=== PATIENT | male | born 1950 | race Caucasian/White ===

== ENCOUNTER 2023-12-29 09:33 | Outpatient (OUT) | payer MEDICARE, SELFPAY ==
[2023-12-29 10:19] LABS: Basophils Absolute Auto 0.1 10^3/uL (0.0-0.1); Basophils Percent Auto 0.6 % (0.2-2.0); Eosinophils Absolute Auto 0.1 10^3/uL (0.0-0.7); Eosinophils Percent Auto 1.1 % (0.9-7.0); Hematocrit 44.5 % (42.0-54.0); Hemoglobin 14.3 g/dL (14.0-18.0); Immature Granulocytes Abs Auto 0.03 10^3/uL (0.00-0.03); Immature Granulocytes Pct Auto 0.3 % (0.0-0.5); Lymphocytes Absolute Auto 3.2 10^3/uL (1.2-3.8); Lymphocytes Percent Auto 35.8 % (20.5-60.0); Mean Corpuscular HGB Conc 32.1 g/dL (29.9-35.2); Mean Corpuscular Volume 99.6 fL (80.0-94.0); Mean Platelet Volume 10.5 fL (9.5-13.5); Monocytes Absolute Auto 0.8 10^3/uL (0.3-0.8); Monocytes Percent Auto 8.5 % (1.7-12.0); Neutrophils Absolute Auto 4.8 10^3/uL (1.4-6.5); Neutrophils Percent Auto 53.7 % (43.0-75.0); Platelet Count 315 10^3/uL (150-450); Red Blood Count 4.47 10^6/uL (4.70-6.10); Red Cell Distribution Width 13.2 % (11.0-15.0); White Blood Count 8.9 10^3/uL (4.0-11.0)
[2023-12-29 10:59] LABS: Estimated Average Glucose 120 mg/dL; Glycohemoglobin A1C 5.8 % (4.5-6.2)
[2023-12-29 12:00] LABS: Alanine Aminotransferase 60 U/L (16-63); Albumin Globulin Ratio 1.2; Alkaline Phosphatase 63 U/L (46-116); Anion Gap 13.7; Aspartate Amino Transferase 22 U/L (15-37); BUN Creatinine Ratio 20.2; Bilirubin Total 0.4 mg/dL (0.2-1.0); Carbon Dioxide 27.9 mmol/L (21.0-32.0); Chloride 104 mmol/L (98-107); Chol HDL Ratio 6.2; Cholesterol 260 mg/dL (<=200); Estimated GFR (African America >60 (>=60); Estimated GFR (Non-African Ame >60 (>=60); Free T3 2.42 pg/mL (2.18-3.98); Globulin 3.4 g/dL; Glucose 104 mg/dL (74-106); HDL Cholesterol 42 mg/dL (40-60); Potassium 4.6 mmol/L (3.5-5.1); Sodium 141 mmol/L (136-145); Thyroid Stimulating Hormone 1.645 uIU/mL (0.358-3.740); Total Protein 7.4 g/dL (6.4-8.2); Triglycerides 171 mg/dL (<=150); VLDL CHOLESTEROL 34.2 mg/dL
== END 2023-12-29 09:34 | disposition home or self-care (01) ==
LOC: LAB 09:36
PROVIDERS: PCP Family Medicine; Visit Provider Family Medicine
DX: R53.83 Other fatigue (principal); R06.00 Dyspnea, unspecified; D64.9 Anemia, unspecified; E55.9 Vitamin D deficiency, unspecified; R73.09 Other abnormal glucose; E78.5 Hyperlipidemia, unspecified; I11.0 Hypertensive heart disease with heart failure
CPT/HCPCS: 36415; 80053; 80061; 82306; 83036; 83540; 83880; 84436; 84443; 84481; 85025

== ENCOUNTER 2024-03-21 07:21 | Outpatient (OUT) | payer MEDICARE, SELFPAY ==
--- NOTE | 2024-03-21 07:05 | NM_ITS ---
Patient Name: ARNALDO GARCIA MR#: [id number] : 1950 Exam Date: 03/21/2024 Ordering Doctor: DR Azar Borrego . RADIOLOGY REPORT PROCEDURE: NM PAULINE PERF SPECT REST STR COMPARISON: None. INDICATIONS: HYPERTENSION, SHORTNESS OF BREATH TECHNIQUE: Exam Description: Stress/Rest one day protocol gated SPECT Rest Imagin.5 mCi Tc-99m Cardiolite IV on 03/21/2024 Stress Imaging 30.1 mCi Tc-99m Cardiolite IV on 03/21/2024 Exercise Protocol: 0.4 mg Lexiscan given IV Heart Rate (bpm): Rest: 75 Max: 141 PMHR: 97 Blood Pressure: Rest: 132/86 Max: 182/74 Exercise Time: Minutes: 4 Seconds: 36 Stage Reached: Stage: 2 Mets 7.0 Symptoms: Rest and peak stress ECG findings were pending and the exercise portion of the study was pending per attending physician Dr. ROJAS . For more details please see separate cardiac stress test report. FINDINGS: QUALITY OF STUDY: Excellent. PERFUSION DEFECT: None. LOCATION: N/A SIZE: N/A. SEVERITY: N/A. TYPE: N/A. WALL MOTION: Normal. LV SIZE: Normal. 84 mL. TID / TCD: None; 0.8 LVEF: Normal. Calculated EF 63%. SUMMARY: Myocardial perfusion imaging study is NORMAL. CONCLUSION: 1. Normal nuclear medicine myocardial perfusion scan. Dictated by: Manuel Hutson M.D. on 03/21/2024 at 14:47 Approved by: Manuel Hutson M.D. on 03/21/2024 at 14:48
--- NOTE | 2024-03-21 07:21 | PCN_ITS ---
CARDIAC STRESS TEST Requesting Physician:? Procedure Date:? 03/21/2024 DIAGNOSIS:? Essential hypertension. METHODS:? After risks, benefits, and alternatives were explained, written informed consent was obtained.? The patient was brought to the stress lab in a resting and fasting state.? He was connected to the appropriate hemodynamic and electrocardiographic monitoring.? He underwent a Slade protocol for exercise. Following the completion of the test, he was taken to the Radiology Department for nuclear images.? He tolerated the procedure well.? There were no complications. STRESS TEST INFORMATION: The patient underwent a Slade protocol for exercise.? He exercised for 4 minutes and 36 seconds, reaching stage 2 of the Slade protocol.? 7 METS were achieved.? Resting heart rate was 75 beats per minute, increasing to a maximum of 141 beats per minute, which is 97% of maximum predicted heart rate.? Resting blood pressure was 132/86, with a maximum blood pressure of 182/74. ? ELECTROCARDIOGRAPHY: Rest EKG:? Normal sinus rhythm, normal EKG. During exercise and recovery:? Non-specific upsloping ST depressions are seen.? No significant arrhythmias are noted. FINAL IMPRESSIONS: 1.? No ischemic EKG changes seen on treadmill Cardiolite stress test. 2.? Appropriate heart rate and blood pressure response to exercise. 3.? Sommer treadmill score is 4.4.? Estimated one year mortality is 1.3 to 2.9%.? Risk category is moderate risk.? Angiography may be indicated. 4.? Nuclear images are to be read, interpreted, and reported in a separate dictation. [facility]OS[facility]ITALTaqueria
== END 2024-03-21 07:22 | disposition home or self-care (01) ==
LOC: NM 07:21
PROVIDERS: PCP Family Medicine; Visit Provider Family Medicine
DX: I10 Essential (primary) hypertension (principal); R07.9 Chest pain, unspecified; R00.2 Palpitations; E11.9 Type 2 diabetes mellitus without complications; R06.02 Shortness of breath; I95.9 Hypotension, unspecified
CPT/HCPCS: 78452; 93017; A9500

== ENCOUNTER 2024-06-26 09:30 | Outpatient (OUT) | payer MEDICARE, SELFPAY ==
[2024-06-26 17:16] LABS: Prostate Specific Antigen Scrn 2.24 ng/mL (<=4.00)
== END 2024-06-26 09:31 | disposition home or self-care (01) ==
LOC: LAB 09:31
PROVIDERS: PCP Family Medicine; Visit Provider Family Medicine
DX: Z12.5 Encounter for screening for malignant neoplasm of prostate (principal)
CPT/HCPCS: 36415; G0103

== ENCOUNTER 2024-11-09 10:02 | Outpatient (OUT) | payer MEDICARE, SELFPAY ==
--- OUTSIDE RECORDS SUMMARY | 2024-11-09 10:09 | XMS_ITS | CCD ---
Author Organization [facility] Care Team Providers Care Ground Hand Name Role Phone Ti Borrego Primary Care Provider TI BORREGO Primary Care Unavailable BRAXTON BASSETT Attending Unavailable TI BORREGO Referring Unavailable TI BORREGO Primary Care Unavailable ANJALI, DR LUKE Attending Unavailable HOY, DR LUKE Admitting Unavailable HOY, DR LUKE Primary Care Unavailable HOY, DR LUKE Consulting Unavailable YI, DR JONES Reed Consulting Unavailable PONCHO GARCIA Consulting Unavailable ANJALI, DR LUKE Attending Unavailable HOY, DR LUKE Primary Care Unavailable HOY, DR LUKE Consulting Unavailable HOY, DR LUKE Admitting Unavailable ZIEBER, DR OJNES Reed Consulting Unavailable ANJALI, DR LUKE Primary Care Unavailable RADHAY, DR LUKE Attending Unavailable HOY, DR LUKE Admitting Unavailable HOY, DR LUKE Consulting Unavailable WEST, DR JAZMÍN Aleman Consulting Unavailable ZIEBER, DR JONES Reed Consulting Unavailable ANJALI, DR LUKE Attending Unavailable ANJALI, DR LUKE Primary Care Unavailable HOY, DR LUKE Admitting Unavailable HOY, DR LUKE Attending Unavailable HOY, DR LUKE Admitting Unavailable HOY, DR LUKE Primary Care Unavailable HOY, DR LUKE Consulting Unavailable ZIEBER, DR OJNES Reed Consulting Unavailable HOY, DR LUKE Consulting Unavailable ANJALI, DR LUKE Attending Unavailable RADHAY, DR LUKE Primary Care Unavailable RADHAY, DR LUKE Admitting Unavailable ZIEBER, DR JONES Reed Consulting Unavailable MARIANNE, DR HOPKINS Consulting Unavailable JAZMÍN LOPEZ Consulting Unavailable ANJALI, DR LUKE Attending Unavailable RADHAY, DR LUKE Admitting Unavailable ANJALI, DR LUKE Primary Care Unavailable HOJohanna, DR LUKE Consulting Unavailable MICHEL BOYKIN Consulting Unavailable ANJALI, DR LUKE Attending Unavailable HOY, DR LUKE Admitting Unavailable HOY, DR LUKE Primary Care Unavailable DR TI BORREGO Consulting Unavailable WEST, DR JAZMÍN Aleman Consulting Unavailable DR TI BORREGO Attending Unavailable DR TI BORREGO Admitting Unavailable ANJALI, DR LUKE Primary Care Unavailable ANJALI, DR LUKE Consulting Unavailable Ti Borrego Primary Care Physician Ti Borrego Referring Unavailable SHAYYL, Oral Reed Attending Unavailable NILL, Oral Reed Attending Unavailable NILL, Oral R Referring Unavailable NILL, Oral R Attending Unavailable NILL, Oral R Admitting Unavailable Allergies Allergy Classification Reported Allergen(s) Allergy Type Date of Onset Reaction(s) Facility (1 source) black walnut pollen extract Drug Allergy 2 [facility] Repository (1 source) rosuvastatin Drug Allergy 1 [facility] Repository (4 sources) Bee/Wasp/Ant venom; Translations: [Bee Stings] Drug allergy Edema (finding) [facility] (4 sources) HMG-CoA reductase inhibitor; Translations: [statins] Propensity to adverse reactions to drug Muscle pain (finding) [facility] [place] Medications Current Medications Medication Drug Class(es) Dates Sig (Normalized) Sig (Original) Acetaminophen / HYDROcodone (1 source) Opioid Agonist Start: 11-09-2020 hydrocodone-acetamin ophen (NORCO) tablet 5-325 mg (STARTER PACK) aspirin 325 mg delayed release oral tablet (3 sources) Platelet Aggregation Inhibitor, Nonsteroidal Anti-inflammatory Drug Start: 04-15-2023 take 2 tablets by mouth twice daily aspirin 325 mg Oral EC Tab 650 mg = 2 tab(s), Oral, BID, Refills(s) 0, Prophylaxis Start Date: 04/15/23 Status: Ordered cholecalciferol 5000 unt oral tablet (1 source) Vitamin D Cholecalciferol (VITAMIN D3) 125 MCG (5000 UT) TABS Take by mouth 0 Active ciprofloxacin 500 mg oral tablet (1 source) Quinolone Antimicrobial take 1 tablet by mouth twice daily ciprofloxacin (CIPRO) 500 MG tablet Take 500 mg by mouth 2 times daily 0 Active diclofenac sodium 75 mg delayed release oral tablet (4 sources) Nonsteroidal Anti-inflammatory Drug Start: 04-15-2023 take 1 tablet by mouth twice daily diclofenac sodium 75 mg Oral EC Tab 75 mg = 1 tab(s), Oral, BID, Refills(s) 0, Pain Start Date: 04/15/23 Status: Ordered take 1 tablet by mouth twice janet ly diclofenac (VOLTAREN) 75 MG EC tablet Take 75 mg by mouth 2 times daily 0 Active doxazosin 4 mg oral tablet (3 sources) alpha-Adrenergic Lizette Start: 04-15-2023 take 1 tablet by mouth twice daily doxazosin 4 mg Tab 4 mg = 1 tab(s), Oral, BID, Refills(s) 0, High blood pressure Start Date: 04/15/23 Status: Ordered enalapril maleate 20 mg oral tablet (4 sources) Angiotensin Converting Enzyme Inhibitor Start: 04-29-2016 take 20 mg by mouth twice daily enalapril 20 mg, Oral, BID, Refills(s) 0, High blood pressure Start Date: 04/29/16 Status: Ordered take 1 tablet by mouth once azael y enalapril (VASOTEC) 20 MG tablet Take 20 mg by mouth daily 0 Active ibuprofen 600 mg oral tablet (2 sources) Nonsteroidal Anti-inflammatory Drug Start: 11-09-2020 take 1 tablet by mouth four times daily as needed for pain ibuprofen (ADVIL;MOTRIN) 600 MG tablet Take 1 tablet by mouth 4 times daily as needed for Pain 30 tablet 1 11/09/2020 Active Start: 05-17-2016 take 1 tablet by mildred th three times daily at mealtime ibuprofen (ADVIL;MOTRIN) 600 MG tablet Take 1 tablet by mouth 3 times daily (with meals) for 7 days 20 tablet 0 05/17/2016 Active loratadine 10 mg oral tablet (2 sources) Start: 04-15-2023 take 1 tablet by mouth once daily loratadine 10 mg Tab 10 mg = 1 tab(s), Oral, Daily, Refills(s) 0, Allergy symptoms Start Date: 04/15/23 Status: Ordered metroNIDAZOLE 500 mg oral tablet (1 source) Nitroimidazole Antimicrobial take 1 tablet by mouth three times daily metroNIDAZOLE (FLAGYL) 500 MG tablet Take 500 mg by mouth 3 times daily 0 Active omeprazole 20 mg oral tablet (4 sources) Proton Pump Inhibitor Start: 04-29-2016 take 20 mg by mouth once daily omeprazole 20 mg, Oral, Daily, Refills(s) 0, Control of stomach acid Start Date: 04/29/16 Status: Ordered take 1 capsule by mouth once janet ly omeprazole (PRILOSEC) 20 MG delayed release capsule Take 20 mg by mouth daily 0 Active tiZANidine 2 mg oral tablet (1 source) Central alpha-2 Adrenergic Agonist Start: 11-09-2020 take 1 tablet by mouth every eight hours as needed for pain tiZANidine (ZANAFLEX) 2 MG tablet Take 1 tablet by mouth every 8 hours as needed (muscular pain) 10 tablet 0 11/09/2020 Active Completed/Discontinued Medications Medication Drug Class(es) Dates Sig (Normalized) Sig (Original) cyclobenzaprine hydrochloride 10 mg oral tablet (2 sources) Muscle Relaxant Start: 11-09-2020 End: 11-09-2020 cyclobenzaprine (FLEXERIL) tablet 10 mg Start: 11-09-2020 End: 11-09-2020 cyclobenzaprine (FLEXERIL) 1 0 MG tablet 2 ml fentaNYL 0.05 mg/ml injection (1 source) Opioid Agonist Start: 11-09-2020 End: 11-09-2020 fentaNYL (SUBLIMAZE) injection 50 mcg Start: 11-09-2020 End: 11-09-2020 fentaNYL (SUBLIMAZE) injecti on 50 mcg 2 ml ondansetron 2 mg/ml injection (1 source) Serotonin-3 Receptor Antagonist Start: 11-09-2020 End: 11-09-2020 ondansetron (ZOFRAN) injection 4 mg Start: 11-09-2020 End: 11-09-2020 ondansetron (ZOFRAN) injecti on 4 mg Problems Active Problems Problem Classification Problem Date Documented Date Episodic/Chronic Abdominal hernia (1 source) Diaphragmatic hernia; Translations: [Diaphragmatic hernia without obstruction or gangrene] Onset: 05-27-2023 Episodic Abdominal pain (1 source) Flank pain; Translations: [Flank pain] Episodic Allergic reactions (3 sources) Eczema 04-15-2023 Episodic Cardiac dysrhythmias (3 sources) Palpitations 04-15-2023 Episodic Diabetes mellitus without complication (3 sources) Diabetes mellitus 04-15-2023 Chronic Disorders of lipid metabolism (4 sources) Pure hypercholesterolemia, unspecified; Translations: [Hyperlipidemia] Onset: 07-13-2021 04-15-2023 Chronic Diverticulosis and diverticulitis (3 sources) Diverticular disease 04-15-2023 Chronic Esophageal disorders (16 sources) Gastro-esophageal reflux disease without esophagitis; Translations: [Delarosa's esophagus] Onset: 07-13-2021 Chronic Essential hypertension (4 sources) Essential (primary) hypertension; Translations: [Essential hypertension] Onset: 12-02-2021 04-15-2023 Chronic Gastroduodenal ulcer (except hemorrhage) (3 sources) Ulcer of duodenum 04-15-2023 Chronic Heart valve disorders (1 source) Rheumatic tricuspid insufficiency; Translations: [RHEUMATIC TRICUSPID INSUFFICIENCY] Onset: 12-02-2021 Chronic Hemorrhoids (2 sources) Residual hemorrhoidal skin tags; Translations: [Residual hemorrhoidal skin tags] Onset: 05-27-2023 Episodic Other connective tissue disease (1 source) Myofascial pain; Translations: [Muscle pain, myofascial] Episodic Other connective tissue disease (4 sources) Impingement syndrome of right shoulder; Translations: [IMPINGEMENT SYNDROME RIGHT SHOULDER] Onset: 06-10-2022 Episodic Other connective tissue disease (1 source) Complete rotator cuff tear or rupture of right shoulder, not specified as traumatic; Translations: [CMPL ROT CUFF TEAR/RUPT RT SHOULDR] Onset: 06-14-2022 Episodic Other nervous system disorders (3 sources) Thoracic outlet syndrome 04-15-2023 Chronic Other nutritional; endocrine; and metabolic disorders (1 source) Obesity, unspecified; Translations: [OBESITY UNSPECIFIED] Onset: 07-13-2021 Chronic Other nutritional; endocrine; and metabolic disorders (1 source) Body mass index (BMI) 37.0-37.9, adult; Translations: [BODY MASS INDEX BMI 37.0-37.9 ADULT] Onset: 07-13-2021 Chronic Other nutritional; endocrine; and metabolic disorders (3 sources) Body mass index 30+ - obesity 05-04-2023 Chronic Other nutritional; endocrine; and metabolic disorders (3 sources) Obesity 05-04-2023 Chronic Other screening for suspected conditions (not mental disorders or infectious disease) (3 sources) Other specified abnormal findings of blood chemistry; Translations: [Screening for malignant neoplasm of colon done] Onset: 07-13-2021 Episodic Pneumonia (except that caused by tuberculosis or sexually transmitted disease) (1 source) Pneumonia (except that caused by tuberculosis or sexually transmitted disease); Translations: [PNEUMONIA D/T CORONAVIRUS DIS 2019] Onset: 07-13-2021 Spondylosis; intervertebral disc disorders; other back problems (11 sources) Other cervical disc degeneration, unspecified cervical region; Translations: [Other intervertebral disc degeneration, lumbosacral region] Onset: 10-01-2021 Chronic Unclassified (3 sources) LOW BACK PAIN, UNSPECIFIED; Translations: [LOW BACK PAIN, UNSPECIFIED] Onset: 10-01-2021 Unclassified (3 sources) Osteopenia 04-15-2023 Unclassified (6 sources) Patient encounter status 07-31-2019 Viral infection (3 sources) COVID-19; Translations: [COVID-19] Onset: 07-04-2021 Past or Other Problems Problem Classification Problem Date Documented Da te Episodic/Chronic Deficiency and other anemia (1 source) Iron deficiency anemia, unspecified; Translations: [IRON DEFICIENCY ANEMIA UNSPECIFIED] Onset: 07-13-2021 Episodic Diabetes mellitus without complication (1 source) Hyperglycemia, unspecified; Translations: [HYPERGLYCEMIA UNSPECIFIED] Onset: 07-13-2021 Episodic Fluid and electrolyte disorders (1 source) Hypo-osmolality and hyponatremia; Translations: [HYPO-OSMOLALITY AND HYPONATREMIA] Onset: 07-13-2021 Episodic Other aftercare (1 source) Other penitentiary (current) drug therapy; Translations: [OTH PRISON CURRENT DRUG THERAPY] Onset: 07-13-2021 Episodic Other bone disease and musculoskeletal deformities (4 sources) Disorder of bone, unspecified; Translations: [DISORDER OF BONE UNSPECIFIED] Onset: 10-02-2021 Episodic Other connective tissue disease (1 source) Other shoulder lesions, right shoulder; Translations: [OTHER SHOULDER LESIONS RT SHOULDER] Onset: 03-05-2022 Episodic Other lower respiratory disease (4 sources) Shortness of breath; Translations: [SHORTNESS OF BREATH] Onset: 12-01-2021 Episodic Other lower respiratory disease (1 source) Acute respiratory distress; Translations: [ACUTE RESPIRATORY DISTRESS] Onset: 07-13-2021 Episodic Other lower respiratory disease (1 source) Hypoxemia; Translations: [HYPOXEMIA] Onset: 07-13-2021 Episodic Other non-traumatic joint disorders (4 sources) Pain in left shoulder; Translations: [PAIN IN LEFT SHOULDER] Onset: 10-26-2021 Episodic Other non-traumatic joint disorders (5 sources) Pain in right hip; Translations: [PAIN IN RIGHT HIP] Onset: 09-21-2021 Episodic Residual codes; unclassified (1 source) Edema, unspecified; Translations: [EDEMA UNSPECIFIED] Onset: 12-02-2021 Episodic Screening and history of mental health and substance abuse codes (1 source) Personal history of nicotine dependence; Translations: [PERSONAL HISTORY OF NICOTINE DEPEND] Onset: 07-13-2021 Episodic Unclassified (1 source) LOW BACK PAIN, UNSPECIFIED; Translations: [LOW BACK PAIN, UNSPECIFIED] Onset: 08-25-2021 Results Test Name Value Interpretation Reference Range Facility IntraOperative Documentson 0 06-14-2023 IntraOperative Documents [id number]:127 Normal [facility] Reminderson 06-09-2023 Reminders - From: Viji Barboza LPN To: N - Clinical; Sent: 06/09/2023 11:52:57 EDT Show up: 04/26/2026 07:00:00 EDT Subject: EGD recall Due Date/Time: 05/27/2026 07:00:00 EDT Reminder/Recall Patient due to repeat EGD 05/27/2026. Dr. Contreras request this be done with Dr. Yusuf due to long standing history of Delarosa's esophagus. Normal [facility] Ambulatory Visit Summaryon 0 06-08-2023 Ambulatory Visit Summary ARNALDO GARCIA Vadim :1950 Visit Date:06/08/2023 Ambulatory Visit Instructions Your Care Team Attending Physician - RADHA RICHARDSON, Oral Reed Primary Care Physician - Ti Borrego MD This Is Your Medications List aspirin (aspirin 325 mg Oral EC Tab) diclofenac (diclofenac sodium 75 mg Oral EC Tab) doxazosin (doxazosin 4 mg Tab) enalapril omeprazole Procedures Performed Colonoscopy (05/27/2023), Esophagogastroduodenoscopy (05/27/2023), EGD - Esophagogastroduodenoscopy (08/07/2019), EGD - Esophagogastroduodenoscopy (04/29/2016), EGD - Esophagogastroduodenoscopy (02/15/2014), EGD - Esophagogastroduodenoscopy (08/03/2013), EGD - Esophagogastroduodenoscopy (06/01/2013), Appendectomy, Carpal tunnel release, Hemorrhoidectomy. Medications What How Much When Instructions Unchanged aspirin (aspirin 325 mg Oral EC Tab) 2 Tablets By Mouth 2 times a day Unchanged diclofenac (diclofenac sodium 75 mg Oral EC Tab) 1 Tablets By Mouth 2 times a day Unchanged doxazosin (doxazosin 4 mg Tab) 1 Tablets By Mouth 2 times a day Unchanged enalapril 20 Milligram By Mouth 2 times a day Unchanged omeprazole 20 Milligram By Mouth Every day Allergies Bee Stings (Edema, unknown) statins (Myalgia) Problems Ongoing - Any problem that you are currently receiving treatment for. 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,adult Cervical disc disorder Chronic GERD Colon cancer screening Diabetes mellitus Disorder of lumbar disc Diverticular disease Eczema Essential hypertension Gastroesophageal reflux disease Hyperlipidemia Obesity Osteopenia Palpitations Screening for malignant neoplasm of colon Thoracic outlet syndrome Ulcer of duodenum Normal [facility] General Surgery Office/Clini c Noteon 06-08-2023 General Surgery Office/Clinic Note Chief Complaint post operative follow up HPI Staff 12 day post operative follow up post colonoscopy and EGD with esophageal biopsy. History of Present Illness s/p EGD and colonoscopy; doing well, no pain or blood in stools; patient with 5 cm hiatal hernia and C1M2 Delarosa's esophagus; bx just with squamous mucosa, no ulcerations or nodular areas; normal colon. Review of Systems ROS - Provider Constitutional: no fever, no sweats, no weight loss. Eyes: no glasses, no blurred vision, no visual loss. ENMT: no dentures, no hoarseness, no swallowing difficulties, no hearing loss, no ear infection(s), no nose bleeds. Cardiovascular: normal blood pressure, no chest pain, regular heartbeat, no heart murmur. Respiratory: no shortness of breath, no cough, no asthma, no wheezing. Gastrointestinal: no nausea, no vomiting, no diarrhea, no constipation, no blood in stool, no change in bowel habits, no abdominal pain, no hepatitis. Genitourinary: no kidney stones, no urine infection, no dysuria. Musculoskeletal: no pain, no weakness. Skin: no changing moles, no rash, no skin lumps. Neurologic: no seizures, no epilepsy, no headache. Psychiatric: no emotional or psychiatric problem. Heme/Lymph: no bleeding problems, no anemia, no blood clots, no transfusions. Allergy/Immunologic: no swollen lymph nodes/glands, no IV drug abuse. Other: Additional ROS info: Except as noted in the above Review of Systems and in the History of Present Illness, all other systems have been reviewed and are negative or noncontributory. Assessment/Plan 1. 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 2. Chronic GERD (K21.9: Gastro-esophageal reflux disease without esophagitis) controlled; continue PPI 3. Colon cancer screening (Z12.11: Encounter for screening for malignant neoplasm of colon) likely no need for further screening colonoscopies given patient's age. Follow-up No qualifying data available Problem List/Past Medical History Ongoing 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,adult Cervical disc disorder Chronic GERD Colon cancer screening Diabetes mellitus Disorder of lumbar disc Diverticular disease Eczema Essential hypertension Gastroesophageal reflux disease Hyperlipidemia Obesity Osteopenia Palpitations Screening for malignant neoplasm of colon Thoracic outlet syndrome Ulcer of duodenum Historical No qualifying data Procedure/Surgical History Colonoscopy (05/27/2023), Esophagogastroduodenoscopy (05/27/2023), EGD - Esophagogastroduodenoscopy (08/07/2019), EGD - Esophagogastroduodenoscopy (04/29/2016), EGD - Esophagogastroduodenoscopy (02/15/2014), EGD - Esophagogastroduodenoscopy (08/03/2013), EGD - Esophagogastroduodenoscopy (06/01/2013), Appendectomy, Carpal tunnel release, Hemorrhoidectomy. Medications aspirin 325 mg Oral EC Tab, 650 mg= 2 tab(s), Oral, BID diclofenac sodium 75 mg Oral EC Tab, 75 mg= 1 tab(s), Oral, BID doxazosin 4 mg Tab, 4 mg= 1 tab(s), Oral, BID enalapril, 20 mg, Oral, BID omeprazole, 20 mg, Oral, Daily Allergies Bee Stings (Edema, unknown) statins (Myalgia) Social History Alcohol - Denies Alcohol Use, 07/31/2019 Substance Abuse - Denies Substance Abuse, 07/31/2019 Tobacco - Denies Tobacco Use, 07/31/2019 Former smoker, quit more than 30 days ago Tobacco Use:. Never Smokeless Tobacco Use:. Cigarettes, 2 per day. Started age 18.0 Years. Stopped age 34 Years., 05/04/2023 Family History Diabetes mellitus type 2: Mother. Esophageal cancer: Father. Heart disease: Brother. [facility] Comment on above: Result Comment: Elec tronically Signed By: RADHA RICHARDSON, Oral Reed\.br\Date and Time Signed: 06/08/23 14:22 EDT Postoperative Documentson Postoperative Documents [id number]:127 [facility] Consenton 05-30-2023 Consent [id number]:127 [facility] Discharge Instructionson Discharge Instructions [id number]:127 [facility] Main OR Intraoperative Recor don 05-30-2023 Main OR Intraoperative Record IntraOp Document Type FT Summary Primary Physician: Oral CONTRERAS MD Finalized Date/Time: 05/30/23 11:52:32 Pt. Name: ARNALDO GARCIA/Sex: 1950 Male Med Rec #: [id number] Physician: Oral CONTRERAS MD Financial #: [id number] Pt. Type: O Room/Bed: Endo 03/19 Admit/Disch: 05/27/23 08:12:53 - 05/27/23 09:44:00 Institution: Case Times FT Entry 1 Patient Times In Room 05/27/23 08:43:00 Out Room 05/27/23 09:12:00 Procedure Times Start 05/27/23 08:48:00 Stop 05/27/23 09:09:00 Anesthesia Times Start 05/27/23 08:43:00 Stop 05/27/23 09:12:00 Time at [place] 05/27/23 09:04:00 Last Modified By: Noemí Marr RN 05/27/23 09:12:54 General Comments: EGD end time at 0856./AUSTINRN Colonoscopy start time at 0858./AUSTINRN 05/30/23 Chart opened to review and send charges [facility] Case Attendance FT Entry 1 Entry 2 Entry 3 Case Attendee Sridhar Ivory DO, Case Stevens, Jose Cooper Role Performed Anesthesiologist of Scrub - Primary Scrub - Primary Record Time In 05/27/23 08:43:00 05/27/23 08:43:00 05/27/23 08:43:00 Time Out 05/27/23 09:12:00 05/27/23 09:12:00 05/27/23 09:12:00 Procedure EGD AND COLONOSCOPY(.) EGD AND COLONOSCOPY(.) EGD AND COLONOSCOPY(.) Comments Last Modified By: Tejinder CHERY, Noemí Marr RN, Noemí Hutchison RN 05/27/23 09:12:56 05/27/23 09:12:56 05/27/23 09:12:56 Entry 4 Entry 5 Case Attendee RADHA RICHARDSON, Oral Marr RN, Noemí Vicente Role Performed Surgeon - Primary Anesthesiologist of Record Time In 05/27/23 08:43:00 05/27/23 08:43:00 Time Out 05/27/23 09:12:00 05/27/23 09:12:00 Procedure EGD AND COLONOSCOPY(.) EGD AND COLONOSCOPY(.) Comments Last Modified By: Tejinder CHERY, Noemí Hutchison RN 05/27/23 09:12:56 05/27/23 09:12:56 Perioperative Protocols FT Pre-Care Text: Implements protective measures prior to operative or invasive procedure, confirms identity before the operative or invasive procedure, verifies operative procedure, surgical site, and laterality Entry 1 Procedure(s) EGD AND COLONOSCOPY(.) Patient Identity Birthday, ID Band Verified (select at Check, Patient least 2): Participation Consents / H and P Anesthesia Consent, Operative Site N/A Verified HandP, Surgery/Procedure Marking Verified Consent Surgical Site No Laterality Verified n/a Verified Procedure Verified Yes Correct Patient Yes Position Verified Availability Equipment, Medication Prep Dry n/a Verified (If Applicable) PreOp Antibiotic No Time Out Sridhar Ivory DO, Case A, Given Participants Jose Basilio, Shahana Stevens, RADHA RICHARDSON, Tejinder Rubi RN, Kristin N Time Out Complete 05/27/23 08:46:00 Outcomes Met? Yes Last Modified By: Noemí Marr RN 05/27/23 08:46:38 Post-Care Text: The patient is free from signs and symptoms of injury caused by extraneous objects Allergy Information FT Pre-Care Text: Verifies allergies Entry 1 Allergies Reviewed? Yes Allergies Reviewed Self/Patient With Outcomes Met? Yes Last Modified By: Noemí Marr RN 05/27/23 08:46:46 Post-Care Text: The patient received appropriate medication(s) safely administered during the perioperative period Surgical Procedures FT Entry 1 Procedure Description Procedure EGD AND COLONOSCOPY Modifiers . Surgeon Description EGD with esophagus biopsies for Delarosa's. Colonoscopy Primary Procedure Yes Primary Surgeon Oral CONTRERAS MD Start 05/27/23 08:48:00 Stop 05/27/23 09:09:00 Anesthesia Type General Surgical Service General Wound Class 2 - Clean-Contaminated Last Modified By: Noemí Marr RN 05/27/23 09:09:15 General Case Data FT Pre-Care Text: Classifies surgical wound, implements aseptic technique, initiates traffic control Entry 1 Case Information OR ENDO 1 FT Case Level Level 2 Wound Class 2 - Clean-Contaminated Specialty General ASA Class 3 Preop Diagnosis Screening, Delarosa's Postop Same As Preop No esophagus Postop Diagnosis EGD- Delarosa's Outcomes Met? Yes esophagus, hiatal hernia. Colonoscopy- External hemorrhoids. Last Modified By: Noemí Marr RN 05/27/23 09:09:25 Post-Care Text: The patient is free from signs and symptoms of infection Skin Assessment (Pre Procedure) FT Pre-Care Text: Implements protective measures to prevent skin/ tissue injury due to thermal or mechanical sources Evaluates for signs and symptoms of physical injury to skin and tissue Entry 1 Skin Integrity Intact, [place], Warm, and Skin Abnormality No Dry Outcomes Met? Yes Last Modified By: Noemí Marr RN 05/27/23 08:48:57 Post-Care Text: The patient is free from signs and symptoms of injury caused by extraneous objects Patient Positioning FT Pre-Care Text: Identifies physical alterations that require additional precautions for procedure-specific positioning, verifies presence of prosthetics or corrective devices, positions the pat (more content not included)... [facility] [facility] Progress Note-Physicianon Progress Note-Physician Patient: Tanvi GARCIA Age: 72 years Sex: Male : 1950 Associated Diagnoses: None Author: Case Waller Jr, DO Preoperative Information Anesthesia Preop Info: Time patient last ate or drank 05/27/2023 00:00:00. Anesthesia history: Patient history: None. Family history+: None. Informed consent: Signed by patient. Re-evaluation prior to induction: Initial evaluation reviewed: No significant change. Review of Systems Eye: Negative except as documented in history of present illness. Ear/Nose/Mouth/Throat: Negative except as documented in history of present illness. Respiratory: Negative except as documented in history of present illness. Cardiovascular: Negative except as documented in history of present illness. Musculoskeletal: Negative except as documented in history of present illness. Neurologic: Negative except as documented in history of present illness. Health Status Allergies: Allergic Reactions (Selected) Severity Not Documented Bee Stings- Unknown and edema. Nonallergic Reactions (Selected) Severity Not Documented Statins- Myalgia. 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 BMI 34.0-34.9,adult / SNOMED CT 121257358 / Confirmed Cervical disc disorder / SNOMED CT 4351863611 / Confirmed Diabetes mellitus / SNOMED CT 880453280 / Confirmed Disorder of lumbar disc / SNOMED CT 3632986444 / Confirmed Diverticular disease / SNOMED CT 4358603425 / Confirmed Eczema / SNOMED CT 20078580 / Confirmed Essential hypertension / SNOMED CT 08432750 / Confirmed Gastroesophageal reflux disease / SNOMED CT 322154418 / Confirmed Chronic GERD / SNOMED CT 644816915 / Confirmed Hyperlipidemia / SNOMED CT 98123480 / Confirmed Obesity / SNOMED CT 0748761668 / Confirmed Osteopenia / SNOMED CT 102727866 / Confirmed Palpitations / SNOMED CT 272595519 / Confirmed Colon cancer screening / SNOMED CT 660816034 / Confirmed Screening for malignant neoplasm of colon / SNOMED CT 265487057 / Confirmed Thoracic outlet syndrome / SNOMED CT 868537547 / Confirmed Ulcer of duodenum / SNOMED CT 4347824443 / Confirmed Histories Procedure history: EGD - Esophagogastroduodenoscopy ([id number]) on 08/07/2019 at 69 Years. EGD - Esophagogastroduodenoscopy ([id number]) on 04/29/2016 at 65 Years. EGD - Esophagogastroduodenoscopy (9317695711) on 02/15/2014 at 63 Years. EGD - Esophagogastroduodenoscopy (7685303859) on 08/03/2013 at 63 Years. EGD - Esophagogastroduodenoscopy (5787260594) on 06/01/2013 at 62 Years. Hemorrhoidectomy (49065476). Appendectomy (936336611). Carpal tunnel release (456247058). Social History Social & Psychosocial Habits Alcohol 07/31/2019 Risk Assessment: Denies Alcohol Use Substance Abuse 07/31/2019 Risk Assessment: Denies Substance Abuse Tobacco 07/31/2019 Risk Assessment: Denies Tobacco Use 05/04/2023 Tobacco Use: Former smoker, quit more Smokeless tobacco use: Never Type: Cigarettes Tobacco use per day: 2 Started at age: 18.0 Years Stopped at age: 34 Years . Physical Examination Airway: Mallampati classification: II (soft palate, fauces, uvula visible). Respiratory: adequate air exchange. Cardiovascular: Regular rhythm. Plan [place] [employer] (ASA) physical status classification: Class III. Anesthetic Preoperative Plan: Anesthesia General. [facility] Comment on above: Result Comment: Elec tronically Signed By: Case Waller Jr, DO\.br\Date and Time Signed: 05/30/23 13:22 EDT Progress Note-Physician Patient: Tanvi GARCIA Age: 72 years Sex: Male : 1950 Associated Diagnoses: None Author: Case Waller Jr, DO Postoperative Information Postoperative disposition: Postoperative disposition: To PACU. Optimetrix number: Optimetrix number [id number]. Anesthetic utilized: General. Health Status Allergies: Allergic Reactions (Selected) Severity Not Documented Bee Stings- Unknown and edema. Nonallergic Reactions (Selected) Severity Not Documented Statins- Myalgia. Physical Examination Vital Signs 05/27/2023 9:40 EDT Heart Rate Monitored 89 bpm Respiratory Rate Monitored 18 br/min Systolic Blood Pressure 128 mmHg Diastolic Blood Pressure 87 mmHg SpO2 95 % 05/27/2023 9:30 EDT Heart Rate Monitored 98 bpm Respiratory Rate Monitored 20 br/min Systolic Blood Pressure 126 mmHg Diastolic Blood Pressure 89 mmHg SpO2 96 % 05/27/2023 9:25 EDT Heart Rate Monitored 95 bpm Respiratory Rate Monitored 18 br/min Systolic Blood Pressure 116 mmHg Diastolic Blood Pressure 80 mmHg SpO2 94 % 05/27/2023 9:20 EDT Heart Rate Monitored 92 bpm Respiratory Rate Monitored 15 br/min Systolic Blood Pressure 116 mmHg Diastolic Blood Pressure 83 mmHg SpO2 92 % 05/27/2023 9:14 EDT Temperature Temporal Artery 36.5 DegC Heart Rate Monitored 92 bpm Respiratory Rate Monitored 14 br/min Systolic Blood Pressure 120 mmHg Diastolic Blood Pressure 80 mmHg SpO2 93 % Pain Assessment: Controlled. General: Awake, Alert, Appropriate. Respiratory: Adequate air exchange. Cardiovascular: Stable, Normal peripheral perfusion. Neurological: Normal sensory function, Normal motor function. Assessment Anesthetic outcome No anesthetic complications noted. Adequate pain relief. able to void without difficulty, able to ambulate with assist, tolerating PO intake, no N/V. Review / Management Condition: Stable. Plan Transfer/Discharge: Transfer/Discharge Discharge when meets criteria ( To home ). [facility] Comment on above: Result Comment: Elec tronically Signed By: Case Waller Jr, DO\eufemia\Date and Time Signed: 05/30/23 13:22 EDT Reminderson 05-30-2023 Reminders - From: Viji Barboza LPN To: GSN - Clinical; Sent: 05/30/2023 10:56:37 EDT Show up: 04/26/2033 07:00:00 EDT Subject: colonoscopy recall Due Date/Time: 05/27/2033 07:00:00 EDT Reminder/Recall Patient due for screening colonoscopy 05/27/2033. [facility] Colonoscopy Procedure Report on 05-27-2023 Colonoscopy Procedure Report Patient: ARNALDO GARCIA Age: 72 years Sex: Male : 1950 Associated Diagnoses: None Author: Oral CONTRERAS MD Pre-Procedure Procedure Date 05/27/2023 09:10:00 . Procedure Type: Colonoscopy. Procedure provider Performed by Oral CONTRERAS MD. Referred by Ti Borrego MD. Current history and physical Documented on chart. Colorectal neoplasm risk assessment Average risk. Informed Consent After discussing the rationale, risks and benefits, and alternatives to this procedure, the patient provided signed consent for the procedure. Pre-procedure diagnosis: Age 50 years or over. ASA Classification: Class III. . Monitoring: See anesthesia record. . Procedure The procedure was performed in the hospital. See anesthesia record for sedation given during procedure. Rectal exam was performed and abnormal revealing grade II internal hemorrhoids. The patient was positioned starting in the left lateral decubitus position. Endoscope type used was an adult-size. The endoscope was lubricated then introduced through the anus. The scope was advanced to the cecum verified by photographing the appendiceal orifice, verified by photographing the ileocecal valve. No difficulties encountered during the procedure. The bowel preparation quality was good and was adequate (see polyps greater than or equal to 6 millimeters). The patient tolerated the procedure well. Findings The bowel was normal throughout the extent examined. Images Procedure images: ileocecal valve appendiceal orifice . Post-Procedure Complications: none. Estimated blood loss: none. Specimens: none. Devices/ implants: none left in place. Impression and Plan Diagnosis: Internal and external hemorrhoids without complication (AKH98-KG K64.4, Discharge, Medical). Course: Progressing as expected. Recommendations: Repeat colonoscopy:: In 10 years. Follow-up:: 1-2 weeks. Diet:: Regular diet. Medication resumption:: Continue current medications. Return to activities:: After 24 hours. Education and Follow-up: Counseled: Family. [facility] Comment on above: Other Comment: Yasmin carey Attachment - attachment storage system not supported [id number] Can be viewed in source systemMissing Attachment - attachment storage system not supported [id number] Can be viewed in source system Consent for Treatmenton -0 Consent for Treatment [id number]:127 Normal [facility] Discharge Instructionson Discharge Instructions ARNALDO GARCIA :1950 Visit Date:05/27/2023 Inpatient Discharge Instructions Your Care Team Admitting Physician - Oral CONTRERAS MD Referring Physician - Oral CONTRERAS MD Reason for Your Visit SCREENING FOR COLON CANCER AND BARRETTS ESOPHAGUS Your Diagnosis Delarosa's esophagus Gastro-esophageal reflux disease with esophagitis, without bleeding Hiatal hernia with GERD and esophagitis Internal and external hemorrhoids without complication Other hemorrhoids Tests Performed Pathology Tissue Exam -- Results Pending -- Please visit your patient portal for your results or contact your primary care physician. This Is Your Medications List aspirin (aspirin 325 mg Oral EC Tab) diclofenac (diclofenac sodium 75 mg Oral EC Tab) doxazosin (doxazosin 4 mg Tab) enalapril loratadine (loratadine 10 mg Tab) omeprazole Procedure History Colonoscopy (05/27/2023), Esophagogastroduodenoscopy (05/27/2023), EGD - Esophagogastroduodenoscopy (08/07/2019), EGD - Esophagogastroduodenoscopy (04/29/2016), EGD - Esophagogastroduodenoscopy (02/15/2014), EGD - Esophagogastroduodenoscopy (08/03/2013), EGD - Esophagogastroduodenoscopy (06/01/2013), Appendectomy, Carpal tunnel release, Hemorrhoidectomy. What to do next Instructions From Your Doctor Event Name Event Result Discharge Activity Resume normal activities in 24 hours, Arrange for a responsible adult supervision for 24 hours Discharge Restrictions No driving for 24 hrs, Do not operate machinery or tools, Do not make important decisions for 24 hours, Do not drink alcoholic beverages for 24 hours Discharge Diet(s) Regular Call Your Doctor For Persistent or heavy bleeding, Temperature above 101.5 degrees, Redness, swelling, or pus at operative site, Severe pain at the operative site, Persistent vomiting Pharmacy Information Other: [facility] Discharge Instructions Discharge Instructions New Follow Up Appointments after Discharge Follow Up with Oral CONTRERAS When: Within 1 to 2 weeks Where: [address], [address] [place] [id number]- [facility] (1) Medications What How Much When Instructions Next Dose Unchanged aspirin (aspirin 325 mg Oral EC Tab) 2 Tablets By Mouth 2 times a day Unchanged diclofenac (diclofenac sodium 75 mg Oral EC Tab) 1 Tablets By Mouth 2 times a day Unchanged doxazosin (doxazosin 4 mg Tab) 1 Tablets By Mouth 2 times a day Unchanged enalapril 20 Milligram By Mouth 2 times a day Unchanged loratadine (loratadine 10 mg Tab) 1 Tablets By Mouth Every day Unchanged omeprazole 20 Milligram By Mouth Every day Test Results No qualifying data available. Allergies Bee Stings (Edema, unknown) statins (Myalgia) Problems Ongoing - Any problem that you are currently receiving treatment for. 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,adult Cervical disc disorder Chronic GERD Colon cancer screening Diabetes mellitus Disorder of lumbar disc Diverticular disease Eczema Essential hypertension Gastroesophageal reflux disease Hyperlipidemia Obesity Osteopenia Palpitations Screening for malignant neoplasm of colon Thoracic outlet syndrome Ulcer of duodenum Education Materials Colonoscopy Care After Surgery Please read the instructions outlined below and refer to this sheet in the next few weeks. These discharge instructions provide you with general information on caring for yourself after you leave the hospital. Your doctor may also give you specific instructions. While your treatment has been planned according to the most current medical practices available, unavoidable complications occasionally occur. If you have any problems or questions after discharge, please call your doctor. ACTIVITY You may resume your regular activity, but move at a slower pace for the next 24 hours. Take frequent rest periods for the next 24 hours. Walking will help get rid of the air and reduce the bloated feeling in your abdomen (belly). No driving for 24 hours (because of the anesthesia (medicine) used during the test). You may shower. Do not sign any important legal documents or operate any machinery for 24 hours (because of the anesthesia used during the test). NUTRITION Drink plenty of fluids. You may resume your normal diet as instructed by your doctor. Begin with a light meal and progress to your normal diet. Heavy or fried foods are harder to digest and may make you feel nauseated (sick to your stomach). Avoid alcoholic beverages for 24 hours or as instructed. MEDICATIONS You may resume your normal medications unless your doctor tells you otherwise. WHAT YOU CAN EXPECT TODAY Some feelings of bloating in the abdomen. Passage of more gas than usual. Spotting of blood in your stool or on the toilet paper. FOLLOW-UP Your doctor will discuss the results of your test with you. SEEK IMMEDIATE MEDICAL ATTENTION IF (more content not included)... [facility] Comment on above: Result Comment: Elec tronically Signed By: Laci CHERY, Marian Meng\.br\Date and Time Signed: 05/27/23 09:18 EDT EGDon 05-27-2023 Esophagogastroduodenoscop y Patient: ARNALDO GARCIA Age: 72 years Sex: Male : 1950 Associated Diagnoses: None Author: Oral CONTRERAS MD Pre-Procedure Procedure Date 05/27/2023 09:10:00 . Procedure Type: Esophagogastroduodenoscopy with biopsy. Procedure provider Performed by Oral CONTRERAS MD. Referred by Ti Borrego MD. Current history and physical Documented on chart. Informed Consent After discussing the rationale, risks and benefits, and alternatives to this procedure, the patient provided signed consent for the procedure. Pre-procedure diagnosis: Delarosa's esophagus. ASA Classification: Class III. . Monitoring: See anesthesia record. . Procedure The procedure was performed in the hospital. See anesthesia record for sedation given during procedure. The patient was positioned starting in the left lateral decubitus position. Endoscope type used was an adult-size, introduced orally, advanced to the 2nd portion of the duodenum. No difficulty was encountered during the procedure. Views were excellent. Squamocolumnar junction biopsies were taken randomly. The patient tolerated the procedure well. Findings The affected area was not inflamed. [place] classification: C 1, M 2. Multiple biopsies were collected. A hiatal hernia was identified 5 cm in length, from 36 cm from the incisors, to 41 cm from the incisors. The hernia is described as a sliding hernia. Examination of the duodenum revealed a normal duodenum. Images Procedure images: hiatal hernia . Post-Procedure Complications: none. Estimated blood loss: 1 milliliters. Specimens: sent to pathology. Devices/ implants: none left in place. Impression and Plan EGD: Diagnosis: Hiatal hernia with GERD and esophagitis (WHD22-GE K44.9, Discharge, Medical), Gastro-esophageal reflux disease with esophagitis, without bleeding (RCF11-AI K21.00, Discharge, Medical), Delarosa's esophagus (MAK72-SH K22.70, Discharge, Medical). Course: Progressing as expected. Education and Follow-up: Counseled: Family. [facility] Comment on above: Other Comment: Yasmin carey Attachment - attachment storage system not supported [id number] Can be viewed in source system Inpatient Patient Summaryon 05-27-2023 Inpatient Patient Summary (Inserted Imag e. Unable to display) [address] [address] [facility] Clinical Discharge Instructions PERSON INFORMATION Name: ARNALDO GARCIA PHYSICIANS Admitting Physician: Oral CONTRERAS MD Attending Physician: Oral CONTRERAS MD PCP: Ti Borrego MD Discharge Diagnosis: Delarosa's esophagus; Gastro-esophageal reflux disease with esophagitis, without bleeding; Hiatal hernia with GERD and esophagitis; Internal and external hemorrhoids without complication; Other hemorrhoids Comment: PATIENT EDUCATION INFORMATION Instructions: Medication Leaflets: Follow up: With: Address: When: Oral CONTRERAS [address] [place] [address], [address], [place] [id number] Business (1) Within 1 to 2 weeks MEDICATION LIST Medications to Continue with No Changes Other Medications aspirin (aspirin 325 mg Oral EC Tab) 2 Tablets By Mouth 2 times a day. diclofenac (diclofenac sodium 75 mg Oral EC Tab) 1 Tablets By Mouth 2 times a day. doxazosin (doxazosin 4 mg Tab) 1 Tablets By Mouth 2 times a day. enalapril 20 Milligram By Mouth 2 times a day. loratadine (loratadine 10 mg Tab) 1 Tablets By Mouth every day. omeprazole 20 Milligram By Mouth every day. Comment: [facility] Main OR PACU I Recordon Main OR PACU I Record PACU Phase I Docum ent Type FT Summary Primary Physician: Oral CONTRERAS MD Finalized Date/Time: 05/27/23 09:52:17 Pt. Name: ARNALDO GARCIA /Sex: 1950 Male Med Rec #: [id number] Physician: Oral CONTRERAS MD Financial #: [id number] Pt. Type: O Room/Bed: [facility] 03/19 Admit/Disch: 05/27/23 08:12:53 - 05/27/23 09:44:00 Institution: Case Times PACU I FT Pre-Care Text: Identifies barriers to communication and implements measures to provide psychological support Develops individualized plan of care, and ensures continuity of care Maintains patient's dignity and privacy, and maintains patient confidentiality Identifies and reports philosophical, cultural, and spiritual beliefs and values Identifies individual values and wishes concerning care Implements aseptic technique, and administers prescribed antibiotic therapy and immunizing agents as ordered Evaluates postoperative tissue perfusion Implements thermoregulation measures, and monitors body temperature Evaluates postoperative respiratory status Evaluates postoperative cardiac status Evaluates postoperative neurological status Assesses pain control, collaborated in initiating patient-controlled analgesia and implements alternative methods of pain control Verifies allergies, administers prescribed medications and solutions, evaluates response to medications Entry 1 In PACU I 05/27/23 09:14:00 Discharge from PACU 05/27/23 09:44:00 I Outcomes Met? Yes Last Modified By: Laci CHERY, Marian Meng 05/27/23 09:52:05 Post-Care Text: The patient demonstrates knowledge of the expected response to the operative or invasive procedure The patient's care is consistent with the individualized perioperative plan of care The patient's right to privacy is maintained The patient's value system, lifestyle, ethnicity, and culture are considered, respected, and incorporated into the perioperative plan of care The patient participates in decisions affecting his or her perioperative plan of care The patient is free from signs and symptoms of infection The patient has wound/tissue perfusion consistent with or improved from baseline levels established preoperatively The patient is at or returning to normothermia at the conclusion of the immediate postoperative period The patient's respiratory function is consistent with or improved from baseline levels established preoperatively The patient's cardiovascular status is consistent with or improved from baseline levels established preoperatively The patient's cardiovascular status is consistent with or improved from baseline levels established preoperatively The patient demonstrates and/or reports adequate pain control throughout the perioperative period The patient received appropriate medication(s), safely administered during the perioperative period Acuity Level PACU I FT Entry 1 Start Time 05/27/23 09:14:00 Stop Time 05/27/23 09:44:00 Acuity Level Acuity Level I Last Modified By: Marian Aguero RN 05/27/23 09:52:14 Finalized By: Marian Aguero RN Document Signatures Signed By: Marian Aguero RN 05/27/23 09:52 [facility] Main OR Preoperative Recordo n 05-27-2023 Main OR Preoperative Record Holding Area Document Type FT Summary Primary Physician: Oral CONTRERAS MD Finalized Date/Time: 05/27/23 08:22:57 Pt. Name: ARNALDO GARCIA Vadim Topete/Sex: 1950 Male Med Rec #: [id number] Physician: Oral CONTRERAS MD Financial #: [id number] Pt. Type: O Room/Bed: [facility] 03/19 Admit/Disch: 05/27/23 08:12:53 - Institution: Case Times Holding FT Pre-Care Text: Verifies consent for planned procedure, identifies individual values and wishes concerning care, includes family members in perioperative teaching Secures patient's records' belongings, and valuables, maintains patient's dignity and privacy, and maintains patient confidentiality Entry 1 In Holding 05/27/23 08:20:00 Outcomes Met? Yes Last Modified By: Liz Viveros RN 05/27/23 08:22:04 Post-Care Text: The patient participates in decisions affecting his or her perioperative plan of care The patient's right to privacy is maintained Surgery Checklist FT Entry 1 Patient Birthday, ID Band Procedure History and Physical, Identification: Check, Patient Verification: Surgical Consent, With Participation Patient NPO after Midnight: No Date/Time: 05/27/23 00:00:00 Personal Items: Glasses Personal Items glasses, clothes, shoes Comment: Limitations: n/a Complaints of Pain: No Pain Comment: denies Operative Site n/a Marking: Marked By: n/a Availability Equipment Verified: Does Patient Smoke No Patient states Yes Comment - Adult Belen- daughter postop adult Supervision supervision available Case Cancelled in No Holding Area see comments below for reason Last Modified By: Liz Viveros RN 05/27/23 08:22:55 General Comments: Pt finished colon prep before midnight, states stool is clear liquid yellow /,RN Finalized By: Liz Viveros RN Document Signatures Signed By: Liz Viveros RN 05/27/23 08:22 [facility] Monitor Recordon 05-27-2023 Monitor Record [id number]:127 [facility] Monitor Record [id number]:127 [facility] Outpatient Surgery Discharge Instructionon 05-27-2023 Outpatient Surgery Discharge Instruction [place] [id number] Patient Discharge Instructions PERSON INFORMATION Name: ARNALDO GARCIA Date of : 1950 Current Date: 05/27/2023 09:14:41 PHYSICIANS Admitting Physician: Oral CONTRERAS MD Discharge Diagnosis: Delarosa's esophagus; Gastro-esophageal reflux disease with esophagitis, without bleeding; Hiatal hernia with GERD and esophagitis; Internal and external hemorrhoids without complication; Other hemorrhoids ARNALDO GARCIA has been given the following list of follow-up instructions, prescriptions, and patient education materials: PATIENT FOLLOW-UP INFORMATION Diet: Regular Discharge Activity: Resume normal activities in 24 hours, Arrange for a responsible adult supervision for 24 hours Discharge Restrictions: No driving for 24 hrs, Do not operate machinery or tools, Do not make important decisions for 24 hours, Do not drink alcoholic beverages for 24 hours Call Your Doctor For: Persistent or heavy bleeding, Temperature above 101.5 degrees, Redness, swelling, or pus at operative site, Severe pain at the operative site, Persistent vomiting IF UNABLE TO CONTACT YOUR PHYSICIAN AND YOU FEEL IT IS AN EMERGENCY, GO TO THE NEAREST EMERGENCY ROOM OR CALL 911 IJOSE HERMAN J, have received the attached patient education materials/instructions and have verbalized understanding: May we do a follow up call? Yes No I was present when discharge instructions were given ____ Patient Signature _ Date Clinican/Nurse Signature Date Follow up: With: Address: When: [address], [address], [facility] [address] [place] [id number] Business (1) Within 1 to 2 weeks Pharmacy Information: Other: [facility] [place] You may receive a survey from [employer] asking you to rate your care experience. Your feedback is important and will help us understand what we do well and how we can improve the quality of care we provide to you, your loved ones and our community. It?s an honor to serve you. Thank you for choosing [facility] HERE ARE THE MEDICATION CHANGES THAT OCCURRED DURING YOUR HOSPITAL STAY Medications to Continue with No Changes Other Medications aspirin (aspirin 325 mg Oral EC Tab) 2 Tablets By Mouth 2 times a day. diclofenac (diclofenac sodium 75 mg Oral EC Tab) 1 Tablets By Mouth 2 times a day. doxazosin (doxazosin 4 mg Tab) 1 Tablets By Mouth 2 times a day. enalapril 20 Milligram By Mouth 2 times a day. loratadine (loratadine 10 mg Tab) 1 Tablets By Mouth every day. omeprazole 20 Milligram By Mouth every day. PATIENT EDUCATION INFORMATION Instructions: Medication Leaflets: [facility] Patient Education - Texton 0 05-27-2023 Patient Education - Text Colonoscopy Care After Surgery Please read the instructions outlined below and refer to this sheet in the next few weeks. These discharge instructions provide you with general information on caring for yourself after you leave the hospital. Your doctor may also give you specific instructions. While your treatment has been planned according to the most current medical practices available, unavoidable complications occasionally occur. If you have any problems or questions after discharge, please call your doctor. ACTIVITY You may resume your regular activity, but move at a slower pace for the next 24 hours. Take frequent rest periods for the next 24 hours. Walking will help get rid of the air and reduce the bloated feeling in your abdomen (belly). No driving for 24 hours (because of the anesthesia (medicine) used during the test). You may shower. Do not sign any important legal documents or operate any machinery for 24 hours (because of the anesthesia used during the test). NUTRITION Drink plenty of fluids. You may resume your normal diet as instructed by your doctor. Begin with a light meal and progress to your normal diet. Heavy or fried foods are harder to digest and may make you feel nauseated (sick to your stomach). Avoid alcoholic beverages for 24 hours or as instructed. MEDICATIONS You may resume your normal medications unless your doctor tells you otherwise. WHAT YOU CAN EXPECT TODAY Some feelings of bloating in the abdomen. Passage of more gas than usual. Spotting of blood in your stool or on the toilet paper. FOLLOW-UP Your doctor will discuss the results of your test with you. SEEK IMMEDIATE MEDICAL ATTENTION IF: There is more than a spotting of blood in your stool. There is abdominal distention (your abdomen is swollen). There is vomiting. You have a temperature over 101.5 F. There is abdominal pain or discomfort that is severe or gets worse throughout the day. Endoscopy Care After Procedure Please read the instructions outlined below and refer to this sheet in the next few weeks. These discharge instructions provide you with general information on caring for yourself after you leave the hospital. Your doctor may also give you specific instructions. While your treatment has been planned according to the most current medical practices available, unavoidable complications occasionally occur. If you have any problems or questions after discharge, please call your doctor. ACTIVITY ? You may resume your regular activity but move at a slower pace for the next 24 hours. ? Take frequent rest periods for the next 24 hours. ? Walking will help expel (get rid of) the air and reduce the bloated feeling in your abdomen. ? No driving for 24 hours (because of the anesthesia (medicine) used during the test). ? You may shower. ? Do not sign any important legal documents or operate any machinery for 24 hours (because of the anesthesia used during the test). NUTRITION ? Drink plenty of fluids. ? You may resume your normal diet. ? Begin with a light meal and progress to your normal diet. ? Avoid alcoholic beverages for 24 hours or as instructed by your caregiver. MEDICATIONS ? You may resume your normal medications unless your caregiver tells you otherwise. WHAT YOU CAN EXPECT TODAY ? You may experience abdominal discomfort such as a feeling of fullness or ?gas? pains. FOLLOW-UP ? Your doctor will discuss the results of your test with you. seek immediate medical attention if any of the following occur: ? Excessive nausea (feeling sick to your stomach) and/or vomiting. ? Severe abdominal pain and distention (swelling). ? Trouble swallowing. ? Temperature over 100 F (37.8? C). ? Rectal bleeding or vomiting of blood. Document Released: 04/19/2005 Document Re-Released: 02/27/2007 [employer]? Patient Information ?2009 [employer]. Gastroenterology Hemorrhoids Hemorrhoids are swollen veins that may develop: ? In the butt (rectum). These are called internal hemorrhoids. ? Around the opening of the butt (anus). These are called external hemorrhoids. Hemorrhoids can cause pain, itching, or bleeding. Most of the time, they do not cause serious problems. They usually get better with diet changes, lifestyle changes, and other home treatments. What are the causes? This condition may be caused by: ? Having trouble pooping (constipation). ? Pushing hard (straining) to poop. ? Watery poop (diarrhea). ? . ? Being very overweight (obese). ? Sitting for long periods of time. ? Heavy lifting or other activity that causes you to strain. ? Anal sex. ? Riding a bike for a long period of time. What are the signs or symptoms? Symptoms of this condition include: ? Pain. ? Itching or soreness in the butt. ? Bleeding from the butt. ? Leaking poop. ? Swelling in the area. ? One or more lumps around the opening of your butt. How is this (more content not included)... Normal [facility] Insurance Correspondenceon 0 05-20-2023 Insurance Correspondence [id number]#[id number]:127 Normal [facility] Insurance Correspondenceon 0 05-17-2023 Insurance Correspondence [id number]#[id number]:127 [facility] Consent for Procedure/Surger yon 05-05-2023 Consent for Procedure/Surgery [id number]#[id number]:127 [facility] Facesheeton 05-05-2023 Facesheet [id number]#[id number]:127 [facility] Ambulatory Visit Summaryon 0 05-04-2023 Ambulatory Visit Summary ARNALDO GARCIA :1950 Visit Date:05/04/2023 Ambulatory Visit Instructions Your Diagnosis Delarosa esophagus Chronic GERD Screening for malignant neoplasm of colon Your Care Team Attending Physician - Oral CONTRERAS MD Primary Care Physician - Ti Borrego MD Referring Physician - Ti Borrego MD This Is Your Medications List Contact prescribing physician if questions or concerns aspirin (aspirin 325 mg Oral EC Tab) diclofenac (diclofenac sodium 75 mg Oral EC Tab) doxazosin (doxazosin 4 mg Tab) enalapril loratadine (loratadine 10 mg Tab) omeprazole Procedures Performed EGD - Esophagogastroduodenoscopy (08/07/2019), EGD - Esophagogastroduodenoscopy (04/29/2016), EGD - Esophagogastroduodenoscopy (02/15/2014), EGD - Esophagogastroduodenoscopy (08/03/2013), EGD - Esophagogastroduodenoscopy (06/01/2013), Appendectomy, Carpal tunnel release, Hemorrhoidectomy. Discharge Vitals Heart Rate (Peripheral) 76 Respiratory Rate 16 Blood Pressure 128/80 Height 167.6 cm Height 66 in Weight 95.7 kg Weight 210.54 lb BMI 34.07 What to do next Scheduled Follow-Up Appointments Tuesday 9:30 AM EDT Where: [facility] Medications What How Much When Instructions Unchanged aspirin (aspirin 325 mg Oral EC Tab) 2 Tablets By Mouth 2 times a day Contact prescribing physician if questions or concerns Unchanged diclofenac (diclofenac sodium 75 mg Oral EC Tab) 1 Tablets By Mouth 2 times a day Contact prescribing physician if questions or concerns Unchanged doxazosin (doxazosin 4 mg Tab) 1 Tablets By Mouth 2 times a day Contact prescribing physician if questions or concerns Unchanged enalapril 20 Milligram By Mouth 2 times a day Contact prescribing physician if questions or concerns Unchanged loratadine (loratadine 10 mg Tab) 1 Tablets By Mouth Every day Contact prescribing physician if questions or concerns Unchanged omeprazole 20 Milligram By Mouth Every day Contact prescribing physician if questions or concerns Allergies Bee Stings (Edema, unknown) statins (Myalgia) Problems Ongoing - Any problem that you are currently receiving treatment for. 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,adult Cervical disc disorder Chronic GERD Colon cancer screening Diabetes mellitus Disorder of lumbar disc Diverticular disease Eczema Essential hypertension Gastroesophageal reflux disease Hyperlipidemia Obesity Osteopenia Palpitations Screening for malignant neoplasm of colon Thoracic outlet syndrome Ulcer of duodenum Normal [facility] Physician Referralon 023 Physician Referral [id number]#[id number]:127 Normal [facility] Physician Referralon 023 Physician Referral [id number]#[id number]:127 Normal [facility] MRI SHOULDER RT WO CONon MRI SHOULDER RT WO CON EXAMINATION: MRI SHOULDER RT WO CON HISTORY: Impingement syndrome of shoulder region ; chronic right shoulder pain since falling 5 months ago COMPARISON: No relevant comparison available. TECHNIQUE: A variety of imaging planes and parameters were utilized for visualization of suspected pathology. Imaging was performed without contrast. FINDINGS: ROTATOR CUFF REGION CUFF TENDONS: Complete tear of the superior rotator cuff with 3 cm proximal retraction. CUFF MUSCLES: Normal appearing muscles. DELTOID: No significant atrophy or tear. LONG BICEPS TENDON: No abnormal signal, attrition, or tear. LABRUM/BICEPS ANCHOR SUPERIOR: No visible labral tear or biceps anchor pathology. ANTERIOR/INFERIOR: No visible tear or attrition. POSTERIOR: No posterior labrum abnormality. CAPSULE No visible capsular laxity or thickening. AC JOINT REGION AC JOINT: Marked osteoarthropathy with moderate to marked narrowing of the underlying coracoacromial arch. AC LIGAMENTS: Normal acromioclavicular ligament. CC LIGAMENTS: Normal coracoclavicular ligaments. ACROMION: Normal horizontal (Type I) configuration. SUBACROMIAL BURSA: Marked effusion with contrast injected into the joint space filling the subacromial-subdeltoid bursa. HYALINE CARTILAGE: Thinning. No focal defect. OTHER BONES: Normal proximal humerus, glenoid, and coracoid. OTHER OBSERVATIONS: Negative. IMPRESSION: 1. Complete tear and significant retraction of the superior rotator cuff. 2. Marked degenerative changes of the acromioclavicular joint likely contributing to rotator cuff tear. Electronically authenticated by: JONES RICHMOND Date: 2022-06-10 12:28 Normal [facility] XR ARTHRO SHLD RTon 06-10-20 22 XR ARTHRO SHLD RT EXAMINATION: XR ARTH RO SHLD RT HISTORY: Impingement syndrome of shoulder region COMPARISON: XR shoulder right 03/03/2022 TECHNIQUE: An arthrogram was performed under fluoroscopic guidance using non-ionic contrast material in the usual sterile manner after obtaining informed consent. Standard level fluoroscopic mode of operation utilized. FINDINGS: JOINT: Right shoulder NEEDLE: 25 gauge, 3.5 spinal needle. MEDICATION: Approximately 8 mL injected into joint space consisting of a mixture of 10 cc normal saline, 5 cc Omnipaque-300, 5 cc 1% Xylocaine and 0.2 cc Dotarem. TECHNIQUE: Anterior approach under fluoroscopic guidance. CLINICAL: No pain following the injection (4/10 preinjection; 0/10 post injection). COMPLICATIONS: None. BONES: Narrowing of the acromioclavicular joint and small undersurface osteophytes. BURSA: No visible extension of contrast into the subacromial-subdeltoid bursa at this time. OTHER: Negative. IMPRESSION: 1. Technically successful arthrogram without complication. 2. Please see separate MRI arthrogram report. Electronically authenticated by: JONES RICHMOND Date: 2022-06-10 09:42 Normal [facility] XR FOREIGN BODY EYEon 2021 XR FOREIGN BODY EYE EXAMINATION: XR FORE IGN BODY EYE HISTORY: Foreign body in eye COMPARISON: No relevant comparison available. FINDINGS: ORBITS: Negative for a metallic foreign body. OTHER: Negative. IMPRESSION: 1. No radiopaque foreign body within the orbits. Electronically authenticated by: JONES RICHMOND Date: 2022-06-10 08:27 Normal [facility] XR CSPINE MIN 4 VIEWSon 02-17 XR CSPINE MIN 4 VIEWS EXAMINATION: XR CS PINE MIN 4 VIEWS HISTORY: Degeneration of cervical intervertebral disc ; right shoulder pain since falling 2 months ago COMPARISON: No relevant comparison available. FINDINGS: BONES: Slight reversal of the normal lordotic curvature. Mild grade 1 anterolisthesis of C3 on 4. Multilevel mild degenerative facet arthropathy, moderate at C3-C4. Mild bone encroachment on the right neural foramen at C5-C6, and left neural foramen at C3-C4 through C5-C6. DISC SPACES: Moderate narrowing C5-C6, C6-C7. PARASPINOUS: Negative. No paraspinous abnormality is seen. OTHER: Negative. IMPRESSION: 1. Multilevel moderate degenerative changes. Consider MRI for further evaluation. Electronically authenticated by: JONES RICHMOND Date: 2022-03-04 08:57 Normal [facility] XR SHOULDER RT 2V or >on XR SHOULDER RT 2V or > EXAM: XR SHOULDER RT 2V or > HISTORY: Degeneration of cervical intervertebral disc Exam: XR SHOULDER RT 2V or > Clinical Indication: Degeneration of cervical intervertebral disc. Comparison: None. FINDINGS: The 3 views of the shoulder show normal alignment at the glenohumeral joint. There are no fractures or dislocations. The acromioclavicular joint and coracoclavicular spaces are narrowed with osteophyte formation the acromion and coracoid processes appear unremarkable The visualized scapula and clavicle are unremarkable. There are no radiopaque foreign bodies or soft tissue swelling. If there is further concern, followup radiographs or MRI of the shoulder may be performed for complete assessment. IMPRESSION: 1. No fractures or dislocations of the right shoulder. Moderate arthritic changes are noted. Electronically authenticated by: PONCHO GARCIA Date: 2022-03-03 17:48 Normal [facility] ECHOCARDIO M/2D COMPLETEon 0 12-01-2021 ECHOCARDIO M/2D COMPLETE Patient: ARNALDO GARCIA Exam Date: 12/01/2021 : 1950 Gender:M Ordering : DR TI BORREGO . Admission #: [id number] Family : Order #: [id number] CLICK HERE TO VIEW EXAM ECHOCARDIOGRAM REPORT PROCEDURE: CARDIO PULMONARY ECHOCARDIO M/2D COMP INDICATIONS: Hypertension, Shortness of breath COMPARISON: None. DESCRIPTION: COMPLETE ECHOCARDIOGRAM Real-time transthoracic echocardiography with 2D, M-mode, spectral and color flow Doppler performed. QUALITY: Technical quality was good. LEFT VENTRICLE: Normal chamber size. Mild concentric left ventricular hypertrophy. Global left ventricular systolic function is normal. LV EF: Normal left ventricular ejection fraction, (>55%). DIASTOLIC: Normal diastolic function. ATRIAL SEPTUM: Inadequately seen. LEFT ATRIUM: Normal chamber size. RIGHT ATRIUM: Normal chamber size. RIGHT VENTRICLE: Normal chamber size. Normal right ventricular systolic function. TRICUSPID VALVE: Normal mobility and thickness. No stenosis with mild regurgitation. No evidence of pulmonary hypertension. RVSP 32 mmHg MITRAL VALVE: Mildly thickened with normal mobility. No evidence of mitral valve stenosis. Mild mitral annular calcification. No mitral regurgitation. AORTIC VALVE: Normal trileaflet appearance. Thickened aortic valve. Normal leaflet mobility. No evidence of aortic valve stenosis. No aortic regurgitation. AORTIC ROOT: Normal diameter and appearance. Ascending aorta is normal in size. PULMONIC VALVE: Normal thickness and mobility. No stenosis. No regurgitation. PERICARDIUM: Anterior free space; trivial effusion versus fat pad. IVC: Collapses with inspirations. CONCLUSION: Global left ventricular systolic function is normal; visually estimated ejection fraction is 55 to 60%. No wall motion abnormalities. Mild left ventricular hypertrophy. Normal diastolic function. The right ventricle is normal in size and systolic function. Mild tricuspid regurgitation. Anterior free space; trivial effusion versus fat pad. Adult Echocardiography Procedure Report Left Ventricle LVEDD (3.7 - 5.6 cm): 4.15 cm LVESD (2.2 - 4.0 cm): 2.62 cm LVIVS thickness (0.6 - 1.2 cm): 1.23 cm LVPW thickness (0.5 - 1.0 cm): 1.27 cm e': 6.91 cm/s E - e': 8.40 LVOT Area (cm2): 4.52 cm2 LVOT Diameter 2.40 cm Left Ventricular Ejection Fraction: 67.10 % Left Atrium LA Volume Index (2D A2C): 32.50 ml/m2 Left Atrium Systolic Dimension: 4.70 cm Left Atrium Systolic Area(A2C): 21.70 cm2 Left Atrium Systolic Area(A4C): 21.80 cm2 Left Atrium Systolic Volume(A2C): 02281 mm3 Left Atrium Systolic Volume(A4C): 95384 mm3 Mitral Valve MV E to A Ratio: 0.70 Mitral Valve A-Wave Peak Velocity: 86.90 cm/s Mitral Valve E-Wave Peak Velocity: 57.80 cm/s Deceleration Time: 285 ms Right Ventricle Aorta AO Root Diam: 3.90 cm Aortic Valve AoV Area (Peak Jonathon): 3.33 cm2 Peak Velocity(Antegrade Flow): 132.00 cm/s Peak Gradient(Antegrade Flow): 7 mm[Hg] Tricuspid Valve Pulmonic Valve Peak Velocity: 106.00 cm/s Peak Gradient: 4 mm[Hg] Right Atrium Dictated by: Josh Pimentel M.D. on 12/01/2021 at 13:49 Approved by: Josh Pimentel M.D. on 12/01/2021 at 13:51 Normal [facility] Complete Blood Count with Au to Diffon 11-24-2021 Basophils (Bld) [#/Vol] 0.1 10*3/uL Normal 0.0-0.1 [facility] Comment on above: Performed By: #### C BCAD, A1C #### [place] [address] Ph. [phone] Basophils/100 WBC (Bld) 1 % Normal 0-1 [facility] Comment on above: Performed By: #### C BCAD, A1C #### [place] [address] Ph. [phone] Eosinophils (Bld) [#/Vol] 0.1 10*3/uL Normal 0.0-0.5 [facility] Comment on above: Performed By: #### C BCAD, A1C #### [place] [id number] Ph. [phone] Eosinophils/100 WBC (Bld) 1 % Normal 0-5 [facility] Comment on above: Performed By: #### C BCAD, A1C #### [place] [address] Ph. [phone] Erythrocyte distribution width (RBC) [Ratio] 12.2 % Normal 11.5-14.5 [facility] Comment on above: Performed By: #### C BCAD, A1C #### [place] [address] Ph. [phone] Hematocrit (Bld) [Volume fraction] 49.2 % Normal 42.0-52.0 [facility] Comment on above: Performed By: #### C BCAD, A1C #### [place] [address] Ph. [phone] Hemoglobin (Bld) [Mass/Vol] 15.7 g/dL Normal 13.5-17.5 [facility] Comment on above: Performed By: #### C BCAD, A1C #### [address] [address] Ph. [phone] Lymphocytes (Bld) [#/Vol] 3.3 10*3/uL Normal 1.0-4.0 [facility] Comment on above: Performed By: #### C BCAD, A1C #### [place] [id number] Ph. [phone] Lymphocytes/100 WBC (Bld) 36 % Normal 20-40 [facility] Comment on above: Performed By: #### C BCAD, A1C #### [place] [address] Ph. [phone] MCH (RBC) [Entitic mass] 31.6 pg Normal 27.0-35.0 [facility] Comment on above: Performed By: #### C BCAD, A1C #### [place] [id number] Ph. [phone] MCHC (RBC) [Mass/Vol] 31.9 g/dL Low 32.0-36.0 [facility] Comment on above: Performed By: #### C BCAD, A1C #### [place] [address] Ph. [phone] MCV (RBC) [Entitic vol] 99 fL Normal 80-100 [facility] Comment on above: Performed By: #### C BCAD, A1C #### [place] [address] Ph. [phone] Monocytes (Bld) [#/Vol] 0.8 10*3/uL Normal 0.3-1.0 [facility] Comment on above: Performed By: #### C BCAD, A1C #### [place] [address] Ph. [phone] Monocytes/100 WBC (Bld) 9 % Normal 1-15 [facility] Comment on above: Performed By: #### C BCAD, A1C #### [place] [address] Ph. [phone] Neutrophils (Bld) [#/Vol] 4.8 10*3/uL Normal 1.8-7.7 [facility] Comment on above: Performed By: #### C BCAD, A1C #### [place] [address] Ph. [phone] Neutrophils/100 WBC (Bld) 53 % Normal 50-70 [facility] Comment on above: Performed By: #### C BCAD, A1C #### [place] [id number] Ph. [phone] Platelet mean volume (Bld) [Entitic vol] 10.6 fL Normal 9.4-12.3 [facility] Comment on above: Performed By: #### C BCAD, A1C #### [address] [address] Ph. [phone] Platelets (Bld) [#/Vol] 351 10*3/uL Normal 150-450 [facility] Comment on above: Performed By: #### C BCAD, A1C #### [address] [address] Ph. [phone] RBC (Bld) [#/Vol] 4.97 10*6/uL Normal 4.70-6.10 [facility] Comment on above: Performed By: #### C BCAD, A1C #### [place] [id number] Ph. [phone] WBC (Bld) [#/Vol] 9.1 10*3/uL Normal 3.7-11.0 [facility] Comment on above: Performed By: #### C BCAD, A1C #### [address] [address] Ph. [phone] Comprehensive Metabolic Pane fredo 11-24-2021 Albumin [Mass/Vol] 4.5 g/dL Normal 3.5-5.0 [facility] Comment on above: Performed By: #### C MP, PSA, LIPD #### [address] [address] Ph. [phone] ALP [Catalytic activity/Vol] 62 U/L Normal 38-126 [facility] Comment on above: Performed By: #### C MP, PSA, LIPD #### [address] [address] Ph. [phone] ALT [Catalytic activity/Vol] 23 U/L Normal 0-50 [facility] Comment on above: Performed By: #### C MP, PSA, LIPD #### [place] [id number] Ph. [phone] AST [Catalytic activity/Vol] 21 U/L Normal 17-59 [facility] Comment on above: Performed By: #### C MP, PSA, LIPD #### [place] [id number] Ph. [phone] Bilirubin [Mass/Vol] 0.5 mg/dL Normal 0.2-1.3 [facility] Comment on above: Performed By: #### C MP, PSA, LIPD #### [place] [address] Ph. [phone] Calcium [Mass/Vol] 9.5 mg/dL Normal 8.4-10.2 [facility] Comment on above: Performed By: #### C MP, PSA, LIPD #### [place] [id number] Ph. [phone] Chloride [Moles/Vol] 104 mmol/L Normal 98-107 [facility] Comment on above: Performed By: #### C MP, PSA, LIPD #### [address] [address] Ph. [phone] CO2 [Moles/Vol] 31 mmol/L Normal 22-32 [facility] Comment on above: Performed By: #### C MP, PSA, LIPD #### [address] [address] Ph. [phone] Creatinine [Mass/Vol] 0.92 mg/dL Normal 0.66-1.25 [facility] Comment on above: Performed By: #### C MP, PSA, LIPD #### [address] [address] Ph. [phone] GFR/1.73 sq M.predicted among non-blacks MDRD (S/P/Bld) [Vol rate/Area] 82 mL/min/{1.73_m2} Normal >60 [facility] Comment on above: Result Comment: Stag e 1 Kidney damage (e.g., protein in the urine) with normal GFR >=90\X0D0A\Stage 2 Kidney damage with mild decrease in GFR 60-89\X0D0A\Stage 3a Moderate decrease in GFR 45-59\X0D0A\Stage 3b Moderate decrease in GFR 30-44\X0D0A\Stage 4 Severe reduction in GFR 15-29\X0D0A\Stage 5 Kidney failure <15 Performed By: #### C MP, PSA, LIPD #### [place] [address] Ph. [phone] Glucose [Mass/Vol] 116 mg/dL High 65-100 [facility] Comment on above: Performed By: #### C MP, PSA, LIPD #### [place] [address] Ph. [phone] Potassium [Moles/Vol] 5.2 mmol/L High 3.6-5.0 [facility] Comment on above: Performed By: #### C MP, PSA, LIPD #### [place] [address] Ph. [phone] Protein [Mass/Vol] 7.3 g/dL Normal 6.3-8.2 [facility] Comment on above: Performed By: #### C MP, PSA, LIPD #### [place] [address] Ph. [phone] Sodium [Moles/Vol] 141 mmol/L Normal 135-145 [facility] Comment on above: Performed By: #### C MP, PSA, LIPD #### [place] [address] Ph. [phone] Urea nitrogen [Mass/Vol] 21 mg/dL High 9-20 [facility] Comment on above: Performed By: #### C MP, PSA, LIPD #### [place] [id number] Ph. [phone] Hemoglobin A1Con 11-24-2021 EAG 135 mg/dL Normal [facility] Comment on above: Result Comment: Sandi mated Average Glucose is a caluculated value from Hemoglobin A1C and is customer relations representative of the average blood glucose level in the last 2-3 month period. Performed By: #### C BCAD, A1C #### [place] [address] Ph. [phone] HbA1c (Bld) [Mass fraction] 6.3 % High 4.0-6.0 [facility] Comment on above: Result Comment: [place] Diabetes Association guidelines indicate that patients with HgbA1C in the range of 5.7-6.4% are at increased risk for development of diabetes, and intervention by lifestyle modification may be beneficial. HgbA1C greater than or equal to 6.5% is considered diagnostic of diabetes. Performed By: #### C BCAD, A1C #### [place] [address] Ph. [phone] INSULIN, SERUMon 11-24-2021 Insulin 14.8 uIU/mL Normal <=19.6 [facility] Comment on above: Order Comment: [facility] performed at: [facility], [facility], [address] [place] [address], , [employer]: Josh Flood MD PhD\X0D0A\[facility] Collection Date/Time: [id number]\X0D0A\[facility] Results Received Date/Time: [id number]\X0D0A\[facility] Reported Date/Time: [id number] Result Comment: \X0D 0A\Risk Category:\X0D0A\Optimal < or = 19.6\X0D0A\Moderate NA\X0D0A\High >19.6\X0D0A\ \X0D0A\Adult cardiovascular event risk category cut\X0D0A\points (optimal, moderate, high) are based on\X0D0A\[facility] population data from 08/2011.\X0D0A\ \X0D0A\This insulin assay shows strong cross-reactivity for\X0D0A\some insulin analogs (lispro, aspart, and glargine)\X0D0A\and much lower cross-reactivity with others (determir,\X0D0A\glulisine).\X0D0A\ Performed By: #### O [id number] #### [place] [address] Ph. [phone] Lipid Panelon 11-24-2021 Cholesterol [Mass/Vol] 257 mg/dL High 100-200 [facility] Comment on above: Result Comment: <200 mg/dL is recommended cholesterol level. Performed By: #### C JADE PSA, LIPD #### [place] [id number] Ph. [phone] Cholesterol in HDL [Mass/Vol] 45 mg/dL Normal >40 [facility] Comment on above: Performed By: #### C JADE PSA, LIPD #### [address] [address] Ph. [phone] Cholesterol in LDL [Mass/Vol] 178 mg/dL High 20-100 [facility] Comment on above: Performed By: #### C JADE PSA, LIPD #### [address] [address] Ph. [phone] Cholesterol.total/Cholest lucie in HDL [Mass ratio] 6 {ratio} High 1-5 [facility] Comment on above: Performed By: #### C JADE, PSA, LIPD #### [address] [address] Ph. [phone] Triglyceride [Mass/Vol] 169 mg/dL High 10-150 [facility] Comment on above: Performed By: #### C MP, PSA, LIPD #### [place] [id number] [address] [phone] CREATININEon 10-02-2021 Creatinine [Mass/Vol] 0.99 mg/dL Normal 0.66-1.25 [facility] Comment on above: Performed By: #### C RENEE #### [facility] [address] [place] [address] Dr. Michelle Garcia EGFR-AF BELGIAN >60 Normal >=60 [facility] Comment on above: Performed By: #### C RENEE #### [facility] [address] [place] [address] Dr. Michelle Garcia EGFR-NON AF BELGIAN >60 Normal >=60 [facility] Comment on above: Performed By: #### C RENEE #### [facility] [address] [place] [address] Dr. Michelle Garcia MRI HIP RT W CONon MRI HIP RT W CON EXAM: MRI HIP RT W C ON 20 mL Dotarem. HISTORY: The patient is a 71-year-old male. Follow-up right femoral head lesion. COMPARISON: Comparison is made to radiographs of the right hip obtained on 08/25/2021 and to a non-contrast enhanced MRI of the right hip obtained on 09/21/2021. TECHNIQUE: Small [id number] images were obtained of the right hip: Coronal fat-suppressed T1 pre and post intravenous contrast; axial fat-suppressed T1 pre and post intravenous contrast. FINDINGS: This current study confirms the findings of the previous MRI and earlier radiographs the presence of a chondroid appearing lesion within the inferior medial quadrant of the right femoral head. There is heterogeneous contrast enhancement of this lesion. No other contrast enhancement is seen within the proximal right femur or acetabulum. There is focal contrast enhancement of the insertion of the right gluteus medius tendon into the greater trochanter of the proximal right femur, seen on coronal image 15 and axial image 16. The appearance is that of a partial tear of the insertion of the right gluteus medius tendon. There is not a complete rupture or retraction of the gluteus muscle or tendon. No other contrast enhancement is seen within the soft tissues within or around the right hip joint. There is no synovial enhancement within the right hip joint. IMPRESSION: 1. Partial tear of the insertion of the right gluteus medius tendon. It is possible that this is the cause of the patient's right hip pain. 2. 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 3. It is notoriously difficult to distinguish an enchondroma from a low-grade chondrosarcoma using only imaging studies. 4. Comparison with any prior outside imaging studies which include the right hip would be extremely helpful to determine the stability of the contralateral lesion. 5. As all chondrosarcomas, even low-grade chondrosarcomas, are painful, it would be most useful to attempt to clinically determine if the patient's symptoms are arising from the gluteus medius tendon or from the femoral head itself. It may be useful to perform a lidocaine injection at the site of the gluteus medius tendon partial tear, and if this causes temporary relief of the patient's symptoms, that would support the diagnosis that the patient's symptoms are arising from the tendon and not from the chondroid lesion. Electronically authenticated by: MICHEL BOYKIN Date: 2021-10-02 20:20 Normal [facility] MRI HIP RT WO CONon 09-21-19 22 MRI HIP RT WO CON EXAMINATION: MRI HIP RT WO CON HISTORY: Pain in right hip joint COMPARISON: No relevant comparison available. TECHNIQUE: A comprehensive examination was performed utilizing a variety of imaging planes and imaging parameters to optimize visualization of suspected pathology. Images were performed without contrast. FINDINGS: FEMORAL HEAD: No acute fracture or avascular necrosis. Identified along the inferior margin of the femoral head extending to but not definitively through the cortex is a 1.8 x 1.5 x 1.9 cm area of heterogeneous signal abnormality demonstrating primarily decreased T1, T2 and increased STIR signal ACETABULUM: Normal. No fracture or significant arthropathy. OTHER BONES: Normal appearance of the visualized portion of the pelvis. LABRUM: Normal appearance for a patient in this age group, with no visible tear. EFFUSIONS: None. No synovitis or loose bodies. BURSAE: Normal. No evidence of iliopsoas or trochanteric bursitis. TENDONS: Normal. Normal gluteus tendons, iliopsoas tendon, and hamstring origin. MUSCLES: Normal. No tear or strain. No inappropriate atrophy. OTHER: Mildly enlarged heterogeneous prostate gland measuring 4.9 x 3.9 cm . Left inguinal hernia containing mesenteric fat IMPRESSION: 1.9 cm mixed signal lesion inferior right femoral head. MRI with contrast is recommended to evaluate enhancement characteristics Mildly enlarged heterogeneous prostate gland Electronically authenticated by: JAZMÍN GA Date: 2021-09-21 14:29 Normal [facility] XR FOREIGN BODY EYEon 2021 XR FOREIGN BODY EYE EXAMINATION: XR FORE IGN BODY EYE HISTORY: Foreign body in eye COMPARISON: No relevant comparison available. FINDINGS: ORBITS: Negative for a metallic foreign body. OTHER: Negative. IMPRESSION: 1. No metallic foreign body within the orbits. Electronically authenticated by: JONES RICHMOND Date: 2021-09-21 12:52 Normal [facility] XR SACRUM_COCCYXon XR SACRUM_COCCYX EXAMINATION: XR LSPI NE MIN 4 VIEWS, XR SACRUM_COCCYX HISTORY: Low back pain radiating into right hip and leg for one week; no known injury COMPARISON: No relevant comparison available. FINDINGS: BONES: Mild degenerative facet arthropathy L4-5, L5-S1. No fracture, spinal listhesis, or lesion of the lumbar spine. 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 DISC SPACES: Mild narrowing L3-4. Moderate-marked narrowing L5-S1. PARASPINOUS: Heterogeneously calcified lesion within right femoral head. SACRUM: No fracture, disruption of the sacral ala line, or cortical irregularity. COCCYX: No fracture or suspicious alignment. SOFT TISSUES: No widening of the sacroiliac joints. No radiopaque foreign body. OTHER: IMPRESSION: 1. No acute bone abnormality. 2. L5-S1 moderate-marked degenerative disc disease, along with mild degenerative changes at other levels. 3. Unremarkable sacrum and coccyx. 4. Right femoral head bone lesion; nonspecific but suggestive of a benign enchondroma. See report from right hip radiograph performed today. Electronically authenticated by: JONES RICHMOND Date: 2021-08-25 16:07 Normal [facility] BNPon 07-08-2021 Natriuretic peptide B (Bld) [Mass/Vol] 73.0 pg/mL Normal <=900.0 [facility] Comment on above: Performed By: #### C RP, BNP, CMP #### [facility] [address] [place] [address] Dr. Michelle Garcia CBC AUTO DIFFon 07-08-2021 BASO # 0.0 103/ul Normal 0.0-0.1 [facility] Comment on above: Performed By: #### C RP, BNP, CMP #### [facility] [address] [place] [address] Dr. Michelle Garcia Basophils/100 WBC (Bld) 0.1 % Critically low 0.2-2.0 [facility] Comment on above: Performed By: #### C RP, BNP, CMP #### [facility] [address] [place] [address] Dr. Michelle Garcia EO # 0.0 103/ul Normal 0.0-0.7 [facility] Comment on above: Performed By: #### C RP, BNP, CMP #### [facility] [address] [place] [address] Dr. Michelle Garcia Eosinophils/100 WBC (Bld) 0.0 % Critically low 0.9-7. 0 [facility] Comment on above: Performed By: #### C RP, BNP, CMP #### [facility] [address] [place] [address] Dr. Michelle Garcia Erythrocyte distribution width (RBC) [Ratio] 12.4 % Normal 11.0-15.0 [facility] Comment on above: Performed By: #### C RP, BNP, CMP #### [facility] [address] [place] [address] Dr. Michelle Garcia Hematocrit (Bld) [Volume fraction] 43.2 % Normal 42.0-54.0 [facility] Comment on above: Performed By: #### C RP, BNP, CMP #### [facility] [address] [place] [address] Dr. Michelle Garcia Hemoglobin (Bld) [Mass/Vol] 14.4 g/dL Normal 14.0-18.0 [facility] Comment on above: Performed By: #### C RP, BNP, CMP #### [facility] [address] [place] [address] [address] Michelle Garcia IG # 0.06 10e3/ul Critically high 0.00-0.03 [facility] Comment on above: Performed By: #### C RP, BNP, CMP #### [facility] [address] [place] [address] [address] Michelle Garcia IG % 0.7 % Critically high 0.0-0.5 [facility] Comment on above: Performed By: #### C RP, BNP, CMP #### [facility] [address] [place] [address] Dr. Michelle Garcia LYMPH # 1.2 103/ul Normal 1.2-3.8 [facility] Comment on above: Performed By: #### C RP, BNP, CMP #### [facility] [address] [place] [address] Dr. Michelle Garcia Lymphocytes/100 WBC (Bld) 14.0 % Critically low 20.5-6 0.0 [facility] Comment on above: Performed By: #### C RP, BNP, CMP #### [facility] [address] [place] [address] Dr. Michelle Garcia MANUAL DIFF REQ NO Normal [facility] Comment on above: Performed By: #### C RP, BNP, CMP #### [facility] [address] [place] [address] Dr. Michelle Garcia MCH (RBC) [Entitic mass] 31.6 pg Normal 25.9-34.0 [facility] Comment on above: Performed By: #### C RP, BNP, CMP #### [facility] [address] [place] [address] Dr. Michelle Garcia MCHC (RBC) [Mass/Vol] 33.3 g/dL Normal 29.9-35.2 [facility] Comment on above: Performed By: #### C RP, BNP, CMP #### [facility] [address] [place] [address] Dr. Michelle Garcia MCV (RBC) [Entitic vol] 94.9 fL Critically high 80.0-94 .0 [facility] Comment on above: Performed By: #### C RP, BNP, CMP #### [facility] [address] [place] [address] Dr. Michelle Garcia MONO # 0.7 103/ul Normal 0.3-0.8 [facility] Comment on above: Performed By: #### C RP, BNP, CMP #### [facility] [address] [place] [address] Dr. Michelle Garcia Monocytes/100 WBC (Bld) 8.5 % Normal 1.7-12.0 [facility] Comment on above: Performed By: #### C RP, BNP, CMP #### [facility] [address] [place] [address] Dr. Michelle Garcia NEUT # 6.6 103/ul Critically high 1.4-6.5 [facility] Comment on above: Performed By: #### C RP, BNP, CMP #### [facility] [address] [place] [address] Dr. Michelle Garcia Neutrophils/100 WBC (Bld) 76.7 % Critically high 43.0- 75.0 [facility] Comment on above: Performed By: #### C RP, BNP, CMP #### [facility] [address] [place] [address] Dr. Michelle Garcia Platelet mean volume (Bld) [Entitic vol] 10.3 fL Normal 9.5-13.5 [facility] Comment on above: Performed By: #### C RP, BNP, CMP #### [facility] [address] [place] [address] Dr. Michelle Garcia PLT 347 103/ul Normal 150-450 [facility] Comment on above: Performed By: #### C RP, BNP, CMP #### [facility] [address] [place] [address] Dr. Michelle Garcia RBC 4.55 106/ul Critically low 4.70-6.10 [facility] Comment on above: Performed By: #### C RP, BNP, CMP #### [facility] [address] [place] [address] Dr. Michelle Garcia WBC 8.6 103/ul Normal 4.0-11.0 [facility] Comment on above: Performed By: #### C RP, BNP, CMP #### [facility] [address] [place] [address] Dr. Michelle Garcia CRPon 07-08-2021 CRP [Mass/Vol] mg/L Normal <=1.0 [facility] Comment on above: Performed By: #### C RP, BNP, CMP #### [facility] [address] [place] [address] Dr. Michelle Garcia PROF 14(COMP METB)on 021 Albumin [Mass/Vol] 3.1 g/dL Critically low 3.5-5.0 [facility] Comment on above: Performed By: #### C RP, BNP, CMP #### [facility] [address] [place] [address] Dr. Michelle Garcia Albumin/Globulin [Mass ratio] 0.8 {ratio} Normal [facility] Comment on above: Performed By: #### C RP, BNP, CMP #### [facility] [address] [place] [address] Dr. Michelle Garcia ALP [Catalytic activity/Vol] 52 U/L Normal 38-126 [facility] Comment on above: Performed By: #### C RP, BNP, CMP #### [facility] [address] [place] [address] Dr. Michelle Garcia ALT [Catalytic activity/Vol] 110 U/L Critically high 21-72 [facility] Comment on above: Performed By: #### C RP, BNP, CMP #### [facility] [address] [place] [address] Dr. Michelle Garcia Anion gap [Moles/Vol] 12.8 mmol/L Normal [facility] Comment on above: Performed By: #### C RP, BNP, CMP #### [facility] [address] [place] [address] Dr. Michelle Garcia AST [Catalytic activity/Vol] 47 U/L Normal 17-59 [facility] Comment on above: Performed By: #### C RP, BNP, CMP #### [facility] [address] [place] [address] Dr. Michelle Garcia Bilirubin [Mass/Vol] 0.5 mg/dL Normal 0.2-1.3 [facility] Comment on above: Performed By: #### C RP, BNP, CMP #### [facility] [address] [place] [address] Dr. Michelle Garcia Calcium [Mass/Vol] 8.0 mg/dL Critically low 8.4-10.2 [facility] Comment on above: Performed By: #### C RP, BNP, CMP #### [facility] [address] [place] [address] Dr. Micehlle Garcia Chloride [Moles/Vol] 101 mmol/L Normal 98-107 [facility] Comment on above: Performed By: #### C RP, BNP, CMP #### [facility] [address] [place] [address] Dr. Michelle Garcia CO2 [Moles/Vol] 25.9 mmol/L Normal 22.0-30.0 [facility] Comment on above: Performed By: #### C RP, BNP, CMP #### [facility] [address] [place] [address] Dr. Michelle Garcia Creatinine [Mass/Vol] 0.87 mg/dL Normal 0.66-1.25 [facility] Comment on above: Performed By: #### C RP, BNP, CMP #### [facility] [address] [place] [address] Dr. Michelle Garcia EGFR-AF BELGIAN >60 Normal >=60 [facility] Comment on above: Performed By: #### C RP, BNP, CMP #### [facility] [address] [place] [address] Dr. Michelle Garcia EGFR-NON AF BELGIAN >60 Normal >=60 [facility] Comment on above: Performed By: #### C RP, BNP, CMP #### [facility] [address] [place] [address] Dr. Michelle Garcia Globulin (S) [Mass/Vol] 3.8 g/dL Normal T [facility] Comment on above: Performed By: #### C RP, BNP, CMP #### [facility] [address] [place] [address] Dr. Michelle Garcia Glucose [Mass/Vol] 150 mg/dL Critically high 74-106 [facility] Comment on above: Performed By: #### C RP, BNP, CMP #### [facility] [address] [place] [address] Dr. Michelle Garcia Potassium [Moles/Vol] 3.7 mmol/L Normal 3.4-5.0 [facility] Comment on above: Performed By: #### C RP, BNP, CMP #### [facility] [address] [place] [address] Dr. Michelle Garcia Protein [Mass/Vol] 6.9 g/dL Normal 6.1-8.2 [facility] Comment on above: Performed By: #### C RP, BNP, CMP #### [facility] [address] [place] [address] Dr. Michelle Garcia Sodium [Moles/Vol] 136 mmol/L Critically low 137-145 [facility] Comment on above: Performed By: #### C RP, BNP, CMP #### [facility] [address] [place] [address] Dr. Michelle Garcia Urea nitrogen [Mass/Vol] 18.0 mg/dL Normal 9.0-20.0 [facility] Comment on above: Performed By: #### C RP, BNP, CMP #### [facility] [address] [place] [address] Dr. Michelle Garcia Urea nitrogen/Creatinine [Mass ratio] 20.7 mg/mg Normal [facility] Comment on above: Performed By: #### C RP, BNP, CMP #### [facility] [address] [place] [address] Dr. Michelle Garcia BNPon 07-07-2021 Natriuretic peptide B (Bld) [Mass/Vol] 47.0 pg/mL Normal <=900.0 [facility] Comment on above: Performed By: #### H STROPN #### [facility] [address] [place] [address] Dr. Michelle Garcia CBC AUTO DIFFon 07-07-2021 BASO # 0.0 103/ul Normal 0.0-0.1 [facility] Comment on above: Performed By: #### C BC #### [facility] [address] [place] [address] Dr. Michelle Garcia Basophils/100 WBC (Bld) 0.1 % Critically low 0.2-2.0 [facility] Comment on above: Performed By: #### C BC #### [facility] [address] [place] [address] Dr. Michelle Garcia EO # 0.0 103/ul Normal 0.0-0.7 [facility] Comment on above: Performed By: #### C BC #### [facility] [address] [place] [address] Dr. Michelle Garcia Eosinophils/100 WBC (Bld) 0.0 % Critically low 0.9-7. 0 [facility] Comment on above: Performed By: #### C BC #### [facility] [address] [place] [address] Dr. Michelle Garcia Erythrocyte distribution width (RBC) [Ratio] 12.4 % Normal 11.0-15.0 [facility] Comment on above: Performed By: #### C BC #### [facility] [address] [place] [address] Dr. Michelle Garcia Hematocrit (Bld) [Volume fraction] 41.6 % Critically low 42.0-54.0 [facility] Comment on above: Performed By: #### C BC #### [facility] [address] [place] [address] Dr. Michelle Garcia Hemoglobin (Bld) [Mass/Vol] 13.9 g/dL Critically low 14.0-18.0 [facility] Comment on above: Performed By: #### C BC #### [facility] [address] [place] [address] Dr. Michelle Garcia IG # 0.06 10e3/ul Critically high 0.00-0.03 [facility] Comment on above: Performed By: #### C BC #### [facility] [address] [place] [address] Dr. Michelle Garcia IG % 0.7 % Critically high 0.0-0.5 [facility] Comment on above: Performed By: #### C BC #### [facility] [address] [place] [address] Dr. Michelle Garcia LYMPH # 1.5 103/ul Normal 1.2-3.8 [facility] Comment on above: Performed By: #### C BC #### [facility] [address] [place] [address] Dr. Michelle Garcia Lymphocytes/100 WBC (Bld) 17.9 % Critically low 20.5-6 0.0 [facility] Comment on above: Performed By: #### C BC #### [facility] [address] [place] [address] Dr. Michelle Garcia MANUAL DIFF REQ NO Normal [facility] Comment on above: Performed By: #### C BC #### [facility] [address] [place] [address] Dr. Michelle Garcia MCH (RBC) [Entitic mass] 32.0 pg Normal 25.9-34.0 [facility] Comment on above: Performed By: #### C BC #### [facility] [address] [place] [address] Dr. Michelle Garcia MCHC (RBC) [Mass/Vol] 33.4 g/dL Normal 29.9-35.2 [facility] Comment on above: Performed By: #### C BC #### [facility] [address] [place] [address] Dr. Michelle Garcia MCV (RBC) [Entitic vol] 95.6 fL Critically high 80.0-94 .0 [facility] Comment on above: Performed By: #### C BC #### [facility] [address] [place] [address] Dr. Michelle Garcia MONO # 0.5 103/ul Normal 0.3-0.8 [facility] Comment on above: Performed By: #### C BC #### [facility] [address] [place] [address] Dr. Michelle Garcia Monocytes/100 WBC (Bld) 6.0 % Normal 1.7-12.0 [facility] Comment on above: Performed By: #### C BC #### [facility] [address] [place] [address] Dr. Michelle Garcia NEUT # 6.4 103/ul Normal 1.4-6.5 [facility] Comment on above: Performed By: #### C BC #### [facility] [address] [place] [address] Dr. Michelle Garcia Neutrophils/100 WBC (Bld) 75.3 % Critically high 43.0- 75.0 [facility] Comment on above: Performed By: #### C BC #### [facility] [address] [place] [address] Dr. Michelle Garcia Platelet mean volume (Bld) [Entitic vol] 10.2 fL Normal 9.5-13.5 [facility] Comment on above: Performed By: #### C BC #### [facility] [address] [place] [address] Dr. Michelle Garcia PLT 323 103/ul Normal 150-450 [facility] Comment on above: Performed By: #### C BC #### [facility] [address] [place] [address] Dr. Michelle Garcia RBC 4.35 106/ul Critically low 4.70-6.10 [facility] Comment on above: Performed By: #### C BC #### [facility] [address] [place] [address] Dr. Michelle Garcia WBC 8.5 103/ul Normal 4.0-11.0 [facility] Comment on above: Performed By: #### C BC #### [facility] [address] [place] [address] Dr. Michelle Garcia CRPon 07-07-2021 CRP [Mass/Vol] mg/L Normal <=1.0 [facility] Comment on above: Performed By: #### H STROPN #### [facility] [address] [place] [address] Dr. Michelle Garcia PROF 14(COMP METB)on 07-07- 021 Albumin [Mass/Vol] 2.9 g/dL Critically low 3.5-5.0 [facility] Comment on above: Performed By: #### H STROPN #### [facility] [address] [place] [address] Dr. Michelle Garcia Albumin/Globulin [Mass ratio] 0.8 {ratio} Normal [facility] Comment on above: Performed By: #### H STROPN #### [facility] [address] [place] [address] Dr. Michelle Garcia ALP [Catalytic activity/Vol] 54 U/L Normal 38-126 [facility] Comment on above: Performed By: #### H STROPN #### [facility] [address] [place] [address] Dr. Michelle Garcia ALT [Catalytic activity/Vol] 121 U/L Critically high 21-72 [facility] Comment on above: Performed By: #### H STROPN #### [facility] [address] [place] [address] Dr. Michelle Garcia Anion gap [Moles/Vol] 11.5 mmol/L Normal [facility] Comment on above: Performed By: #### H STROPN #### [facility] [address] [place] [address] Dr. Michelle Garcia AST [Catalytic activity/Vol] 57 U/L Normal 17-59 [facility] Comment on above: Performed By: #### H STROPN #### [facility] [address] [place] [address] Dr. Michelle Garcia Bilirubin [Mass/Vol] 0.3 mg/dL Normal 0.2-1.3 [facility] Comment on above: Performed By: #### H STROPN #### [facility] [address] [place] [address] Dr. Michelle Garcia Calcium [Mass/Vol] 8.1 mg/dL Critically low 8.4-10.2 [facility] Comment on above: Performed By: #### H STROPN #### [facility] [address] [place] [address] Dr. Michelle Garcia Chloride [Moles/Vol] 102 mmol/L Normal 98-107 [facility] Comment on above: Performed By: #### H STROPN #### [facility] [address] [address] [address] Michelle Garcia CO2 [Moles/Vol] 27.2 mmol/L Normal 22.0-30.0 [facility] Comment on above: Performed By: #### H STROPN #### [facility] [address] [address] [address] Michelle Garcia Creatinine [Mass/Vol] 0.85 mg/dL Normal 0.66-1.25 [facility] Comment on above: Performed By: #### H STROPN #### [facility] [address] [place] [address] Dr. Michelle Garcia EGFR-AF BELGIAN >60 Normal >=60 [facility] Comment on above: Performed By: #### H STROPN #### [facility] [address] [address] [address] Michelle Garcia EGFR-NON AF BELGIAN >60 Normal >=60 [facility] Comment on above: Performed By: #### H STROPN #### [facility] [address] [address] [address] Michelle Garcia Globulin (S) [Mass/Vol] 3.7 g/dL Normal [facility] Comment on above: Performed By: #### H STROPN #### [facility] [address] [address] [address] Michelle Garcia Glucose [Mass/Vol] 152 mg/dL Critically high 74-106 [facility] Comment on above: Performed By: #### H STROPN #### [facility] [address] [address] [address] Michelle Garcia Potassium [Moles/Vol] 3.7 mmol/L Normal 3.4-5.0 [facility] Comment on above: Performed By: #### H STROPN #### [facility] [address] [address] [address] Michelle Garcia Protein [Mass/Vol] 6.6 g/dL Normal 6.1-8.2 [facility] Comment on above: Performed By: #### H STROPN #### [facility] [address] [place] [address] Dr. Michelle Garcia Sodium [Moles/Vol] 137 mmol/L Normal 137-145 [facility] Comment on above: Performed By: #### H STROPN #### [facility] [address] [place] [address] Dr. Michelle Garcia Urea nitrogen [Mass/Vol] 18.0 mg/dL Normal 9.0-20.0 [facility] Comment on above: Performed By: #### H STROPN #### [facility] [address] [place] [address] Dr. Michelle Garcia Urea nitrogen/Creatinine [Mass ratio] 21.2 mg/mg Normal [facility] Comment on above: Performed By: #### H STROPN #### [facility] [address] [place] [address] Dr. Michelle Garcia BNPon 07-06-2021 Natriuretic peptide B (Bld) [Mass/Vol] 50.0 pg/mL Normal <=900.0 [facility] Comment on above: Performed By: #### H STROPN #### [facility] [address] [place] [address] Dr. Michelle Garcia CBC AUTO DIFFon 07-06-2021 BASO # 0.0 103/ul Normal 0.0-0.1 [facility] Comment on above: Performed By: #### H STROPN #### [facility] [address] [place] [address] Dr. Michelle Garcia Basophils/100 WBC (Bld) 0.0 % Critically low 0.2-2.0 [facility] Comment on above: Performed By: #### H STROPN #### [facility] [address] [place] [address] Dr. Michelle Garcia EO # 0.0 103/ul Normal 0.0-0.7 [facility] Comment on above: Performed By: #### H STROPN #### [facility] [address] [address] [address] Michelle Garcia Eosinophils/100 WBC (Bld) 0.0 % Critically low 0.9-7. 0 [facility] Comment on above: Performed By: #### H STROPN #### [facility] [address] [place] [address] Dr. Michelle Garcia Erythrocyte distribution width (RBC) [Ratio] 12.6 % Normal 11.0-15.0 [facility] Comment on above: Performed By: #### H STROPN #### [facility] [address] [place] [address] Dr. Michelle Garcia Hematocrit (Bld) [Volume fraction] 40.6 % Critically low 42.0-54.0 [facility] Comment on above: Performed By: #### H STROPN #### [facility] [address] [place] [address] Dr. Michelle Garcia Hemoglobin (Bld) [Mass/Vol] 13.5 g/dL Critically low 14.0-18.0 [facility] Comment on above: Performed By: #### H STROPN #### [facility] [address] [place] [address] Dr. Michelle Garcia IG # 0.03 10e3/ul Normal 0.00-0.03 [facility] Comment on above: Performed By: #### H STROPN #### [facility] [address] [place] [address] Dr. Michelle Garcia IG % 0.4 % Normal 0.0-0.5 [facility] Comment on above: Performed By: #### H STROPN #### [facility] [address] [place] [address] Dr. Michelle Garcia LYMPH # 1.4 103/ul Normal 1.2-3.8 [facility] Comment on above: Performed By: #### H STROPN #### [facility] [address] [place] [address] Dr. Michelle Garcia Lymphocytes/100 WBC (Bld) 19.1 % Critically low 20.5-6 0.0 [facility] Comment on above: Performed By: #### H STROPN #### [facility] [address] [address] [address] Michelle Garcia MANUAL DIFF REQ NO Normal [facility] Comment on above: Performed By: #### H STROPN #### [facility] [address] [address] [address] Michelle Garcia MCH (RBC) [Entitic mass] 31.8 pg Normal 25.9-34.0 [facility] Comment on above: Performed By: #### H STROPN #### [facility] [address] [place] [address] Dr. Michelle Garcia MCHC (RBC) [Mass/Vol] 33.3 g/dL Normal 29.9-35.2 [facility] Comment on above: Performed By: #### H STROPN #### [facility] [address] [place] [address] Dr. Michelle Garcia MCV (RBC) [Entitic vol] 95.5 fL Critically high 80.0-94 .0 [facility] Comment on above: Performed By: #### H STROPN #### [facility] [address] [place] [address] Dr. Michelle Garcia MONO # 0.5 103/ul Normal 0.3-0.8 [facility] Comment on above: Performed By: #### H STROPN #### [facility] [address] [place] [address] Dr. Michelle Garcia Monocytes/100 WBC (Bld) 6.9 % Normal 1.7-12.0 [facility] Comment on above: Performed By: #### H STROPN #### [facility] [address] [place] [address] Dr. Michelle Garcia NEUT # 5.2 103/ul Normal 1.4-6.5 [facility] Comment on above: Performed By: #### H STROPN #### [facility] [address] [place] [address] Dr. Michelle Garcia Neutrophils/100 WBC (Bld) 73.6 % Normal 43.0-75.0 [facility] Comment on above: Performed By: #### H STROPN #### [facility] [address] [address] [address] Michelle Garcia Platelet mean volume (Bld) [Entitic vol] 10.1 fL Normal 9.5-13.5 [facility] Comment on above: Performed By: #### H STROPN #### [facility] [address] [address] [address] Michelle Garcia PLT 291 103/ul Normal 150-450 [facility] Comment on above: Performed By: #### H STROPN #### [facility] [address] [address] [address] Michelle Garcia RBC 4.25 106/ul Critically low 4.70-6.10 [facility] Comment on above: Performed By: #### H STROPN #### [facility] [address] [place] [address] Dr. Michelle Garcia WBC 7.1 103/ul Normal 4.0-11.0 [facility] Comment on above: Performed By: #### H STROPN #### [facility] [address] [place] [address] Dr. Michelle Garcia CRPon 07-06-2021 CRP [Mass/Vol] mg/L Normal <=1.0 [facility] Comment on above: Performed By: #### H STROPN #### [facility] [address] [place] [address] Dr. Michelle Garcia PROF 14(COMP METB)on 021 Albumin [Mass/Vol] 2.9 g/dL Critically low 3.5-5.0 [facility] Comment on above: Performed By: #### H STROPN #### [facility] [address] [place] [address] Dr. Michelle Garcia Albumin/Globulin [Mass ratio] 0.8 {ratio} Normal [facility] Comment on above: Performed By: #### H STROPN #### [facility] [address] [place] [address] Dr. Michelle Garcia ALP [Catalytic activity/Vol] 55 U/L Normal 38-126 [facility] Comment on above: Performed By: #### H STROPN #### [facility] [address] [address] [address] Michelle Garcia ALT [Catalytic activity/Vol] 91 U/L Critically high 21-72 [facility] Comment on above: Performed By: #### H STROPN #### [facility] [address] [address] [address] Michelle Garcia Anion gap [Moles/Vol] 12.7 mmol/L Normal [facility] Comment on above: Performed By: #### H STROPN #### [facility] [address] [address] [address] Michelle Garcia AST [Catalytic activity/Vol] 45 U/L Normal 17-59 [facility] Comment on above: Performed By: #### H STROPN #### [facility] [address] [address] [address] Michelle Garcia Bilirubin [Mass/Vol] 0.3 mg/dL Normal 0.2-1.3 [facility] Comment on above: Performed By: #### H STROPN #### [facility] [address] [address] [address] Michelle Garcia Calcium [Mass/Vol] 8.2 mg/dL Critically low 8.4-10.2 [facility] Comment on above: Performed By: #### H STROPN #### [facility] [address] [address] [address] Michelle Garcia Chloride [Moles/Vol] 102 mmol/L Normal 98-107 [facility] Comment on above: Performed By: #### H STROPN #### [facility] [address] [address] [address] Michelle Garcia CO2 [Moles/Vol] 27.1 mmol/L Normal 22.0-30.0 [facility] Comment on above: Performed By: #### H STROPN #### [facility] [address] [address] [address] Michelle Garcia Creatinine [Mass/Vol] 0.88 mg/dL Normal 0.66-1.25 [facility] Comment on above: Performed By: #### H STROPN #### [facility] [address] [place] [address] Dr. Michelle Garcia EGFR-AF BELGIAN >60 Normal >=60 [facility] Comment on above: Performed By: #### H STROPN #### [facility] [address] [place] [address] Dr. Michelle Garcia EGFR-NON AF BELGIAN >60 Normal >=60 [facility] Comment on above: Performed By: #### H STROPN #### [facility] [address] [address] [address] Michelle Garcia Globulin (S) [Mass/Vol] 3.8 g/dL Normal [facility] Comment on above: Performed By: #### H STROPN #### [facility] [address] [place] [address] Dr. Michelle Garcia Glucose [Mass/Vol] 174 mg/dL Critically high 74-106 [facility] Comment on above: Performed By: #### H STROPN #### [facility] [address] [place] [address] Dr. Michelle Garcia Potassium [Moles/Vol] 3.8 mmol/L Normal 3.4-5.0 [facility] Comment on above: Performed By: #### H STROPN #### [facility] [address] [place] [address] Dr. Michelle Garcia Protein [Mass/Vol] 6.7 g/dL Normal 6.1-8.2 [facility] Comment on above: Performed By: #### H STROPN #### [facility] [address] [place] [address] Dr. Michelle Garcia Sodium [Moles/Vol] 138 mmol/L Normal 137-145 [facility] Comment on above: Performed By: #### H STROPN #### [facility] [address] [place] [address] Dr. Michelle Garcia Urea nitrogen [Mass/Vol] 17.0 mg/dL Normal 9.0-20.0 [facility] Comment on above: Performed By: #### H STROPN #### [facility] [address] [place] [address] Dr. Michelle Garcia Urea nitrogen/Creatinine [Mass ratio] 19.3 mg/mg Normal [facility] Comment on above: Performed By: #### H STROPN #### [facility] [address] [place] [address] Dr. Michelle Garcia BNPon 07-05-2021 Natriuretic peptide B (Bld) [Mass/Vol] 32.0 pg/mL Normal <=900.0 [facility] Comment on above: Performed By: #### C RP, BNP, CMP #### [facility] [address] [place] [address] Dr. Michelle Garcia CBC AUTO DIFFon 07-05-2021 BASO # 0.0 103/ul Normal 0.0-0.1 [facility] Comment on above: Performed By: #### C RP, BNP, CMP #### [facility] [address] [place] [address] Dr. Michelle Garcia Basophils/100 WBC (Bld) 0.2 % Normal 0.2-2.0 [facility] Comment on above: Performed By: #### C RP, BNP, CMP #### [facility] [address] [place] [address] Dr. Michelle Garcia EO # 0.0 103/ul Normal 0.0-0.7 [facility] Comment on above: Performed By: #### C RP, BNP, CMP #### [facility] [address] [place] [address] Dr. Michelle Garcia Eosinophils/100 WBC (Bld) 0.0 % Critically low 0.9-7. 0 [facility] Comment on above: Performed By: #### C RP, BNP, CMP #### [facility] [address] [place] [address] Dr. Michelle Garcia Erythrocyte distribution width (RBC) [Ratio] 13.0 % Normal 11.0-15.0 [facility] Comment on above: Performed By: #### C RP, BNP, CMP #### [facility] [address] [place] [address] Dr. Michelle Garcia Hematocrit (Bld) [Volume fraction] 42.3 % Normal 42.0-54.0 [facility] Comment on above: Performed By: #### C RP, BNP, CMP #### [facility] [address] [place] [address] Dr. Michelle Garcia Hemoglobin (Bld) [Mass/Vol] 13.5 g/dL Critically low 14.0-18.0 [facility] Comment on above: Performed By: #### C RP, BNP, CMP #### [facility] [address] [place] [address] Dr. Michelle Garcia IG # 0.02 10e3/ul Normal 0.00-0.03 [facility] Comment on above: Performed By: #### C RP, BNP, CMP #### [facility] [address] [place] [address] Dr. Michelle Garcia IG % 0.4 % Normal 0.0-0.5 [facility] Comment on above: Performed By: #### C RP, BNP, CMP #### [facility] [address] [place] [address] Dr. Michelle Garcia LYMPH # 1.3 103/ul Normal 1.2-3.8 [facility] Comment on above: Performed By: #### C RP, BNP, CMP #### [facility] [address] [place] [address] Dr. Michelle Garcia Lymphocytes/100 WBC (Bld) 24.5 % Normal 20.5-60.0 [facility] Comment on above: Performed By: #### C RP, BNP, CMP #### [facility] [address] [place] [address] Dr. Michelle Garcia MANUAL DIFF REQ NO Normal [facility] Comment on above: Performed By: #### C RP, BNP, CMP #### [facility] [address] [place] [address] Dr. Michelle Garcia MCH (RBC) [Entitic mass] 31.6 pg Normal 25.9-34.0 [facility] Comment on above: Performed By: #### C RP, BNP, CMP #### [facility] [address] [place] [address] Dr. Michelle Garcia MCHC (RBC) [Mass/Vol] 31.9 g/dL Normal 29.9-35.2 [facility] Comment on above: Performed By: #### C RP, BNP, CMP #### [facility] [address] [place] [address] Dr. Michelle Garcia MCV (RBC) [Entitic vol] 99.1 fL Critically high 80.0-94 .0 [facility] Comment on above: Performed By: #### C RP, BNP, CMP #### [facility] [address] [place] [address] Dr. Michelle Garcia MONO # 0.3 103/ul Normal 0.3-0.8 [facility] Comment on above: Performed By: #### C RP, BNP, CMP #### [facility] [address] [place] [address] Dr. Michelle Garcia Monocytes/100 WBC (Bld) 5.0 % Normal 1.7-12.0 [facility] Comment on above: Performed By: #### C RP, BNP, CMP #### [facility] [address] [place] [address] Dr. Michelle Garcia NEUT # 3.8 103/ul Normal 1.4-6.5 [facility] Comment on above: Performed By: #### C RP, BNP, CMP #### [facility] [address] [place] [address] Dr. Michelle Garcia Neutrophils/100 WBC (Bld) 69.9 % Normal 43.0-75.0 [facility] Comment on above: Performed By: #### C RP, BNP, CMP #### [facility] [address] [place] [address] Dr. Michelle Garcia Platelet mean volume (Bld) [Entitic vol] 10.4 fL Normal 9.5-13.5 [facility] Comment on above: Performed By: #### C RP, BNP, CMP #### [facility] [address] [place] [address] Dr. Michelle Garcia PLT 274 103/ul Normal 150-450 [facility] Comment on above: Performed By: #### C RP, BNP, CMP #### [facility] [address] [address] [address] Michelle Garcia RBC 4.27 106/ul Critically low 4.70-6.10 [facility] Comment on above: Performed By: #### C RP, BNP, CMP #### [facility] [address] [address] [address] Michelle Garcia WBC 5.4 103/ul Normal 4.0-11.0 [facility] Comment on above: Performed By: #### C RP, BNP, CMP #### [facility] [address] [place] [address] Dr. Michelle Garcia CRPon 07-05-2021 CRP 1.2 mg/dL Critically high <=1.0 [facility] Comment on above: Performed By: #### C RP, BNP, CMP #### [facility] [address] [place] [address] Dr. Michelle Garcia CULTURE SPUTUMon 07-05-2021 CULTURE SPUTUM Culture Observations : NORMAL RESPIRATORY FARRAH. Normal [facility] Comment on above: Performed By: #### H STROPN #### [facility] [address] [place] [address] Dr. Michelle Garcia PROF 14(COMP METB)on 021 Albumin [Mass/Vol] 3.1 g/dL Critically low 3.5-5.0 Th e [facility] Comment on above: Performed By: #### C RP, BNP, CMP #### [facility] [address] [place] [address] Dr. Michelle Garcia Albumin/Globulin [Mass ratio] 0.8 {ratio} Normal [facility] Comment on above: Performed By: #### C RP, BNP, CMP #### [facility] [address] [place] [address] Dr. Michelle Garcia ALP [Catalytic activity/Vol] 64 U/L Normal 38-126 [facility] Comment on above: Performed By: #### C RP, BNP, CMP #### [facility] [address] [place] [address] Dr. Michelle Garcia ALT [Catalytic activity/Vol] 125 U/L Critically high 21-72 [facility] Comment on above: Performed By: #### C RP, BNP, CMP #### [facility] [address] [place] [address] Dr. Michelle Garcia Anion gap [Moles/Vol] 9.4 mmol/L Normal [facility] Comment on above: Performed By: #### C RP, BNP, CMP #### [facility] [address] [place] [address] Dr. Michelle Garcia AST [Catalytic activity/Vol] 73 U/L Critically high 17-59 [facility] Comment on above: Performed By: #### C RP, BNP, CMP #### [facility] [address] [place] [address] Dr. Michelle Garcia Bilirubin [Mass/Vol] 0.3 mg/dL Normal 0.2-1.3 [facility] Comment on above: Performed By: #### C RP, BNP, CMP #### [facility] [address] [place] [address] Dr. Michelle Garcia Calcium [Mass/Vol] 8.2 mg/dL Critically low 8.4-10.2 [facility] Comment on above: Performed By: #### C RP, BNP, CMP #### [facility] [address] [place] [address] Dr. Michelle Garcia Chloride [Moles/Vol] 101 mmol/L Normal 98-107 [facility] Comment on above: Performed By: #### C RP, BNP, CMP #### [facility] [address] [place] [address] Dr. Michelle Garcia CO2 [Moles/Vol] 29.6 mmol/L Normal 22.0-30.0 [facility] Comment on above: Performed By: #### C RP, BNP, CMP #### [facility] [address] [place] [address] Dr. Michelle Garcia Creatinine [Mass/Vol] 0.97 mg/dL Normal 0.66-1.25 [facility] Comment on above: Performed By: #### C RP, BNP, CMP #### [facility] [address] [place], [place] [id number] Dr. Michelle Garcia EGFR-AF BELGIAN >60 Normal >=60 [facility] Comment on above: Performed By: #### C RP, BNP, CMP #### [facility] [address] [place] [address] Dr. Michelle Garcia EGFR-NON AF BELGIAN >60 Normal >=60 [facility] Comment on above: Performed By: #### C RP, BNP, CMP #### [facility] [address] [place] [address] Dr. Michelle Garcia Globulin (S) [Mass/Vol] 3.9 g/dL Normal [facility] Comment on above: Performed By: #### C RP, BNP, CMP #### [facility] [address] [place] [address] Dr. Michelle Garcia Glucose [Mass/Vol] 154 mg/dL Critically high 74-106 [facility] Comment on above: Performed By: #### C RP, BNP, CMP #### [facility] [address] [place] [address] Dr. Michelle Garcia Potassium [Moles/Vol] 4.0 mmol/L Normal 3.4-5.0 [facility] Comment on above: Performed By: #### C RP, BNP, CMP #### [facility] [address] [place] [address] Dr. Michelle Garcia Protein [Mass/Vol] 7.0 g/dL Normal 6.1-8.2 [facility] Comment on above: Performed By: #### C RP, BNP, CMP #### [facility] [address] [place] [address] Dr. Michelle Garcia Sodium [Moles/Vol] 136 mmol/L Critically low 137-145 [facility] Comment on above: Performed By: #### C RP, BNP, CMP #### [facility] [address] [place] [address] Dr. Michelle Garcia Urea nitrogen [Mass/Vol] 21.0 mg/dL Critically high 9.0-20 .0 [facility] Comment on above: Performed By: #### C RP, BNP, CMP #### [facility] [address] [address] [address] Michelle Garcia Urea nitrogen/Creatinine [Mass ratio] 21.6 mg/mg Normal [facility] Comment on above: Performed By: #### C RP, BNP, CMP #### [facility] [address] [address] [address] Michelle Garcia SPUTUM GRAM STAINon 07-05-20 COMMENTS Normal [facility] Comment on above: Performed By: #### C RP, BNP, CMP #### [facility] [address] [address] [address] Michelle Garcia DIPHTHEROIDS Normal [facility] Comment on above: Performed By: #### C RP, BNP, CMP #### [facility] [address] [address] [address] Michelle Garcia EPITHELIALS <25 Normal [facility] Comment on above: Performed By: #### C RP, BNP, CMP #### [facility] [address] [address] [address] Michelle Garcia FUNGAL ELEMENTS Normal [facility] Comment on above: Performed By: #### C RP, BNP, CMP #### [facility] [address] [address] [address] Michelle CHOI NEG BACILLI Normal [facility] Comment on above: Performed By: #### C RP, BNP, CMP #### [facility] [address] [address] [address] Michelle CHOI NEG DIPPLOCOCCI Normal [facility] Comment on above: Performed By: #### C RP, BNP, CMP #### [facility] [address] [address] [address] Michelle Garcia GRAM POS BACILLI Normal [facility] Comment on above: Performed By: #### C RP, BNP, CMP #### [facility] [address] [address] [address] Michelle Garcia GRAM POSITIVE COCCI RARE Normal [facility] Comment on above: Performed By: #### C RP, BNP, CMP #### [facility] [address] [place] [address] Dr. Michelle Garcia WBC (Bld) [#/Vol] 10*3/uL Normal [facility] Comment on above: Performed By: #### C RP, BNP, CMP #### [facility] [address] [place] [address] Dr. Michelle Garcia BNPon 07-04-2021 Natriuretic peptide B (Bld) [Mass/Vol] 42.0 pg/mL Normal <=900.0 [facility] Comment on above: Performed By: #### B DOMESTIC TECHNICIAN, BMP, HSTROPN #### [facility] [address] [place] [address] Dr. Michelle Garcia CBC AUTO DIFFon 07-04-2021 BASO # 0.0 103/ul Normal 0.0-0.1 [facility] Comment on above: Performed By: #### C RP, BNP, CMP #### [facility] [address] [place] [address] Dr. Michelle Garcia Basophils/100 WBC (Bld) 0.2 % Normal 0.2-2.0 [facility] Comment on above: Performed By: #### C RP, BNP, CMP #### [facility] [address] [place] [address] Dr. Michelle Garcia EO # 0.0 103/ul Normal 0.0-0.7 [facility] Comment on above: Performed By: #### C RP, BNP, CMP #### [facility] [address] [place] [address] Dr. Michelle Garcia Eosinophils/100 WBC (Bld) 0.0 % Critically low 0.9-7. 0 [facility] Comment on above: Performed By: #### C RP, BNP, CMP #### [facility] [address] [place] [address] Dr. Michelle Garcia Erythrocyte distribution width (RBC) [Ratio] 12.9 % Normal 11.0-15.0 [facility] Comment on above: Performed By: #### C RP, BNP, CMP #### [facility] [address] [place] [address] Dr. Michelle Garica Hematocrit (Bld) [Volume fraction] 42.4 % Normal 42.0-54.0 [facility] Comment on above: Performed By: #### C RP, BNP, CMP #### [facility] [address] [place] [address] Dr. Michelle Garcia Hemoglobin (Bld) [Mass/Vol] 14.0 g/dL Normal 14.0-18.0 [facility] Comment on above: Performed By: #### C RP, BNP, CMP #### [facility] [address] [place] [address] Dr. Michelle Garcia IG # 0.03 10e3/ul Normal 0.00-0.03 [facility] Comment on above: Performed By: #### C RP, BNP, CMP #### [facility] [address] [place] [address] Dr. Michelle Garcia IG % 0.5 % Normal 0.0-0.5 [facility] Comment on above: Performed By: #### C RP, BNP, CMP #### [facility] [address] [place] [address] Dr. Michelle Garcia LYMPH # 1.6 103/ul Normal 1.2-3.8 [facility] Comment on above: Performed By: #### C RP, BNP, CMP #### [facility] [address] [place] [address] Dr. Michelle Garcia Lymphocytes/100 WBC (Bld) 24.3 % Normal 20.5-60.0 [facility] Comment on above: Performed By: #### C RP, BNP, CMP #### [facility] [address] [place] [address] Dr. Michelle Garcia MANUAL DIFF REQ NO Normal [facility] Comment on above: Performed By: #### C RP, BNP, CMP #### [facility] [address] [place] [address] Dr. Michelle Garcia MCH (RBC) [Entitic mass] 32.0 pg Normal 25.9-34.0 [facility] Comment on above: Performed By: #### C RP, BNP, CMP #### [facility] [address] [place] [address] Dr. Michelle Garcia MCHC (RBC) [Mass/Vol] 33.0 g/dL Normal 29.9-35.2 [facility] Comment on above: Performed By: #### C RP, BNP, CMP #### [facility] [address] [place] [address] Dr. Michelle Garcia MCV (RBC) [Entitic vol] 97.0 fL Critically high 80.0-94 .0 [facility] Comment on above: Performed By: #### C RP, BNP, CMP #### [facility] [address] [place] [address] Dr. Michelle Garcia MONO # 0.4 103/ul Normal 0.3-0.8 [facility] Comment on above: Performed By: #### C RP, BNP, CMP #### [facility] [address] [place] [address] Dr. Michelle Garcia Monocytes/100 WBC (Bld) 6.8 % Normal 1.7-12.0 [facility] Comment on above: Performed By: #### C RP, BNP, CMP #### [facility] [address] [place] [address] Dr. Michelle Garcia NEUT # 4.4 103/ul Normal 1.4-6.5 [facility] Comment on above: Performed By: #### C RP, BNP, CMP #### [facility] [address] [place] [address] Dr. Michelle Garcia Neutrophils/100 WBC (Bld) 68.2 % Normal 43.0-75.0 [facility] Comment on above: Performed By: #### C RP, BNP, CMP #### [facility] [address] [place] [address] Dr. Michelle Garcia Platelet mean volume (Bld) [Entitic vol] 10.0 fL Normal 9.5-13.5 [facility] Comment on above: Performed By: #### C RP, BNP, CMP #### [facility] [address] [place] [address] Dr. Michelle Garcia PLT 253 103/ul Normal 150-450 [facility] Comment on above: Performed By: #### C RP, BNP, CMP #### [facility] [address] [place], [place] [address] Dr. Michelle Garcia RBC 4.37 106/ul Critically low 4.70-6.10 [facility] Comment on above: Performed By: #### C RP, BNP, CMP #### [facility] [address] [place], [place] [address] Dr. Michelle Garcia WBC 6.5 103/ul Normal 4.0-11.0 [facility] Comment on above: Performed By: #### C RP, BNP, CMP #### [facility] [address] [address] [address] Michelle Garcia CRPon 07-04-2021 CRP 1.0 mg/dL Normal <=1.0 [facility] Comment on above: Performed By: #### C RP, BNP, CMP #### [facility] [address] [address] [address] Michelle Garcia CTA CHEST WO W CONon 021 CTA CHEST WO W CON CT CHEST WITH CONTRA ST (CT Pulmonary Angiogram) CLINICAL: SHORTNESS OF BREATH. Cough for 2 weeks, Covid positive. COMPARISON: 04/05/2019 and 04/03/2018. Chest radiograph 07/04/2021. TECHNIQUE: Thin section axial images were obtained from thoracic inlet to the diaphragms following the administration of intravenous contrast. CT angiographic reconstructions of the pulmonary arteries including multiple intensity projections in coronal and sagittal planes were performed. Dose reduction: mA and/or kV are were adjusted by automated exposure control software based upon patients height and weight. FINDINGS: Thoracic inlet and axillary structures are grossly intact. Left hilar node measures 1.1 cm, right hilar node 1.1 cm. No pericardial effusion or mediastinal fluid collection. Heart size is normal. Pulmonary arterial tree is opacified and does not show filling defect to indicate pulmonary embolism. Limited upper abdominal images show no acute findings. Small nodule associated with the right adrenal gland measures 1.1 cm and is stable, consistent with benign adenoma. Lung windows show patchy peripheral groundglass and interstitial infiltrates in both lungs, with additional consolidative atelectasis at the lung bases and peripheral lingular segment left upper lobe. No pleural effusion or pneumothorax. Osseous structures show no acute traumatic or destructive lesion. IMPRESSION: 1. No evidence of pulmonary embolism. 2. Patchy bilateral groundglass infiltrates in the lung periphery, with additional consolidative atelectasis bilateral lung bases and lingular segment. Findings consistent with multifocal pulmonary infection, and compatible with Covid associated pneumonia in light of clinical history. 3. Mildly enlarged hilar lymph nodes, probably reactive in this setting. Electronically authenticated by: JAZMÍN LOPEZ Date: 2021-07-04 16:47 Normal [facility] CULTURE BLOODon 07-04-2021 Microscopic examination of blood, culture Culture Observations: NO GROWTH AT 5 DAYS. Normal [facility] Comment on above: Performed By: #### H STROPN #### [facility] [address] [place] [address] Dr. Michelle Garcia Performed By: #### C RP, BNP, CMP #### [facility] [address] [place] [address] Dr. Michelle Garcia Covid-19 PCR (CVDTBH)on 06-19 SARS-CoV-2 (COVID-19) RNA BRITTA+probe Ql (Unsp spec) Detected Critically abnormal NOT DETECTED [facility] Comment on above: Result Comment: This test is not yet approved or cleared by the [place] Food and Drug Administration (FDA). This test was developed by [employer], [place], [place]. The performance characteristics of this test were validated by [facility]. The results are not intended to be used as the sole means for clinical diagnosis or patient management decisions. [facility] is authorized under Clinical Laboratory Improvement Amendments (CLIA) to perform high- complexity testing. Performed By: #### C RP, BNP, CMP #### [facility] [address] [place] [address] Dr. Michelle Garcia D-DIMERon 07-04-2021 D-DIMER 0.59 mg/L FEU Critically high 0.19-0.50 [facility] Comment on above: Result Comment: test repeated critical value verified Performed By: #### C RP, BNP, CMP #### [facility] [address] [place] [address] Dr. Michelle Garcia D-DIMER COMMENTS SEE BELOW Normal [facility] Comment on above: Result Comment: Incr eases in D-Dimer concentration observed with thromboembolic events can be variable due to localization, size, and age of the thrombus. Therefore, a thromboembolic event cannot be diagnosed with certainty on the basis of the reference range. D-Dimers may also be elevated for a variety of disorders including: advanced age, , coronary disease, cancer, liver disease, infection, inflammation, hematoma, DIC, trauma, post-surgery, diabetes, thrombolytic or anticoagulant therapy, stress, and generalized hospitalization. Performed By: #### C RP, BNP, CMP #### [facility] [address] [place] [address] Dr. Michelle Garcia LACTATE/LACTIC ACIDon 2020 Lactate [Moles/Vol] 1.2 mmol/L Normal 0.7-2.0 [facility] Comment on above: Performed By: #### L ACT #### [facility] [address] [place] [address] Dr. Michelle Garcia PROF CHEM 8 (BAS METB)on Anion gap [Moles/Vol] 11.0 mmol/L Normal [facility] Comment on above: Performed By: #### B DOMESTIC TECHNICIAN, BMP, HSTROPN #### [facility] [address] [place] [address] Dr. Michelle Garcia Calcium [Mass/Vol] 8.1 mg/dL Critically low 8.4-10.2 [facility] Comment on above: Performed By: #### B DOMESTIC TECHNICIAN, BMP, HSTROPN #### [facility] [address] [place] [address] Dr. Michelle Garcia Chloride [Moles/Vol] 98 mmol/L Normal 98-107 [facility] Comment on above: Performed By: #### B DOMESTIC TECHNICIAN, BMP, HSTROPN #### [facility] [address] [place] [address] Dr. Michelle Garcia CO2 [Moles/Vol] 28.8 mmol/L Normal 22.0-30.0 [facility] Comment on above: Performed By: #### B DOMESTIC TECHNICIAN, BMP, HSTROPN #### [facility] [address] [place] [address] Dr. Michelle Garcia Creatinine [Mass/Vol] 1.01 mg/dL Normal 0.66-1.25 [facility] Comment on above: Performed By: #### B DOMESTIC TECHNICIAN, BMP, HSTROPN #### [facility] [address] [place] [address] Dr. iMchelle Garcia EGFR-AF BELGIAN >60 Normal >=60 [facility] Comment on above: Performed By: #### B DOMESTIC TECHNICIAN, BMP, HSTROPN #### [facility] [address] [address] [address] Michelle Garcia EGFR-NON AF BELGIAN >60 Normal >=60 [facility] Comment on above: Performed By: #### B DOMESTIC TECHNICIAN, BMP, HSTROPN #### [facility] [address] [place] [address] Dr. Michelle Garcia Glucose [Mass/Vol] 94 mg/dL Normal 74-106 [facility] Comment on above: Performed By: #### B DOMESTIC TECHNICIAN, BMP, HSTROPN #### [facility] [address] [place] [address] Dr. Michelle Garcia Potassium [Moles/Vol] 3.8 mmol/L Normal 3.4-5.0 [facility] Comment on above: Performed By: #### B DOMESTIC TECHNICIAN, BMP, HSTROPN #### [facility] [address] [place] [address] Dr. Michelle Garcia Sodium [Moles/Vol] 134 mmol/L Critically low 137-145 [facility] Comment on above: Performed By: #### B DOMESTIC TECHNICIAN, BMP, HSTROPN #### [facility] [address] [place] [address] Dr. Michelle Garcia Urea nitrogen [Mass/Vol] 20.0 mg/dL Normal 9.0-20.0 [facility] Comment on above: Performed By: #### B DOMESTIC TECHNICIAN, BMP, HSTROPN #### [facility] [address] [place] [address] Dr. Michelle Garcia Urea nitrogen/Creatinine [Mass ratio] 19.8 mg/mg Normal [facility] Comment on above: Performed By: #### B DOMESTIC TECHNICIAN, BMP, HSTROPN #### [facility] [address] [place], [place] [address] Dr. Michelle Garcia TROPONIN, HIGH SENSITIVITYon 07-04-2021 HSTROP 8.1 pg/mL Normal 4.0-42.2 [facility] Comment on above: Result Comment: CUT- OFF POINTS HAVE BEEN ESTABLISHED BASED ON THE FOURTH UNIVERSAL DEFINITIONS OF MYOCARDIAL INFARCTION. THE UPPER REFERENCE LIMIT (URL) OF TROPONIN, DEFINED THE 99TH PERCENTILE OF cTnI DISTRIBUTION IN A REFERENCE POPULATION, HAS BEEN CONFIRMED THE DECISION THRESHOLD FOR [place] DIAGNOSIS. Performed By: #### H STROPN #### [facility] [address] [place], [place] [address] Dr. Michelle Garcia HSTROP 7.6 pg/mL Normal 4.0-42.2 [facility] Comment on above: Result Comment: CUT- OFF POINTS HAVE BEEN ESTABLISHED BASED ON THE FOURTH UNIVERSAL DEFINITIONS OF MYOCARDIAL INFARCTION. THE UPPER REFERENCE LIMIT (URL) OF TROPONIN, DEFINED THE 99TH PERCENTILE OF cTnI DISTRIBUTION IN A REFERENCE POPULATION, HAS BEEN CONFIRMED THE DECISION THRESHOLD FOR [place] DIAGNOSIS. Performed By: #### B DOMESTIC TECHNICIAN, BMP, HSTROPN #### [facility] [address] [place], [place] [address] Dr. Michelle Garcia XR CHEST 1 Von 07-04-2021 XR CHEST 1 V EXAMINATION: XR CHES T 1 V HISTORY: SHORTNESS OF BREATH , cough COMPARISON: XR chest 05/21/2016 FINDINGS: LUNGS: Underexpanded lungs with mild opacities within the lateral lung bases obscuring the diaphragm margins. VASCULATURE: No increased pulmonary vasculature. PLEURA: No pneumothorax, effusion, or pleural thickening. CARDIAC: No cardiomegaly or cardiac silhouette abnormality. MEDIASTINUM: No visible mass or adenopathy. BONES: No fracture or visible bone lesion. OTHER: Negative. IMPRESSION: 1. Low lung volume examination with suspected mild bibasilar infiltrates; new since prior study. Electronically authenticated by: JONES RICHMOND Date: 2021-07-04 14:57 Normal [facility] CBC Auto Differentialon 02-2 Basophils (Bld) [#/Vol] 0.06 10*3/uL [employer] Phone: Basophils/100 WBC (Bld) 1 % 0 - 2 % [employer] Phone: Differential Type NOT REPORTED [employer] Phone: Eosinophils (Bld) [#/Vol] 0.12 10*3/uL [employer] Phone: Eosinophils/100 WBC (Bld) 1 % 1 - 4 % [employer] Phone: Erythrocyte distribution width (RBC) [Ratio] 13.0 % 11.8 - 14.4 % [employer] Phone: Hematocrit (Bld) [Volume fraction] 46.7 % 40.7 - 50.3 % [employer] Phone: Hemoglobin (Bld) [Mass/Vol] 15.1 g/dL 13 - 17 g/dL [employer] Phone: Immature granulocytes (Bld) [#/Vol] 0 % 0 [employer] Phone: Immature granulocytes (Bld) [#/Vol] 10*3/uL [employer] Phone: Lymphocytes (Bld) [#/Vol] 3.30 10*3/uL [employer] Phone: Lymphocytes/100 WBC (Bld) 32 % 24 - 43 % [employer] Phone: MCH (RBC) [Entitic mass] 31.8 pg 25. 2 - 33.5 pg [employer] Phone: MCHC (RBC) [Mass/Vol] 32.3 g/dL 28.4 - 34.8 g/dL [employer] Phone: MCV (RBC) [Entitic vol] 98.3 fL 82.6 - 102.9 fL [employer] Phone: Monocytes (Bld) [#/Vol] 1.01 10*3/uL [employer] Phone: Monocytes/100 WBC (Bld) 10 % 3 - 12 % [employer] Phone: Platelet mean volume (Bld) [Entitic vol] 10.1 fL 8.1 - 13.5 fL [employer] Phone: Platelets (Bld) [#/Vol] NOT REPORTED [employer] Phone: Platelets (Bld) [#/Vol] 372 10*3/uL [employer] Phone: RBC (Bld) [#/Vol] 4.75 10*6/uL 4.21 - 5.77 m/uL [employer] Phone: RBC morphology finding Nom (Bld) NOT REPORTED [employer] Phone: Segmented neutrophils/100 WBC (Bld) 56 % 36 - 65 % [employer] Phone: Segs Absolute 5.69 [employer] Phone: WBC (Bld) [#/Vol] 10.2 10*3/uL [employer] Phone: WBC (Bld) [#/Vol] 0.0 10*3/uL 0.0 per 100 WBC [employer] Phone: WBC Morphology NOT REPORTED [employer] Phone: CBC with Diffon 11-09-2020 Abs. Basophil 0.06 k/uL Normal 0.00-0.20 [facility] Comment on above: Performed By: #### C DP, LIP, CP #### [facility] [address] [place] [address] Coordinator Of Online Programs: Jazmín Lopes MD Abs.Imm.Granulocyte <0.03 Normal 0.00-0.30 [facility] Comment on above: Performed By: #### C DP, LIP, CP #### [facility] [address] [place] [address] Coordinator Of Online Programs: Jazmín Lopes MD Abs.Neutrophil (Seg) 5.69 k/uL Normal 1.50-8.10 [facility] Comment on above: Performed By: #### C DP LIP, CP #### [address] [place], [facility]83 Coordinator Of Online Programs: Jazmín Lopes MD Basophils/100 WBC (Bld) 1 % Normal 0-2 [facility] Comment on above: Performed By: #### C DP LIP, CP #### [address] [place], [place] [address] Coordinator Of Online Programs: Jazmín Lopes MD Eosinophils (Bld) [#/Vol] 0.12 10*3/uL Normal 0.00-0.4 4 [facility] Comment on above: Performed By: #### C RAHUL VALERO, CP #### [address] [place], [place] [address] Coordinator Of Online Programs: Jazmín Lopes MD Eosinophils/100 WBC (Bld) 1 % Normal 1-4 [facility] Comment on above: Performed By: #### C RAHUL VALERO, CP #### [address] [place], [facility]83 Coordinator Of Online Programs: Jazmín Lopes MD Erythrocyte distribution width (RBC) [Ratio] 13.0 % Normal 11.8-14.4 [facility] Comment on above: Performed By: #### C DP LIP, CP #### [address] [place], [facility]83 Coordinator Of Online Programs: Jazmín Lopes MD Hematocrit (Bld) [Volume fraction] 46.7 % Normal 40.7-50.3 [facility] Comment on above: Performed By: #### C DP LIP, CP #### [address] [place], [facility]83 Coordinator Of Online Programs: Jazímn Lopes MD Hemoglobin (Bld) [Mass/Vol] 15.1 g/dL Normal 13.0-17.0 [facility] Comment on above: Performed By: #### C RAHUL VALERO, CP #### [address] [place] [address] Coordinator Of Online Programs: Jazmín Lopes MD Immature granulocytes (Bld) [#/Vol] 0 % Normal 0 [facility] Comment on above: Performed By: #### C ANJUM LIP, CP #### [address] [place], [facility]83 Coordinator Of Online Programs: Jazmín Lopes MD Lymphocytes (Bld) [#/Vol] 3.30 10*3/uL Normal 1.10-3.7 0 [facility] Comment on above: Performed By: #### C RAHUL VALERO, CP #### [address] [place], [place] [address] Coordinator Of Online Programs: Jazmín Lopes MD Lymphocytes/100 WBC (Bld) 32 % Normal 24-43 [facility] Comment on above: Performed By: #### C RAHUL VALERO, CP #### [address] [place], [facility]83 Coordinator Of Online Programs: Jazmín Lopes MD MCH (RBC) [Entitic mass] 31.8 pg Normal 25.2-33.5 [facility] Comment on above: Performed By: #### C RAHUL VALERO, CP #### [address] [place], [facility]83 Coordinator Of Online Programs: Jazmín Lopes MD MCHC (RBC) [Mass/Vol] 32.3 g/dL Normal 28.4-34.8 [facility] Comment on above: Performed By: #### C ANJUM LIP, CP #### [address] [place], [place] [id number] Coordinator Of Online Programs: Jazmín Lopes MD MCV (RBC) [Entitic vol] 98.3 fL Normal 82.6-102.9 [facility] Comment on above: Performed By: #### C DP LIP, CP #### [facility] [address] [place], [place] [id number] Coordinator Of Online Programs: Jazmín Lopes MD Monocytes (Bld) [#/Vol] 1.01 10*3/uL Normal 0.10-1.20 [facility] Comment on above: Performed By: #### C DP, LIP, CP #### [facility] [address] [place], [facility]83 Coordinator Of Online Programs: Jazmín Lopes MD Monocytes/100 WBC (Bld) 10 % Normal 3-12 [facility] Comment on above: Performed By: #### C DP LIP, CP #### [address] [place], [facility]83 Coordinator Of Online Programs: Jazmín Lopes MD Neutrophil (Seg) 56 % Normal 36-65 [facility] Comment on above: Performed By: #### C DP LIP, CP #### [address] [place], [place] [address] Coordinator Of Online Programs: Jazmín Lopes MD NRBC Automated 0.0 per 100 WBC Normal 0.0 [facility] Comment on above: Performed By: #### C DP LIP, CP #### [address] [place], [facility]83 Coordinator Of Online Programs: Jazmín Lopes MD Platelet mean volume (Bld) [Entitic vol] 10.1 fL Normal 8.1-13.5 [facility] Comment on above: Performed By: #### C DP LIP, CP #### [address] [place], [facility]83 Coordinator Of Online Programs: Jazmín Lopes MD Platelets (Bld) [#/Vol] 372 10*3/uL Normal 138-453 [facility] Comment on above: Performed By: #### C ANJUM LIP, CP #### [facility] [address] [place] [address] Coordinator Of Online Programs: Jazmín Lopes MD RBC (Bld) [#/Vol] 4.75 10*6/uL Normal 4.21-5.77 [facility] Comment on above: Performed By: #### C DP, LIP, CP #### [facility] [address] [place] [address] Coordinator Of Online Programs: Jazmín Lopes MD WBC (Bld) [#/Vol] 10.2 10*3/uL Normal 3.5-11.3 [facility] Comment on above: Performed By: #### C DP, LIP, CP #### [address] [place], [facility]83 Coordinator Of Online Programs: Jazmín Lopes MD Auto Diff Performed NOT REPORTED Normal [facility] Comment on above: Performed By: #### C DP, LIP, CP #### [address] [place], [facility]83 Coordinator Of Online Programs: Jazmín Lopes MD Platelets (Bld) [#/Vol] NOT REPORTED Normal [facility] Comment on above: Performed By: #### C DP, LIP, CP #### [address] [place] [address] Coordinator Of Online Programs: Jazmín Lopes MD RBC morphology finding Nom (Bld) NOT REPORTED Normal [facility] Comment on above: Performed By: #### C DP, LIP, CP #### [address] [place], [place] [address] Coordinator Of Online Programs: Jazmín Lopes MD WBC Morphology NOT REPORTED Normal [facility] Comment on above: Performed By: #### C DP, LIP, CP #### [facility] [address] [place], [place] [id number] Coordinator Of Online Programs: Jazmín Lopes MD CT ABDOMEN PELVIS WO CONTRAS Ton 11-09-2020 CT ABDOMEN PELVIS WO CONTRAST EXAMINATION: CT OF THE ABDOMEN AND PELVIS WITHOUT CONTRAST 11/09/2020 2:11 pm TECHNIQUE: CT of the abdomen and pelvis was performed without the administration of intravenous contrast. Multiplanar reformatted images are provided for review. Dose modulation, iterative reconstruction, and/or weight based adjustment of the mA/kV was utilized to reduce the radiation dose to as low as reasonably achievable. COMPARISON: None. HISTORY: ORDERING SYSTEM PROVIDED HISTORY: left flank pain TECHNOLOGIST PROVIDED HISTORY: left flank pain Decision Support Exception->Emergency Medical Condition (MA) FINDINGS: Lower Chest: Calcified granulomas are present within the lung bases. Organs: Hepatic steatosis is present. The gallbladder, pancreas, spleen, are normal. Nodular thickening of adrenal glands is present bilaterally consistent with adenomatous changes. Cortical cyst formation is present on the kidneys. No intrarenal calculi or hydronephrosis is present. GI/Bowel: Stomach is nondistended. Small bowel appears normal, without evidence of obstruction. No evidence of appendicitis is present. Scattered colonic diverticula are noted, without evidence of diverticulitis. Pelvis: Urinary bladder appears normal. Prostate gland is abnormally enlarged. Peritoneum/Retroperitoneum : No free fluid or free air is present within the abdomen or pelvis. No aneurysm formation is present. No pathological adenopathy is present. Bones/Soft Tissues: Inguinal hernias are present bilaterally, containing fat. Small umbilical hernia is present containing fat. No acute osseous abnormality is present. IMPRESSION: 1. No acute findings within the abdomen or pelvis 2. No intrarenal calculi or evidence of hydronephrosis 3. Scattered colonic diverticula, without evidence of diverticulitis 4. Enlarged prostate gland Interpreted by: Randy Hansen DO Signed by: Randy Hansen DO 11/09/20 Final result Normal [facility] CT ABDOMEN PELVIS WO CONTRAS T Additional Contrast? Noneon 11-09-2020 EXAMINATION: CT OF T HE ABDOMEN AND PELVIS WITHOUT CONTRAST 11/09/2020 2:11 pm TECHNIQUE: CT of the abdomen and pelvis was performed without the administration of intravenous contrast. Multiplanar reformatted images are provided for review. Dose modulation, iterative reconstruction, and/or weight based adjustment of the mA/kV was utilized to reduce the radiation dose to as low as reasonably achievable. COMPARISON: None. HISTORY: ORDERING SYSTEM PROVIDED HISTORY: left flank pain TECHNOLOGIST PROVIDED HISTORY: left flank pain Decision Support Exception->Emergency Medical Condition (MA) FINDINGS: Lower Chest: Calcified granulomas are present within the lung bases. Organs: Hepatic steatosis is present. The gallbladder, pancreas, spleen, are normal. Nodular thickening of adrenal glands is present bilaterally consistent with adenomatous changes. Cortical cyst formation is present on the kidneys. No intrarenal calculi or hydronephrosis is present. GI/Bowel: Stomach is nondistended. Small bowel appears normal, without evidence of obstruction. No evidence of appendicitis is present. Scattered colonic diverticula are noted, without evidence of diverticulitis. Pelvis: Urinary bladder appears normal. Prostate gland is abnormally enlarged. Peritoneum/Retroperitoneum : No free fluid or free air is present within the abdomen or pelvis. No aneurysm formation is present. No pathological adenopathy is present. Bones/Soft Tissues: Inguinal hernias are present bilaterally, containing fat. Small umbilical hernia is present containing fat. No acute osseous abnormality is present. [employer] Phone: 1. No acute findings within the abdomen or pelvis 2. No intrarenal calculi or evidence of hydronephrosis 3. Scattered colonic diverticula, without evidence of diverticulitis 4. Enlarged prostate gland [employer] Phone: Emeka, Mhpn Incoming R adiant Results From [employer]/hiogi - 11/09/2020 7:47 PM EST EXAMINATION: CT OF THE ABDOMEN AND PELVIS WITHOUT CONTRAST 11/09/2020 2:11 pm TECHNIQUE: CT of the abdomen and pelvis was performed without the administration of intravenous contrast. Multiplanar reformatted images are provided for review. Dose modulation, iterative reconstruction, and/or weight based adjustment of the mA/kV was utilized to reduce the radiation dose to as low as reasonably achievable. COMPARISON: None. HISTORY: ORDERING SYSTEM PROVIDED HISTORY: left flank pain TECHNOLOGIST PROVIDED HISTORY: left flank pain Decision Support Exception->Emergency Medical Condition (MA) FINDINGS: Lower Chest: Calcified granulomas are present within the lung bases. Organs: Hepatic steatosis is present. The gallbladder, pancreas, spleen, are normal. Nodular thickening of adrenal glands is present bilaterally consistent with adenomatous changes. Cortical cyst formation is present on the kidneys. No intrarenal calculi or hydronephrosis is present. GI/Bowel: Stomach is nondistended. Small bowel appears normal, without evidence of obstruction. No evidence of appendicitis is present. Scattered colonic diverticula are noted, without evidence of diverticulitis. Pelvis: Urinary bladder appears normal. Prostate gland is abnormally enlarged. Peritoneum/Retroperitoneum : No free fluid or free air is present within the abdomen or pelvis. No aneurysm formation is present. No pathological adenopathy is present. Bones/Soft Tissues: Inguinal hernias are present bilaterally, containing fat. Small umbilical hernia is present containing fat. No acute osseous abnormality is present. IMPRESSION: 1. No acute findings within the abdomen or pelvis 2. No intrarenal calculi or evidence of hydronephrosis 3. Scattered colonic diverticula, without evidence of diverticulitis 4. Enlarged prostate gland [facility] Work Phone: Comp Metabolic Profon 2020 (cont.) Normal [facility] Comment on above: Result Comment: Aver age GFR for 70 or more years old: 75 mL/min/1.73sq m Chronic Kidney Disease: <60 mL/min/1.73sq m Kidney failure: <15 mL/min/1.73sq m eGFR calculated using average adult body mass. Additional eGFR calculator available at: http://www.[employer]You[employer]/multiple_crcl_2012.htm Performed By: #### C RAHUL VALERO CP #### [address] [place] [address] Coordinator Of Online Programs: Jazmín Lopes MD Albumin [Mass/Vol] 4.4 g/dL Normal 3.5-5.2 [facility] Comment on above: Performed By: #### C RAHUL VALERO CP #### [facility] [address] [place] [address] [place] [address] Coordinator Of Online Programs: Jazmín Lopes MD Albumin/Globulin [Mass ratio] 1.6 {ratio} Normal 1.0-2.5 [facility] Comment on above: Performed By: #### C RAHUL VALERO CP #### [address] [place] [address] Coordinator Of Online Programs: Jazmín Lopes MD Alkaline Phos 62 U/L Normal 40-129 [facility] Comment on above: Performed By: #### C DP, LIP, CP #### [facility] [address] [place], [place] [id number] Coordinator Of Online Programs: Jazmín Lopes MD ALT [Catalytic activity/Vol] 42 U/L High 5-41 [facility] Comment on above: Performed By: #### C DP, LIP, CP #### [facility] [address] [place] [address] Dr[address] [place], [place] [id number] Coordinator Of Online Programs: Jazmín Lopes MD Anion gap [Moles/Vol] 11 mmol/L Normal 9-17 [facility] Comment on above: Performed By: #### C DP, LIP, CP #### [address] [place], [place] [id number] Coordinator Of Online Programs: Jazmín Lopes MD AST [Catalytic activity/Vol] 37 U/L Normal <40 [facility] Comment on above: Performed By: #### C DP, LIP, CP #### [address] [place], [place] [address] Coordinator Of Online Programs: Jazmín Lopes MD Bilirubin Ql (U) 0.20 mg/dL Low 0.3-1.2 [facility] Comment on above: Performed By: #### C DP, LIP, CP #### [address] [place], [place] [address]183 Coordinator Of Online Programs: Jazmín Lopes MD BUN/CRE Ratio 17 Normal 9-20 [facility] Comment on above: Performed By: #### C DP, LIP, CP #### [address] [place], [place] [id number] Coordinator Of Online Programs: Jazmín Lopes MD Calcium [Mass/Vol] 9.3 mg/dL Normal 8.6-10.4 [facility] Comment on above: Performed By: #### C DP, LIP, CP #### [address] [place], [place] [id number] Coordinator Of Online Programs: Jazmín Lopes MD Chloride [Moles/Vol] 102 mmol/L Normal 98-107 [facility] Comment on above: Performed By: #### C DP LIP, CP #### [facility] [address] [place], [place] [address] Coordinator Of Online Programs: Jazmín Lopes MD CO2 [Moles/Vol] 25 mmol/L Normal 20-31 [facility] Comment on above: Performed By: #### C DP LIP, CP #### [address] [place], [place] [address] Coordinator Of Online Programs: Jazmín Lopes MD Creatinine [Mass/Vol] 1.18 mg/dL Normal 0.70-1.20 [facility] Comment on above: Performed By: #### C ANJUM LIP, CP #### [facility] [address] [place] [address] Dr[address] [place], [place] [id number] Coordinator Of Online Programs: Jazmín Lopes MD GFR, Amer >60 Normal >60 [facility] Comment on above: Performed By: #### C ANJUM LIP, CP #### [facility] [address] [place] [address] Dr[address] [place], [place] [id number] Coordinator Of Online Programs: Jazmín Lopes MD GFR,non Amer >60 Normal >60 [facility] Comment on above: Performed By: #### C ANJUM LIP, CP #### [facility] [address] [place] [address] Dr[address] [place], [place] [id number] Coordinator Of Online Programs: Jazmín Lopes MD Glucose [Mass/Vol] 100 mg/dL High 70-99 [facility] Comment on above: Performed By: #### C DP LIP, CP #### [facility] [address] [place], [place] [id number] Coordinator Of Online Programs: Jazmín Lopes MD Potassium [Moles/Vol] 4.1 mmol/L Normal 3.7-5.3 [facility] Comment on above: Performed By: #### C RAHUL VALERO, CP #### [facility] [address] [place] [address] Dr[address] [place], [place] [id number] Coordinator Of Online Programs: Jazmín Lopes MD Protein [Mass/Vol] 7.2 g/dL Normal 6.4-8.3 [facility] Comment on above: Performed By: #### C RAHUL VALERO, CP #### [facility] [address] [place], [place] [id number] Coordinator Of Online Programs: Jazmín Lopes MD Sodium [Moles/Vol] 138 mmol/L Normal 135-144 [facility] Comment on above: Performed By: #### C RAHUL VALERO, CP #### [address] [place] [address] Coordinator Of Online Programs: Jazmín Lopes MD Staging: Normal [facility] Comment on above: Result Comment: Stag e 1: Some kidney damage normal GFR Stage 2: Mild kidney damage GFR 60-89 Stage 3: Moderate kidney damage GFR 30-59 Stage 4: Severe kidney damage GFR 15-29 Stage 5: Severe kidney damage GFR <15 ESRD - chronic treatment by dialysis or transplant Performed By: #### C RAHUL VALERO, CP #### [address] [place] [address] Coordinator Of Online Programs: Jazmín Lopes MD Urea nitrogen [Mass/Vol] 20 mg/dL Normal 8-23 [facility] Comment on above: Performed By: #### C ANJUM LIP, CP #### [address] [place] [address] Coordinator Of Online Programs: Jazmín Lopes MD Comprehensive Metabolic Pane fredo 11-09-2020 Albumin [Mass/Vol] 4.4 g/dL 3.5 - 5.2 g/dL [facility] Work Phone: Albumin/Globulin [Mass ratio] 1.6 {ratio} [facility] Work Phone: ALP [Catalytic activity/Vol] 62 U/L 40 - 129 U/L [employer] Phone: ALT [Catalytic activity/Vol] 42 U/L High 5 - 41 U/L [employer] Phone: Anion gap [Moles/Vol] 11 mmol/L 9 - 17 mmol/L [employer] Phone: AST [Catalytic activity/Vol] 37 U/L <40 [employer] Phone: Bilirubin Ql (U) 0.20 mg/dL Low 0.3 - 1.2 mg/dL [employer] Phone: Bun/Cre Ratio 17 [employer] Phone: Calcium [Mass/Vol] 9.3 mg/dL 8.6 - 10. 4 mg/dL [employer] Phone: Chloride [Moles/Vol] 102 mmol/L 98 - 10 7 mmol/L [facility] Phone: CO2 [Moles/Vol] 25 mmol/L 20 - 31 mmol/L [facility] Phone: Creatinine [Mass/Vol] 1.18 mg/dL 0.7 - 1.2 mg/dL [facility] Phone: GFR >60 >60 mL/min [email or web address] Phone: GFR Non- >60 >60 mL/min [facility] Phone: Glucose [Mass/Vol] 100 mg/dL High 70 - 99 mg/dL [facility] Phone: Interpretation and review of laboratory results Abnormal [facility] Phone: Potassium [Moles/Vol] 4.1 mmol/L 3.7 - 5.3 mmol/L [facility] Phone: Protein [Mass/Vol] 7.2 g/dL 6.4 - 8.3 g/dL [employer] Phone: Sodium [Moles/Vol] 138 mmol/L 135 - 144 mmol/L [facility] Phone: Urea nitrogen [Mass/Vol] 20 mg/dL 8 - 23 mg/dL [facility] Phone: Lipaseon 11-09-2020 Lipase [Catalytic activity/Vol] 26 U/L Normal 13-60 [facility] Comment on above: Performed By: #### C DP, LIP, CP #### [facility] [address] [place] [address] Coordinator Of Online Programs: Jazmín Lopes MD Lipase [Catalytic activity/Vol] 26 U/L 13 - 60 U/L [facility] Phone: Metabolic Panelon 11-09-2020 GFR/1.73 sq M predicted among non-blacks MDRD (S/P/Bld) [Vol rate/Area] [employer] Phone: Comment on above: Stage 1: Some kidney damage normal GFR Stage 2: Mild kidney damage GFR 60-89 Stage 3: Moderate kidney damage GFR 30-59 Stage 4: Severe kidney damage GFR 15-29 Stage 5: Severe kidney damage GFR <15 ESRD - chronic treatment by dialysis or transplant Average GFR for 70 o r more years old: 75 mL/min/1.73sq m Chronic Kidney Disease: <60 mL/min/1.73sq m Kidney failure: <15 mL/min/1.73sq m eGFR calculated using average adult body mass. Additional eGFR calculator available at: http://[email or web address]_crcl_[email or web address].htm Urinalysis w/ Microon 2020 ----- Normal [facility] Comment on above: Performed By: #### U AMIC #### [facility] [address] [place] [address] Coordinator Of Online Programs: Jazmín Lopes MD Acetoacetic Acid,Ur Negative Normal NEG [facility] Comment on above: Performed By: #### U AMIC #### [facility] [address] [place], [place] [id number] Coordinator Of Online Programs: Jazmín Lopes MD Bacteria LM.HPF (Urine sed) [#/Area] TRACE Abnormal NONE [facility] Comment on above: Performed By: #### U AMIC #### [address] [place], [place] [id number] Coordinator Of Online Programs: Jazmín Lopes MD Bilirubin, SemiQt,Ur Negative Normal [facility] Comment on above: Performed By: #### U AMIC #### [address] [place], [place] [id number] Coordinator Of Online Programs: Jazmín Lopes MD Color (U) YELLOW Normal YEL [facility] Comment on above: Performed By: #### U AMIC #### [address] [place], [facility]83 Coordinator Of Online Programs: Jazmín Lopes MD Epithelial cells LM.HPF (Urine sed) [#/Area] 0 TO 2 Normal 0-5 [facility] Comment on above: Performed By: #### U AMIC #### [address] [place] [id number] Coordinator Of Online Programs: Jazmín Lopes MD Glucose Ql (U) Negative Normal [facility] Comment on above: Performed By: #### U AMIC #### [facility] [address] [place] [address] Dr. [place], [facility]83 Coordinator Of Online Programs: Jazmín Lopes MD Hemoglobin, Ur Negative Normal [facility] Comment on above: Performed By: #### U AMIC #### [address] [place] [address] Coordinator Of Online Programs: Jazmín Lopes MD Leukocyte esterase Test strip Ql (U) Negative Normal [facility] Comment on above: Performed By: #### U AMIC #### [address] [place], [place] [id number] Coordinator Of Online Programs: Jazmín Lopes MD Mucus Strands TRACE Abnormal NONE [facility] Comment on above: Performed By: #### U AMIC #### [facility] [address] [place], [place] [id number] Coordinator Of Online Programs: Jazmín Lopes MD Nitrite,Ur Negative Normal NEG [facility] Comment on above: Performed By: #### U AMIC #### [facility] [address] [place], [place] [id number] Coordinator Of Online Programs: Jazmín Lopes MD pH (U) 5.5 [pH] Normal 5.0-9.0 [facility] Comment on above: Performed By: #### U AMIC #### [facility] [address] [place] [address] Dr[address] [place], [place] [id number] Coordinator Of Online Programs: Jazmín Lopes MD Protein Ql (U) Negative Normal NEG [facility] Comment on above: Performed By: #### U AMIC #### [facility] [address] [place] [address] Dr[address] [place], [place] [id number] Coordinator Of Online Programs: Jazmín Lopes MD RBC (U) [#/Vol] 0 TO 2 Normal 0-2 [facility] Comment on above: Performed By: #### U AMIC #### [facility] [address] [place] [address] Dr[address] [place], [place] [id number] Coordinator Of Online Programs: Jazmín Lopes MD Specific gravity (U) [Rel density] >1.030 High 1.010-1.02 0 [facility] Comment on above: Performed By: #### U AMIC #### [facility] [address] [place] [address] [place] [address] Coordinator Of Online Programs: Jazmín Lopes MD Turbidity CLEAR Normal CLEAR [facility] Comment on above: Performed By: #### U AMIC #### [facility] [address] [place], [place] [address]83 Coordinator Of Online Programs: Jazmín Lopes MD Urobilinogen,Ur Normal Normal NORM [facility] Comment on above: Performed By: #### U AMIC #### [facility] [address] [place], [place] [id number] Coordinator Of Online Programs: Jazmín Lopes MD WBC (U) [#/Vol] 0 TO 2 Normal 0-5 [facility] Comment on above: Performed By: #### U AMIC #### [facility] [address] [place], [place] [id number] Coordinator Of Online Programs: Jazmín Lopes MD Amorphous sediment LM Ql (Urine sed) NOT REPORTED Normal [facility] Comment on above: Performed By: #### U AMIC #### [facility] [address] [place] [address] Dr. [place], [place] [id number] Coordinator Of Online Programs: Jazmín Lopes MD Casts LM.LPF (Urine sed) [#/Area] NOT REPORTED Normal [facility] Comment on above: Performed By: #### U AMIC #### [facility] [address] [place] [address] Dr[address] [place], [place] [id number] Coordinator Of Online Programs: Jazmín Lopes MD Comment NOT REPORTED Normal [facility] Comment on above: Performed By: #### U AMIC #### [facility] [address] [place] [address] Dr. [place], [place] [id number] Coordinator Of Online Programs: Jazmín Lopes MD Crystals LM Nom (Urine sed) NOT REPORTED Normal [facility] Comment on above: Performed By: #### U AMIC #### [facility] [address] [place], [place] [id number] Coordinator Of Online Programs: Jazmín Lopes MD Epithelial, Renal NOT REPORTED Normal 0 [facility] Comment on above: Performed By: #### U AMIC #### [facility] [address] [place], [place] [id number] Coordinator Of Online Programs: Jazmín Lopes MD Other Observations NOT REPORTED Normal NREQ [facility] Comment on above: Performed By: #### U AMIC #### [facility] [address] [place] [address] Coordinator Of Online Programs: Jazmín Lopes MD Trichomonas NOT REPORTED Normal [facility] Comment on above: Performed By: #### U AMIC #### [facility] [address] [place] [address] Coordinator Of Online Programs: Jazmín Lopes MD Yeast LM Ql (Urine sed) NOT REPORTED Normal [facility] Comment on above: Performed By: #### U AMIC #### [facility] [address] [place] [address] Coordinator Of Online Programs: Jazmín Lopes MD Urinalysis with Microscopico n 11-09-2020 Amorphous, UA NOT REPORTED None [facility] Phone: Bacteria, UA TRACE Abnormal None [facility] Phone: Bilirubin Urine Negative NEGATIVE [facility] Phone: Casts UA NOT REPORTED /LPF [facility] Phone: Color, UA YELLOW YELLOW [facility] Phone: Crystals, UA NOT REPORTED None /HPF [facility] Phone: Epithelial Cells UA 0 TO 2 [facility] Phone: Glucose, Ur Negative NEGATIVE [facility] Phone: Interpretation and review of laboratory results Abnormal [facility] Phone: Ketones Ql (U) Negative NEGATIVE [facility] Phone: Leukocyte esterase Test strip Ql (U) Negative NEGATIVE [facility] Phone: Mucus, UA TRACE Abnormal None [facility] Phone: Nitrite, Urine Negative NEGATIVE [facility] Phone: Other Observations UA NOT REPORTED NOT REQ. [employer] Work Phone: pH, UA 5.5 [facility] [employer] Work Phone: Protein (U) [Mass/Vol] Negative NEGATIVE [facility] [employer] Work Phone: RBC (U) [#/Vol] 0 TO 2 [facility] [employer] Work Phone: Renal Epithelial, UA NOT REPORTED 0 /HPF [facility] [employer] Work Phone: Specific Mobile, UA >1.030 High [employer] Work Phone: Trichomonas, UA NOT REPORTED None [facility] [employer] Work Phone: Turbidity UA CLEAR CLEAR [facility] [employer] Work Phone: Urinalysis Comments NOT REPORTED [facility] [employer] Work Phone: Urine Hgb Negative NEGATIVE [facility] [employer] Work Phone: Urobilinogen, Urine Normal Normal [facility] [employer] Work Phone: WBC, UA 0 TO 2 [facility] [employer] Work Phone: Yeast, UA NOT REPORTED None [facility] [employer] Work Phone: - [facility] [employer] Work Phone: Vital Signs Date Time Vital Sign Value Performing Clinician Leoni handy 05-27-2023 09:40-0400 Diastolic blood pressure 87 mm[Hg] Oral [facility] 05-27-2023 09:40-0400 Heart rate 89 /min Oral LUCASL [facility] 05-27-2023 09:40-0400 Respiratory rate 18 /min Oral LUCASL [employer] [facility] 05-27-2023 09:40-0400 SaO2% (BldA) [Mass fraction] 95 % Oral LUCASL [facility] 05-27-2023 09:40-0400 Systolic blood pressure 128 mm[Hg] Oral NILL [facility] 05-27-2023 09:30-0400 Diastolic blood pressure 89 mm[Hg] Oral NILL [facility] 05-27-2023 09:30-0400 Heart rate 98 /min Oral NILL [facility] 05-27-2023 09:30-0400 Respiratory rate 20 /min Oral NILL [facility] 05-27-2023 09:30-0400 SaO2% (BldA) [Mass fraction] 96 % Oral NILL [facility] 05-27-2023 09:30-0400 Systolic blood pressure 126 mm[Hg] Oral NILL [facility] 05-27-2023 09:25-0400 Diastolic blood pressure 80 mm[Hg] Oral NILL [facility] 05-27-2023 09:25-0400 Heart rate 95 /min Oral NILL [facility] 05-27-2023 09:25-0400 Respiratory rate 18 /min Oral NILL [facility] 05-27-2023 09:25-0400 SaO2% (BldA) [Mass fraction] 94 % Oral NILL [facility] 05-27-2023 09:25-0400 Systolic blood pressure 116 mm[Hg] Oral NILL [facility] 05-27-2023 09:14-0400 Body temperature 97.7 [degF] Oral NILL [facility] 05-27-2023 09:05-0400 Respiratory rate 13 /min Oral NILL [facility] 05-27-2023 09:00-0400 Respiratory rate 12 /min Oral NILL [facility] 05-27-2023 08:55-0400 Respiratory rate 17 /min Oral NILL [facility] 05-27-2023 08:37-0400 Blood Pressure Location Oral NILL [facility] 05-27-2023 08:34-0400 Blood Pressure Location Oral NILL [facility] 05-27-2023 08:34-0400 Body temperature 97.7 [degF] Oral NILL [facility] 05-04-2023 15:42-0400 Blood Pressure Location Oral NILL [facility] [place] 05-04-2023 15:42-0400 Diastolic blood pressure 80 mm[Hg] Oral NILL [facility] [place] 05-04-2023 15:42-0400 Heart rate 76 /min Oral NILL [facility] [place] 05-04-2023 15:42-0400 Respiratory rate 16 /min Oral NILL [facility] [place] 05-04-2023 15:42-0400 Systolic blood pressure 128 mm[Hg] Oral NILL [facility] [place] 11-09-2020 20:00-0500 BP Diastolic 81 mm[Hg] [facility]xton [employer] Work Phone: 11-09-2020 20:00-0500 BP Systolic 130 mm[Hg] [facility] [employer] Work Phone: 11-09-2020 20:00-0500 Pulse Oximetry 94 % [employer] Work Phone: 11-09-2020 18:17-0500 Body Temperature 98.2 [degF] [facility] [employer] Work Phone: 11-09-2020 18:17-0500 Pulse (Heart Rate) 92 /min [facility] [employer] Work Phone: 11-09-2020 18:17-0500 Respiratory Rate 17 /min [facility] [employer] Work Phone: Encounters Encounter Date Encounter Type Care Provider Facility Start: 06-08-2023 End: 06-09-2023 ambulatory Oral R SHAYYL Facility: [facility] Start: 06-08-2023 End: 06-08-2023 Patient encounter procedure Oral R NILL [facility] Nill[facility] [place] Start: 05-27-2023 End: 05-27-2023 ambulatory Oral R NILL Facility[place] [place] Start: 05-27-2023 End: 05-27-2023 Patient encounter procedure Oral R NILL [facility] Start: 05-04-2023 End: 05-05-2023 ambulatory Ti Borrego Facility:[facility] Start: 05-04-2023 End: 05-04-2023 Patient encounter procedure Oral R NILL [facility] Nill/[facility] Start: 04-27-2023 ambulatory Ti Borrego Facility:[facility] Start: 04-05-2023 ambulatory Ti Borrego Facility:[facility] Start: 06-10-2022 End: 06-10-[address] TI BORREGO Facility:[facility] Start: 03-03-2022 End: 03-04-[address] TI BORREGO Facility:[facility] Start: 12-01-2021 End: 12-02-[address] TI BORREGO Facility:[facility] Start: 11-24-2021 ambulatory TI M HOY [facility] Start: 10-26-2021 End: 10-27-[address] TI BORREGO Facility:[facility] Start: 10-02-2021 End: 10-03-[address] TI BORREGO Facility:[facility] Start: 09-21-2021 End: 09-22-[address] TI BORREGO Facility:[facility] Start: 08-27-[address] TI BORREGO Facility :[facility] Start: 08-25-2021 End: 08-26-[address] TI BORREGO Facility:[facility] Start: 07-04-2021 End: 07-08-2021 Evaluation and management of inpatient DR TI BORREGO Facility:[facility] Start: 11-09-2020 End: 11-09-2020 Emergency department patient visit TI BORREGO [facility] Start: 11-09-2020 End: 11-09-2020 Emergency department patient visit Braxton Bassett Work Phone: [facility] ED Comment on above: Flank pain (Primary Dx); Muscle pain, myofascial Procedures Date Procedure Procedure Detail Performing Clinician Start: 05-27-2023 Colonoscopy Oral CONTRERAS Start: 05-27-2023 Esophagogastroduodenoscopy Oral CONTRERAS Start: 11-24-2021 PSA screening TI BORREGO Comment on above: Result Comment: [facility] UTILIZES ORTHO VITRO S PSA METHODOLOGY. DIFFERENT TEST METHODS CANNOT BE USED INTERCHANGEABLY. PSA RESULTS IN A GIVEN PATIENT SAMPLE DETERMINED WITH DIFFERENT TESTS AND FROM DIFFERENT MANUFACTURERS CAN VARY DUE TO DIFFERENCES IN TEST METHODS AND REAGENTS. Performed By: #### C MP, PSA, LIPD #### [place] [address] Ph. [phone] Start: 11-09-2020 Urnls dip stick/tablet reagent auto microscopy Braxton Crismaru Work Phone: Start: 11-09-2020 Ct abdomen & pelvis w/o contrast material Braxton Crismaru Work Phone: Start: 11-09-2020 Assay of lipase Braxton Cristomasau Work Phone: Start: 11-09-2020 Blood count complete auto&auto difrntl wbc Braxton Bassett Work Phone: Start: 11-09-2020 Comprehensive metabolic panel Braxton pham Work Phone: Start: 08-07-2019 Esophagogastroduodenoscopy Oral CONTRERAS Start: 04-29-2016 Esophagogastroduodenoscopy Oral NILL Start: 02-15-2014 Esophagogastroduodenoscopy Oral NILL Start: 08-03-2013 Esophagogastroduodenoscopy Oral NILL Start: 06-01-2013 Esophagogastroduodenoscopy Oral NILL Appendectomy Oral LUCASL Decompression of median nerve Oral NILL Hemorrhoidectomy Oral NIL L Plan of Treatment Date Care Activity Detail Author Start: 05-17-2026 DTaP/Tdap/Td vaccine (2 - Td) DTaP/Tdap/Td vaccine (2 - Td) [facility] Phone: Start: 11-09-2021 Creatinine measurement Creatinine mo nitoring [employer] Phone: Start: 11-09-2021 Potassium monitoring Potassium monit oring [employer] Phone: Start: 05-20-2020 Influenza vaccination Flu vaccine (# 1) [employer] Phone: Start: 2013 Pneumococcal 65+ yea rs Vaccine (1 of 1 - PPSV23) Pneumococcal 65+ years Vaccine (1 of 1 - PPSV23) [facility] Phone: Start: 1998 Screening for malign ant neoplasm of colon Colon cancer screen colonoscopy [facility] Phone: Start: 1998 Shingles Vaccine (1 of 2) Shingles V accine (1 of 2) [employer] Phone: Start: 1988 Lipid panel Lipid screen [facility] Work Phone: Start: 1964 COVID-19 Vaccine (1 of 2) COVID-19 V accine (1 of 2) [facility] [employer] Phone: Start: 1950 Hepatitis C screening Hepatitis C sc reen [facility] [employer] Phone: Immunizations Immunization Date Immunization Notes Care Provider Soni chauhan 05-17-2016 tetanus toxoid, redu bj diphtheria toxoid, and acellular pertussis vaccine, adsorbed Braxton Crismaru [facility] [employer] Phone: Payers Date Payer Category Payer Medicare [id number] 1.2.84 [id number] 1961 Medicare [id number] 1950 Unknown [id number] 2.16.8 [id number] 1950 Unknown [id number] 2.16.8 [id number] 1950 Unknown [id number] 2.16.84 [id number] 1948 Unknown [id number] 2.16.84 [id number] 1948 Unknown [id number] 2.16.84 [id number] 1948 Unknown [id number] 2.16.84 [id number] 1948 Unknown [id number] 2.16.84 [id number] 1948 Unknown [id number] 2.16.84 [id number] 1948 Unknown [id number] 2.16.84 [id number] 1948 Unknown [id number] 2.16.84 [id number] 1948 Unknown [id number] 2.16.84 [id number] 1948 Unknown [id number] 2.16.8 [id number] 1950 Unknown [id number] 2.16.8 [id number] 1950 Unknown [id number] 2.16.8 [id number] Social History Date Type Detail Facility Start: 11-09-2020 Tobacco smoking stat [facility] Never smoker [employer] Phone: Start: 11-09-2020 Tobacco use and exposure Never used [employer] Phone: Start: 11-09-2020 Alcohol intake Ex-drinker (finding) [facility] Phone: Sex Assigned At Not on file [facility] Phone: Exposure to SARS-CoV -2 (event) Not sure [facility] Phone: Start: 05-04-2023 Tobacco smoking status Ex-smoker (fi nding) [facility] Tobacco smoking status Never [facility] Sex Assigned At Male [facility] Functional Status Date Assessment Result Facility 05-27-2023 Functional Status N/A [facility] 05-04-2023 Functional Status N/A [facility] [place] History and physical note 05-30-2023 Note Date & Type Note Facility 05-30-2023 Note [id number] #[id number] [facility] History and physical note 05-27-2023 Note Date & Type Note Facility 05-27-2023 Note Patient: JOSE GUADALUPE GARCIA [facility]: [id number] Age: 72 years Sex: Male : 1950 Associated Diagnoses: None Author: Oral CONTRERAS MD Subjective no changes to [facility] Comment on above: Result Comment: Elec tronically Signed By: Oral CONTRERAS MD\.br\Date and Time Signed: 05/27/23 09:44 EDT Hospital Discharge instructions 05-27-2023 Note Date & Type Note Facility 05-27-2023 Hospital Discharg e instructions Patient Education 05/27/2023 09:17:51 Colonoscopy, Care After Surgery Sal[facility] (CUSTOM) Colonoscopy Care After Surgery Please read the instructions outlined below and refer to this sheet in the next few weeks. These discharge instructions provide you with general information on caring for yourself after you leave the hospital. Your doctor may also give you specific instructions. While your treatment has been planned according to the most current medical practices available, unavoidable complications occasionally occur. If you have any problems or questions after discharge, please call your doctor. ACTIVITY You may resume your regular activity, but move at a slower pace for the next 24 hours. Take frequent rest periods for the next 24 hours. Walking will help get rid of the air and reduce the bloated feeling in your abdomen (belly). No driving for 24 hours (because of the anesthesia (medicine) used during the test). You may shower. Do not sign any important legal documents or operate any machinery for 24 hours (because of the anesthesia used during the test). NUTRITION Drink plenty of fluids. You may resume your normal diet as instructed by your doctor. Begin with a light meal and progress to your normal diet. Heavy or fried foods are harder to digest and may make you feel nauseated (sick to your stomach). Avoid alcoholic beverages for 24 hours or as instructed. MEDICATIONS You may resume your normal medications unless your doctor tells you otherwise. WHAT YOU CAN EXPECT TODAY Some feelings of bloating in the abdomen. Passage of more gas than usual. Spotting of blood in your stool or on the toilet paper. FOLLOW-UP Your doctor will discuss the results of your test with you. SEEK IMMEDIATE MEDICAL ATTENTION IF: There is more than a spotting of blood in your stool. There is abdominal distention (your abdomen is swollen). There is vomiting. You have a temperature over 101.5 F. There is abdominal pain or discomfort that is severe or gets worse throughout the day. 05/27/2023 09:17:48 Hemorrhoids, Czxs-vo-Ryom Hemorrhoids Hemorrhoids are swollen veins that may develop: In the butt (rectum). These are called internal hemorrhoids. Around the opening of the butt (anus). These are called external hemorrhoids. Hemorrhoids can cause pain, itching, or bleeding. Most of the time, they do not cause serious problems. They usually get better with diet changes, lifestyle changes, and other home treatments. What are the causes? This condition may be caused by: Having trouble pooping (constipation). Pushing hard (straining) to poop. Watery poop (diarrhea). . Being very overweight (obese). Sitting for long periods of time. Heavy lifting or other activity that causes you to strain. Anal sex. Riding a bike for a long period of time. What are the signs or symptoms? Symptoms of this condition include: Pain. Itching or soreness in the butt. Bleeding from the butt. Leaking poop. Swelling in the area. One or more lumps around the opening of your butt. How is this diagnosed? A doctor can often diagnose this condition by looking at the affected area. The doctor may also: Do an exam that involves feeling the area with a gloved hand (digital rectal exam). Examine the area inside your butt using a small tube (anoscope). Order blood tests. This may be done if you have lost a lot of blood. Have you get a test that involves looking inside the colon using a flexible tube with a camera on the end (sigmoidoscopy or colonoscopy). How is this treated? This condition can usually be treated at home. Your doctor may tell you to change what you eat, make lifestyle changes, or try home treatments. If these do not help, procedures can be done to remove the hemorrhoids or make them smaller. These may involve: Placing rubber bands at the base of the hemorrhoids to cut off their blood supply. Injecting medicine into the hemorrhoids to shrink them. Shining a type of light energy onto the hemorrhoids to cause them to fall off. Doing surgery to remove the hemorrhoids or cut off their blood supply. Follow these instructions at home: Eating and drinking Eat foods that have a lot of fiber in them. These include whole grains, beans, nuts, fruits, and vegetables. Ask your doctor about taking products that have added fiber (fibersupplements). Reduce the amount of fat in your diet. You can do this by: ?Eating low-fat dairy products. ?Eating less red meat. ?Avoiding processed foods. Drink enough fluid to keep your pee (urine) pale yellow. Managing pain and swelling Take a warm-water bath (sitz bath) for 20 minutes to ease pain. Do this 3 4 times a day. You may do this in a bathtub or using a portable sitz bath that fits over the toilet. If told, put ice on the painful area. It may be helpful to use ice between your warm baths. ?Put ice in a plastic bag. ?Place a towel between your skin and the bag. ?Leave the ice on for 20 minutes, 2 3 times a day. General instructions Take ijyc-aup-cwniclz and prescription medicines only as told by your doctor. ?Medicated creams and medicines may be used as told. Exercise often. Ask your doctor how much and what kind of exercise is best for you. Go to the bathroom when you have the urge to poop. Do not wait. Avoid pushing too hard when you poop. Keep your butt dry and clean. Use wet toilet paper or moist towelettes after pooping. Do not sit on the toilet for a long time. Keep all follow-up visits as told by your doctor. This is important. Contact a doctor if you: Have pain and swelling that do not get better with treatment or medicine. Have trouble pooping. Cannot poop. Have pain or swelling outside the area of the hemorrhoids. Get help right away if you have: Bleeding that will not stop. Summary Hemorrhoids are swollen veins in the butt or around the opening of the butt. They can cause pain, itching, or bleeding. Eat foods that have a lot of fiber in them. These include whole grains, beans, nuts, fruits, and vegetables. Take a warm-water bath (sitz bath) for 20 minutes to ease pain. Do this 3 4 times a day. This information is not intended to replace advice given to you by your health care provider. Make sure you discuss any questions you have with your health care provider. Document Revised: 03/17/2022 Document Reviewed: 03/17/2022 [employer] Patient Education 2022 [employer]. 05/27/2023 09:17:36 Endoscopy, Care After Procedure [facility] [place] [facility] [place]) Endoscopy Care After Procedure Please read the instructions outlined below and refer to this sheet in the next few weeks. These discharge instructions provide you with general information on caring for yourself after you leave the hospital. Your doctor may also give you specific instructions. While your treatment has been planned according to the most current medical practices available, unavoidable complications occasionally occur. If you have any problems or questions after discharge, please call your doctor. ACTIVITY You may resume your regular activity but move at a slower pace for the next 24 hours. Take frequent rest periods for the next 24 hours. Walking will help expel (get rid of) the air and reduce the bloated feeling in your abdomen. No driving for 24 hours (because of the anesthesia (medicine) used during the test). You may shower. Do not sign any important legal documents or operate any machinery for 24 hours (because of the anesthesia used during the test). NUTRITION Drink plenty of fluids. You may resume your normal diet. Begin with a light meal and progress to your normal diet. Avoid alcoholic beverages for 24 hours or as instructed by your caregiver. MEDICATIONS You may resume your normal medications unless your caregiver tells you otherwise. WHAT YOU CAN EXPECT TODAY You may experience abdominal discomfort such as a feeling of fullness or gas pains. FOLLOW-UP Your doctor will discuss the results of your test with you. SEEK IMMEDIATE MEDICAL ATTENTION IF ANY OF THE FOLLOWING OCCUR: Excessive nausea (feeling sick to your stomach) and/or vomiting. Severe abdominal pain and distention (swelling). Trouble swallowing. Temperature over 100 F (37.8 C). Rectal bleeding or vomiting of blood. Document Released: 04/19/2005 Document Re-Released: 02/27/2007 [employer] Patient Information 2010 [email or web address]. 05/27/2023 09:17:24 Hiatal Hernia Hiatal Hernia A hiatal hernia occurs when part of the stomach slides above the muscle that separates the abdomen from the chest (diaphragm). A person can be born with a hiatal hernia (congenital), or it may develop over time. In almost all cases of hiatal hernia, only the top part of the stomach pushes through the diaphragm. Many people have a hiatal hernia with no symptoms. The larger the hernia, the more likely it is that you will have symptoms. In some cases, a hiatal hernia allows stomach acid to flow back into the tube that carries food from your mouth to your stomach (esophagus). This may cause heartburn symptoms. Severe heartburn symptoms may mean that you have developed a condition called gastroesophageal reflux disease (GERD). What are the causes? This condition is caused by a weakness in the opening (hiatus) where the esophagus passes through the diaphragm to attach to the upper part of the stomach. A person may be born with a weakness in the hiatus, or a weakness can develop over time. What increases the risk? This condition is more likely to develop in: Older people. Age is a major risk factor for a hiatal hernia, especially if you are over the age of 50. women. People who are overweight. People who have frequent constipation. What are the signs or symptoms? Symptoms of this condition usually develop in the form of GERD symptoms. Symptoms include: Heartburn. Belching. Indigestion. Trouble swallowing. Coughing or wheezing. Sore throat. Hoarseness. Chest pain. Nausea and vomiting. How is this diagnosed? This condition may be diagnosed during testing for GERD. Tests that may be done include: X-rays of your stomach or chest. An upper gastrointestinal (GI) series. This is an X-ray exam of your GI tract that is taken after you swallow a chalky liquid that shows up clearly on the X-ray. Endoscopy. This is a procedure to look into your stomach using a thin, flexible tube that has a tiny camera and light on the end of it. How is this treated? This condition may be treated by: Dietary and lifestyle changes to help reduce GERD symptoms. Medicines. These may include: ?Zeuf-bbh-jwlefgb antacids. ?Medicines that make your stomach empty more quickly. ?Medicines that block the production of stomach acid (H2 blockers). ?Stronger medicines to reduce stomach acid (proton pump inhibitors). Surgery to repair the hernia, if other treatments are not helping. If you have no symptoms, you may not need treatment. Follow these instructions at home: Lifestyle and activity Do not use any products that contain nicotine or tobacco, such as cigarettes and e-cigarettes. If you need help quitting, ask your health care provider. Try to achieve and maintain a healthy body weight. Avoid putting pressure on your abdomen. Anything that puts pressure on your abdomen increases the amount of acid that may be pushed up into your esophagus. ?Avoid bending over, especially after eating. ?Raise the head of your bed by putting blocks under the legs. This keeps your head and esophagus higher than your stomach. ?Do not wear tight clothing around your chest or stomach. ?Try not to strain when having a bowel movement, when urinating, or when lifting heavy objects. Eating and drinking Avoid foods that can worsen GERD symptoms. These may include: ?Fatty foods, like fried foods. ?Iyanbito fruits, like oranges or lemon. ?Other foods and drinks that contain acid, like orange juice or tomatoes. ?Spicy food. ?Chocolate. Eat frequent small meals instead of three large meals a day. This helps prevent your stomach from getting too full. ?Eat slowly. ?Do not lie down right after eating. ?Do not eat 1 2 hours before bed. Do not drink beverages with caffeine. These include cola, coffee, cocoa, and tea. Do not drink alcohol. General instructions Take tebc-tgp-skbnevw and prescription medicines only as told by your health care provider. Keep all follow-up visits as told by your health care provider. This is important. Contact a health care provider if: Your symptoms are not controlled with medicines or lifestyle changes. You are having trouble swallowing. You have coughing or wheezing that will not go away. Get help right away if: Your pain is getting worse. Your pain spreads to your arms, neck, jaw, teeth, or back. You have shortness of breath. You sweat for no reason. You feel sick to your stomach (nauseous) or you vomit. You vomit blood. You have bright red blood in your stools. You have black, tarry stools. Summary A hiatal hernia occurs when part of the stomach slides above the muscle that separates the abdomen from the chest (diaphragm). A person may be born with a weakness in the hiatus, or a weakness can develop over time. Symptoms of hiatal hernia may include heartburn, trouble swallowing, or sore throat. Management of hiatal hernia includes eating frequent small meals instead of three large meals a day. Get help right away if you vomit blood, have bright red blood in your stools, or have black, tarry stools. This information is not intended to replace advice given to you by your health care provider. Make sure you discuss any questions you have with your health care provider. Document Revised: 07/20/2022 Document Reviewed: 08/06/2021 [employer] Patient Education 2022 [employer]. 05/27/2023 09:17:16 Delarosa's Esophagus Delarosa's Esophagus Delarosa's esophagus occurs when the tissue that lines the esophagus changes or becomes damaged. The esophagus is the tube that carries food from the throat to the stomach. With Delarosa's esophagus, the cells that line the esophagus are replaced by cells that are similar to the lining of the intestines (intestinal metaplasia). Delarosa's esophagus itself may not cause any symptoms. However, many people who have Delarosa's esophagus also have gastroesophageal reflux disease (GERD), which may cause symptoms such as heartburn. Over time, a few people with this condition may develop cancer of the esophagus. Treatment may include medicines, procedures to destroy the abnormal cells, or surgery. What are the causes? The exact cause of this condition is not known. In some cases, the condition develops from damage to the lining of the esophagus caused by gastroesophageal reflux disease (GERD). GERD occurs when stomach acids flow up from the stomach into the esophagus. Frequent symptoms of GERD may cause intestinal metaplasia or cause cell changes (dysplasia). What increases the risk? You are more likely to develop this condition if you: Have GERD. Are male. Are of descent. Are obese. Are older than 50. Have a hiatal hernia. This is a condition in which part of your stomach bulges into your chest. Smoke. What are the signs or symptoms? People with Delarosa's esophagus often have no symptoms. However, many people with this condition also have GERD. Symptoms of GERD may include: Heartburn. Difficulty swallowing. Dry cough. How is this diagnosed? This condition may be diagnosed based on: Results of an upper gastrointestinal endoscopy. For this exam, a thin, flexible tube with a light and a camera on the end (endoscope) is passed down your esophagus. Your health care provider can view the inside of your esophagus during this procedure. Results of a biopsy. For this procedure, several tissue samples are removed (biopsy) from your esophagus to look at under a microscope. They are then checked for intestinal metaplasia or dysplasia. How is this treated? Treatment for this condition may include: Medicines (proton pump inhibitors, or PPIs) to decrease or stop GERD. Periodic endoscopic exams to make sure that cancer is not developing. A procedure or surgery for dysplasia. This may include: ?Removal or destruction of abnormal cells. ?Removal of part of the esophagus. Follow these instructions at home: Eating and drinking Eat more fruits and vegetables. Avoid fatty foods. Eat small, frequent meals instead of large meals. Avoid foods that cause heartburn. These foods include: ?Coffee and alcoholic drinks. ?Tomatoes and foods made with tomatoes. ?[place] or spicy foods. ?Chocolate and peppermint. Do not drink alcohol. General instructions Take vbqg-fdk-zlbzdgm and prescription medicines only as told by your health care provider. Do not use any products that contain nicotine or tobacco, such as cigarettes, e-cigarettes, and chewing tobacco. If you need help quitting, ask your health care provider. If you are being treated for GERD, make sure you take medicines and follow all instructions as told by your health care provider. Keep all follow-up visits as told by your health care provider. This is important. Contact a health care provider if: You have heartburn or GERD symptoms. You have difficulty swallowing. Get help right away if: You have chest pain. You are unable to swallow. You vomit blood or material that looks like coffee grounds. Your stool (feces) is bright red or dark. These symptoms may represent a serious problem that is an emergency. Do not wait to see if the symptoms will go away. Get medical help right away. Call your local emergency services (911 in the [place] Do not drive yourself to the hospital. Summary Delarosa's esophagus occurs when the tissue that lines the esophagus changes or becomes damaged. Delarosa's esophagus may be diagnosed with an upper gastrointestinal endoscopy and a biopsy. Treatment may include medicines, procedures to remove abnormal cells, or surgery. Follow your health care provider's instructions about what to eat and drink, what medicines to take, and when to call for help. This information is not intended to replace advice given to you by your health care provider. Make sure you discuss any questions you have with your health care provider. Document Revised: 11/22/2020 Document Reviewed: 11/22/2020 [employer] Patient Education 2022 [employer]. Follow Up Care 05/04/2023 16:15:34 With:Oral CONTRERAS Address: [address], [address] [place] [id number]- Business (1) When:1 to 2 weeks [facility] Clinical Note 05-04-2023 Note Date & Type Note Facility 05-04-2023 Note Chief Complaint consultation for GERD HPI Staff 72 year old male presents on consultation from Dr. Borrego for history of Delarosa's esophagitis. EGD completed 05/2013 with esophagitis; EGD 07/2013, 01/2014, 04/2016 and 07/2019 all with Delarosa's esophagus. Taking Omeprazole 20mg daily. Denies heartburn, indigestion or dysphagia. History of Present Illness 72 yo male with h/o htn, cervical/lumbar disc disease, GERD with Delarosa's esophagus; referred for surveillance EGD; GERD well-controlled with Omeprazole; no dysphagia or odynophagia; last EGD 2018 with C1M2 Delarosa's, no dysplasia on biopsies; last colonoscopy 2012, wnl; no abd operations; no change in bms or blood in stools, no abd complaints; on regular asa daily and Diclofenac; no SBE prophylaxis; fmhx of esophageal cancer in patient's father, no fmhx of colon cancer or IBD; former smoker. Review of Systems PHQ Score Initial Depression Screen Score: 0 ROS - Provider Constitutional: no fever, no sweats, no weight loss. Eyes: no glasses, no blurred vision, no visual loss. ENMT: no dentures, no hoarseness, no swallowing difficulties, no hearing loss, no ear infection(s), no nose bleeds. Cardiovascular: normal blood pressure, no chest pain, regular heartbeat, no heart murmur. Respiratory: no shortness of breath, no cough, no asthma, no wheezing. Gastrointestinal: no nausea, no vomiting, no diarrhea, no constipation, no blood in stool, no change in bowel habits, no abdominal pain, no hepatitis. Genitourinary: no kidney stones, no urine infection, no dysuria. Musculoskeletal: no pain, no weakness. Skin: no changing moles, no rash, no skin lumps. Neurologic: no seizures, no epilepsy, no headache. Psychiatric: no emotional or psychiatric problem. Heme/Lymph: no bleeding problems, no anemia, no blood clots, no transfusions. Allergy/Immunologic: no swollen lymph nodes/glands, no IV drug abuse. Other: Additional ROS info: Except as noted in the above Review of Systems and in the History of Present Illness, all other systems have been reviewed and are negative or noncontributory. Physical Exam Vitals & Measurements HR: 76(Peripheral) RR: 16 BP: 128/80 HT: 66 in HT: 167.6 cm WT: 95.7 kg WT: 210.54 lb BMI: 34.07 HEENT: normal conjunctiva, sclera clear, no scleral icterus, EOM intact, PERRLA, oral mucosa moist without lesions. Neck: trachea midline, no mass, symmetric, no thyromegaly or nodules, no adenopathy Respiratory: lungs CTA, respirations non labored. Cardiovascular: regular rate and rhythm, no murmur, no pedal edema or varicosities. Gastrointestinal: soft, non distended, no tenderness, no masses, no palpable hernias, diastasis recti no, no hepatosplenomegaly; normal bs Lymphatic: no cervical adenopathy, no supraclavicular adenopathy. Musculoskeletal: normal gait, digits and nails without infection, nodes, cyanosis, clubbing. Skin: no rashes, no lesions, no ulcers, no subcutaneous nodules, induration. Psychiatric/Neuro: oriented to time, place, person, judgement normal, affect appropriate for age, insight intact, no focal deficits. Tests: review of old records completed, Discussed surgical options, risks, and possible complications with patient. Assessment/Plan 1. 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 2. Chronic GERD (K21.9: Gastro-esophageal reflux disease without esophagitis) see # 1 3. Screening for malignant neoplasm of colon (Z12.11: Encounter for screening for malignant neoplasm of colon) see # 1 Follow-up No qualifying data available Problem List/Past Medical History Ongoing 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,adult Cervical disc disorder Chronic GERD Colon cancer screening Diabetes mellitus Disorder of lumbar disc Diverticular disease Eczema Essential hypertension Gastroesophageal reflux disease Hyperlipidemia Obesity Osteopenia Palpitations Screening for malignant neoplasm of colon Thoracic outlet syndrome Ulcer of duodenum Historical No qualifying data Procedure/Surgical History EGD - Esophagogastroduodenoscopy (08/07/2019), EGD - Esophagogastroduodenoscopy (04/29/2016), EGD - Esophagogastroduodenoscopy (02/15/2014), EGD - Esophagogastroduodenoscopy (08/03/2013), EGD - Esophagogastroduodenoscopy (06/01/2013), Appendectomy, Carpal tunnel release, Hemorrhoidectomy. Medications aspirin 325 mg Oral EC Tab, 650 mg= 2 tab(s), Oral, BID diclofenac sodium 75 mg Oral EC Tab, 75 mg= 1 tab(s), Oral, BID doxazosin 4 mg Tab, 4 mg= 1 tab(s), Oral, BID enalapril, 20 mg, Oral, BID loratadine 10 mg Tab, 10 mg= 1 tab(s), Oral, Daily omeprazole, 20 mg, Oral, Daily Allergies Bee Stings (Edema, unknown) statins (Myalgia) Social History Alcohol - Denies Alcohol Use, 07/31/2019 Substance Abuse - Denies Substance Abuse, 07/31/2019 Tobacco - Denies Tobacco Use, 07/31/2019 Former smoker, quit more than 30 days a (more content not included)... [facility] Comment on above: Result Comment: Elec tronically Signed By: RADHA RICHARDSON, Oral Beck\Date and Time Signed: 05/04/23 16:21 EDT Clinical Note 10-26-2021 Note Date & Type Note Facility 10-26-2021 Note PROCEDURE: XR SHOULD ER LT 2V or > COMPARISON: None. HISTORY: Pain of left shoulder joint FINDINGS: BONES:No acute fracture or dislocation. Multiple remote left posterior rib fractures SOFT TISSUES:Negative. No visible soft tissue swelling. EFFUSION:None visible. OTHER: Negative. IMPRESSION: No acute fracture Electronically authenticated by: JAZMÍN GA Date: 2021-10-26 11:17 [facility] Clinical Note 08-25-2021 Note Date & Type Note Facility 08-25-2021 Note PROCEDURE: XR HIP RT 2 3V WO PELVIS HISTORY: Pain in right hip joint , acute; no known injury COMPARISON: None. FINDINGS: BONES:Within inferior aspect of right femoral head is a round heterogeneously calcified lesion. No fracture, dislocation, or significant joint space narrowing. No periarticular osteophytes. SOFT TISSUES:No visible soft tissue swelling. EFFUSION:None visible. OTHER: Negative. IMPRESSION: 1. Bone lesion within the femoral head; nonspecific but suggestive of a benign enchondroma. No comparison studies. Consider comparing to to any prior studies of this area that may have been performed at another institution. Otherwise follow-up radiograph in 6 months to document stability. If clinical concern for neoplasm, consider MRI of the right hip. 2. No acute bone abnormality or significant degenerative joint disease. Electronically authenticated by: JONES RICHMOND Date: 2021-08-25 16:03 [facility] Evaluation + Plan note Note Date & Type Note Facility Evaluation + Plan note Future Appointments Appointment Date:05/27/2023 09:30:00 AM Scheduled Provider: Location[facility] Appointment Type:Surgery [facility] [place] [facility] course Narrative Note Date & Type Note Facility Hospital course Narrative No data available for this section [facility] Discharge instructions Note Date & Type Note Facility Hospital Discharge instructions No data available for this section General [facility] [place] Progress note Note Date & Type Note Facility Progress note No data available for this section [facility] [place] Discharge Instructions * Attachments The following attachments cannot be sent through Care Everywhere. 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 Summary Purpose Family History No Family History Records FoundNo Family History Records FoundNo Family History Records FoundNo Family History Records Found Additional Source Comments Reason for Visit (unrecogniz ed section and content) Reason Comments Flank Pain left side onset Thur sday Urinary Frequency Ordered Prescriptions (unrec ognized section and content) Prescription Sig Dispensed Refills Start Date End Da te tiZANidine (ZANAFLEX) 2 MG tablet Take 1 tablet by mouth every 8 hours as needed (muscular pain) 10 tablet 0 11/09/2020 ibuprofen (ADVIL;MOTRIN) 600 MG tablet Take 1 tablet by mouth 4 times daily as needed for Pain 30 tablet 1 11/09/2020 (unrecognized sect ion and content) No Status Records FoundNo Status Records FoundNo Status Records FoundNo Status Records Found INFORMATION SOURCE (unrecogn ized section and content) DATE CREATED AUTHOR 11/13/2020 [facility] DATE CREATED AUTHOR AUTHOR'S ORGANIZ ATION 11/27/2021 [facility] DATE CREATED AUTHOR AUTHOR'S ORGANIZ ATION 06/19/2022 [facility] DATE CREATED AUTHOR AUTHOR'S ORGANIZ ATION 06/22/2023 [facility] Patient Care team informatio n (unrecognized section and content) Personnel Name: Ti Borrego MD Address: Address: [address] [place] [address] Personnel Name: Ti Borrego MD Address: Address: [address] [place] [address] Personnel Name: Ti Borrego MD Address: Address: [address] [place] [address] FOR RECORDS PERTAINING TO PATIENTS WHO ARE OR HAVE BEEN ENROLLED IN A CHEMICAL DEPENDENCY/SUBSTANCEABUSE PROGRAM, SOME INFORMATION MAY BE OMITTED. This clinical summary was aggregated from multiple sources. Caution should be exercised in using it in the provision of clinical care. This summary normalizes information from multiple sources, and as a consequence, information in this document may materially change the coding, format and clinical context of patient data. In addition, data may be omitted in some cases. CLINICAL DECISIONS SHOULD BE BASED ON THE PRIMARY CLINICAL RECORDS. [facility]. provides no warranty or guarantee of the accuracy or completeness of information in this document.
[2024-11-09 10:38] LABS: Basophils Percent Auto 0.4 % (0.2-2.0); Eosinophils Absolute Auto 0.2 10^3/uL (0.0-0.7); Eosinophils Percent Auto 1.5 % (0.9-7.0); Hematocrit 42.3 % (42.0-54.0); Hemoglobin 13.6 g/dL (14.0-18.0); Immature Granulocytes Abs Auto 0.02 10^3/uL (0.00-0.03); Immature Granulocytes Pct Auto 0.2 % (0.0-0.5); Lymphocytes Absolute Auto 3.1 10^3/uL (1.2-3.8); Lymphocytes Percent Auto 31.4 % (20.5-60.0); Mean Corpuscular HGB Conc 32.2 g/dL (29.9-35.2); Mean Corpuscular Hemoglobin 32.2 pg (25.9-34.0); Mean Corpuscular Volume 100.2 fL (80.0-94.0); Mean Platelet Volume 10.2 fL (9.5-13.5); Monocytes Absolute Auto 0.8 10^3/uL (0.3-0.8); Monocytes Percent Auto 8.2 % (1.7-12.0); Neutrophils Absolute Auto 5.8 10^3/uL (1.4-6.5); Neutrophils Percent Auto 58.3 % (43.0-75.0); Platelet Count 323 10^3/uL (150-450); Red Blood Count 4.22 10^6/uL (4.70-6.10); Red Cell Distribution Width 12.5 % (11.0-15.0); White Blood Count 9.9 10^3/uL (4.0-11.0)
[2024-11-09 11:08] LABS: Alanine Aminotransferase 40 U/L (16-63); Albumin Globulin Ratio 1.1; Albumin Level 3.7 g/dL (3.4-5.0); Alkaline Phosphatase 52 U/L (46-116); Anion Gap 10.6; Aspartate Amino Transferase 17 U/L (15-37); BUN Creatinine Ratio 17.4; Bilirubin Total 0.3 mg/dL (0.2-1.0); Calcium 8.7 mg/dL (8.5-10.1); Chloride 105 mmol/L (98-107); Chol HDL Ratio 5.6; Cholesterol 230 mg/dL (<=200); Estimated GFR (African America >60 (>=60 mL/min/1.73m^2); Estimated GFR (Non-African Ame >60 (>=60 mL/min/1.73m^2); Free T3 1.35 pg/mL (2.18-3.98); Globulin 3.3 g/dL; Glucose 101 mg/dL (74-106); HDL Cholesterol 41 mg/dL (40-60); Potassium 4.6 mmol/L (3.5-5.1); Sodium 140 mmol/L (136-145); Thyroid Stimulating Hormone 1.075 uIU/mL (0.358-3.740); Triglycerides 199 mg/dL (<=150); Uric Acid 6.1 mg/dL (3.5-7.2); VLDL CHOLESTEROL 39.8 mg/dL
[2024-11-09 11:13] LABS: Prostate Specific Antigen Scrn 2.06 ng/mL (<=4.00)
[2024-11-09 11:20] LABS: Estimated Average Glucose 128 mg/dL; Glycohemoglobin A1C 6.1 % (4.5-6.2)
== END 2024-11-09 10:03 | disposition home or self-care (01) ==
PROVIDERS: PCP Family Medicine; Visit Provider Family Medicine
DX: E78.5 Hyperlipidemia, unspecified (principal); R06.00 Dyspnea, unspecified; E11.9 Type 2 diabetes mellitus without complications; Z12.12 Encounter for screening for malignant neoplasm of rectum; Z12.5 Encounter for screening for malignant neoplasm of prostate; I50.30 Unspecified diastolic (congestive) heart failure; I11.0 Hypertensive heart disease with heart failure
CPT/HCPCS: 36415; 80053; 80061; 83036; 83880; 84436; 84443; 84481; 84550; 85025; G0103

== ENCOUNTER 2024-12-10 07:37 | Outpatient (OUT) | payer MEDICARE, SELFPAY ==
--- OUTSIDE RECORDS SUMMARY | 2024-12-10 07:40 | XMS_ITS | CCD ---
Author Organization [facility] Care Team Providers Care Mid Teacher Name Role Phone Ti Borrego Primary Care [...] HOY, DR LUKE Admitting Unavailable ZIEBER, DR JONES Reed Consulting Unavailable ANJALI, DR LUKE Primary [...] HOY, DR LUKE Consulting Unavailable ZIEBER, DR JONES Reed Consulting Unavailable HOY, DR LUKE Consulting [...] Unavailable SHAYYL, Oral Reed Attending Unavailable NILL, Oarl Reed Attending Unavailable NILL, Oral R Referring Unavailable NILL, Oral R Attending Unavailable NILL, Oral R Admitting Unavailable Allergies Allergy Classification Reported Allergen(s) Allergy Type Date of Onset Reaction(s) Facility (1 source) black walnut pollen extract Drug Allergy 2 [facility] Repository (1 source) rosuvastatin Drug Allergy 1 [facility] Repository (4 sources) Bee/Wasp/Ant venom; Translations: [Bee Stings] Drug allergy Edema (finding) [facility] (4 sources) HMG-CoA reductase inhibitor; Translations: [statins] Propensity to adverse reactions to drug Muscle pain (finding) [facility] General Surgery [place] Medications Current Medications Medication Drug Class(es) Dates [...] 07-13-2021 Episodic Other aftercare (1 source) Other retirement (current) drug therapy; Translations: [OTH SNF CURRENT DRUG THERAPY] Onset: 07-13-2021 Episodic Other [...] IntraOperative Documentson 0 06-14-2023 IntraOperative Documents [id number]#1.00CD:127 Normal [facility] Reminderson 06-09-2023 Reminders - From: Viji Barboza LPN To: N - Clinical; Sent: 06/09/2023 11:52:57 EDT Show up: 04/26/2026 07:00:00 EDT Subject: EGD recall Due Date/Time: 05/27/2026 07:00:00 EDT Reminder/Recall Patient due to repeat EGD 05/27/2026. Dr. Contreras request this be done with Dr. Yusuf due to long standing history of Delarosa's esophagus. Normal [facility] Ambulatory Visit Summaryon 0 06-08-2023 Ambulatory [...] Thoracic outlet syndrome Ulcer of duodenum Normal [facility] General Surgery Office/Clini c Noteon 06-08-2023 [...] Mother. Esophageal cancer: Father. Heart disease: Brother. [facility] Comment on above: Result Comment: Elec tronically Signed By: RADHA RICHARDSON, Oral Reed\.br\Date and Time Signed: 06/08/23 14:22 EDT Postoperative Documentson Postoperative Documents [id number]#1.00CD:127 [facility] Consenton 05-30-2023 Consent [id number]#1.00CD:127 [facility] Discharge Instructionson Discharge Instructions [id number]#1.00CD:127 [facility] Main OR Intraoperative Recor don 05-30-2023 Main OR Intraoperative Record IntraOp Document Type FT Summary Primary Physician: Oral CONTRERAS MD Finalized Date/Time: 05/30/23 11:52:32 Pt. Name: ARNALDO GARCIA/Sex: 1950 Male Med Rec #: [id number] Physician: Oral CONTRERAS MD Financial #: [id number] Pt. Type: O Room/Bed: Endo 03/19 Admit/Disch: [...] and tissue Entry 1 Skin Integrity Intact, [place], Warm, and Skin Abnormality No Dry Outcomes [...] pat (more content not included)... Normal [facility] Progress Note-Physicianon Progress Note-Physician Patient: Tanvi GARCIA [...] All Problems Delarosa esophagus / SNOMED CT 178201118 / Confirmed BMI 34.0-34.9,adult / SNOMED CT 012805780 / Confirmed Cervical disc disorder / SNOMED CT 0800676268 / Confirmed Diabetes mellitus / SNOMED CT 154126962 / Confirmed Disorder of lumbar disc / SNOMED CT 8603787389 / Confirmed Diverticular disease / SNOMED CT 7007127675 / Confirmed Eczema / SNOMED CT 33769017 / Confirmed Essential hypertension / SNOMED CT 69548240 / Confirmed Gastroesophageal reflux disease / SNOMED CT 954991965 / Confirmed Chronic GERD / SNOMED CT 788974363 / Confirmed Hyperlipidemia / SNOMED CT 88778004 / Confirmed Obesity / SNOMED CT 2748468916 / Confirmed Osteopenia / SNOMED CT 143512272 / Confirmed Palpitations / SNOMED CT 345007090 / Confirmed Colon cancer screening / SNOMED CT 177065429 / Confirmed Screening for malignant neoplasm of colon / SNOMED CT 398169815 / Confirmed Thoracic outlet syndrome / SNOMED CT 124426817 / Confirmed Ulcer of duodenum / SNOMED CT 3807515364 / Confirmed Histories Procedure history: EGD - Esophagogastroduodenoscopy (1924534319) on 08/07/2019 at 69 Years. EGD - Esophagogastroduodenoscopy (2686849272) on 04/29/2016 at 65 Years. EGD - Esophagogastroduodenoscopy (4992820664) on 02/15/2014 at 63 Years. EGD - Esophagogastroduodenoscopy (2298155181) on 08/03/2013 at 63 Years. EGD - Esophagogastroduodenoscopy (5940617246) on 06/01/2013 at 62 Years. Hemorrhoidectomy (49943424). Appendectomy (995479139). Carpal tunnel release (757525384). Social History Social & Psychosocial Habits Alcohol [...] adequate air exchange. Cardiovascular: Regular rhythm. Plan [place] [employer] Anesthesiologists (ASA) physical status classification: Class III. Anesthetic Preoperative Plan: Anesthesia General. Normal [facility] Comment on above: Result Comment: Elec tronically Signed By: Case Waller Jr, DO\.br\Date and Time Signed: 05/30/23 13:22 EDT Progress Note-Physician Patient: Tanvi GARCIA Age: 72 years Sex: Male : 1950 Associated Diagnoses: None Author: Case Waller Jr, DO Postoperative Information Postoperative disposition: Postoperative disposition: To PACU. Optimetrix number: Optimetrix number [phone]. Anesthetic utilized: General. Health Status Allergies: Allergic [...] meets criteria ( To home ). Normal [facility] Comment on above: Result Comment: Elec tronically Signed By: Case Waller Jr, DO\eufemia\Date and Time Signed: 05/30/23 13:22 EDT Reminderson 05-30-2023 Reminders - From: Viji Barboza LPN To: GSN - Clinical; Sent: 05/30/2023 10:56:37 EDT Show up: 04/26/2033 07:00:00 EDT Subject: colonoscopy recall Due Date/Time: 05/27/2033 07:00:00 EDT Reminder/Recall Patient due for screening colonoscopy 05/27/2033. Normal [facility] Colonoscopy Procedure Report on 05-27-2023 Colonoscopy [...] Diagnosis: Internal and external hemorrhoids without complication (PPL57-CQ K64.4, Discharge, Medical). Course: Progressing as expected. Recommendations: Repeat colonoscopy:: In 10 years. Follow-up:: 1-2 weeks. Diet:: Regular diet. Medication resumption:: Continue current medications. Return to activities:: After 24 hours. Education and Follow-up: Counseled: Family. Bony [facility] Comment on above: Other Comment: Yasmin carey Attachment - attachment storage system not supported [id number] Can be viewed in source systemMissing Attachment - attachment storage system not supported [id number] Can be viewed in source system Consent for Treatmenton -0 Consent for Treatment [id number]#1.00CD:127 Normal [facility] Discharge Instructionson Discharge Instructions ARNALDO GARCIA [...] 2 weeks Where: [address], [address] [place] [id number]- [facility] (1) Medications What How Much When Instructions [...] ATTENTION IF (more content not included)... Normal [facility] Comment on above: Result Comment: Elec [...] Findings The affected area was not inflamed. O'Brien classification: C 1, M 2. Multiple biopsies [...] Diagnosis: Hiatal hernia with GERD and esophagitis (SLC99-OM K44.9, Discharge, Medical), Gastro-esophageal reflux disease with esophagitis, without bleeding (AKJ46-LL K21.00, Discharge, Medical), Delarosa's esophagus (OMM90-LW K22.70, Discharge, Medical). Course: Progressing as expected. Education and Follow-up: Counseled: Family. Normal [facility] Comment on above: Other Comment: Yasmin carey Attachment - attachment storage system not supported [id number] Can be viewed in source system Inpatient Patient Summaryon 05-27-2023 Inpatient Patient Summary (Inserted Imag e. Unable to display) [address] [address] [facility] Clinical Discharge Instructions PERSON INFORMATION Name: ARNALDO GARCIA PHYSICIANS Admitting Physician: Oral CONTRERAS MD Attending Physician: Oral CONTRERAS MD PCP: Ti Borrego MD Discharge Diagnosis: Delarosa's esophagus; Gastro-esophageal reflux disease with esophagitis, without bleeding; Hiatal hernia with GERD and esophagitis; Internal and external hemorrhoids without complication; Other hemorrhoids Comment: PATIENT EDUCATION INFORMATION Instructions: Medication Leaflets: Follow up: With: Address: When: Oral CONTRERAS [address] [place] [address], [address], [place] [phone] Business (1) Within 1 to 2 weeks [...] Milligram By Mouth every day. Comment: Normal [facility] Main OR PACU I Recordon Main OR PACU I Record PACU Phase I Docum ent Type FT Summary Primary Physician: Oral CONTRERAS MD Finalized Date/Time: 05/27/23 09:52:17 Pt. Name: ARNALDO GARCIA /Sex: 1950 Male Med Rec #: [id number] Physician: Oral CONTRERAS MD Financial #: [id number] Pt. Type: O Room/Bed: [facility] 03/19 Admit/Disch: 05/27/23 08:12:53 - 05/27/23 09:44:00 [...] By: Marian Aguero RN 05/27/23 09:52 Normal [facility] Main OR Preoperative Recordo n 05-27-2023 Main OR Preoperative Record Holding Area Document Type FT Summary Primary Physician: Oral CONTRERAS MD Finalized Date/Time: 05/27/23 08:22:57 Pt. Name: ARNALDO GARCIA Vadim Topete/Sex: 1950 Male Med Rec #: [id number] Physician: Oral CONTRERAS MD Financial #: [id number] Pt. Type: O Room/Bed: [facility] 03/19 Admit/Disch: 05/27/23 08:12:53 - Institution: Case [...] By: Liz Viveros RN 05/27/23 08:22 Normal [facility] Monitor Recordon 05-27-2023 Monitor Record [id number]#1.00CD:127 Normal [facility] Monitor Record [id number]#1.00CD:127 Normal [facility] Outpatient Surgery Discharge Instructionon 05-27-2023 Outpatient Surgery Discharge Instruction [place] [id number] Patient Discharge Instructions PERSON INFORMATION Name: ARNALDO [...] With: Address: When: [address], [address], [facility] [address] [place] [id number] Business (1) Within 1 to 2 weeks Pharmacy Information: Other: [facility] in [place] You may receive a survey from [employer] asking you to rate your care experience. Your feedback is important and will help us understand what we do well and how we can improve the quality of care we provide to you, your loved ones and our community. It?s an honor to serve you. Thank you for choosing [facility] HERE ARE THE MEDICATION CHANGES THAT OCCURRED [...] PATIENT EDUCATION INFORMATION Instructions: Medication Leaflets: Bony [facility] Patient Education - Texton 0 05-27-2023 [...] blood. Document Released: 04/19/2005 Document Re-Released: 02/27/2007 [employer]? Patient Information ?2009 Right [employer]. Gastroenterology Hemorrhoids Hemorrhoids are swollen veins that [...] is this (more content not included)... Normal [facility] Insurance Correspondenceon 0 05-20-2023 Insurance Correspondence [id number]#1.00CD:127 Normal [facility] Insurance Correspondenceon 0 05-17-2023 Insurance Correspondence [id number]#1.00CD:127 [facility] Consent for Procedure/Surger yon 05-05-2023 Consent for Procedure/Surgery [id number]#1.00CD:127 [facility] Facesheeton 05-05-2023 Facesheet [id number]#1.00CD:127 [facility] Ambulatory Visit Summaryon 0 05-04-2023 Ambulatory [...] Follow-Up Appointments Tuesday 9:30 AM EDT Where: [facility] Surgical Services Medications What How Much When [...] Thoracic outlet syndrome Ulcer of duodenum Normal [facility] Physician Referralon 023 Physician Referral [id number]#1.00CD:127 Normal [facility] Physician Referralon 023 Physician Referral [id number]#1.00CD:127 Normal [facility] MRI SHOULDER RT WO CONon MRI [...] by: JONES RICHMOND Date: 2022-06-10 12:[address] [facility] XR ARTHRO SHLD RTon 06-10-20 22 XR [...] JONES RICHMOND Date: 2022-06-10 09:42 Normal [facility] XR FOREIGN BODY EYEon 2021 XR FOREIGN BODY EYE EXAMINATION: XR FORE IGN BODY EYE HISTORY: Foreign body in eye COMPARISON: No relevant comparison available. FINDINGS: ORBITS: Negative for a metallic foreign body. OTHER: Negative. IMPRESSION: 1. No radiopaque foreign body within the orbits. Electronically authenticated by: JONES RICHMOND Date: 2022-06-10 08:27 Normal [facility] XR CSPINE MIN 4 VIEWSon 02-17 XR [...] JONES RICHMOND Date: 2022-03-04 08:57 Normal [facility] XR SHOULDER RT 2V or >on XR [...] PONCHO GARCIA Date: 2022-03-03 17:48 Normal [facility] ECHOCARDIO M/2D COMPLETEon 0 12-01-2021 ECHOCARDIO M/2D COMPLETE Patient: ARNALDO GARCIA Exam Date: 12/01/2021 : 1950 Gender:M Ordering : DR TI BORREGO . Admission #: [id number] Family : Order #: [id number] CLICK HERE TO VIEW EXAM ECHOCARDIOGRAM REPORT [...] Area(A4C): 21.80 cm2 Left Atrium Systolic Volume(A2C): 11674 mm3 Left Atrium Systolic Volume(A4C): 39329 mm3 Mitral Valve MV E to A [...] M.D. on 12/01/2021 at 13:51 Normal [facility] Complete Blood Count with Au to Diffon 11-24-2021 Basophils (Bld) [#/Vol] 0.1 10*3/uL Normal 0.0-0.1 [facility] Comment on above: Performed By: #### C BCAD, A1C #### [place] [address] Ph. [phone] Basophils/100 WBC (Bld) 1 % Normal 0-1 [facility] Comment on above: Performed By: #### C BCAD, A1C #### [place] [address] Ph. [phone] Eosinophils (Bld) [#/Vol] 0.1 10*3/uL Normal 0.0-0.5 [facility] Comment on above: Performed By: #### C BCAD, A1C #### [place] [address] Ph. [phone] Eosinophils/100 WBC (Bld) 1 % Normal 0-5 [facility] Comment on above: Performed By: #### C BCAD, A1C #### [place] [address] Ph. [phone] Erythrocyte distribution width (RBC) [Ratio] 12.2 % Normal 11.5-14.5 [facility] Comment on above: Performed By: #### C BCAD, A1C #### [place] [address] Ph. [phone] Hematocrit (Bld) [Volume fraction] 49.2 % Normal 42.0-52.0 [facility] Comment on above: Performed By: #### C BCAD, A1C #### [place] [address] Ph. [phone] Hemoglobin (Bld) [Mass/Vol] 15.7 g/dL Normal 13.5-17.5 [facility] Comment on above: Performed By: #### C BCAD, A1C #### [address] [address] Ph. [phone] Lymphocytes (Bld) [#/Vol] 3.3 10*3/uL Normal 1.0-4.0 [facility] Comment on above: Performed By: #### C BCAD, A1C #### [place] [address] Ph. [phone] Lymphocytes/100 WBC (Bld) 36 % Normal 20-40 [facility] Comment on above: Performed By: #### C BCAD, A1C #### [place] [address] Ph. [phone] MCH (RBC) [Entitic mass] 31.6 pg Normal 27.0-35.0 [facility] Comment on above: Performed By: #### C BCAD, A1C #### [place] [address] Ph. [phone] MCHC (RBC) [Mass/Vol] 31.9 g/dL Low 32.0-36.0 [facility] Comment on above: Performed By: #### C BCAD, A1C #### [place] [address] Ph. [phone] MCV (RBC) [Entitic vol] 99 fL Normal 80-100 [facility] Comment on above: Performed By: #### C BCAD, A1C #### [place] [address] Ph. [phone] Monocytes (Bld) [#/Vol] 0.8 10*3/uL Normal 0.3-1.0 [facility] Comment on above: Performed By: #### C BCAD, A1C #### [place] [address] Ph. [phone] Monocytes/100 WBC (Bld) 9 % Normal 1-15 [facility] Comment on above: Performed By: #### C BCAD, A1C #### [place] [address] Ph. [phone] Neutrophils (Bld) [#/Vol] 4.8 10*3/uL Normal 1.8-7.7 [facility] Comment on above: Performed By: #### C BCAD, A1C #### [place] [address] Ph. [phone] Neutrophils/100 WBC (Bld) 53 % Normal 50-70 [facility] Comment on above: Performed By: #### C BCAD, A1C #### [place] [address] Ph. [phone] Platelet mean volume (Bld) [Entitic vol] 10.6 fL Normal 9.4-12.3 [facility] Comment on above: Performed By: #### C BCAD, A1C #### [address] [address] Ph. [phone] Platelets (Bld) [#/Vol] 351 10*3/uL Normal 150-450 [facility] Comment on above: Performed By: #### C BCAD, A1C #### [address] [address] Ph. [phone] RBC (Bld) [#/Vol] 4.97 10*6/uL Normal 4.70-6.10 [facility] Comment on above: Performed By: #### C BCAD, A1C #### [place] [address] Ph. [phone] WBC (Bld) [#/Vol] 9.1 10*3/uL Normal 3.7-11.0 [facility] Comment on above: Performed By: #### C BCAD, A1C #### [address] [address] Ph. [phone] Comprehensive Metabolic Pane fredo 11-24-2021 Albumin [Mass/Vol] 4.5 g/dL Normal 3.5-5.0 [facility] Comment on above: Performed By: #### C MP, PSA, LIPD #### [address] [address] Ph. [phone] ALP [Catalytic activity/Vol] 62 U/L Normal 38-126 [facility] Comment on above: Performed By: #### C MP, PSA, LIPD #### [address] [address] Ph. [phone] ALT [Catalytic activity/Vol] 23 U/L Normal 0-50 [facility] Comment on above: Performed By: #### C MP, PSA, LIPD #### [place] [address] Ph. [phone] AST [Catalytic activity/Vol] 21 U/L Normal 17-59 [facility] Comment on above: Performed By: #### C MP, PSA, LIPD #### [place] [address] Ph. [phone] Bilirubin [Mass/Vol] 0.5 mg/dL Normal 0.2-1.3 [facility] Comment on above: Performed By: #### C MP, PSA, LIPD #### [place] [address] Ph. [phone] Calcium [Mass/Vol] 9.5 mg/dL Normal 8.4-10.2 [facility] Comment on above: Performed By: #### C MP, PSA, LIPD #### [place] [address] Ph. [phone] Chloride [Moles/Vol] 104 mmol/L Normal 98-107 [facility] Comment on above: Performed By: #### C MP, PSA, LIPD #### [address] [address] Ph. [phone] CO2 [Moles/Vol] 31 mmol/L Normal 22-32 [facility] Comment on above: Performed By: #### C MP, PSA, LIPD #### [address] [address] Ph. [phone] Creatinine [Mass/Vol] 0.92 mg/dL Normal 0.66-1.25 [facility] Comment on above: Performed By: #### C MP, PSA, LIPD #### [address] [address] Ph. [phone] GFR/1.73 sq M.predicted among non-blacks MDRD (S/P/Bld) [Vol rate/Area] 82 mL/min/{1.73_m2} Normal >60 [facility] Comment on above: Result Comment: Stag e 1 Kidney damage (e.g., protein in the urine) with normal GFR >=90\X0D0A\Stage 2 Kidney damage with mild decrease in GFR 60-89\X0D0A\Stage 3a Moderate decrease in GFR 45-59\X0D0A\Stage 3b Moderate decrease in GFR 30-44\X0D0A\Stage 4 Severe reduction in GFR 15-29\X0D0A\Stage 5 Kidney failure <15 Performed By: #### C MP, PSA, LIPD #### [place] [address] Ph. [phone] Glucose [Mass/Vol] 116 mg/dL High 65-100 [facility] Comment on above: Performed By: #### C MP, PSA, LIPD #### [place] [address] Ph. [phone] Potassium [Moles/Vol] 5.2 mmol/L High 3.6-5.0 [facility] Comment on above: Performed By: #### C MP, PSA, LIPD #### [place] [address] Ph. [phone] Protein [Mass/Vol] 7.3 g/dL Normal 6.3-8.2 [facility] Comment on above: Performed By: #### C MP, PSA, LIPD #### [place] [address] Ph. [phone] Sodium [Moles/Vol] 141 mmol/L Normal 135-145 [facility] Comment on above: Performed By: #### C MP, PSA, LIPD #### [place] [address] Ph. [phone] Urea nitrogen [Mass/Vol] 21 mg/dL High 9-20 [facility] Comment on above: Performed By: #### C MP, PSA, LIPD #### [place] [address] Ph. [phone] Hemoglobin A1Con 11-24-2021 EAG 135 mg/dL Normal [facility] Comment on above: Result Comment: Sandi mated Average Glucose is a caluculated value from Hemoglobin A1C and is territory service representative of the average blood glucose level in the last 2-3 month period. Performed By: #### C BCAD, A1C #### [place] [address] Ph. [phone] HbA1c (Bld) [Mass fraction] 6.3 % High 4.0-6.0 [facility] Comment on above: Result Comment: Amer [place] Diabetes Association guidelines indicate that patients with HgbA1C in the range of 5.7-6.4% are at increased risk for development of diabetes, and intervention by lifestyle modification may be beneficial. HgbA1C greater than or equal to 6.5% is considered diagnostic of diabetes. Performed By: #### C BCAD, A1C #### [place] [address] Ph. [phone] INSULIN, SERUMon 11-24-2021 Insulin 14.8 uIU/mL Normal <=19.6 [facility] Comment on above: Order Comment: [facility] performed at: [employer] [employer] [facility], [address] [place] [address], , Glass Belt Sander: Josh Flood MD PhD\X0D0A\[facility] Collection Date/Time: [id number]\X0D0A\[facility] Results Received Date/Time: [id number]\X0D0A\[facility] Reported Date/Time: [id number] Result Comment: \X0D 0A\Risk Category:\X0D0A\Optimal < or = 19.6\X0D0A\Moderate NA\X0D0A\High >19.6\X0D0A\ \X0D0A\Adult cardiovascular event risk category cut\X0D0A\points (optimal, moderate, high) are based on\X0D0A\[employer] [facility] population data from 08/2011.\X0D0A\ \X0D0A\This insulin assay shows strong cross-reactivity for\X0D0A\some insulin analogs (lispro, aspart, and glargine)\X0D0A\and much lower cross-reactivity with others (determir,\X0D0A\glulisine).\X0D0A\ Performed By: #### O RD523 #### [place] [address] Ph. [phone] Lipid Panelon 11-24-2021 Cholesterol [Mass/Vol] 257 mg/dL High 100-200 [facility] Comment on above: Result Comment: <200 mg/dL is recommended cholesterol level. Performed By: #### C JADE PSA, LIPD #### [place] [address] Ph. [phone] Cholesterol in HDL [Mass/Vol] 45 mg/dL Normal >40 [facility] Comment on above: Performed By: #### C JADE PSA, LIPD #### [address] [address] Ph. [phone] Cholesterol in LDL [Mass/Vol] 178 mg/dL High 20-100 [facility] Comment on above: Performed By: #### C JADE PSA, LIPD #### [address] [address] Ph. [phone] Cholesterol.total/Cholest lucie in HDL [Mass ratio] 6 {ratio} High 1-5 [facility] Comment on above: Performed By: #### C JADE, PSA, LIPD #### [address] [address] Ph. [phone] Triglyceride [Mass/Vol] 169 mg/dL High 10-150 [facility] Comment on above: Performed By: #### C MP, PSA, LIPD #### [place] [address] [address] [phone] CREATININEon 10-02-2021 Creatinine [Mass/Vol] 0.99 mg/dL Normal 0.66-1.25 [facility] Comment on above: Performed By: #### C RENEE #### [facility] [address] [place] [address] Dr. Michelle Garcia EGFR-AF INDONESIAN >60 Normal >=60 [facility] Comment on above: Performed By: #### C RENEE #### [facility] [address] [place] [address] Dr. Michelle Garcia EGFR-NON AF INDONESIAN >60 Normal >=60 [facility] Comment on above: Performed By: #### C RENEE #### [facility] [address] [place] [address] Dr. Michelle Garcia MRI HIP RT W CONon MRI HIP RT W CON EXAM: MRI HIP RT W C ON 20 mL [employer]. HISTORY: The patient is a 71-year-old male. Follow-up right femoral head lesion. COMPARISON: Comparison is made to radiographs of the right hip obtained on 08/25/2021 and to a non-contrast enhanced MRI of the right hip obtained on 09/21/2021. TECHNIQUE: Small [id number] images were obtained of the right hip: [...] MICHEL BOYKIN Date: 2021-10-02 20:20 Normal [facility] MRI HIP RT WO CONon 09-21-19 22 [...] JAZMÍN GA Date: 2021-09-21 14:29 Normal [facility] XR FOREIGN BODY EYEon 2021 XR FOREIGN BODY EYE EXAMINATION: XR FORE IGN BODY EYE HISTORY: Foreign body in eye COMPARISON: No relevant comparison available. FINDINGS: ORBITS: Negative for a metallic foreign body. OTHER: Negative. IMPRESSION: 1. No metallic foreign body within the orbits. Electronically authenticated by: JONES RICHMOND Date: 2021-09-21 12:52 Normal [facility] XR SACRUM_COCCYXon XR SACRUM_COCCYX EXAMINATION: XR LSPI [...] JONES RICHMOND Date: 2021-08-25 16:07 Normal [facility] BNPon 07-08-2021 Natriuretic peptide B (Bld) [Mass/Vol] 73.0 pg/mL Normal <=900.0 [facility] Comment on above: Performed By: #### C RP, BNP, CMP #### [facility] [address] [place] [address] Dr. Michelle Garcia CBC AUTO DIFFon 07-08-2021 BASO # 0.0 103/ul Normal 0.0-0.1 [facility] Comment on above: Performed By: #### C RP, BNP, CMP #### [facility] [address] [place] [address] Dr. Michelle Garcia Basophils/100 WBC (Bld) 0.1 % Critically low 0.2-2.0 [facility] Comment on above: Performed By: #### C RP, BNP, CMP #### [facility] [address] [place] [address] Dr. Michelle Garcia EO # 0.0 103/ul Normal 0.0-0.7 [facility] Comment on above: Performed By: #### C RP, BNP, CMP #### [facility] [address] [place] [address] Dr. Michelle Garcia Eosinophils/100 WBC (Bld) 0.0 % Critically low 0.9-7. 0 [facility] Comment on above: Performed By: #### C RP, BNP, CMP #### [facility] [address] [place] [address] Dr. Michelle Garcia Erythrocyte distribution width (RBC) [Ratio] 12.4 % Normal 11.0-15.0 [facility] Comment on above: Performed By: #### C RP, BNP, CMP #### [facility] [address] [place] [address] Dr. Michelle Garcia Hematocrit (Bld) [Volume fraction] 43.2 % Normal 42.0-54.0 [facility] Comment on above: Performed By: #### C RP, BNP, CMP #### [facility] [address] [place] [address] Dr. Michelle Garcia Hemoglobin (Bld) [Mass/Vol] 14.4 g/dL Normal 14.0-18.0 [facility] Comment on above: Performed By: #### C RP, BNP, CMP #### [facility] [address] [address] [address] Michelle Garcia IG # 0.06 10e3/ul Critically high 0.00-0.03 [facility] Comment on above: Performed By: #### C RP, BNP, CMP #### [facility] [address] [address] [address] Michelle Garcia IG % 0.7 % Critically high 0.0-0.5 [facility] Comment on above: Performed By: #### C RP, BNP, CMP #### [facility] [address] [place] [address] Dr. Michelle Garcia LYMPH # 1.2 103/ul Normal 1.2-3.8 [facility] Comment on above: Performed By: #### C RP, BNP, CMP #### [facility] [address] [place] [address] Dr. Michelle Garcia Lymphocytes/100 WBC (Bld) 14.0 % Critically low 20.5-[address] [facility] Comment on above: Performed By: #### C RP, BNP, CMP #### [facility] [address] [place] [address] Dr. Michelle Garcia MANUAL DIFF REQ NO Normal [facility] Comment on above: Performed By: #### C RP, BNP, CMP #### [facility] [address] [place] [address] Dr. Michelle Garcia MCH (RBC) [Entitic mass] 31.6 pg Normal 25.9-34.0 [facility] Comment on above: Performed By: #### C RP, BNP, CMP #### [facility] [address] [place] [address] Dr. Michelle Garcia MCHC (RBC) [Mass/Vol] 33.3 g/dL Normal 29.9-35.2 [facility] Comment on above: Performed By: #### C RP, BNP, CMP #### [facility] [address] [place] [address] Dr. Michelle Garcia MCV (RBC) [Entitic vol] 94.9 fL Critically high 80.0-[address] [facility] Comment on above: Performed By: #### C RP, BNP, CMP #### [facility] [address] [place] [address] Dr. Michelle Garcia MONO # 0.7 103/ul Normal 0.3-0.8 [facility] Comment on above: Performed By: #### C RP, BNP, CMP #### [facility] [address] [place] [address] Dr. Michelle Garcia Monocytes/100 WBC (Bld) 8.5 % Normal 1.7-12.0 [facility] Comment on above: Performed By: #### C RP, BNP, CMP #### [facility] [address] [place] [address] Dr. Michelle Garcia NEUT # 6.6 103/ul Critically high 1.4-6.5 [facility] Comment on above: Performed By: #### C RP, BNP, CMP #### [facility] [address] [place] [address] Dr. Michelle Garcia Neutrophils/100 WBC (Bld) 76.7 % Critically high 43.0- 75.0 [facility] Comment on above: Performed By: #### C RP, BNP, CMP #### [facility] [address] [place] [address] Dr. Michelle Garcia Platelet mean volume (Bld) [Entitic vol] 10.3 fL Normal 9.5-13.5 [facility] Comment on above: Performed By: #### C RP, BNP, CMP #### [facility] [address] [place] [address] Dr. Michelle Garcia PLT 347 103/ul Normal 150-450 [facility] Comment on above: Performed By: #### C RP, BNP, CMP #### [facility] [address] [place] [address] Dr. Michelle Garcia RBC 4.55 106/ul Critically low 4.70-6.10 [facility] Comment on above: Performed By: #### C RP, BNP, CMP #### [facility] [address] [place] [address] Dr. Michelle Garcia WBC 8.6 103/ul Normal 4.0-11.0 [facility] Comment on above: Performed By: #### C RP, BNP, CMP #### [facility] [address] [place] [address] Dr. Michelle Garcia CRPon 07-08-2021 CRP [Mass/Vol] mg/L Normal <=1.0 [facility] Comment on above: Performed By: #### C RP, BNP, CMP #### [facility] [address] [place] [address] Dr. Michelle Garcia PROF 14(COMP METB)on 021 Albumin [Mass/Vol] 3.1 g/dL Critically low 3.5-5.0 [facility] Comment on above: Performed By: #### C RP, BNP, CMP #### [facility] [address] [place] [address] Dr. Michelle Garcia Albumin/Globulin [Mass ratio] 0.8 {ratio} Normal [facility] Comment on above: Performed By: #### C RP, BNP, CMP #### [facility] [address] [place] [address] Dr. Michelle Garcia ALP [Catalytic activity/Vol] 52 U/L Normal 38-126 [facility] Comment on above: Performed By: #### C RP, BNP, CMP #### [facility] [address] [place] [address] Dr. Michelle Garcia ALT [Catalytic activity/Vol] 110 U/L Critically high 21-72 [facility] Comment on above: Performed By: #### C RP, BNP, CMP #### [facility] [address] [place] [address] Dr. Michelle Garcia Anion gap [Moles/Vol] 12.8 mmol/L Normal [facility] Comment on above: Performed By: #### C RP, BNP, CMP #### [facility] [address] [place] [address] Dr. Michelle Garcia AST [Catalytic activity/Vol] 47 U/L Normal 17-59 [facility] Comment on above: Performed By: #### C RP, BNP, CMP #### [facility] [address] [place] [address] Dr. Michelle Garcia Bilirubin [Mass/Vol] 0.5 mg/dL Normal 0.2-1.3 [facility] Comment on above: Performed By: #### C RP, BNP, CMP #### [facility] [address] [place] [address] Dr. Michelle Garcia Calcium [Mass/Vol] 8.0 mg/dL Critically low 8.4-10.2 [facility] Comment on above: Performed By: #### C RP, BNP, CMP #### [facility] [address] [place] [address] Dr. Michelle Garcia Chloride [Moles/Vol] 101 mmol/L Normal 98-107 [facility] Comment on above: Performed By: #### C RP, BNP, CMP #### [facility] [address] [place] [address] Dr. Mihcelle Garcia CO2 [Moles/Vol] 25.9 mmol/L Normal 22.0-30.0 [facility] Comment on above: Performed By: #### C RP, BNP, CMP #### [facility] [address] [place] [address] Dr. Michelle Garcia Creatinine [Mass/Vol] 0.87 mg/dL Normal 0.66-1.25 [facility] Comment on above: Performed By: #### C RP, BNP, CMP #### [facility] [address] [place] [address] Dr. Michelle Garcia EGFR-AF INDONESIAN >60 Normal >=60 [facility] Comment on above: Performed By: #### C RP, BNP, CMP #### [facility] [address] [place] [address] Dr. Michelle Garcia EGFR-NON AF INDONESIAN >60 Normal >=60 [facility] Comment on above: Performed By: #### C RP, BNP, CMP #### [facility] [address] [place] [address] Dr. Michelle Garcia Globulin (S) [Mass/Vol] 3.8 g/dL Normal [facility] Comment on above: Performed By: #### C RP, BNP, CMP #### [facility] [address] [place] [address] Dr. Michelle Garcia Glucose [Mass/Vol] 150 mg/dL Critically high 74-106 [facility] Comment on above: Performed By: #### C RP, BNP, CMP #### [facility] [address] [place] [address] Dr. Michelle Garcia Potassium [Moles/Vol] 3.7 mmol/L Normal 3.4-5.0 [facility] Comment on above: Performed By: #### C RP, BNP, CMP #### [facility] [address] [place] [address] Dr. Michelle Garcia Protein [Mass/Vol] 6.9 g/dL Normal 6.1-8.2 [facility] Comment on above: Performed By: #### C RP, BNP, CMP #### [facility] [address] [place] [address] Dr. Michelle Garcia Sodium [Moles/Vol] 136 mmol/L Critically low 137-145 [facility] Comment on above: Performed By: #### C RP, BNP, CMP #### [facility] [address] [place] [address] Dr. Michelle Garcia Urea nitrogen [Mass/Vol] 18.0 mg/dL Normal 9.0-20.0 [facility] Comment on above: Performed By: #### C RP, BNP, CMP #### [facility] [address] [place] [address] Dr. Michelle Garcia Urea nitrogen/Creatinine [Mass ratio] 20.7 mg/mg Normal [facility] Comment on above: Performed By: #### C RP, BNP, CMP #### [facility] [address] [place] [address] Dr. Michelle Garcia BNPon 07-07-2021 Natriuretic peptide B (Bld) [Mass/Vol] 47.0 pg/mL Normal <=900.0 [facility] Comment on above: Performed By: #### H STROPN #### [facility] [address] [place] [address] Dr. Michelle Garcia CBC AUTO DIFFon 07-07-2021 BASO # 0.0 103/ul Normal 0.0-0.1 [facility] Comment on above: Performed By: #### C BC #### [facility] [address] [place] [address] Dr. Michelle Garcia Basophils/100 WBC (Bld) 0.1 % Critically low 0.2-2.0 [facility] Comment on above: Performed By: #### C BC #### [facility] [address] [place] [address] Dr. Michelle Garcia EO # 0.0 103/ul Normal 0.0-0.7 [facility] Comment on above: Performed By: #### C BC #### [facility] [address] [place] [address] Dr. Michelle Garcia Eosinophils/100 WBC (Bld) 0.0 % Critically low 0.9-7. 0 [facility] Comment on above: Performed By: #### C BC #### [facility] [address] [place] [address] Dr. Michelle Garcia Erythrocyte distribution width (RBC) [Ratio] 12.4 % Normal 11.0-15.0 [facility] Comment on above: Performed By: #### C BC #### [facility] [address] [place] [address] Dr. Michelle Garcia Hematocrit (Bld) [Volume fraction] 41.6 % Critically low 42.0-54.0 [facility] Comment on above: Performed By: #### C BC #### [facility] [address] [place] [address] Dr. Michelle Garcia Hemoglobin (Bld) [Mass/Vol] 13.9 g/dL Critically low 14.0-18.0 [facility] Comment on above: Performed By: #### C BC #### [facility] [address] [place] [address] Dr. Michelle Garcia IG # 0.06 10e3/ul Critically high 0.00-0.03 [facility] Comment on above: Performed By: #### C BC #### [facility] [address] [place] [address] Dr. Michelle Garcia IG % 0.7 % Critically high 0.0-0.5 [facility] Comment on above: Performed By: #### C BC #### [facility] [address] [place] [address] Dr. Michelle Garcia LYMPH # 1.5 103/ul Normal 1.2-3.8 [facility] Comment on above: Performed By: #### C BC #### [facility] [address] [place] [address] Dr. Michelle Garcia Lymphocytes/100 WBC (Bld) 17.9 % Critically low 20.5-[address] [facility] Comment on above: Performed By: #### C BC #### [facility] [address] [place] [address] Dr. Michelle Garcia MANUAL DIFF REQ NO Normal [facility] Comment on above: Performed By: #### C BC #### [facility] [address] [place] [address] Dr. Michelle Garcia MCH (RBC) [Entitic mass] 32.0 pg Normal 25.9-34.0 [facility] Comment on above: Performed By: #### C BC #### [facility] [address] [place] [address] Dr. Michelle Garcia MCHC (RBC) [Mass/Vol] 33.4 g/dL Normal 29.9-35.2 [facility] Comment on above: Performed By: #### C BC #### [facility] [address] [place] [address] Dr. Michelle Garcia MCV (RBC) [Entitic vol] 95.6 fL Critically high 80.0-94 .0 [facility] Comment on above: Performed By: #### C BC #### [facility] [address] [place] [address] Dr. Michelle Garcia MONO # 0.5 103/ul Normal 0.3-0.8 [facility] Comment on above: Performed By: #### C BC #### [facility] [address] [place] [address] Dr. Michelle Garcia Monocytes/100 WBC (Bld) 6.0 % Normal 1.7-12.0 [facility] Comment on above: Performed By: #### C BC #### [facility] [address] [place] [address] Dr. Michelle Garica NEUT # 6.4 103/ul Normal 1.4-6.5 [facility] Comment on above: Performed By: #### C BC #### [facility] [address] [place] [address] Dr. Michelle Garcia Neutrophils/100 WBC (Bld) 75.3 % Critically high 43.0- 75.0 [facility] Comment on above: Performed By: #### C BC #### [facility] [address] [place] [address] Dr. Michelle Garcia Platelet mean volume (Bld) [Entitic vol] 10.2 fL Normal 9.5-13.5 [facility] Comment on above: Performed By: #### C BC #### [facility] [address] [place] [address] Dr. Michelle Garcia PLT 323 103/ul Normal 150-450 [facility] Comment on above: Performed By: #### C BC #### [facility] [address] [place] [address] Dr. Michelle Garcia RBC 4.35 106/ul Critically low 4.70-6.10 [facility] Comment on above: Performed By: #### C BC #### [facility] [address] [place] [address] Dr. Michelle Garcia WBC 8.5 103/ul Normal 4.0-11.0 [facility] Comment on above: Performed By: #### C BC #### [facility] [address] [place] [address] Dr. Michelle Garcia CRPon 07-07-2021 CRP [Mass/Vol] mg/L Normal <=1.0 [facility] Comment on above: Performed By: #### H STROPN #### [facility] [address] [place] [address] Dr. Michelle Garcia PROF 14(COMP METB)on 07-07- 021 Albumin [Mass/Vol] 2.9 g/dL Critically low 3.5-5.0 [facility] Comment on above: Performed By: #### H STROPN #### [facility] [address] [place] [address] Dr. Michelle Garcia Albumin/Globulin [Mass ratio] 0.8 {ratio} Normal [facility] Comment on above: Performed By: #### H STROPN #### [facility] [address] [place] [address] Dr. Michelle Garcia ALP [Catalytic activity/Vol] 54 U/L Normal 38-126 [facility] Comment on above: Performed By: #### H STROPN #### [facility] [address] [place] [address] Dr. Michelle Garcia ALT [Catalytic activity/Vol] 121 U/L Critically high 21-72 [facility] Comment on above: Performed By: #### H STROPN #### [facility] [address] [place] [address] Dr. Michelle Garcia Anion gap [Moles/Vol] 11.5 mmol/L Normal [facility] Comment on above: Performed By: #### H STROPN #### [facility] [address] [place] [address] Dr. Michelle Garcia AST [Catalytic activity/Vol] 57 U/L Normal 17-59 [facility] Comment on above: Performed By: #### H STROPN #### [facility] [address] [place] [address] Dr. Michelle Garcia Bilirubin [Mass/Vol] 0.3 mg/dL Normal 0.2-1.3 [facility] Comment on above: Performed By: #### H STROPN #### [facility] [address] [place] [address] Dr. Michelle Garcia Calcium [Mass/Vol] 8.1 mg/dL Critically low 8.4-10.2 [facility] Comment on above: Performed By: #### H STROPN #### [facility] [address] [place] [address] Dr. Michelle Garcia Chloride [Moles/Vol] 102 mmol/L Normal 98-107 [facility] Comment on above: Performed By: #### H STROPN #### [facility] [address] [address] [address] Michelle Garcia CO2 [Moles/Vol] 27.2 mmol/L Normal 22.0-30.0 [facility] Comment on above: Performed By: #### H STROPN #### [facility] [address] [address] [address] Michelle Garcia Creatinine [Mass/Vol] 0.85 mg/dL Normal 0.66-1.25 [facility] Comment on above: Performed By: #### H STROPN #### [facility] [address] [place] [address] Dr. Michelle Garcia EGFR-AF INDONESIAN >60 Normal >=60 [facility] Comment on above: Performed By: #### H STROPN #### [facility] [address] [address] [address] Michelle Garcia EGFR-NON AF INDONESIAN >60 Normal >=60 [facility] Comment on above: Performed By: #### H STROPN #### [facility] [address] [address] [address] Michelle Garcia Globulin (S) [Mass/Vol] 3.7 g/dL Normal [facility] Comment on above: Performed By: #### H STROPN #### [facility] [address] [address] [address] Michelle Garcia Glucose [Mass/Vol] 152 mg/dL Critically high 74-106 [facility] Comment on above: Performed By: #### H STROPN #### [facility] [address] [address] [address] Michelle Garcia Potassium [Moles/Vol] 3.7 mmol/L Normal 3.4-5.0 [facility] Comment on above: Performed By: #### H STROPN #### [facility] [address] [address] [address] Michelle Garcia Protein [Mass/Vol] 6.6 g/dL Normal 6.1-8.2 [facility] Comment on above: Performed By: #### H STROPN #### [facility] [address] [place] [address] Dr. Michelle Garcia Sodium [Moles/Vol] 137 mmol/L Normal 137-145 [facility] Comment on above: Performed By: #### H STROPN #### [facility] [address] [place] [address] Dr. Michelle Garcia Urea nitrogen [Mass/Vol] 18.0 mg/dL Normal 9.0-20.0 [facility] Comment on above: Performed By: #### H STROPN #### [facility] [address] [place] [address] Dr. Michelle Garcia Urea nitrogen/Creatinine [Mass ratio] 21.2 mg/mg Normal [facility] Comment on above: Performed By: #### H STROPN #### [facility] [address] [place] [address] Dr. Michelle Garcia BNPon 07-06-2021 Natriuretic peptide B (Bld) [Mass/Vol] 50.0 pg/mL Normal <=900.0 [facility] Comment on above: Performed By: #### H STROPN #### [facility] [address] [place] [address] Dr. Michelle Garcia CBC AUTO DIFFon 07-06-2021 BASO # 0.0 103/ul Normal 0.0-0.1 [facility] Comment on above: Performed By: #### H STROPN #### [facility] [address] [place] [address] Dr. Michelle Garcia Basophils/100 WBC (Bld) 0.0 % Critically low 0.2-2.0 [facility] Comment on above: Performed By: #### H STROPN #### [facility] [address] [place] [address] Dr. Michelle Garcia EO # 0.0 103/ul Normal 0.0-0.7 [facility] Comment on above: Performed By: #### H STROPN #### [facility] [address] [address] [address] Michelle Garcia Eosinophils/100 WBC (Bld) 0.0 % Critically low 0.9-7. 0 [facility] Comment on above: Performed By: #### H STROPN #### [facility] [address] [place] [address] Dr. Michelle Garcia Erythrocyte distribution width (RBC) [Ratio] 12.6 % Normal 11.0-15.0 [facility] Comment on above: Performed By: #### H STROPN #### [facility] [address] [place] [address] Dr. Michelle Garcia Hematocrit (Bld) [Volume fraction] 40.6 % Critically low 42.0-54.0 [facility] Comment on above: Performed By: #### H STROPN #### [facility] [address] [place] [address] Dr. Michelle Garcia Hemoglobin (Bld) [Mass/Vol] 13.5 g/dL Critically low 14.0-18.0 [facility] Comment on above: Performed By: #### H STROPN #### [facility] [address] [place] [address] Dr. Michelle Garcia IG # 0.03 10e3/ul Normal 0.00-0.03 [facility] Comment on above: Performed By: #### H STROPN #### [facility] [address] [place] [address] Dr. Michelle Garcia IG % 0.4 % Normal 0.0-0.5 [facility] Comment on above: Performed By: #### H STROPN #### [facility] [address] [place] [address] Dr. Michelle Garcia LYMPH # 1.4 103/ul Normal 1.2-3.8 [facility] Comment on above: Performed By: #### H STROPN #### [facility] [address] [place] [address] Dr. Michelle Garcia Lymphocytes/100 WBC (Bld) 19.1 % Critically low 20.5-[address] [facility] Comment on above: Performed By: #### H STROPN #### [facility] [address] [address] [address] Michelle Garcia MANUAL DIFF REQ NO Normal [facility] Comment on above: Performed By: #### H STROPN #### [facility] [address] [address] [address] Michelle Garcia MCH (RBC) [Entitic mass] 31.8 pg Normal 25.9-34.0 [facility] Comment on above: Performed By: #### H STROPN #### [facility] [address] [place] [address] Dr. Michelle Garcia MCHC (RBC) [Mass/Vol] 33.3 g/dL Normal 29.9-35.2 [facility] Comment on above: Performed By: #### H STROPN #### [facility] [address] [place] [address] Dr. Michelle Garcia MCV (RBC) [Entitic vol] 95.5 fL Critically high 80.0-[address] [facility] Comment on above: Performed By: #### H STROPN #### [facility] [address] [place] [address] Dr. Michelle Garcia MONO # 0.5 103/ul Normal 0.3-0.8 [facility] Comment on above: Performed By: #### H STROPN #### [facility] [address] [place] [address] Dr. Michelle Garcia Monocytes/100 WBC (Bld) 6.9 % Normal 1.7-12.0 [facility] Comment on above: Performed By: #### H STROPN #### [facility] [address] [place] [address] Dr. Michelle Garcia NEUT # 5.2 103/ul Normal 1.4-6.5 [facility] Comment on above: Performed By: #### H STROPN #### [facility] [address] [place] [address] Dr. Michelle aGrcia Neutrophils/100 WBC (Bld) 73.6 % Normal 43.0-75.0 [facility] Comment on above: Performed By: #### H STROPN #### [facility] [address] [address] [address] Michelle Garcia Platelet mean volume (Bld) [Entitic vol] 10.1 fL Normal 9.5-13.5 [facility] Comment on above: Performed By: #### H STROPN #### [facility] [address] [address] [address] Michelle Garcia PLT 291 103/ul Normal 150-450 [facility] Comment on above: Performed By: #### H STROPN #### [facility] [address] [address] [address] Michelle Garcia RBC 4.25 106/ul Critically low 4.70-6.10 [facility] Comment on above: Performed By: #### H STROPN #### [facility] [address] [place] [address] Dr. Michelle Garcia WBC 7.1 103/ul Normal 4.0-11.0 [facility] Comment on above: Performed By: #### H STROPN #### [facility] [address] [place] [address] Dr. Michelle Garcia CRPon 07-06-2021 CRP [Mass/Vol] mg/L Normal <=1.0 [facility] Comment on above: Performed By: #### H STROPN #### [facility] [address] [place] [address] Dr. Michelle Garcia PROF 14(COMP METB)on 021 Albumin [Mass/Vol] 2.9 g/dL Critically low 3.5-5.0 [facility] Comment on above: Performed By: #### H STROPN #### [facility] [address] [place] [address] Dr. Michelle Garcia Albumin/Globulin [Mass ratio] 0.8 {ratio} Normal [facility] Comment on above: Performed By: #### H STROPN #### [facility] [address] [place] [address] Dr. Michelle Garcia ALP [Catalytic activity/Vol] 55 U/L Normal 38-126 [facility] Comment on above: Performed By: #### H STROPN #### [facility] [address] [address] [address] Michelle Garcia ALT [Catalytic activity/Vol] 91 U/L Critically high 21-72 [facility] Comment on above: Performed By: #### H STROPN #### [facility] [address] [address] [address] Michelle Garcai Anion gap [Moles/Vol] 12.7 mmol/L Normal [facility] Comment on above: Performed By: #### H STROPN #### [facility] [address] [address] [address] Michelle Garcia AST [Catalytic activity/Vol] 45 U/L Normal 17-59 [facility] Comment on above: Performed By: #### H STROPN #### [facility] [address] [address] [address] Michelle Garcia Bilirubin [Mass/Vol] 0.3 mg/dL Normal 0.2-1.3 [facility] Comment on above: Performed By: #### H STROPN #### [facility] [address] [address] [address] Michelle Garcia Calcium [Mass/Vol] 8.2 mg/dL Critically low 8.4-10.2 [facility] Comment on above: Performed By: #### H STROPN #### [facility] [address] [address] [address] Michelle Garcia Chloride [Moles/Vol] 102 mmol/L Normal 98-107 [facility] Comment on above: Performed By: #### H STROPN #### [facility] [address] [address] [address] Michelle Garcia CO2 [Moles/Vol] 27.1 mmol/L Normal 22.0-30.0 [facility] Comment on above: Performed By: #### H STROPN #### [facility] [address] [address] [address] Michelle Garcia Creatinine [Mass/Vol] 0.88 mg/dL Normal 0.66-1.25 [facility] Comment on above: Performed By: #### H STROPN #### [facility] [address] [place] [address] Dr. Michelle Garcia EGFR-AF INDONESIAN >60 Normal >=60 [facility] Comment on above: Performed By: #### H STROPN #### [facility] [address] [place] [address] Dr. Michelle Garcia EGFR-NON AF INDONESIAN >60 Normal >=60 [facility] Comment on above: Performed By: #### H STROPN #### [facility] [address] [address] [address] Michelle Garcia Globulin (S) [Mass/Vol] 3.8 g/dL Normal [facility] Comment on above: Performed By: #### H STROPN #### [facility] [address] [place] [address] Dr. Michelle Garcia Glucose [Mass/Vol] 174 mg/dL Critically high 74-106 [facility] Comment on above: Performed By: #### H STROPN #### [facility] [address] [place] [address] Dr. Michelle Garcia Potassium [Moles/Vol] 3.8 mmol/L Normal 3.4-5.0 [facility] Comment on above: Performed By: #### H STROPN #### [facility] [address] [place] [address] Dr. Michelle Garcia Protein [Mass/Vol] 6.7 g/dL Normal 6.1-8.2 [facility] Comment on above: Performed By: #### H STROPN #### [facility] [address] [place] [address] Dr. Michelle Garcia Sodium [Moles/Vol] 138 mmol/L Normal 137-145 [facility] Comment on above: Performed By: #### H STROPN #### [facility] [address] [place] [address] Dr. Michelle Garcia Urea nitrogen [Mass/Vol] 17.0 mg/dL Normal 9.0-20.0 [facility] Comment on above: Performed By: #### H STROPN #### [facility] [address] [place] [address] Dr. Michelle Garcia Urea nitrogen/Creatinine [Mass ratio] 19.3 mg/mg Normal [facility] Comment on above: Performed By: #### H STROPN #### [facility] [address] [place] [address] Dr. Michelle Garcia BNPon 07-05-2021 Natriuretic peptide B (Bld) [Mass/Vol] 32.0 pg/mL Normal <=900.0 [facility] Comment on above: Performed By: #### C RP, BNP, CMP #### [facility] [address] [place] [address] Dr. Michelle Garcia CBC AUTO DIFFon 07-05-2021 BASO # 0.0 103/ul Normal 0.0-0.1 [facility] Comment on above: Performed By: #### C RP, BNP, CMP #### [facility] [address] [place] [address] Dr. Michelle Garcia Basophils/100 WBC (Bld) 0.2 % Normal 0.2-2.0 [facility] Comment on above: Performed By: #### C RP, BNP, CMP #### [facility] [address] [place] [address] Dr. Michelle Garcia EO # 0.0 103/ul Normal 0.0-0.7 [facility] Comment on above: Performed By: #### C RP, BNP, CMP #### [facility] [address] [place] [address] Dr. Michelle Garcia Eosinophils/100 WBC (Bld) 0.0 % Critically low 0.9-7. 0 [facility] Comment on above: Performed By: #### C RP, BNP, CMP #### [facility] [address] [place] [address] Dr. Michelle Garcia Erythrocyte distribution width (RBC) [Ratio] 13.0 % Normal 11.0-15.0 [facility] Comment on above: Performed By: #### C RP, BNP, CMP #### [facility] [address] [place] [address] Dr. Michelle Garcia Hematocrit (Bld) [Volume fraction] 42.3 % Normal 42.0-54.0 [facility] Comment on above: Performed By: #### C RP, BNP, CMP #### [facility] [address] [place] [address] Dr. Michelle Garcia Hemoglobin (Bld) [Mass/Vol] 13.5 g/dL Critically low 14.0-18.0 [facility] Comment on above: Performed By: #### C RP, BNP, CMP #### [facility] [address] [place] [address] Dr. Michelle Garcia IG # 0.02 10e3/ul Normal 0.00-0.03 [facility] Comment on above: Performed By: #### C RP, BNP, CMP #### [facility] [address] [place] [address] Dr. Michelle Garcia IG % 0.4 % Normal 0.0-0.5 [facility] Comment on above: Performed By: #### C RP, BNP, CMP #### [facility] [address] [place] [address] Dr. Michelle Garcia LYMPH # 1.3 103/ul Normal 1.2-3.8 [facility] Comment on above: Performed By: #### C RP, BNP, CMP #### [facility] [address] [place] [address] Dr. Michelle Garcia Lymphocytes/100 WBC (Bld) 24.5 % Normal 20.5-60.0 [facility] Comment on above: Performed By: #### C RP, BNP, CMP #### [facility] [address] [place] [address] Dr. Michelle Garcia MANUAL DIFF REQ NO Normal [facility] Comment on above: Performed By: #### C RP, BNP, CMP #### [facility] [address] [place] [address] Dr. Michelle Garcia MCH (RBC) [Entitic mass] 31.6 pg Normal 25.9-34.0 [facility] Comment on above: Performed By: #### C RP, BNP, CMP #### [facility] [address] [place] [address] Dr. Michelle Garcia MCHC (RBC) [Mass/Vol] 31.9 g/dL Normal 29.9-35.2 [facility] Comment on above: Performed By: #### C RP, BNP, CMP #### [facility] [address] [place] [address] Dr. Michelle Garcia MCV (RBC) [Entitic vol] 99.1 fL Critically high 80.0-[address] [facility] Comment on above: Performed By: #### C RP, BNP, CMP #### [facility] [address] [place] [address] Dr. Michelle Garcia MONO # 0.3 103/ul Normal 0.3-0.8 [facility] Comment on above: Performed By: #### C RP, BNP, CMP #### [facility] [address] [place] [address] Dr. Michelle Garcia Monocytes/100 WBC (Bld) 5.0 % Normal 1.7-12.0 [facility] Comment on above: Performed By: #### C RP, BNP, CMP #### [facility] [address] [place] [address] Dr. Michelle Garcia NEUT # 3.8 103/ul Normal 1.4-6.5 [facility] Comment on above: Performed By: #### C RP, BNP, CMP #### [facility] [address] [place] [address] Dr. Michelle Garcia Neutrophils/100 WBC (Bld) 69.9 % Normal 43.0-75.0 [facility] Comment on above: Performed By: #### C RP, BNP, CMP #### [facility] [address] [place] [address] Dr. Michelle Garcia Platelet mean volume (Bld) [Entitic vol] 10.4 fL Normal 9.5-13.5 [facility] Comment on above: Performed By: #### C RP, BNP, CMP #### [facility] [address] [place] [address] Dr. Michelle Garcia PLT 274 103/ul Normal 150-450 [facility] Comment on above: Performed By: #### C RP, BNP, CMP #### [facility] [address] [address] [address] Michelle Garcia RBC 4.27 106/ul Critically low 4.70-6.10 [facility] Comment on above: Performed By: #### C RP, BNP, CMP #### [facility] [address] [address] [address] Michelle Garcia WBC 5.4 103/ul Normal 4.0-11.0 [facility] Comment on above: Performed By: #### C RP, BNP, CMP #### [facility] [address] [place] [address] Dr. Michelle Garcia CRPon 07-05-2021 CRP 1.2 mg/dL Critically high <=1.0 [facility] Comment on above: Performed By: #### C RP, BNP, CMP #### [facility] [address] [place] [address] Dr. Michelle Garcia CULTURE SPUTUMon 07-05-2021 CULTURE SPUTUM Culture Observations : NORMAL RESPIRATORY FARRAH. Normal [facility] Comment on above: Performed By: #### H STROPN #### [facility] [address] [place] [address] Dr. Michelle Garcia PROF 14(COMP METB)on 021 Albumin [Mass/Vol] 3.1 g/dL Critically low 3.5-5.0 [facility] Comment on above: Performed By: #### C RP, BNP, CMP #### [facility] [address] [place] [address] Dr. Michelle Garcia Albumin/Globulin [Mass ratio] 0.8 {ratio} Normal [facility] Comment on above: Performed By: #### C RP, BNP, CMP #### [facility] [address] [place] [address] Dr. Michelle Garcia ALP [Catalytic activity/Vol] 64 U/L Normal 38-126 [facility] Comment on above: Performed By: #### C RP, BNP, CMP #### [facility] [address] [place] [address] Dr. Michelle Garcia ALT [Catalytic activity/Vol] 125 U/L Critically high 21-72 [facility] Comment on above: Performed By: #### C RP, BNP, CMP #### [facility] [address] [place] [address] Dr. Michelle Garcia Anion gap [Moles/Vol] 9.4 mmol/L Normal [facility] Comment on above: Performed By: #### C RP, BNP, CMP #### [facility] [address] [place] [address] Dr. Michelle Garcia AST [Catalytic activity/Vol] 73 U/L Critically high 17-59 [facility] Comment on above: Performed By: #### C RP, BNP, CMP #### [facility] [address] [place] [address] Dr. Michelle Garcia Bilirubin [Mass/Vol] 0.3 mg/dL Normal 0.2-1.3 [facility] Comment on above: Performed By: #### C RP, BNP, CMP #### [facility] [address] [place] [address] Dr. Michelle Garcia Calcium [Mass/Vol] 8.2 mg/dL Critically low 8.4-10.2 [facility] Comment on above: Performed By: #### C RP, BNP, CMP #### [facility] [address] [place] [address] Dr. Michelle Garcia Chloride [Moles/Vol] 101 mmol/L Normal 98-107 [facility] Comment on above: Performed By: #### C RP, BNP, CMP #### [facility] [address] [place] [address] Dr. Michelle Garcia CO2 [Moles/Vol] 29.6 mmol/L Normal 22.0-30.0 [facility] Comment on above: Performed By: #### C RP, BNP, CMP #### [facility] [address] [place] [address] Dr. Michelle Garcia Creatinine [Mass/Vol] 0.97 mg/dL Normal 0.66-1.25 [facility] Comment on above: Performed By: #### C RP, BNP, CMP #### [facility] [address] [place], [place] [id number] Dr. Michelle Garcia EGFR-AF INDONESIAN >60 Normal >=60 [facility] Comment on above: Performed By: #### C RP, BNP, CMP #### [facility] [address] [place] [address] Dr. Michelle Garcia EGFR-NON AF INDONESIAN >60 Normal >=60 [facility] Comment on above: Performed By: #### C RP, BNP, CMP #### [facility] [address] [place] [address] Dr. Michelle Garcia Globulin (S) [Mass/Vol] 3.9 g/dL Normal [facility] Comment on above: Performed By: #### C RP, BNP, CMP #### [facility] [address] [place] [address] Dr. Michelle Garcia Glucose [Mass/Vol] 154 mg/dL Critically high 74-106 [facility] Comment on above: Performed By: #### C RP, BNP, CMP #### [facility] [address] [place] [address] Dr. Michelle Garcia Potassium [Moles/Vol] 4.0 mmol/L Normal 3.4-5.0 [facility] Comment on above: Performed By: #### C RP, BNP, CMP #### [facility] [address] [place] [address] Dr. Michelle Garcia Protein [Mass/Vol] 7.0 g/dL Normal 6.1-8.2 [facility] Comment on above: Performed By: #### C RP, BNP, CMP #### [facility] [address] [place] [address] Dr. Michelle Garcia Sodium [Moles/Vol] 136 mmol/L Critically low 137-145 [facility] Comment on above: Performed By: #### C RP, BNP, CMP #### [facility] [address] [place] [address] Dr. Michelle Garcia Urea nitrogen [Mass/Vol] 21.0 mg/dL Critically high 9.0-[address] [facility] Comment on above: Performed By: #### C RP, BNP, CMP #### [facility] [address] [address] [address] Michelle Garcia Urea nitrogen/Creatinine [Mass ratio] 21.6 mg/mg Normal [facility] Comment on above: Performed By: #### C RP, BNP, CMP #### [facility] [address] [address] [address] Michelle Garcia SPUTUM GRAM STAINon 07-05-[address] [facility] Comment on above: Performed By: #### C RP, BNP, CMP #### [facility] [address] [address] [address] Michelle Garcia DIPHTHEROIDS Normal [facility] Comment on above: Performed By: #### C RP, BNP, CMP #### [facility] [address] [address] [address] Michelle Garcia EPITHELIALS <[address] [facility] Comment on above: Performed By: #### C RP, BNP, CMP #### [facility] [address] [address] [address] Michelle Garcia FUNGAL ELEMENTS Normal [facility] Comment on above: Performed By: #### C RP, BNP, CMP #### [facility] [address] [address] [address] Michelle CHOI NEG BACILLI Normal [facility] Comment on above: Performed By: #### C RP, BNP, CMP #### [facility] [address] [address] [address] Michelle CHOI NEG DIPPLOCOCCI Normal [facility] Comment on above: Performed By: #### C RP, BNP, CMP #### [facility] [address] [address] [address] Michelle Garcia GRAM POS BACILLI Normal [facility] Comment on above: Performed By: #### C RP, BNP, CMP #### [facility] [address] [address] [address] Michelle Garcia GRAM POSITIVE COCCI RARE Normal [facility] Comment on above: Performed By: #### C RP, BNP, CMP #### [facility] [address] [place] [address] Dr. Michelle Garcia WBC (Bld) [#/Vol] 10*3/uL Normal [facility] Comment on above: Performed By: #### C RP, BNP, CMP #### [facility] [address] [place] [address] Dr. Michelle Garcia BNPon 07-04-2021 Natriuretic peptide B (Bld) [Mass/Vol] 42.0 pg/mL Normal <=900.0 [facility] Comment on above: Performed By: #### B CONTINUING EDUCATION DIRECTOR, BMP, HSTROPN #### [facility] [address] [place] [address] Dr. Michelle Garcia CBC AUTO DIFFon 07-04-2021 BASO # 0.0 103/ul Normal 0.0-0.1 [facility] Comment on above: Performed By: #### C RP, BNP, CMP #### [facility] [address] [place] [address] Dr. Michelle Garcia Basophils/100 WBC (Bld) 0.2 % Normal 0.2-2.0 [facility] Comment on above: Performed By: #### C RP, BNP, CMP #### [facility] [address] [place] [address] Dr. Michelle Garcia EO # 0.0 103/ul Normal 0.0-0.7 [facility] Comment on above: Performed By: #### C RP, BNP, CMP #### [facility] [address] [place] [address] Dr. Michelle Garcia Eosinophils/100 WBC (Bld) 0.0 % Critically low 0.9-7. 0 [facility] Comment on above: Performed By: #### C RP, BNP, CMP #### [facility] [address] [place] [address] Dr. Michelle Garcia Erythrocyte distribution width (RBC) [Ratio] 12.9 % Normal 11.0-15.0 [facility] Comment on above: Performed By: #### C RP, BNP, CMP #### [facility] [address] [place] [address] Dr. Michelle Garcia Hematocrit (Bld) [Volume fraction] 42.4 % Normal 42.0-54.0 [facility] Comment on above: Performed By: #### C RP, BNP, CMP #### [facility] [address] [place] [address] Dr. Michelle Garcia Hemoglobin (Bld) [Mass/Vol] 14.0 g/dL Normal 14.0-18.0 [facility] Comment on above: Performed By: #### C RP, BNP, CMP #### [facility] [address] [place] [address] Dr. Michelle Garcia IG # 0.03 10e3/ul Normal 0.00-0.03 [facility] Comment on above: Performed By: #### C RP, BNP, CMP #### [facility] [address] [place] [address] Dr. Michelle Garcia IG % 0.5 % Normal 0.0-0.5 [facility] Comment on above: Performed By: #### C RP, BNP, CMP #### [facility] [address] [place] [address] Dr. Michelle Garcia LYMPH # 1.6 103/ul Normal 1.2-3.8 [facility] Comment on above: Performed By: #### C RP, BNP, CMP #### [facility] [address] [place] [address] Dr. Michelle Garcia Lymphocytes/100 WBC (Bld) 24.3 % Normal 20.5-60.0 [facility] Comment on above: Performed By: #### C RP, BNP, CMP #### [facility] [address] [place] [address] Dr. Michelle Garcia MANUAL DIFF REQ NO Normal [facility] Comment on above: Performed By: #### C RP, BNP, CMP #### [facility] [address] [place] [address] Dr. Michelle Garcia MCH (RBC) [Entitic mass] 32.0 pg Normal 25.9-34.0 [facility] Comment on above: Performed By: #### C RP, BNP, CMP #### [facility] [address] [place] [address] Dr. Michelle Garcia MCHC (RBC) [Mass/Vol] 33.0 g/dL Normal 29.9-35.2 [facility] Comment on above: Performed By: #### C RP, BNP, CMP #### [facility] [address] [place] [address] Dr. Michelle Garcia MCV (RBC) [Entitic vol] 97.0 fL Critically high 80.0-94 .0 [facility] Comment on above: Performed By: #### C RP, BNP, CMP #### [facility] [address] [place] [address] Dr. Michelle Garcia MONO # 0.4 103/ul Normal 0.3-0.8 [facility] Comment on above: Performed By: #### C RP, BNP, CMP #### [facility] [address] [place] [address] Dr. Michelle Garcia Monocytes/100 WBC (Bld) 6.8 % Normal 1.7-12.0 [facility] Comment on above: Performed By: #### C RP, BNP, CMP #### [facility] [address] [place] [address] Dr. Michelle Garcia NEUT # 4.4 103/ul Normal 1.4-6.5 [facility] Comment on above: Performed By: #### C RP, BNP, CMP #### [facility] [address] [place] [address] Dr. Michelle Garcia Neutrophils/100 WBC (Bld) 68.2 % Normal 43.0-75.0 [facility] Comment on above: Performed By: #### C RP, BNP, CMP #### [facility] [address] [place] [address] Dr. Michelle Garcia Platelet mean volume (Bld) [Entitic vol] 10.0 fL Normal 9.5-13.5 [facility] Comment on above: Performed By: #### C RP, BNP, CMP #### [facility] [address] [place] [address] Dr. Michelle Garcia PLT 253 103/ul Normal 150-450 [facility] Comment on above: Performed By: #### C RP, BNP, CMP #### [facility] [address] [place], [place] [address] Dr. Michelle Garcia RBC 4.37 106/ul Critically low 4.70-6.10 [facility] Comment on above: Performed By: #### C RP, BNP, CMP #### [facility] [address] [place], [place] [address] Dr. Michelle Garcia WBC 6.5 103/ul Normal 4.0-11.0 [facility] Comment on above: Performed By: #### C RP, BNP, CMP #### [facility] [address] [place] [address] [address] Michelle Garcia CRPon 07-04-2021 CRP 1.0 mg/dL Normal <=1.0 [facility] Comment on above: Performed By: #### C RP, BNP, CMP #### [facility] [address] [place] [address] [address] Michelle Garcia CTA CHEST WO W [...] JAZMÍN LOPEZ Date: 2021-07-04 16:47 Normal [facility] CULTURE BLOODon 07-04-2021 Microscopic examination of blood, culture Culture Observations: NO GROWTH AT 5 DAYS. Normal [facility] Comment on above: Performed By: #### H STROPN #### [facility] [address] [place] [address] Dr. Michelle Garcia Performed By: #### C RP, BNP, CMP #### [facility] [address] [place] [address] Dr. Michelle Garcia Covid-19 PCR (CVDTBH)on 06-19 SARS-CoV-2 (COVID-19) RNA BRITTA+probe Ql (Unsp spec) Detected Critically abnormal NOT DETECTED [facility] Comment on above: Result Comment: This test is not yet approved or cleared by the [place] Food and Drug Administration (FDA). This test was developed by [employer], [place], [place]. The performance characteristics of this test were validated by [facility]. The results are not intended to be used as the sole means for clinical diagnosis or patient management decisions. [facility] is authorized under Clinical Laboratory Improvement Amendments (CLIA) to perform high- complexity testing. Performed By: #### C RP, BNP, CMP #### [facility] [address] [place] [address] Dr. Michelle Garcia D-DIMERon 07-04-2021 D-DIMER 0.59 mg/L FEU Critically high 0.19-0.50 [facility] Comment on above: Result Comment: test repeated critical value verified Performed By: #### C RP, BNP, CMP #### [facility] [address] [place] [address] Dr. Michelle Garcia D-DIMER COMMENTS SEE BELOW Normal [facility] Comment on above: Result Comment: Incr eases [...] By: #### C RP, BNP, CMP #### [facility] [address] [place] [address] Dr. Michelle Garcia LACTATE/LACTIC ACIDon 2020 Lactate [Moles/Vol] 1.2 mmol/L Normal 0.7-2.0 [facility] Comment on above: Performed By: #### L ACT #### [facility] [address] [place] [address] Dr. Michelle Garcia PROF CHEM 8 (BAS METB)on Anion gap [Moles/Vol] 11.0 mmol/L Normal [facility] Comment on above: Performed By: #### B CONTINUING EDUCATION DIRECTOR, BMP, HSTROPN #### [facility] [address] [place] [address] Dr. Michelle Garcia Calcium [Mass/Vol] 8.1 mg/dL Critically low 8.4-10.2 [facility] Comment on above: Performed By: #### B CONTINUING EDUCATION DIRECTOR, BMP, HSTROPN #### [facility] [address] [place] [address] Dr. Michelle Garcia Chloride [Moles/Vol] 98 mmol/L Normal 98-107 [facility] Comment on above: Performed By: #### B CONTINUING EDUCATION DIRECTOR, BMP, HSTROPN #### [facility] [address] [place] [address] Dr. Michelle Garcia CO2 [Moles/Vol] 28.8 mmol/L Normal 22.0-30.0 [facility] Comment on above: Performed By: #### B CONTINUING EDUCATION DIRECTOR, BMP, HSTROPN #### [facility] [address] [place] [address] Dr. Michelle Garcia Creatinine [Mass/Vol] 1.01 mg/dL Normal 0.66-1.25 [facility] Comment on above: Performed By: #### B CONTINUING EDUCATION DIRECTOR, BMP, HSTROPN #### [facility] [address] [place] [address] Dr. Michelle Garcia EGFR-AF INDONESIAN >60 Normal >=60 [facility] Comment on above: Performed By: #### B CONTINUING EDUCATION DIRECTOR, BMP, HSTROPN #### [facility] [address] [place] [address] [address] Michelle Garcia EGFR-NON AF INDONESIAN >60 Normal >=60 [facility] Comment on above: Performed By: #### B CONTINUING EDUCATION DIRECTOR, BMP, HSTROPN #### [facility] [address] [place] [address] Dr. Michelle Garcia Glucose [Mass/Vol] 94 mg/dL Normal 74-106 [facility] Comment on above: Performed By: #### B CONTINUING EDUCATION DIRECTOR, BMP, HSTROPN #### [facility] [address] [place] [address] Dr. Michelle Garcia Potassium [Moles/Vol] 3.8 mmol/L Normal 3.4-5.0 [facility] Comment on above: Performed By: #### B CONTINUING EDUCATION DIRECTOR, BMP, HSTROPN #### [facility] [address] [place] [address] Dr. Michelle Garcia Sodium [Moles/Vol] 134 mmol/L Critically low 137-145 [facility] Comment on above: Performed By: #### B CONTINUING EDUCATION DIRECTOR, BMP, HSTROPN #### [facility] [address] [place] [address] Dr. Michelle Garcia Urea nitrogen [Mass/Vol] 20.0 mg/dL Normal 9.0-20.0 [facility] Comment on above: Performed By: #### B CONTINUING EDUCATION DIRECTOR, BMP, HSTROPN #### [facility] [address] [place] [address] Dr. Michelle Garcia Urea nitrogen/Creatinine [Mass ratio] 19.8 mg/mg Normal [facility] Comment on above: Performed By: #### B CONTINUING EDUCATION DIRECTOR, BMP, HSTROPN #### [facility] [address] [place], [place] [address] Dr. Michelle Garcia TROPONIN, HIGH SENSITIVITYon 07-04-2021 HSTROP 8.1 pg/mL Normal 4.0-42.2 [facility] Comment on above: Result Comment: CUT- OFF POINTS HAVE BEEN ESTABLISHED BASED ON THE FOURTH UNIVERSAL DEFINITIONS OF MYOCARDIAL INFARCTION. THE UPPER REFERENCE LIMIT (URL) OF TROPONIN, DEFINED THE 99TH PERCENTILE OF cTnI DISTRIBUTION IN A REFERENCE POPULATION, HAS BEEN CONFIRMED THE DECISION THRESHOLD FOR AL DIAGNOSIS. Performed By: #### H STROPN #### [facility] [address] [place], [place] [address] Dr. Michelle Garcia HSTROP 7.6 pg/mL Normal 4.0-42.2 [facility] Comment on above: Result Comment: CUT- OFF POINTS HAVE BEEN ESTABLISHED BASED ON THE FOURTH UNIVERSAL DEFINITIONS OF MYOCARDIAL INFARCTION. THE UPPER REFERENCE LIMIT (URL) OF TROPONIN, DEFINED THE 99TH PERCENTILE OF cTnI DISTRIBUTION IN A REFERENCE POPULATION, HAS BEEN CONFIRMED THE DECISION THRESHOLD FOR AL DIAGNOSIS. Performed By: #### B CONTINUING EDUCATION DIRECTOR, BMP, HSTROPN #### [facility] [address] [place], [place] [address] Dr. Michelle Garcia XR CHEST 1 Von [...] by: JONES RICHMOND Date: 2021-07-04 14:[address] [facility] CBC Auto Differentialon 02-2 Basophils (Bld) [#/Vol] 0.06 10*3/uL [employer] Phone: Basophils/100 WBC (Bld) 1 % 0 - 2 % M [employer] Phone: Differential Type NOT REPORTED [employer] Phone: Eosinophils (Bld) [#/Vol] 0.12 10*3/uL [employer] Phone: Eosinophils/100 WBC (Bld) 1 % 1 - 4 % [employer] Phone: Erythrocyte distribution width (RBC) [Ratio] 13.0 % 11.8 - 14.4 % [employer] Phone: Hematocrit (Bld) [Volume fraction] 46.7 % 40.7 - 50.3 % [employer] Phone: Hemoglobin (Bld) [Mass/Vol] 15.1 g/dL 13 - 17 g/dL [employer] Phone: Immature granulocytes (Bld) [#/Vol] 0 % 0 [employer] Phone: Immature granulocytes (Bld) [#/Vol] 10*3/uL [employer] Phone: Lymphocytes (Bld) [#/Vol] 3.30 10*3/uL [employer] Phone: Lymphocytes/100 WBC (Bld) 32 % 24 - 43 % [employer] Phone: MCH (RBC) [Entitic mass] 31.8 pg 25. 2 - 33.5 pg [employer] Phone: MCHC (RBC) [Mass/Vol] 32.3 g/dL 28.4 - 34.8 g/dL [employer] Phone: MCV (RBC) [Entitic vol] 98.3 fL 82.6 - 102.9 fL [employer] Phone: Monocytes (Bld) [#/Vol] 1.01 10*3/uL [employer] Phone: Monocytes/100 WBC (Bld) 10 % 3 - 12 % M [employer] Phone: Platelet mean volume (Bld) [Entitic vol] 10.1 fL 8.1 - 13.5 fL [employer] Phone: Platelets (Bld) [#/Vol] NOT REPORTED [employer] Phone: Platelets (Bld) [#/Vol] 372 10*3/uL [employer] Phone: RBC (Bld) [#/Vol] 4.75 10*6/uL 4.21 - 5.77 m/uL [employer] Phone: RBC morphology finding Nom (Bld) NOT REPORTED [employer] Phone: Segmented neutrophils/100 WBC (Bld) 56 % 36 - 65 % [employer] Phone: Segs Absolute 5.69 [employer] Phone: WBC (Bld) [#/Vol] 10.2 10*3/uL [employer] Phone: WBC (Bld) [#/Vol] 0.0 10*3/uL 0.0 per 100 WBC [employer] Phone: WBC Morphology NOT REPORTED [employer] Phone: CBC with Diffon 11-09-2020 Abs. Basophil 0.06 k/uL Normal 0.00-0.20 [facility] Comment on above: Performed By: #### C DP, LIP, CP #### [facility] [address] [place] [address] Garage Door Installer: Jazmín Lopes MD Abs.Imm.Granulocyte <0.03 Normal 0.00-0.30 [facility] Comment on above: Performed By: #### C DP, LIP, CP #### [facility] [address] [place] [address] Gar[employer] Door Installer: Jazmín Lopes MD Abs.Neutrophil (Seg) 5.69 k/uL Normal 1.50-8.10 [facility] Comment on above: Performed By: #### C DP LIP, CP #### [address] [place], [facility] [employer] Installer: Jazmín Lopes MD Basophils/100 WBC (Bld) 1 % Normal 0-2 [facility] Comment on above: Performed By: #### C DP LIP, CP #### [address] [place], [place] [address] Gar[employer] Installer: Jazmín Lopes MD Eosinophils (Bld) [#/Vol] 0.12 10*3/uL Normal 0.00-0.4 4 [facility] Comment on above: Performed By: #### C RAHUL VALERO, CP #### [address] [place], [place] [address] [employer] Installer: Jazmín Lopes MD Eosinophils/100 WBC (Bld) 1 % Normal 1-4 [facility] Comment on above: Performed By: #### C RAHUL VALERO, CP #### [address] [place], [facility] Gar[employer] Installer: Jazmín Lopes MD Erythrocyte distribution width (RBC) [Ratio] 13.0 % Normal 11.8-14.4 [facility] Comment on above: Performed By: #### C DP LIP, CP #### [address] [place], [facility] Gar[employer] Installer: Jazmín Lopes MD Hematocrit (Bld) [Volume fraction] 46.7 % Normal 40.7-50.3 [facility] Comment on above: Performed By: #### C DP LIP, CP #### [address] [place], [facility] Gar[employer] Installer: Jazmín Lopes MD Hemoglobin (Bld) [Mass/Vol] 15.1 g/dL Normal 13.0-17.0 [facility] Comment on above: Performed By: #### C RAHUL VALERO, CP #### [address] [place] [address] Gar[employer] Door Installer: Jazmín Lopes MD Immature granulocytes (Bld) [#/Vol] 0 % Normal 0 [facility] Comment on above: Performed By: #### C ANJUM LIP, CP #### [address] [place], [facility] Gar[employer] Installer: Jazmín Lopes MD Lymphocytes (Bld) [#/Vol] 3.30 10*3/uL Normal 1.10-3.7 0 [facility] Comment on above: Performed By: #### C RAHUL VALERO, CP #### [address] [place], [place] [address] Gar[employer] Door Installer: Jazmín Lopes MD Lymphocytes/100 WBC (Bld) 32 % Normal 24-43 [facility] Comment on above: Performed By: #### C RAHUL VALERO, CP #### [address] [place], [facility] Gar[employer] Door Installer: Jazmín Lopes MD MCH (RBC) [Entitic mass] 31.8 pg Normal 25.2-33.5 [facility] Comment on above: Performed By: #### C RAHUL VALERO, CP #### [address] [place], [facility] Gar[employer] Door Installer: Jazmín Lopes MD MCHC (RBC) [Mass/Vol] 32.3 g/dL Normal 28.4-34.8 [facility] Comment on above: Performed By: #### C ANJUM LIP, CP #### [address] [place], [place] [id number] Gar[employer] Door Installer: Jazmín Lopes MD MCV (RBC) [Entitic vol] 98.3 fL Normal 82.6-102.9 [facility] Comment on above: Performed By: #### C DP LIP, CP #### [facility] [address] [place], [place] [id number] Gar[employer] Door Installer: Jazmín Lopes MD Monocytes (Bld) [#/Vol] 1.01 10*3/uL Normal 0.10-1.20 [facility] Comment on above: Performed By: #### C DP, LIP, CP #### [facility] [address] [place], [facility] Gar[employer] Door Installer: Jazmín Lopes MD Monocytes/100 WBC (Bld) 10 % Normal 3-12 [facility] Comment on above: Performed By: #### C DP LIP, CP #### [address] [place], [facility] Gar[employer] Door Installer: Jazmín Lopes MD Neutrophil (Seg) 56 % Normal 36-65 [facility] Comment on above: Performed By: #### C DP LIP, CP #### [address] [place], [place] [address] Gar[employer] Door Installer: Jazmín Lopes MD NRBC Automated 0.0 per 100 WBC Normal 0.0 [facility] Comment on above: Performed By: #### C DP LIP, CP #### [address] [place], [facility] Gar[employer] Door Installer: Jazmín Lopes MD Platelet mean volume (Bld) [Entitic vol] 10.1 fL Normal 8.1-13.5 [facility] Comment on above: Performed By: #### C DP LIP, CP #### [address] [place], [facility] Gar[employer] Door Installer: Jazmín Lopes MD Platelets (Bld) [#/Vol] 372 10*3/uL Normal 138-453 [facility] Comment on above: Performed By: #### C ANJUM LIP, CP #### [facility] [address] [place] [address] Garage Door Installer: Jazmín Lopes MD RBC (Bld) [#/Vol] 4.75 10*6/uL Normal 4.21-5.77 [facility] Comment on above: Performed By: #### C DP, LIP, CP #### [facility] [address] [place] [address] Garage Door Installer: Jazmín Lopes MD WBC (Bld) [#/Vol] 10.2 10*3/uL Normal 3.5-11.3 [facility] Comment on above: Performed By: #### C DP, LIP, CP #### [address] [place], [facility] Gar[employer] Installer: Jazmín Lopes MD Auto Diff Performed NOT REPORTED Normal [facility] Comment on above: Performed By: #### C DP, LIP, CP #### [address] [place], [facility] Gar[employer] Door Installer: Jazmín Lopes MD Platelets (Bld) [#/Vol] NOT REPORTED Normal [facility] Comment on above: Performed By: #### C DP, LIP, CP #### [address] [place] [address] Gar[employer] Door Installer: Jazmín Lopes MD RBC morphology finding Nom (Bld) NOT REPORTED Normal [facility] Comment on above: Performed By: #### C DP, LIP, CP #### [address] [place], [place] [id number] Gar[employer] Door Installer: Jazmín Lopes MD WBC Morphology NOT REPORTED Normal [facility] Comment on above: Performed By: #### C DP, LIP, CP #### [facility] [address] [place], [place] [id number] Garage Door Installer: Jazmín Lopes MD CT ABDOMEN PELVIS WO [...] Randy Hansen DO 11/09/20 Final result Normal [facility] CT ABDOMEN PELVIS WO CONTRAS T Additional [...] fat. No acute osseous abnormality is present. [employer] Phone: 1. No acute findings within the abdomen or pelvis 2. No intrarenal calculi or evidence of hydronephrosis 3. Scattered colonic diverticula, without evidence of diverticulitis 4. Enlarged prostate gland [employer] Phone: Emeka, Mh[employer] Incoming R adiant Results From [employer] - 11/09/2020 7:47 PM EST EXAMINATION: CT [...] evidence of diverticulitis 4. Enlarged prostate gland [facility] Work Phone: Comp Metabolic Profon 2020 (cont.) Normal [facility] Comment on above: Result Comment: Aver age GFR for 70 or more years old: 75 mL/min/1.73sq m Chronic Kidney Disease: <60 mL/min/1.73sq m Kidney failure: <15 mL/min/1.73sq m eGFR calculated using average adult body mass. Additional eGFR calculator available at: http://[email or web address]/multiple_crcl_2012.htm Performed By: #### C RAHUL VALERO CP #### [address] [place] [address] Garage Door Installer: Jazmín Lopes MD Albumin [Mass/Vol] 4.4 g/dL Normal 3.5-5.2 [facility] Comment on above: Performed By: #### C RAHUL VALERO CP #### [facility] [address] [place] [address] [place] [address] Garage Door Installer: Jazmín Lopes MD Albumin/Globulin [Mass ratio] 1.6 {ratio} Normal 1.0-2.5 [facility] Comment on above: Performed By: #### C RAHUL VALERO CP #### [address] [place] [address] Garage Door Installer: Jazmín Lopes MD Alkaline Phos 62 U/L Normal 40-129 [facility] Comment on above: Performed By: #### C DP, LIP, CP #### [facility] [address] [place], [place] [id number] Garage Door Installer: Jazmín Lopes MD ALT [Catalytic activity/Vol] 42 U/L High 5-41 [facility] Comment on above: Performed By: #### C DP, LIP, CP #### [facility] [address] [place] [address] Dr. [place], [place] [id number] Gar[employer] Door Installer: Jazmín Lopes MD Anion gap [Moles/Vol] 11 mmol/L Normal 9-17 [facility] Comment on above: Performed By: #### C DP, LIP, CP #### [address] [place], [place] [id number] Gar[employer] Door Installer: Jazmín Lopes MD AST [Catalytic activity/Vol] 37 U/L Normal <40 [facility] Comment on above: Performed By: #### C DP, LIP, CP #### [address] [place], [place] [id number] Garage Door Installer: Jazmín Lopes MD Bilirubin Ql (U) 0.20 mg/dL Low 0.3-1.2 [facility] Comment on above: Performed By: #### C DP, LIP, CP #### [address] [place], [place] [id number] Garage Door Installer: Jazmín Lopes MD BUN/CRE Ratio 17 Normal 9-20 [facility] Comment on above: Performed By: #### C DP, LIP, CP #### [address] [place], [place] [id number] Gar[employer] Door Installer: Jazmín Lopes MD Calcium [Mass/Vol] 9.3 mg/dL Normal 8.6-10.4 [facility] Comment on above: Performed By: #### C DP, LIP, CP #### [address] [place], [place] [id number] Gar[employer] Installer: Jazmín Lopes MD Chloride [Moles/Vol] 102 mmol/L Normal 98-107 [facility] Comment on above: Performed By: #### C DP LIP, CP #### [facility] [address] [place], [place] [id number] Gar[employer] Door Installer: Jazmín Lopes MD CO2 [Moles/Vol] 25 mmol/L Normal 20-31 [facility] Comment on above: Performed By: #### C DP LIP, CP #### [address] [place], [place] [id number] Gar[employer] Door Installer: Jazmín Lopes MD Creatinine [Mass/Vol] 1.18 mg/dL Normal 0.70-1.20 [facility] Comment on above: Performed By: #### C ANJUM LIP, CP #### [facility] [address] [place] [address] Dr. [place], [place] [id number] Gar[employer] Door Installer: Jazmín Lopes MD GFR, Amer >60 Normal >60 [facility] Comment on above: Performed By: #### C ANJUM LIP, CP #### [facility] [address] [place] [address] Dr. [place], [place] [id number] Gar[employer] Door Installer: Jazmín Lopes MD GFR,non Amer >60 Normal >60 [facility] Comment on above: Performed By: #### C ANJUM LIP, CP #### [facility] [address] [place] [address] Dr. [place], [place] [id number] Gar[employer] Door Installer: Jazmín Lopes MD Glucose [Mass/Vol] 100 mg/dL High 70-99 [facility] Comment on above: Performed By: #### C DP LIP, CP #### [facility] [address] [place], [place] [id number] Gar[employer] Door Installer: Jazmín Lopes MD Potassium [Moles/Vol] 4.1 mmol/L Normal 3.7-5.3 [facility] Comment on above: Performed By: #### C RAHUL VALERO, CP #### [facility] [address] [place] [address] Dr. [place], [place] [phone] Gar[employer] Door Installer: Jazmín Lopes MD Protein [Mass/Vol] 7.2 g/dL Normal 6.4-8.3 [facility] Comment on above: Performed By: #### C RAHUL VALERO, CP #### [facility] [address] [place], [place] [phone] Gar[employer] Door Installer: Jazmín Lopes MD Sodium [Moles/Vol] 138 mmol/L Normal 135-144 [facility] Comment on above: Performed By: #### C RAHUL VALERO, CP #### [address] [place] [address] Garage Door Installer: Jazmín Lopes MD Staging: Normal [facility] Comment on above: Result Comment: Stag e 1: Some kidney damage normal GFR Stage 2: Mild kidney damage GFR 60-89 Stage 3: Moderate kidney damage GFR 30-59 Stage 4: Severe kidney damage GFR 15-29 Stage 5: Severe kidney damage GFR <15 ESRD - chronic treatment by dialysis or transplant Performed By: #### C RAHUL VALERO, CP #### [address] [place] [address] Garage Door Installer: Jazmín Lopes MD Urea nitrogen [Mass/Vol] 20 mg/dL Normal 8-23 [facility] Comment on above: Performed By: #### C ANJUM LIP, CP #### [address] [place] [address] Garage Door Installer: Jazmín Lopes MD Comprehensive Metabolic Pane fredo 11-09-2020 Albumin [Mass/Vol] 4.4 g/dL 3.5 - 5.2 g/dL [facility] Work Phone: Albumin/Globulin [Mass ratio] 1.6 {ratio} [facility] Work Phone: ALP [Catalytic activity/Vol] 62 U/L 40 - 129 U/L [employer] Phone: ALT [Catalytic activity/Vol] 42 U/L High 5 - 41 U/L [employer] Phone: Anion gap [Moles/Vol] 11 mmol/L 9 - 17 mmol/L [employer] Phone: AST [Catalytic activity/Vol] 37 U/L <40 [employer] Phone: Bilirubin Ql (U) 0.20 mg/dL Low 0.3 - 1.2 mg/dL [employer] Phone: Bun/Cre Ratio 17 [employer] Phone: Calcium [Mass/Vol] 9.3 mg/dL 8.6 - 10. 4 mg/dL [employer] Phone: Chloride [Moles/Vol] 102 mmol/L 98 - 10 7 mmol/L [employer] Phone: CO2 [Moles/Vol] 25 mmol/L 20 - 31 mmol/L [employer] Phone: Creatinine [Mass/Vol] 1.18 mg/dL 0.7 - 1.2 mg/dL [employer] Phone: GFR >60 >60 mL/min [employer] Phone: GFR Non- >60 >60 mL/min [employer] Phone: Glucose [Mass/Vol] 100 mg/dL High 70 - 99 mg/dL [employer] Phone: Interpretation and review of laboratory results Abnormal [employer] Phone: Potassium [Moles/Vol] 4.1 mmol/L 3.7 - 5.3 mmol/L [employer] Phone: Protein [Mass/Vol] 7.2 g/dL 6.4 - 8.3 g/dL [employer] Phone: Sodium [Moles/Vol] 138 mmol/L 135 - 144 mmol/L [employer] Phone: Urea nitrogen [Mass/Vol] 20 mg/dL 8 - 23 mg/dL [employer] Phone: Lipaseon 11-09-2020 Lipase [Catalytic activity/Vol] 26 U/L Normal 13-60 [facility] Comment on above: Performed By: #### C DP, LIP, CP #### [facility] [address] [place] [address] Garage Door Installer: Jazmín Lopes MD Lipase [Catalytic activity/Vol] 26 U/L 13 - 60 U/L [employer] Phone: Metabolic Panelon 11-09-2020 GFR/1.73 sq M predicted among non-blacks MDRD (S/P/Bld) [Vol rate/Area] [employer] Phone: Comment on above: Stage 1: Some [...] body mass. Additional eGFR calculator available at: http://[email or web address]/multiple_crcl_2012.htm Urinalysis w/ Microon 2020 ----- Normal [facility] Comment on above: Performed By: #### U AMIC #### [facility] [address] [place] [address] Garage Door Installer: Jazmín Lopes MD Acetoacetic Acid,Ur Negative Normal NEG [facility] Comment on above: Performed By: #### U AMIC #### [facility] [address] [place], [place] [phone] [employer] Installer: Jazmín Lopes MD Bacteria LM.HPF (Urine sed) [#/Area] TRACE Abnormal NONE [facility] Comment on above: Performed By: #### U AMIC #### [address] [place], [place] [id number] Garage Door Installer: Jazmín Lopes MD Bilirubin, SemiQt,Ur Negative Normal [facility] Comment on above: Performed By: #### U AMIC #### [address] [place], [place] [id number] Garage Door Installer: Jazmín Lopes MD Color (U) YELLOW Normal YEL [facility] Comment on above: Performed By: #### U AMIC #### [address] [place], [facility]83 Garage Door Installer: Jazmín Lopes MD Epithelial cells LM.HPF (Urine sed) [#/Area] 0 TO 2 Normal 0-5 [facility] Comment on above: Performed By: #### U AMIC #### [address] [place] [id number] Garage Door Installer: Jazmín Lopes MD Glucose Ql (U) Negative Normal [facility] Comment on above: Performed By: #### U AMIC #### [facility] [address] [place] [address] Dr. [place], [facility] Garage Door Installer: Jazmín Lopes MD Hemoglobin, Ur Negative Normal [facility] Comment on above: Performed By: #### U AMIC #### [address] [place] [address] Garage Door Installer: Jazmín Lopes MD Leukocyte esterase Test strip Ql (U) Negative Normal [facility] Comment on above: Performed By: #### U AMIC #### [address] [place], [place] [id number] Garage Door Installer: Jazmín Lopes MD Mucus Strands TRACE Abnormal NONE [facility] Comment on above: Performed By: #### U AMIC #### [facility] [address] [place], [place] [id number] Garage Door Installer: Jazmín Lopes MD Nitrite,Ur Negative Normal NEG [facility] Comment on above: Performed By: #### U AMIC #### [facility] [address] [place], [place] [id number] Garage Door Installer: Jazmín Lopes MD pH (U) 5.5 [pH] Normal 5.0-9.0 [facility] Comment on above: Performed By: #### U AMIC #### [facility] [address] [place] [address] Dr. [place], [place] [id number] Garage Door Installer: Jazmín Lopes MD Protein Ql (U) Negative Normal NEG [facility] Comment on above: Performed By: #### U AMIC #### [facility] [address] [place] [address] Dr. [place], [place] [id number] Garage Door Installer: Jazmín Lopes MD RBC (U) [#/Vol] 0 TO 2 Normal 0-2 [facility] Comment on above: Performed By: #### U AMIC #### [facility] [address] [place] [address] Dr. [place], [place] [id number] Garage Door Installer: Jazmín Lopes MD Specific gravity (U) [Rel density] >1.030 High 1.010-1.02 0 [facility] Comment on above: Performed By: #### U AMIC #### [facility] [address] [place] [address] [place] [address] Garage Door Installer: Jazmín Lopes MD Turbidity CLEAR Normal CLEAR [facility] Comment on above: Performed By: #### U AMIC #### [facility] [address] [place], [place] [phone] Garage Door Installer: Jazmín Lopes MD Urobilinogen,Ur Normal Normal NORM [facility] Comment on above: Performed By: #### U AMIC #### [facility] [address] [place], [place] [id number] Garage Door Installer: Jazmín Lopes MD WBC (U) [#/Vol] 0 TO 2 Normal 0-5 [facility] Comment on above: Performed By: #### U AMIC #### [facility] [address] [place], [place] [id number] Garage Door Installer: Jazmín Lopes MD Amorphous sediment LM Ql (Urine sed) NOT REPORTED Normal [facility] Comment on above: Performed By: #### U AMIC #### [facility] [address] [place] [address] Dr. [place], [place] [phone] Garage Door Installer: Jazmín Lopes MD Casts LM.LPF (Urine sed) [#/Area] NOT REPORTED Normal [facility] Comment on above: Performed By: #### U AMIC #### [facility] [address] [place] [address] Dr. [place], [place] [id number] Garage Door Installer: Jazmín Lopes MD Comment NOT REPORTED Normal [facility] Comment on above: Performed By: #### U AMIC #### [facility] [address] [place] [address] Dr. [place], [place] [phone] Garage Door Installer: Jazmín Lopes MD Crystals LM Nom (Urine sed) NOT REPORTED Normal [facility] Comment on above: Performed By: #### U AMIC #### [facility] [address] [place], [place] [phone] Garage Door Installer: Jazmín Lopes MD Epithelial, Renal NOT REPORTED Normal 0 [facility] Comment on above: Performed By: #### U AMIC #### [facility] [address] [place], [place] [phone] Garage Door Installer: Jazmín Lopes MD Other Observations NOT REPORTED Normal NREQ [facility] Comment on above: Performed By: #### U AMIC #### [facility] [address] [place] [address] Garage Door Installer: Jazmín Lopes MD Trichomonas NOT REPORTED Normal [facility] Comment on above: Performed By: #### U AMIC #### [facility] [address] [place] [address] Garage Door Installer: Jazmín Lopes MD Yeast LM Ql (Urine sed) NOT REPORTED Normal [facility] Comment on above: Performed By: #### U AMIC #### [facility] [address] [place] [address] Garage Door Installer: Jazmín Lopes MD Urinalysis with Microscopico n 11-09-2020 Amorphous, UA NOT REPORTED None [employer] Phone: Bacteria, UA TRACE Abnormal None [employer] Phone: Bilirubin Urine Negative NEGATIVE [employer] Phone: Casts UA NOT REPORTED /LPF [employer] Phone: Color, UA YELLOW YELLOW [employer] Phone: Crystals, UA NOT REPORTED None /HPF [employer] Phone: Epithelial Cells UA 0 TO 2 [employer] Phone: Glucose, Ur Negative NEGATIVE [employer] Phone: Interpretation and review of laboratory results Abnormal [employer] Phone: Ketones Ql (U) Negative NEGATIVE [employer] Phone: Leukocyte esterase Test strip Ql (U) Negative NEGATIVE [employer] Phone: Mucus, UA TRACE Abnormal None [employer] Phone: Nitrite, Urine Negative NEGATIVE [employer] Phone: Other Observations UA NOT REPORTED NOT REQ. [facility] [employer] Work Phone: pH, UA 5.5 [facility] [employer] Work Phone: Protein (U) [Mass/Vol] Negative NEGATIVE [facility] [employer] Work Phone: RBC (U) [#/Vol] 0 TO 2 [facility] [employer] Work Phone: Renal Epithelial, UA NOT REPORTED 0 /HPF [facility] [employer] Work Phone: Specific [place], UA >1.030 High [employer] Work Phone: Trichomonas, UA NOT REPORTED None [facility] [employer] Work Phone: Turbidity UA CLEAR CLEAR [facility] [employer] Work Phone: Urinalysis Comments NOT REPORTED [facility] [employer] Work Phone: Urine Hgb Negative NEGATIVE [facility] [employer] Work Phone: Urobilinogen, Urine Normal Normal [facility] [employer] Work Phone: WBC, UA 0 TO 2 [facility] [employer] Work Phone: Yeast, UA NOT REPORTED None [facility] [employer] Work Phone: - [facility] [employer] Work Phone: Vital Signs Date Time Vital Sign Value Performing Clinician Leoni handy 05-27-2023 09:40-0400 Diastolic blood pressure 87 mm[Hg] Oral [facility] 05-27-2023 09:40-0400 Heart rate 89 /min Oral LUCASL [facility] 05-27-2023 09:40-0400 Respiratory rate 18 /min Oral LUCASL [facility] 05-27-2023 09:40-0400 SaO2% (BldA) [Mass fraction] 95 % Oral LUCASL [facility] 05-27-2023 09:40-0400 Systolic blood pressure 128 mm[Hg] Oral NILL [facility] 05-27-2023 09:30-0400 Diastolic blood pressure 89 mm[Hg] Oral NILL [facility] 05-27-2023 09:30-0400 Heart rate 98 /min Oral NILL [facility] 05-27-2023 09:30-0400 Respiratory rate 20 /min Oral NILL [facility] 05-27-2023 09:30-0400 SaO2% (BldA) [Mass fraction] 96 % Oral NILL [facility] 05-27-2023 09:30-0400 Systolic blood pressure 126 mm[Hg] Oral NILL [facility] 05-27-2023 09:25-0400 Diastolic blood pressure 80 mm[Hg] Oral NILL [facility] 05-27-2023 09:25-0400 Heart rate 95 /min Oral NILL [facility] 05-27-2023 09:25-0400 Respiratory rate 18 /min Oral NILL [facility] 05-27-2023 09:25-0400 SaO2% (BldA) [Mass fraction] 94 % Oral NILL [facility] 05-27-2023 09:25-0400 Systolic blood pressure 116 mm[Hg] Oral NILL [facility] 05-27-2023 09:14-0400 Body temperature 97.7 [degF] Oral NILL [facility] 05-27-2023 09:05-0400 Respiratory rate 13 /min Oral NILL [facility] 05-27-2023 09:00-0400 Respiratory rate 12 /min Oral NILL [facility] 05-27-2023 08:55-0400 Respiratory rate 17 /min Oral NILL [facility] 05-27-2023 08:37-0400 Blood Pressure Location Oral NILL [facility] 05-27-2023 08:34-0400 Blood Pressure Location Oral NILL [facility] 05-27-2023 08:34-0400 Body temperature 97.7 [degF] Oral NILL [facility] 05-04-2023 15:42-0400 Blood Pressure Location Oral NILL [facility] [place] 05-04-2023 15:42-0400 Diastolic blood pressure 80 mm[Hg] Oral NILL [facility] [place] 05-04-2023 15:42-0400 Heart rate 76 /min Oral NILL [facility] [place] 05-04-2023 15:42-0400 Respiratory rate 16 /min Oral NILL [facility] [place] 05-04-2023 15:42-0400 Systolic blood pressure 128 mm[Hg] Oral NILL [facility] [place] 11-09-2020 20:00-0500 BP Diastolic 81 mm[Hg] [facility] Work Phone: 11-09-2020 20:00-0500 BP Systolic 130 mm[Hg] [facility] Work Phone: 11-09-2020 20:00-0500 Pulse Oximetry 94 % [employer] Work Phone: 11-09-2020 18:17-0500 Body Temperature 98.2 [degF] [facility] Work Phone: 11-09-2020 18:17-0500 Pulse (Heart Rate) 92 /min [facility] Work Phone: 11-09-2020 18:17-0500 Respiratory Rate 17 /min [facility] Work Phone: Encounters Encounter Date Encounter Type Care Provider Facility Start: 06-08-2023 End: 06-09-2023 ambulatory Oral R SHAYYL Facility: [place] Start: 06-08-2023 End: 06-08-2023 Patient encounter procedure Oral R NILL [facility] Start: 05-27-2023 End: 05-27-2023 ambulatory Oral R NILL Facility:[facility] Start: 05-27-2023 End: 05-27-2023 Patient encounter procedure Oral R NILL [facility] Start: 05-04-2023 End: 05-05-2023 ambulatory Ti Borrego Facility:[facility] [place] Start: 05-04-2023 End: 05-04-2023 Patient encounter procedure Oral R NILL [facility] Start: 04-27-2023 ambulatory Ti Borrego Facility:[facility] Start: 04-05-2023 ambulatory Ti Borrego Facility:[facility] Start: 06-10-2022 End: 06-10-[address] TI BORREGO Facility:[facility] Start: 03-03-2022 End: 03-04-[address] TI BORREGO Facility:[facility] Start: 12-01-2021 End: 12-02-[address] TI BORREGO Facility:[facility] Start: 11-24-2021 ambulatory TI M HOY [facility] Start: 10-26-2021 End: 10-27-[address] TI [...] 11-09-2020 Emergency department patient visit TI BORREGO [facility] Start: 11-09-2020 End: 11-09-2020 Emergency department patient visit [facility] Work Phone: [facility] ED Comment on above: Flank pain (Primary Dx); Muscle pain, myofascial Procedures Date Procedure Procedure Detail Performing Clinician Start: 05-27-2023 Colonoscopy Oral CONTRERAS Start: 05-27-2023 Esophagogastroduodenoscopy Oral CONTRERAS Start: 11-24-2021 PSA screening TI BORREGO Comment on above: Result Comment: [facility] UTILIZES ORTHO VITRO S PSA METHODOLOGY. DIFFERENT TEST METHODS CANNOT BE USED INTERCHANGEABLY. PSA RESULTS IN A GIVEN PATIENT SAMPLE DETERMINED WITH DIFFERENT TESTS AND FROM DIFFERENT MANUFACTURERS CAN VARY DUE TO DIFFERENCES IN TEST METHODS AND REAGENTS. Performed By: #### C MP, PSA, LIPD #### [place] [address] Ph. [phone] Start: 11-09-2020 Urnls dip stick/tablet reagent auto [...] - Td) DTaP/Tdap/Td vaccine (2 - Td) [employer] Phone: Start: 11-09-2021 Creatinine measurement Creatinine mo nitoring [employer] Phone: Start: 11-09-2021 Potassium monitoring Potassium monit oring [employer] Phone: Start: 05-20-2020 Influenza vaccination Flu vaccine (# 1) [employer] Phone: Start: 2013 Pneumococcal 65+ yea rs Vaccine (1 of 1 - PPSV23) Pneumococcal 65+ years Vaccine (1 of 1 - PPSV23) [employer] Phone: Start: 1998 Screening for malign ant neoplasm of colon Colon cancer screen colonoscopy [employer] Phone: Start: 1998 Shingles Vaccine (1 of 2) Shingles V accine (1 of 2) [employer] [facility] Phone: Start: 1988 Lipid panel Lipid screen [facility] Work Phone: Start: 1964 COVID-19 Vaccine (1 of 2) COVID-19 V accine (1 of 2) [facility] Phone: Start: 1950 Hepatitis C screening Hepatitis C sc reen [facility] Phone: Immunizations Immunization Date Immunization Notes Care Provider Soni chauhan 05-17-2016 tetanus toxoid, redu bj diphtheria toxoid, and acellular pertussis vaccine, adsorbed [facility] Cr[facility] Phone: Payers Date Payer Category Payer Medicare [id number] 1.2.84 [id number] 1961 Medicare [id number] 1950 Unknown [id number] 2.16.8 [id number] 1950 Unknown [id number] 2.16.8 [id number] 1948 Unknown [id number] 2.16.84 [id number] 1948 Unknown [id number] 2.16.84 [id number] 1948 Unknown [id number] 2.16.84 [id number] 1948 Unknown [id number] 2.16.84 [id number] 1948 Unknown [id number] 2.16.84 [id number] 1948 Unknown [id number] 2.16.84 [id number] 1948 Unknown [id number] 2.16.84 [id number] 1948 Unknown [id number] 2.16.84 [id number] 1948 Unknown [id number] 2.16.84 [id number] 1948 Unknown [id number] 2.16.8 [id number] 1948 Unknown [id number] 2.16.8 [id number] 1948 Unknown [id number] 2.16.8 [id number] Social History Date Type Detail Facility Start: 11-09-2020 Tobacco smoking stat [facility] Never smoker [employer] Phone: Start: 11-09-2020 Tobacco use and exposure Never used [employer] Phone: Start: 11-09-2020 Alcohol intake Ex-drinker (finding) [employer] Phone: Sex Assigned At Not on file [facility] Phone: Exposure to SARS-CoV -2 (event) Not sure [employer] Phone: Start: 05-04-2023 Tobacco smoking status Ex-smoker (fi nding) [facility] Tobacco smoking status Never Gener al [facility] Sex Assigned At Male [facility] Functional Status Date Assessment Result Facility 05-27-2023 Functional Status N/A [facility] 05-04-2023 Functional Status N/A [facility] [place] History and physical note 05-30-2023 Note Date & Type Note Facility 05-30-2023 Note [id number] #[id number] [facility] History and physical note 05-27-2023 Note Date & Type Note Facility 05-27-2023 Note Patient: JOSE GUADALUPE GARCIA [facility]: [id number] Age: 72 years Sex: Male : 1950 Associated Diagnoses: None Author: Oral CONTRERAS MD Subjective no changes to H & P [facility] Comment on above: Result Comment: Elec [...] worse throughout the day. 05/27/2023 09:17:48 Hemorrhoids, Gcxs-fs-Cava Hemorrhoids Hemorrhoids are swollen veins that may [...] 3 times a day. General instructions Take byta-siw-esmujkk and prescription medicines only as told by [...] provider. Document Revised: 03/17/2022 Document Reviewed: 03/17/2022 [employer] Patient Education 2022 [employer]. 05/27/2023 09:17:36 Endoscopy, Care After Procedure [facility] ([facility] Endoscopy Care After Procedure Please read the [...] blood. Document Released: 04/19/2005 Document Re-Released: 02/27/2007 [employer] Patient Information 2010 [employer]. 05/27/2023 09:17:24 Hiatal Hernia Hiatal Hernia A [...] reduce GERD symptoms. Medicines. These may include: ?Mzfz-jvs-zsxssug antacids. ?Medicines that make your stomach empty [...] may include: ?Fatty foods, like fried foods. ?[place] fruits, like oranges or lemon. ?Other foods [...] Do not drink alcohol. General instructions Take ipyg-pog-gotndgy and prescription medicines only as told by [...] provider. Document Revised: 07/20/2022 Document Reviewed: 08/06/2021 [employer] Patient Education 2022 [employer]. 05/27/2023 09:17:16 Delarosa's Esophagus Delarosa's Esophagus Delarosa's [...] drinks. ?Tomatoes and foods made with tomatoes. ?[place] or spicy foods. ?Chocolate and peppermint. Do not drink alcohol. General instructions Take qzba-zsu-ojssdyf and prescription medicines only as told by [...] provider. Document Revised: 11/22/2020 Document Reviewed: 11/22/2020 [employer] Patient Education 2022 [employer]. Follow Up Care 05/04/2023 16:15:34 With:Oral CONTRERAS Address: [address], [address] [place] [phone]- Business (1) When:1 to 2 weeks [facility] Clinical Note 05-04-2023 Note Date & Type [...] 30 days a (more content not included)... [facility] Comment on above: Result Comment: Elec [...] authenticated by: JAZMÍN GA Date: 2021-10-26 11:17 [facility] Clinical Note 08-25-2021 Note Date & Type [...] authenticated by: JONES RICHMOND Date: 2021-08-25 16:03 [facility] Evaluation + Plan note Note Date & Type Note Facility Evaluation + Plan note Future Appointments Appointment Date:05/27/2023 09:30:00 AM Scheduled Provider: Location:[facility] Appointment Type:Surgery FT [facility] [place] Hospital course Narrative Note Date & Type Note Facility Hospital course Narrative No data available for this section [facility] [place] [facility] Discharge instructions Note Date & Type Note Facility Hospital Discharge instructions No data available for this section [facility] [place] Progress note Note Date & Type Note Facility Progress note No data available for this section [facility] [place] [facility] Discharge Instructions * Attachments The following attachments cannot be sent through Care Everywhere. * Flank Pain (Citizen Of [place]) * Musculoskeletal Pain (Citizen [place]) documented in this encounter Assessments Diagnosis Flank pain- Primary Abdominal pain, unspecified site Muscle pain, myofascial Mylagia and myositis, unspecified Advance Directives No Advanced Directives Records FoundDocuments on File Type Date Recorded Patient Statistics Teacher Expl anation ACP-Advance Directive ACP-Power of [employer] Brakes Summary Purpose Family History No Family History [...] DATE CREATED AUTHOR AUTHOR'S ORGANIZ ATION 11/27/2021 [facility] DATE CREATED AUTHOR AUTHOR'S ORGANIZ ATION 06/19/2022 [facility] DATE CREATED AUTHOR AUTHOR'S ORGANIZ ATION 06/22/2023 [facility] Patient Care team informatio n (unrecognized section and content) Personnel Name: Ti Borrego MD Address: Address: [address] [place] [address] Personnel Name: Ti Borrego MD Address: Address: [address] [place] [address] Personnel Name: Ti Borrego MD Address: Address: [address] [place] [address] FOR RECORDS PERTAINING TO PATIENTS WHO ARE [...] BE BASED ON THE PRIMARY CLINICAL RECORDS. [facility] [employer] [facility]. provides no warranty or guarantee of the accuracy or completeness of information in this document.
[2024-12-10 09:02] LABS: Thyroid Stimulating Hormone 1.227 uIU/mL (0.358-3.740)
== END 2024-12-10 07:38 | disposition home or self-care (01) ==
LOC: LAB 07:37
PROVIDERS: PCP Family Medicine; Visit Provider Family Medicine
DX: R79.89 Other specified abnormal findings of blood chemistry (principal)
CPT/HCPCS: 36415; 84436; 84443; 84481

== ENCOUNTER 2025-01-09 12:29 | Outpatient (OUT) | payer MEDICARE, SELFPAY ==
[2025-01-09 13:30] LABS: Basophils Absolute Auto 0.1 10^3/uL (0.0-0.1); Basophils Percent Auto 0.6 % (0.2-2.0); Eosinophils Absolute Auto 0.1 10^3/uL (0.0-0.7); Eosinophils Percent Auto 0.8 % (0.9-7.0); Hematocrit 44.3 % (42.0-54.0); Hemoglobin 14.7 g/dL (14.0-18.0); Immature Granulocytes Abs Auto 0.03 10^3/uL (0.00-0.03); Immature Granulocytes Pct Auto 0.3 % (0.0-0.5); Lymphocytes Absolute Auto 2.8 10^3/uL (1.2-3.8); Lymphocytes Percent Auto 31.3 % (20.5-60.0); Mean Corpuscular HGB Conc 33.2 g/dL (29.9-35.2); Mean Corpuscular Hemoglobin 32.2 pg (25.9-34.0); Mean Corpuscular Volume 97.1 fL (80.0-94.0); Mean Platelet Volume 10.6 fL (9.5-13.5); Monocytes Absolute Auto 0.7 10^3/uL (0.3-0.8); Monocytes Percent Auto 8.2 % (1.7-12.0); Neutrophils Absolute Auto 5.2 10^3/uL (1.4-6.5); Neutrophils Percent Auto 58.8 % (43.0-75.0); Platelet Count 324 10^3/uL (150-450); Red Blood Count 4.56 10^6/uL (4.70-6.10); Red Cell Distribution Width 12.8 % (11.0-15.0); White Blood Count 8.9 10^3/uL (4.0-11.0)
[2025-01-09 14:14] LABS: Alanine Aminotransferase 46 U/L (16-63); Albumin Globulin Ratio 1.3; Alkaline Phosphatase 58 U/L (46-116); Aspartate Amino Transferase 16 U/L (15-37); BUN Creatinine Ratio 20.4; Bilirubin Total 0.4 mg/dL (0.2-1.0); Calcium 9.2 mg/dL (8.5-10.1); Carbon Dioxide 28.1 mmol/L (21.0-32.0); Chloride 104 mmol/L (98-107); Estimated GFR (African America >60 (>=60 mL/min/1.73m^2); Estimated GFR (Non-African Ame >60 (>=60 mL/min/1.73m^2); Free T3 1.67 pg/mL (2.18-3.98); Globulin 3.2 g/dL; Glucose 101 mg/dL (74-106); Potassium 4.1 mmol/L (3.5-5.1); Sodium 142 mmol/L (136-145); Thyroid Stimulating Hormone 1.326 uIU/mL (0.358-3.740); Total Protein 7.2 g/dL (6.4-8.2)
[2025-01-10 04:07] LABS: Testosterone 254 ng/dL (264-916)
== END 2025-01-09 12:30 | disposition home or self-care (01) ==
LOC: LAB 12:30
PROVIDERS: PCP Family Medicine; Visit Provider Family Medicine
DX: R06.00 Dyspnea, unspecified (principal); R53.83 Other fatigue; E03.9 Hypothyroidism, unspecified; I50.30 Unspecified diastolic (congestive) heart failure; I11.0 Hypertensive heart disease with heart failure
CPT/HCPCS: 36415; 80053; 83690; 83880; 84403; 84436; 84443; 84481; 84484; 85025

== ENCOUNTER 2025-01-25 09:40 | Outpatient (OUT) | payer MEDICARE, SELFPAY ==
[2025-01-29 13:08] LABS: Free Testosterone(Direct) 3.1 pg/mL (6.6-18.1); Testosterone 254 ng/dL (264-916)
== END 2025-01-25 09:41 | disposition home or self-care (01) ==
LOC: LAB 09:41
PROVIDERS: PCP Family Medicine; Visit Provider Family Medicine
DX: E29.1 Testicular hypofunction (principal)
CPT/HCPCS: 36415; 84402; 84403

== ENCOUNTER 2025-02-01 09:40 | Outpatient (OUT) | payer MEDICARE, SELFPAY ==
--- OUTSIDE RECORDS SUMMARY | 2025-02-01 09:54 | XMS_ITS | CCD ---
Author Organization [facility] Care Team Providers Care Decision Support Manager Name Role Phone Ti Borrego Primary Care [...] Consulting Unavailable Ti Borrego Primary Care Physician [phone] Ti Borrego Referring Unavailable SHAYYL, Oral Reed Attending Unavailable NILL, Oral Reed Attending Unavailable NILL, Oral R Referring Unavailable NILL, Oral R Attending Unavailable NILL, Oral R Admitting Unavailable Allergies Allergy Classification Reported Allergen(s) Allergy Type Date of Onset Reaction(s) Facility (1 source) black walnut pollen extract Drug Allergy 2 [facility] Repository (1 source) rosuvastatin Drug Allergy 1 [facility] Repository (4 sources) Bee/Wasp/Ant venom; Translations: [Bee Stings] Drug allergy Edema (finding) [facility] (4 sources) HMG-CoA reductase inhibitor; Translations: [statins] Propensity to adverse reactions to drug Muscle pain (finding) [facility] General Surgery [place] Medications Current Medications Medication Drug Class(es) Dates [...] 07-13-2021 Episodic Other aftercare (1 source) Other intermediate (current) drug therapy; Translations: [OTH JAIL CURRENT DRUG THERAPY] Onset: 07-13-2021 Episodic Other [...] IntraOperative Documentson 0 06-14-2023 IntraOperative Documents [id number]#1.00CD:127 Normal [facility] Reminderson 06-09-2023 Reminders - From: Viji Barboza LPN To: N - Clinical; Sent: 06/09/2023 11:52:57 EDT Show up: 04/26/2026 07:00:00 EDT Subject: EGD recall Due Date/Time: 05/27/2026 07:00:00 EDT Reminder/Recall Patient due to repeat EGD 05/27/2026. Dr. Contreras request this be done with Dr. Yusuf due to long standing history of Delarosa's esophagus. Normal [facility] Ambulatory Visit Summaryon 0 06-08-2023 Ambulatory Visit [...] Thoracic outlet syndrome Ulcer of duodenum Normal [facility] General Surgery Office/Clini c Noteon 06-08-2023 General [...] 14:22 EDT Postoperative Documentson Postoperative Documents [id number]#1.00CD:127 [facility] Consenton 05-30-2023 Consent [id number]#1.00CD:127 [facility] Discharge Instructionson Discharge Instructions [id number]#1.00CD:127 [facility] Main OR Intraoperative Recor don 05-30-2023 Main OR Intraoperative Record IntraOp Document Type FT Summary Primary Physician: Oral CONTRERAS MD Finalized Date/Time: 05/30/23 11:52:32 Pt. Name: ARNALDO GARCIA/Sex: 1950 Male Med Rec #: [id number] Physician: Oral CONTRERAS MD Financial #: [id number] Pt. Type: O Room/Bed: Endo 03/19 Admit/Disch: [...] and tissue Entry 1 Skin Integrity Intact, [place], Warm, and Skin Abnormality No Dry Outcomes [...] pat (more content not included)... Normal [facility] Progress Note-Physicianon Progress Note-Physician Patient: Tanvi GARCIA [...] All Problems Delarosa esophagus / SNOMED CT 132395336 / Confirmed BMI 34.0-34.9,adult / SNOMED CT 054637560 / Confirmed Cervical disc disorder / SNOMED CT 1647734690 / Confirmed Diabetes mellitus / SNOMED CT 220226953 / Confirmed Disorder of lumbar disc / SNOMED CT 7908448738 / Confirmed Diverticular disease / SNOMED CT 2187039669 / Confirmed Eczema / SNOMED CT 66276259 / Confirmed Essential hypertension / SNOMED CT 07259480 / Confirmed Gastroesophageal reflux disease / SNOMED CT 400652063 / Confirmed Chronic GERD / SNOMED CT 293825956 / Confirmed Hyperlipidemia / SNOMED CT 37874476 / Confirmed Obesity / SNOMED CT 7311680314 / Confirmed Osteopenia / SNOMED CT 429612761 / Confirmed Palpitations / SNOMED CT 563824553 / Confirmed Colon cancer screening / SNOMED CT 088306918 / Confirmed Screening for malignant neoplasm of colon / SNOMED CT 840857279 / Confirmed Thoracic outlet syndrome / SNOMED CT 199170077 / Confirmed Ulcer of duodenum / SNOMED CT 4415204263 / Confirmed Histories Procedure history: EGD - Esophagogastroduodenoscopy (1619756426) on 08/07/2019 at 69 Years. EGD - Esophagogastroduodenoscopy (3071382349) on 04/29/2016 at 65 Years. EGD - Esophagogastroduodenoscopy (1113156641) on 02/15/2014 at 63 Years. EGD - Esophagogastroduodenoscopy (9899046923) on 08/03/2013 at 63 Years. EGD - Esophagogastroduodenoscopy (2145953472) on 06/01/2013 at 62 Years. Hemorrhoidectomy (53616575). Appendectomy (434405001). Carpal tunnel release (390206826). Social History Social & Psychosocial Habits Alcohol [...] adequate air exchange. Cardiovascular: Regular rhythm. Plan [place] [employer] Anesthesiologists (ASA) physical status classification: Class III. Anesthetic Preoperative Plan: Anesthesia General. Normal [facility] Comment on above: Result Comment: Elec tronically Signed By: Case Waller Jr, DO\.br\Date and Time Signed: 05/30/23 13:22 EDT Progress Note-Physician Patient: Tanvi GARCIA Age: 72 years Sex: Male : 1950 Associated Diagnoses: None Author: Case Waller Jr, DO Postoperative Information Postoperative disposition: Postoperative disposition: To PACU. Optimetrix number: Optimetrix number [phone]. Anesthetic utilized: General. Health Status Allergies: Allergic [...] meets criteria ( To home ). Normal [facility] Comment on above: Result Comment: Elec tronically Signed By: Case Waller Jr, DO\eufemia\Date and Time Signed: 05/30/23 13:22 EDT Reminderson 05-30-2023 Reminders - From: Viji Barboza LPN To: GSN - Clinical; Sent: 05/30/2023 10:56:37 EDT Show up: 04/26/2033 07:00:00 EDT Subject: colonoscopy recall Due Date/Time: 05/27/2033 07:00:00 EDT Reminder/Recall Patient due for screening colonoscopy 05/27/2033. Normal [facility] Colonoscopy Procedure Report on 05-27-2023 Colonoscopy Procedure [...] Diagnosis: Internal and external hemorrhoids without complication (ORO17-VQ K64.4, Discharge, Medical). Course: Progressing as expected. Recommendations: Repeat colonoscopy:: In 10 years. Follow-up:: 1-2 weeks. Diet:: Regular diet. Medication resumption:: Continue current medications. Return to activities:: After 24 hours. Education and Follow-up: Counseled: Family. Bony [facility] Comment on above: Other Comment: Yasmin carey Attachment - attachment storage system not supported [id number] Can be viewed in source systemMissing Attachment - attachment storage system not supported [id number] Can be viewed in source system Consent for Treatmenton -0 Consent for Treatment [id number]#1.00CD:127 Normal [facility] Discharge Instructionson Discharge Instructions ARNALDO GARCIA :1950 [...] 2 weeks Where: [address], [address] [place] [id number]- [facility] (1) Medications What How Much When Instructions [...] ATTENTION IF (more content not included)... Normal [facility] Comment on above: Result Comment: Elec tronically [...] Findings The affected area was not inflamed. [place] classification: C 1, M 2. Multiple biopsies [...] Diagnosis: Hiatal hernia with GERD and esophagitis (YDK19-HJ K44.9, Discharge, Medical), Gastro-esophageal reflux disease with esophagitis, without bleeding (QTS88-OA K21.00, Discharge, Medical), Delarosa's esophagus (RMU94-ZT K22.70, Discharge, Medical). Course: Progressing as expected. Education and Follow-up: Counseled: Family. Normal [facility] Comment on above: Other Comment: Yasmin carey Attachment - attachment storage system not supported [id number] Can be viewed in source system Inpatient Patient Summaryon 05-27-2023 Inpatient Patient Summary (Inserted Imag e. Unable to display) [address] [address] [facility] Clinical Discharge Instructions PERSON INFORMATION Name: ARNALDO GARCIA PHYSICIANS Admitting Physician: Oral CONTRERAS MD Attending Physician: Oral CONTRERAS MD PCP: Ti Borrego MD Discharge Diagnosis: Delarosa's esophagus; Gastro-esophageal reflux disease with esophagitis, without bleeding; Hiatal hernia with GERD and esophagitis; Internal and external hemorrhoids without complication; Other hemorrhoids Comment: PATIENT EDUCATION INFORMATION Instructions: Medication Leaflets: Follow up: With: Address: When: Oral CONTRERAS [address] [place] [address], [address], [place] [phone] Business (1) Within 1 to 2 weeks [...] Milligram By Mouth every day. Comment: Normal [facility] Main OR PACU I Recordon Main OR PACU I Record PACU Phase I Docum ent Type FT Summary Primary Physician: Oral CONTRERAS MD Finalized Date/Time: 05/27/23 09:52:17 Pt. Name: ARNALDO GARCIA /Sex: 1950 Male Med Rec #: [id number] Physician: Oral CONTRERAS MD Financial #: [id number] Pt. Type: O Room/Bed: [facility] 03/19 Admit/Disch: 05/27/23 08:12:53 - 05/27/23 [...] By: Marian Aguero RN 05/27/23 09:52 Normal [facility] Main OR Preoperative Recordo n 05-27-2023 Main OR Preoperative Record Holding Area Document Type FT Summary Primary Physician: Oral CONTRERAS MD Finalized Date/Time: 05/27/23 08:22:57 Pt. Name: ARNALDO GARCIA Vadim Topete/Sex: 1950 Male Med Rec #: [id number] Physician: Oral CONTRERAS MD Financial #: [id number] Pt. Type: O Room/Bed: [facility] 03/19 Admit/Disch: 05/27/23 08:12:53 - Institution: [...] By: Liz Viveros RN 05/27/23 08:22 Normal [facility] Monitor Recordon 05-27-2023 Monitor Record [id number]#1.00CD:127 Normal [facility] Monitor Record [id number]#1.00CD:127 Normal [facility] Outpatient Surgery Discharge Instructionon 05-27-2023 Outpatient Surgery Discharge Instruction [place] [id number] Patient Discharge Instructions PERSON INFORMATION Name: ARNALDO [...] With: Address: When: [address], [address], [facility] [address] [place] [phone] Business (1) Within 1 to 2 weeks Pharmacy Information: Other: [facility] [place] You may receive a survey from [employer] asking you to rate your care experience. Your feedback is important and will help us understand what we do well and how we can improve the quality of care we provide to you, your loved ones and our community. It?s an honor to serve you. Thank you for choosing [facility] HERE ARE THE MEDICATION CHANGES THAT [...] PATIENT EDUCATION INFORMATION Instructions: Medication Leaflets: Bony [facility] Patient Education - Texton 0 05-27-2023 Patient [...] blood. Document Released: 04/19/2005 Document Re-Released: 02/27/2007 [employer]? Patient Information ?2009 [email or web address]. Gastroenterology Hemorrhoids Hemorrhoids are swollen veins that [...] is this (more content not included)... Normal [facility] Insurance Correspondenceon 0 05-20-2023 Insurance Correspondence [id number]#1.00CD:127 Normal [facility] Insurance Correspondenceon 0 05-17-2023 Insurance Correspondence [id number]#1.00CD:127 [facility] Consent for Procedure/Surger yon 05-05-2023 Consent for Procedure/Surgery [id number]#1.00CD:127 [facility] Facesheeton 05-05-2023 Facesheet [id number]#1.00CD:127 [facility] Ambulatory Visit [...] Follow-Up Appointments Tuesday 9:30 AM EDT Where: [facility] Medications What How Much When [...] Thoracic outlet syndrome Ulcer of duodenum Normal [facility] Physician Referralon 023 Physician Referral [id number]#1.00CD:127 Normal [facility] Physician Referralon 023 Physician Referral [id number]#1.00CD:127 Normal [facility] MRI SHOULDER RT WO CONon MRI SHOULDER [...] by: JONES RICHMOND Date: 2022-06-10 12:28 Normal [facility] XR ARTHRO SHLD RTon 06-10-20 22 XR [...] Date: 2022-06-10 09:42 Normal [facility] XR FOREIGN BODY EYEon 2021 XR FOREIGN BODY EYE EXAMINATION: XR FORE IGN BODY EYE HISTORY: Foreign body in eye COMPARISON: No relevant comparison available. FINDINGS: ORBITS: Negative for a metallic foreign body. OTHER: Negative. IMPRESSION: 1. No radiopaque foreign body within the orbits. Electronically authenticated by: JONES RICHMOND Date: 2022-06-10 08:27 Normal [facility] XR CSPINE MIN 4 VIEWSon 02-17 [...] Date: 2022-03-04 08:57 Normal [facility] XR SHOULDER RT 2V or >on [...] Date: 2022-03-03 17:48 Normal [facility] ECHOCARDIO M/2D COMPLETEon 0 12-01-2021 ECHOCARDIO M/2D COMPLETE Patient: ARNALDO GARCIA Exam Date: 12/01/2021 : 1950 Gender:M Ordering : DR TI BORREGO . Admission #: [id number] Family : Order #: [id number] CLICK HERE TO VIEW EXAM ECHOCARDIOGRAM REPORT [...] Area(A4C): 21.80 cm2 Left Atrium Systolic Volume(A2C): 21290 mm3 Left Atrium Systolic Volume(A4C): 34735 mm3 Mitral Valve MV E to A [...] 12/01/2021 at 13:51 Normal [facility] Complete Blood Count with Au to Diffon 11-24-2021 Basophils (Bld) [#/Vol] 0.1 10*3/uL Normal 0.0-0.[address] [facility] Comment on above: Performed By: #### C BCAD, A1C #### [place] [address] Ph. [phone] Basophils/100 WBC (Bld) 1 % Normal 0-1 [facility] Comment on above: Performed By: #### C BCAD, A1C #### [place] [address] Ph. [phone] Eosinophils (Bld) [#/Vol] 0.1 10*3/uL Normal 0.0-0.[address] [facility] Comment on above: Performed By: #### C BCAD, A1C #### [place] [address] Ph. [phone] Eosinophils/100 WBC (Bld) 1 % Normal 0-[address] [facility] Comment on above: Performed By: #### C BCAD, A1C #### [place] [address] Ph. [phone] Erythrocyte distribution width (RBC) [Ratio] 12.2 % Normal 11.5-14.[address] [facility] Comment on above: Performed By: #### C BCAD, A1C #### [place] [address] Ph. [phone] Hematocrit (Bld) [Volume fraction] 49.2 % Normal 42.0-52.[address] [facility] Comment on above: Performed By: #### C BCAD, A1C #### [place] [address] Ph. [phone] Hemoglobin (Bld) [Mass/Vol] 15.7 g/dL Normal 13.5-17.[address] [facility] Comment on above: Performed By: #### C BCAD, A1C #### [address] [address] Ph. [phone] Lymphocytes (Bld) [#/Vol] 3.3 10*3/uL Normal 1.0-4.[address] [facility] Comment on above: Performed By: #### C BCAD, A1C #### [place] [address] Ph. [phone] Lymphocytes/100 WBC (Bld) 36 % Normal 20-[address] [facility] Comment on above: Performed By: #### C BCAD, A1C #### [place] [address] Ph. [phone] MCH (RBC) [Entitic mass] 31.6 pg Normal 27.0-35.[address] [facility] Comment on above: Performed By: #### C BCAD, A1C #### [place] [address] Ph. [phone] MCHC (RBC) [Mass/Vol] 31.9 g/dL Low 32.0-36.0 [facility] Comment on above: Performed By: #### C BCAD, A1C #### [place] [address] Ph. [phone] MCV (RBC) [Entitic vol] 99 fL Normal 80-100 [facility] Comment on above: Performed By: #### C BCAD, A1C #### [place] [address] Ph. [phone] Monocytes (Bld) [#/Vol] 0.8 10*3/uL Normal 0.3-1.[address] [facility] Comment on above: Performed By: #### C BCAD, A1C #### [place] [address] Ph. [phone] Monocytes/100 WBC (Bld) 9 % Normal 1-15 [facility] Comment on above: Performed By: #### C BCAD, A1C #### [place] [address] Ph. [phone] Neutrophils (Bld) [#/Vol] 4.8 10*3/uL Normal 1.8-7.[address] [facility] Comment on above: Performed By: #### C BCAD, A1C #### [place] [address] Ph. [phone] Neutrophils/100 WBC (Bld) 53 % Normal 50-[address] [facility] Comment on above: Performed By: #### C BCAD, A1C #### [place] [address] Ph. [phone] Platelet mean volume (Bld) [Entitic vol] 10.6 fL Normal 9.4-12.[address] [facility] Comment on above: Performed By: #### C BCAD, A1C #### [address] [address] Ph. [phone] Platelets (Bld) [#/Vol] 351 10*3/uL Normal 150-[address] [facility] Comment on above: Performed By: #### C BCAD, A1C #### [address] [address] Ph. [phone] RBC (Bld) [#/Vol] 4.97 10*6/uL Normal 4.70-6.10 [facility] Comment on above: Performed By: #### C BCAD, A1C #### [place] [address] Ph. [phone] WBC (Bld) [#/Vol] 9.1 10*3/uL Normal 3.7-11.0 [facility] Comment on above: Performed By: #### C BCAD, A1C #### [address] [address] Ph. [phone] Comprehensive Metabolic Pane fredo 11-24-2021 Albumin [Mass/Vol] 4.5 g/dL Normal 3.5-5.0 [facility] Comment on above: Performed By: #### C MP, PSA, LIPD #### [address] [address] Ph. [phone] ALP [Catalytic activity/Vol] 62 U/L Normal 38-[address] [facility] Comment on above: Performed By: #### C MP, PSA, LIPD #### [address] [address] Ph. [phone] ALT [Catalytic activity/Vol] 23 U/L Normal 0-[address] [facility] Comment on above: Performed By: #### C MP, PSA, LIPD #### [place] [address] Ph. [phone] AST [Catalytic activity/Vol] 21 U/L Normal 17-[address] [facility] Comment on above: Performed By: #### C MP, PSA, LIPD #### [place] [address] Ph. [phone] Bilirubin [Mass/Vol] 0.5 mg/dL Normal 0.2-1.3 [facility] Comment on above: Performed By: #### C MP, PSA, LIPD #### [place] [address] Ph. [phone] Calcium [Mass/Vol] 9.5 mg/dL Normal 8.4-10.2 [facility] Comment on above: Performed By: #### C MP, PSA, LIPD #### [place] [address] Ph. [phone] Chloride [Moles/Vol] 104 mmol/L Normal 98-107 [facility] Comment on above: Performed By: #### C MP, PSA, LIPD #### [address] [address] Ph. [phone] CO2 [Moles/Vol] 31 mmol/L Normal 22-[address] [facility] Comment on above: Performed By: #### C MP, PSA, LIPD #### [address] [address] Ph. [phone] Creatinine [Mass/Vol] 0.92 mg/dL Normal 0.66-1.25 [facility] Comment on above: Performed By: #### C MP, PSA, LIPD #### [address] [address] Ph. [phone] GFR/1.73 sq M.predicted among non-blacks MDRD (S/P/Bld) [Vol rate/Area] 82 mL/min/{1.73_m2} Normal >60 [facility] Comment on above: Result Comment: Stag e 1 Kidney damage (e.g., protein in the urine) with normal GFR >=90\X0D0A\Stage 2 Kidney damage with mild decrease in GFR 60-89\X0D0A\Stage 3a Moderate decrease in GFR 45-59\X0D0A\Stage 3b Moderate decrease in GFR 30-44\X0D0A\Stage 4 Severe reduction in GFR 15-29\X0D0A\Stage 5 Kidney failure <15 Performed By: #### C MP, PSA, LIPD #### [place] [address] Ph. [phone] Glucose [Mass/Vol] 116 mg/dL High 65-100 [facility] Comment on above: Performed By: #### C MP, PSA, LIPD #### [place] [address] Ph. [phone] Potassium [Moles/Vol] 5.2 mmol/L High 3.6-5.0 [facility] Comment on above: Performed By: #### C MP, PSA, LIPD #### [place] [address] Ph. [phone] Protein [Mass/Vol] 7.3 g/dL Normal 6.3-8.2 [facility] Comment on above: Performed By: #### C MP, PSA, LIPD #### [place] [address] Ph. [phone] Sodium [Moles/Vol] 141 mmol/L Normal 135-145 [facility] Comment on above: Performed By: #### C MP, PSA, LIPD #### [place] [address] Ph. [phone] Urea nitrogen [Mass/Vol] 21 mg/dL High 9-[address] [facility] Comment on above: Performed By: #### C MP, PSA, LIPD #### [place] [address] Ph. [phone] Hemoglobin A1Con 11-24-2021 EAG 135 mg/dL Normal [facility] Comment on above: Result Comment: Sandi mated Average Glucose is a caluculated value from Hemoglobin A1C and is uniforms sales representative of the average blood glucose level in the last 2-3 month period. Performed By: #### C BCAD, A1C #### [place] [address] Ph. [phone] HbA1c (Bld) [Mass fraction] 6.3 % High 4.0-6.[address] [facility] Comment on above: Result Comment: Amer [place] Diabetes Association guidelines indicate that patients with HgbA1C in the range of 5.7-6.4% are at increased risk for development of diabetes, and intervention by lifestyle modification may be beneficial. HgbA1C greater than or equal to 6.5% is considered diagnostic of diabetes. Performed By: #### C BCAD, A1C #### [place] [address] Ph. [phone] INSULIN, SERUMon 11-24-2021 Insulin 14.8 uIU/mL Normal <=19.[address] [facility] Comment on above: Order Comment: [facility] performed at: [employer], [facility], [address] [place] [address], , Network Systems Analyst: Josh Flood MD PhD\X0D0A\[facility] Collection Date/Time: [id number]\X0D0A\[facility] Results Received Date/Time: [id number]\X0D0A\[facility] Reported Date/Time: [id number] Result Comment: \X0D 0A\Risk Category:\X0D0A\Optimal < or = 19.6\X0D0A\Moderate NA\X0D0A\High >19.6\X0D0A\ \X0D0A\Adult cardiovascular event risk category cut\X0D0A\points (optimal, moderate, high) are based on\X0D0A\[facility] population data from 08/2011.\X0D0A\ \X0D0A\This insulin assay shows strong cross-reactivity for\X0D0A\some insulin analogs (lispro, aspart, and glargine)\X0D0A\and much lower cross-reactivity with others (determir,\X0D0A\glulisine).\X0D0A\ Performed By: #### O RD523 #### [place] [address] Ph. [phone] Lipid Panelon 11-24-2021 Cholesterol [Mass/Vol] 257 mg/dL High 100-200 [facility] Comment on above: Result Comment: <200 mg/dL is recommended cholesterol level. Performed By: #### C JADE PSA, LIPD #### [place] [address] Ph. [phone] Cholesterol in HDL [Mass/Vol] 45 mg/dL Normal >[address] [facility] Comment on above: Performed By: #### C JADE PSA, LIPD #### [address] [address] Ph. [phone] Cholesterol in LDL [Mass/Vol] 178 mg/dL High 20-[address] [facility] Comment on above: Performed By: #### C JADE PSA, LIPD #### [address] [address] Ph. [phone] Cholesterol.total/Cholest lucie in HDL [Mass ratio] 6 {ratio} High 1-[address] [facility] Comment on above: Performed By: #### C JADE, PSA, LIPD #### [address] [address] Ph. [phone] Triglyceride [Mass/Vol] 169 mg/dL High 10-150 [facility] Comment on above: Performed By: #### C MP, PSA, LIPD #### [place] [address] [address] [phone] CREATININEon 10-02-2021 Creatinine [Mass/Vol] 0.99 mg/dL Normal 0.66-1.25 [facility] Comment on above: Performed By: #### C RENEE #### [facility] [address] [place] [address] Dr. Michelle Garcia EGFR-AF IVORIAN >60 Normal >=60 [facility] Comment on above: Performed By: #### C RENEE #### [facility] [address] [place] [address] Dr. Michelle Garcia EGFR-NON AF IVORIAN >60 Normal >=60 [facility] Comment on above: Performed By: #### C RENEE #### [facility] [address] [place] [address] Dr. Michelle Garcia MRI HIP RT W CONon MRI HIP RT W CON EXAM: MRI HIP RT W C ON 20 mL Dotare[employer]. HISTORY: The patient is a 71-year-old male. Follow-up right femoral head lesion. COMPARISON: Comparison is made to radiographs of the right hip obtained on 08/25/2021 and to a non-contrast enhanced MRI of the right hip obtained on 09/21/2021. TECHNIQUE: Small [id number] images were obtained of the right hip: [...] Date: 2021-10-02 20:20 Normal [facility] MRI HIP RT WO CONon 09-21-19 [...] Date: 2021-09-21 14:29 Normal [facility] XR FOREIGN BODY EYEon 2021 XR FOREIGN BODY EYE EXAMINATION: XR FORE IGN BODY EYE HISTORY: Foreign body in eye COMPARISON: No relevant comparison available. FINDINGS: ORBITS: Negative for a metallic foreign body. OTHER: Negative. IMPRESSION: 1. No metallic foreign body within the orbits. Electronically authenticated by: JONES RICHMOND Date: 2021-09-21 12:52 Normal [facility] XR SACRUM_COCCYXon XR SACRUM_COCCYX EXAMINATION: XR [...] Date: 2021-08-25 16:07 Normal [facility] BNPon 07-08-2021 Natriuretic peptide B (Bld) [Mass/Vol] 73.0 pg/mL Normal <=900.0 [facility] Comment on above: Performed By: #### C RP, BNP, CMP #### [facility] [address] [place] [address] Dr. Michelle Garcia CBC AUTO DIFFon 07-08-2021 BASO # 0.0 103/ul Normal 0.0-0.1 [facility] Comment on above: Performed By: #### C RP, BNP, CMP #### [facility] [address] [place] [address] Dr. Michelle Garcia Basophils/100 WBC (Bld) 0.1 % Critically low 0.2-2.0 [facility] Comment on above: Performed By: #### C RP, BNP, CMP #### [facility] [address] [place] [address] Dr. Michelle Garcia EO # 0.0 103/ul Normal 0.0-0.7 [facility] Comment on above: Performed By: #### C RP, BNP, CMP #### [facility] [address] [place] [address] Dr. Michelle Garcia Eosinophils/100 WBC (Bld) 0.0 % Critically low 0.9-7. 0 [facility] Comment on above: Performed By: #### C RP, BNP, CMP #### [facility] [address] [place] [address] Dr. Michelle Garcia Erythrocyte distribution width (RBC) [Ratio] 12.4 % Normal 11.0-15.0 [facility] Comment on above: Performed By: #### C RP, BNP, CMP #### [facility] [address] [place] [address] Dr. Michelle Garcia Hematocrit (Bld) [Volume fraction] 43.2 % Normal 42.0-54.0 [facility] Comment on above: Performed By: #### C RP, BNP, CMP #### [facility] [address] [place] [address] Dr. Michelle Garcia Hemoglobin (Bld) [Mass/Vol] 14.4 g/dL Normal 14.0-18.0 [facility] Comment on above: Performed By: #### C RP, BNP, CMP #### [facility] [address] [address] [address] Michelle Garcia IG # 0.06 10e3/ul Critically high 0.00-0.03 [facility] Comment on above: Performed By: #### C RP, BNP, CMP #### [facility] [address] [address] [address] Michelle Garcia IG % 0.7 % Critically high 0.0-0.5 [facility] Comment on above: Performed By: #### C RP, BNP, CMP #### [facility] [address] [place] [address] Dr. Michelle Garcia LYMPH # 1.2 103/ul Normal 1.2-3.8 [facility] Comment on above: Performed By: #### C RP, BNP, CMP #### [facility] [address] [place] [address] Dr. Michelle Garcia Lymphocytes/100 WBC (Bld) 14.0 % Critically low 20.5-6 0.0 [facility] Comment on above: Performed By: #### C RP, BNP, CMP #### [facility] [address] [place] [address] Dr. Michelle Garcia MANUAL DIFF REQ NO Normal [facility] Comment on above: Performed By: #### C RP, BNP, CMP #### [facility] [address] [place] [address] Dr. Michelle Garcia MCH (RBC) [Entitic mass] 31.6 pg Normal 25.9-34.0 [facility] Comment on above: Performed By: #### C RP, BNP, CMP #### [facility] [address] [place] [address] Dr. Michelle Garcia MCHC (RBC) [Mass/Vol] 33.3 g/dL Normal 29.9-35.2 [facility] Comment on above: Performed By: #### C RP, BNP, CMP #### [facility] [address] [place] [address] Dr. Michelle Garcia MCV (RBC) [Entitic vol] 94.9 fL Critically high 80.0-94 .0 [facility] Comment on above: Performed By: #### C RP, BNP, CMP #### [facility] [address] [place] [address] Dr. Michelle Garcia MONO # 0.7 103/ul Normal 0.3-0.8 [facility] Comment on above: Performed By: #### C RP, BNP, CMP #### [facility] [address] [place] [address] Dr. Michelle Garcia Monocytes/100 WBC (Bld) 8.5 % Normal 1.7-12.0 [facility] Comment on above: Performed By: #### C RP, BNP, CMP #### [facility] [address] [place] [address] Dr. Michelle Garica NEUT # 6.6 103/ul Critically high 1.4-6.5 [facility] Comment on above: Performed By: #### C RP, BNP, CMP #### [facility] [address] [place] [address] Dr. Michelle Garcia Neutrophils/100 WBC (Bld) 76.7 % Critically high 43.0- 75.0 [facility] Comment on above: Performed By: #### C RP, BNP, CMP #### [facility] [address] [place] [address] Dr. Michelle Garcia Platelet mean volume (Bld) [Entitic vol] 10.3 fL Normal 9.5-13.5 [facility] Comment on above: Performed By: #### C RP, BNP, CMP #### [facility] [address] [place] [address] Dr. Michelle Garcia PLT 347 103/ul Normal 150-450 [facility] Comment on above: Performed By: #### C RP, BNP, CMP #### [facility] [address] [place] [address] Dr. Michelle Garcia RBC 4.55 106/ul Critically low 4.70-6.10 [facility] Comment on above: Performed By: #### C RP, BNP, CMP #### [facility] [address] [place] [address] Dr. Michelle Garcia WBC 8.6 103/ul Normal 4.0-11.0 [facility] Comment on above: Performed By: #### C RP, BNP, CMP #### [facility] [address] [place] [address] Dr. Michelle Garcia CRPon 07-08-2021 CRP [Mass/Vol] mg/L Normal <=1.0 [facility] Comment on above: Performed By: #### C RP, BNP, CMP #### [facility] [address] [place] [address] Dr. Michelle Garcia PROF 14(COMP METB)on 021 Albumin [Mass/Vol] 3.1 g/dL Critically low 3.5-5.0 [facility] Comment on above: Performed By: #### C RP, BNP, CMP #### [facility] [address] [place] [address] Dr. Michelle Garcia Albumin/Globulin [Mass ratio] 0.8 {ratio} Normal [facility] Comment on above: Performed By: #### C RP, BNP, CMP #### [facility] [address] [place] [address] Dr. Michelle Garcia ALP [Catalytic activity/Vol] 52 U/L Normal 38-126 [facility] Comment on above: Performed By: #### C RP, BNP, CMP #### [facility] [address] [place] [address] Dr. Michelle Garcia ALT [Catalytic activity/Vol] 110 U/L Critically high 21-72 [facility] Comment on above: Performed By: #### C RP, BNP, CMP #### [facility] [address] [place] [address] Dr. Michelle Garcia Anion gap [Moles/Vol] 12.8 mmol/L Normal [facility] Comment on above: Performed By: #### C RP, BNP, CMP #### [facility] [address] [place] [address] Dr. Michelle Garcia AST [Catalytic activity/Vol] 47 U/L Normal 17-59 [facility] Comment on above: Performed By: #### C RP, BNP, CMP #### [facility] [address] [place] [address] Dr. Michelle Garcia Bilirubin [Mass/Vol] 0.5 mg/dL Normal 0.2-1.3 [facility] Comment on above: Performed By: #### C RP, BNP, CMP #### [facility] [address] [place] [address] Dr. Michelle Garcia Calcium [Mass/Vol] 8.0 mg/dL Critically low 8.4-10.2 [facility] Comment on above: Performed By: #### C RP, BNP, CMP #### [facility] [address] [place] [address] Dr. Michelle Garcia Chloride [Moles/Vol] 101 mmol/L Normal 98-107 [facility] Comment on above: Performed By: #### C RP, BNP, CMP #### [facility] [address] [place] [address] Dr. Michelle Garcia CO2 [Moles/Vol] 25.9 mmol/L Normal 22.0-30.0 [facility] Comment on above: Performed By: #### C RP, BNP, CMP #### [facility] [address] [place] [address] Dr. Michelle Garcia Creatinine [Mass/Vol] 0.87 mg/dL Normal 0.66-1.25 [facility] Comment on above: Performed By: #### C RP, BNP, CMP #### [facility] [address] [place] [address] Dr. Michelle Garcia EGFR-AF IVORIAN >60 Normal >=60 [facility] Comment on above: Performed By: #### C RP, BNP, CMP #### [facility] [address] [place] [address] Dr. Michelle Garcia EGFR-NON AF IVORIAN >60 Normal >=60 [facility] Comment on above: Performed By: #### C RP, BNP, CMP #### [facility] [address] [place] [address] Dr. Michelle Garcia Globulin (S) [Mass/Vol] 3.8 g/dL Normal [facility] Comment on above: Performed By: #### C RP, BNP, CMP #### [facility] [address] [place] [address] Dr. Michelle Garcia Glucose [Mass/Vol] 150 mg/dL Critically high 74-106 [facility] Comment on above: Performed By: #### C RP, BNP, CMP #### [facility] [address] [place] [address] Dr. Michelle Garcia Potassium [Moles/Vol] 3.7 mmol/L Normal 3.4-5.0 [facility] Comment on above: Performed By: #### C RP, BNP, CMP #### [facility] [address] [place] [address] Dr. Michelle Garcia Protein [Mass/Vol] 6.9 g/dL Normal 6.1-8.2 [facility] Comment on above: Performed By: #### C RP, BNP, CMP #### [facility] [address] [place] [address] Dr. Michelle Garcia Sodium [Moles/Vol] 136 mmol/L Critically low 137-145 [facility] Comment on above: Performed By: #### C RP, BNP, CMP #### [facility] [address] [place] [address] Dr. Michelle Garcia Urea nitrogen [Mass/Vol] 18.0 mg/dL Normal 9.0-20.0 [facility] Comment on above: Performed By: #### C RP, BNP, CMP #### [facility] [address] [place] [address] Dr. Michelle Garcia Urea nitrogen/Creatinine [Mass ratio] 20.7 mg/mg Normal [facility] Comment on above: Performed By: #### C RP, BNP, CMP #### [facility] [address] [place] [address] Dr. Michelle Garcia BNPon 07-07-2021 Natriuretic peptide B (Bld) [Mass/Vol] 47.0 pg/mL Normal <=900.0 [facility] Comment on above: Performed By: #### H STROPN #### [facility] [address] [place] [address] Dr. Michelle Garcia CBC AUTO DIFFon 07-07-2021 BASO # 0.0 103/ul Normal 0.0-0.1 [facility] Comment on above: Performed By: #### C BC #### [facility] [address] [place] [address] Dr. Michelle Garcia Basophils/100 WBC (Bld) 0.1 % Critically low 0.2-2.0 [facility] Comment on above: Performed By: #### C BC #### [facility] [address] [place] [address] Dr. Michelle Garcia EO # 0.0 103/ul Normal 0.0-0.7 [facility] Comment on above: Performed By: #### C BC #### [facility] [address] [place] [address] Dr. Michelle Garcia Eosinophils/100 WBC (Bld) 0.0 % Critically low 0.9-7. 0 [facility] Comment on above: Performed By: #### C BC #### [facility] [address] [place] [address] Dr. Michelle Garcia Erythrocyte distribution width (RBC) [Ratio] 12.4 % Normal 11.0-15.0 [facility] Comment on above: Performed By: #### C BC #### [facility] [address] [place] [address] Dr. Michelle Garcia Hematocrit (Bld) [Volume fraction] 41.6 % Critically low 42.0-54.0 [facility] Comment on above: Performed By: #### C BC #### [facility] [address] [place] [address] Dr. Michelle Garcia Hemoglobin (Bld) [Mass/Vol] 13.9 g/dL Critically low 14.0-18.0 [facility] Comment on above: Performed By: #### C BC #### [facility] [address] [place] [address] Dr. Michelle Garcia IG # 0.06 10e3/ul Critically high 0.00-0.03 [facility] Comment on above: Performed By: #### C BC #### [facility] [address] [place] [address] Dr. Michelle Garcia IG % 0.7 % Critically high 0.0-0.5 [facility] Comment on above: Performed By: #### C BC #### [facility] [address] [place] [address] Dr. Michelle Garcia LYMPH # 1.5 103/ul Normal 1.2-3.8 [facility] Comment on above: Performed By: #### C BC #### [facility] [address] [place] [address] Dr. Michelle Garcia Lymphocytes/100 WBC (Bld) 17.9 % Critically low 20.5-6 0.0 [facility] Comment on above: Performed By: #### C BC #### [facility] [address] [place] [address] Dr. Michelle Garcia MANUAL DIFF REQ NO Normal [facility] Comment on above: Performed By: #### C BC #### [facility] [address] [place] [address] Dr. Michelle Garcia MCH (RBC) [Entitic mass] 32.0 pg Normal 25.9-34.0 [facility] Comment on above: Performed By: #### C BC #### [facility] [address] [place] [address] Dr. Michelle Garcia MCHC (RBC) [Mass/Vol] 33.4 g/dL Normal 29.9-35.2 [facility] Comment on above: Performed By: #### C BC #### [facility] [address] [place] [address] Dr. Michelle Garcia MCV (RBC) [Entitic vol] 95.6 fL Critically high 80.0-94 .0 [facility] Comment on above: Performed By: #### C BC #### [facility] [address] [place] [address] Dr. Michelle Garcia MONO # 0.5 103/ul Normal 0.3-0.8 [facility] Comment on above: Performed By: #### C BC #### [facility] [address] [place] [address] Dr. Michelle Garcia Monocytes/100 WBC (Bld) 6.0 % Normal 1.7-12.0 [facility] Comment on above: Performed By: #### C BC #### [facility] [address] [place] [address] Dr. Michelle Garcia NEUT # 6.4 103/ul Normal 1.4-6.5 [facility] Comment on above: Performed By: #### C BC #### [facility] [address] [place] [address] Dr. Michelle Garcia Neutrophils/100 WBC (Bld) 75.3 % Critically high 43.0- 75.0 [facility] Comment on above: Performed By: #### C BC #### [facility] [address] [place] [address] Dr. Michelle Garcia Platelet mean volume (Bld) [Entitic vol] 10.2 fL Normal 9.5-13.5 [facility] Comment on above: Performed By: #### C BC #### [facility] [address] [place] [address] Dr. Michelle Garcia PLT 323 103/ul Normal 150-450 [facility] Comment on above: Performed By: #### C BC #### [facility] [address] [place] [address] Dr. Michelle Garcia RBC 4.35 106/ul Critically low 4.70-6.10 [facility] Comment on above: Performed By: #### C BC #### [facility] [address] [place] [address] Dr. Michelle Garcia WBC 8.5 103/ul Normal 4.0-11.0 [facility] Comment on above: Performed By: #### C BC #### [facility] [address] [place] [address] Dr. Michelle Garcia CRPon 07-07-2021 CRP [Mass/Vol] mg/L Normal <=1.0 [facility] Comment on above: Performed By: #### H STROPN #### [facility] [address] [place] [address] Dr. Michelle Garcia PROF 14(COMP METB)on 07-07- 021 Albumin [Mass/Vol] 2.9 g/dL Critically low 3.5-5.0 [facility] Comment on above: Performed By: #### H STROPN #### [facility] [address] [place] [address] Dr. Michelle Garcia Albumin/Globulin [Mass ratio] 0.8 {ratio} Normal [facility] Comment on above: Performed By: #### H STROPN #### [facility] [address] [place] [address] Dr. Michelle Garcia ALP [Catalytic activity/Vol] 54 U/L Normal 38-126 [facility] Comment on above: Performed By: #### H STROPN #### [facility] [address] [place] [address] Dr. Michelle Garcia ALT [Catalytic activity/Vol] 121 U/L Critically high 21-72 [facility] Comment on above: Performed By: #### H STROPN #### [facility] [address] [place] [address] Dr. Michelle Garcia Anion gap [Moles/Vol] 11.5 mmol/L Normal [facility] Comment on above: Performed By: #### H STROPN #### [facility] [address] [place] [address] Dr. Michelle Garcia AST [Catalytic activity/Vol] 57 U/L Normal 17-59 [facility] Comment on above: Performed By: #### H STROPN #### [facility] [address] [place] [address] Dr. Michelle Garcia Bilirubin [Mass/Vol] 0.3 mg/dL Normal 0.2-1.3 [facility] Comment on above: Performed By: #### H STROPN #### [facility] [address] [place] [address] Dr. Michelle Garcia Calcium [Mass/Vol] 8.1 mg/dL Critically low 8.4-10.2 [facility] Comment on above: Performed By: #### H STROPN #### [facility] [address] [place] [address] Dr. Michelle Garcia Chloride [Moles/Vol] 102 mmol/L Normal 98-107 [facility] Comment on above: Performed By: #### H STROPN #### [facility] [address] [address] [address] Michelle Garcia CO2 [Moles/Vol] 27.2 mmol/L Normal 22.0-30.0 [facility] Comment on above: Performed By: #### H STROPN #### [facility] [address] [address] [address] Michelle Garcia Creatinine [Mass/Vol] 0.85 mg/dL Normal 0.66-1.25 [facility] Comment on above: Performed By: #### H STROPN #### [facility] [address] [place] [address] Dr. Michelle Garcia EGFR-AF IVORIAN >60 Normal >=60 [facility] Comment on above: Performed By: #### H STROPN #### [facility] [address] [address] [address] Michelle Garcia EGFR-NON AF IVORIAN >60 Normal >=60 [facility] Comment on above: Performed By: #### H STROPN #### [facility] [address] [address] [address] Michelle Garcia Globulin (S) [Mass/Vol] 3.7 g/dL Normal [facility] Comment on above: Performed By: #### H STROPN #### [facility] [address] [address] [address] Michelle Garcia Glucose [Mass/Vol] 152 mg/dL Critically high 74-106 [facility] Comment on above: Performed By: #### H STROPN #### [facility] [address] [address] [address] Michelle Garcia Potassium [Moles/Vol] 3.7 mmol/L Normal 3.4-5.0 [facility] Comment on above: Performed By: #### H STROPN #### [facility] [address] [address] [address] Michelle Garcia Protein [Mass/Vol] 6.6 g/dL Normal 6.1-8.2 [facility] Comment on above: Performed By: #### H STROPN #### [facility] [address] [place] [address] Dr. Michelle Garcia Sodium [Moles/Vol] 137 mmol/L Normal 137-145 [facility] Comment on above: Performed By: #### H STROPN #### [facility] [address] [place] [address] Dr. Michelle Garcia Urea nitrogen [Mass/Vol] 18.0 mg/dL Normal 9.0-20.0 [facility] Comment on above: Performed By: #### H STROPN #### [facility] [address] [place] [address] Dr. Michelle Garcia Urea nitrogen/Creatinine [Mass ratio] 21.2 mg/mg Normal [facility] Comment on above: Performed By: #### H STROPN #### [facility] [address] [place] [address] Dr. Michelle Garcia BNPon 07-06-2021 Natriuretic peptide B (Bld) [Mass/Vol] 50.0 pg/mL Normal <=900.0 [facility] Comment on above: Performed By: #### H STROPN #### [facility] [address] [place] [address] Dr. Michelle Garcia CBC AUTO DIFFon 07-06-2021 BASO # 0.0 103/ul Normal 0.0-0.1 [facility] Comment on above: Performed By: #### H STROPN #### [facility] [address] [place] [address] Dr. Michelle Garcia Basophils/100 WBC (Bld) 0.0 % Critically low 0.2-2.0 [facility] Comment on above: Performed By: #### H STROPN #### [facility] [address] [place] [address] Dr. Michelle Garcia EO # 0.0 103/ul Normal 0.0-0.7 [facility] Comment on above: Performed By: #### H STROPN #### [facility] [address] [address] [address] Michelle Garcia Eosinophils/100 WBC (Bld) 0.0 % Critically low 0.9-7. 0 [facility] Comment on above: Performed By: #### H STROPN #### [facility] [address] [place] [address] Dr. Michelle Garcia Erythrocyte distribution width (RBC) [Ratio] 12.6 % Normal 11.0-15.0 [facility] Comment on above: Performed By: #### H STROPN #### [facility] [address] [place] [address] Dr. Michelle Garcia Hematocrit (Bld) [Volume fraction] 40.6 % Critically low 42.0-54.0 [facility] Comment on above: Performed By: #### H STROPN #### [facility] [address] [place] [address] Dr. Michelle Garcia Hemoglobin (Bld) [Mass/Vol] 13.5 g/dL Critically low 14.0-18.0 [facility] Comment on above: Performed By: #### H STROPN #### [facility] [address] [place] [address] Dr. Michelle Garcia IG # 0.03 10e3/ul Normal 0.00-0.03 [facility] Comment on above: Performed By: #### H STROPN #### [facility] [address] [place] [address] Dr. Michelle Garcia IG % 0.4 % Normal 0.0-0.5 [facility] Comment on above: Performed By: #### H STROPN #### [facility] [address] [place] [address] Dr. Michelle Garcia LYMPH # 1.4 103/ul Normal 1.2-3.8 [facility] Comment on above: Performed By: #### H STROPN #### [facility] [address] [place] [address] Dr. Michelle Garcia Lymphocytes/100 WBC (Bld) 19.1 % Critically low 20.5-6 0.0 [facility] Comment on above: Performed By: #### H STROPN #### [facility] [address] [address] [address] Michelle Garcia MANUAL DIFF REQ NO Normal [facility] Comment on above: Performed By: #### H STROPN #### [facility] [address] [address] [address] Michelle Garcia MCH (RBC) [Entitic mass] 31.8 pg Normal 25.9-34.0 [facility] Comment on above: Performed By: #### H STROPN #### [facility] [address] [place] [address] Dr. Michelle Garcia MCHC (RBC) [Mass/Vol] 33.3 g/dL Normal 29.9-35.2 [facility] Comment on above: Performed By: #### H STROPN #### [facility] [address] [place] [address] Dr. Michelle Garcia MCV (RBC) [Entitic vol] 95.5 fL Critically high 80.0-94 .0 [facility] Comment on above: Performed By: #### H STROPN #### [facility] [address] [place] [address] Dr. Michelle Garcia MONO # 0.5 103/ul Normal 0.3-0.8 [facility] Comment on above: Performed By: #### H STROPN #### [facility] [address] [place] [address] Dr. Michelle Garcia Monocytes/100 WBC (Bld) 6.9 % Normal 1.7-12.0 [facility] Comment on above: Performed By: #### H STROPN #### [facility] [address] [place] [address] Dr. Michelle Garcia NEUT # 5.2 103/ul Normal 1.4-6.5 [facility] Comment on above: Performed By: #### H STROPN #### [facility] [address] [place] [address] Dr. Michelle Garcia Neutrophils/100 WBC (Bld) 73.6 % Normal 43.0-75.0 [facility] Comment on above: Performed By: #### H STROPN #### [facility] [address] [address] [address] Michelle Garcia Platelet mean volume (Bld) [Entitic vol] 10.1 fL Normal 9.5-13.5 [facility] Comment on above: Performed By: #### H STROPN #### [facility] [address] [address] [address] Michelle Garcia PLT 291 103/ul Normal 150-450 [facility] Comment on above: Performed By: #### H STROPN #### [facility] [address] [address] [address] Michelle Garcia RBC 4.25 106/ul Critically low 4.70-6.10 [facility] Comment on above: Performed By: #### H STROPN #### [facility] [address] [place] [address] Dr. Michelle Garcia WBC 7.1 103/ul Normal 4.0-11.0 [facility] Comment on above: Performed By: #### H STROPN #### [facility] [address] [place] [address] Dr. Michelle Garcia CRPon 07-06-2021 CRP [Mass/Vol] mg/L Normal <=1.0 [facility] Comment on above: Performed By: #### H STROPN #### [facility] [address] [place] [address] Dr. Michelle Garcia PROF 14(COMP METB)on 021 Albumin [Mass/Vol] 2.9 g/dL Critically low 3.5-5.0 [facility] Comment on above: Performed By: #### H STROPN #### [facility] [address] [place] [address] Dr. Michelle Garcia Albumin/Globulin [Mass ratio] 0.8 {ratio} Normal [facility] Comment on above: Performed By: #### H STROPN #### [facility] [address] [place] [address] Dr. Michelle Garcia ALP [Catalytic activity/Vol] 55 U/L Normal 38-126 [facility] Comment on above: Performed By: #### H STROPN #### [facility] [address] [address] [address] Michelle Garcia ALT [Catalytic activity/Vol] 91 U/L Critically high 21-72 [facility] Comment on above: Performed By: #### H STROPN #### [facility] [address] [address] [address] Michelle Garcia Anion gap [Moles/Vol] 12.7 mmol/L Normal [facility] Comment on above: Performed By: #### H STROPN #### [facility] [address] [address] [address] Michelle Garcia AST [Catalytic activity/Vol] 45 U/L Normal 17-59 [facility] Comment on above: Performed By: #### H STROPN #### [facility] [address] [address] [address] Michelle Garcia Bilirubin [Mass/Vol] 0.3 mg/dL Normal 0.2-1.3 [facility] Comment on above: Performed By: #### H STROPN #### [facility] [address] [address] [address] Michelle Garcia Calcium [Mass/Vol] 8.2 mg/dL Critically low 8.4-10.2 [facility] Comment on above: Performed By: #### H STROPN #### [facility] [address] [address] [address] Michelle Garcia Chloride [Moles/Vol] 102 mmol/L Normal 98-107 [facility] Comment on above: Performed By: #### H STROPN #### [facility] [address] [address] [address] Michelle Garcia CO2 [Moles/Vol] 27.1 mmol/L Normal 22.0-30.0 [facility] Comment on above: Performed By: #### H STROPN #### [facility] [address] [address] [address] Michelle Garcia Creatinine [Mass/Vol] 0.88 mg/dL Normal 0.66-1.25 [facility] Comment on above: Performed By: #### H STROPN #### [facility] [address] [place] [address] Dr. Michelle Garcia EGFR-AF IVORIAN >60 Normal >=60 [facility] Comment on above: Performed By: #### H STROPN #### [facility] [address] [place] [address] Dr. Michelle Garcia EGFR-NON AF IVORIAN >60 Normal >=60 [facility] Comment on above: Performed By: #### H STROPN #### [facility] [address] [address] [address] Michelle Garcia Globulin (S) [Mass/Vol] 3.8 g/dL Normal [facility] Comment on above: Performed By: #### H STROPN #### [facility] [address] [place] [address] Dr. Michelle Garcia Glucose [Mass/Vol] 174 mg/dL Critically high 74-106 [facility] Comment on above: Performed By: #### H STROPN #### [facility] [address] [place] [address] Dr. Michelle Garcia Potassium [Moles/Vol] 3.8 mmol/L Normal 3.4-5.0 [facility] Comment on above: Performed By: #### H STROPN #### [facility] [address] [place] [address] Dr. Michelle Garcia Protein [Mass/Vol] 6.7 g/dL Normal 6.1-8.2 [facility] Comment on above: Performed By: #### H STROPN #### [facility] [address] [place] [address] Dr. Michelle Garcai Sodium [Moles/Vol] 138 mmol/L Normal 137-145 [facility] Comment on above: Performed By: #### H STROPN #### [facility] [address] [place] [address] Dr. Michelle Garcia Urea nitrogen [Mass/Vol] 17.0 mg/dL Normal 9.0-20.0 [facility] Comment on above: Performed By: #### H STROPN #### [facility] [address] [place] [address] Dr. Michelle Garcia Urea nitrogen/Creatinine [Mass ratio] 19.3 mg/mg Normal [facility] Comment on above: Performed By: #### H STROPN #### [facility] [address] [place] [address] Dr. Michelle Garcia BNPon 07-05-2021 Natriuretic peptide B (Bld) [Mass/Vol] 32.0 pg/mL Normal <=900.0 [facility] Comment on above: Performed By: #### C RP, BNP, CMP #### [facility] [address] [place] [address] Dr. Michelle Garcia CBC AUTO DIFFon 07-05-2021 BASO # 0.0 103/ul Normal 0.0-0.1 [facility] Comment on above: Performed By: #### C RP, BNP, CMP #### [facility] [address] [place] [address] Dr. Michelle Garcia Basophils/100 WBC (Bld) 0.2 % Normal 0.2-2.0 [facility] Comment on above: Performed By: #### C RP, BNP, CMP #### [facility] [address] [place] [address] Dr. Michelle Garcia EO # 0.0 103/ul Normal 0.0-0.7 [facility] Comment on above: Performed By: #### C RP, BNP, CMP #### [facility] [address] [place] [address] Dr. Michelle Garcia Eosinophils/100 WBC (Bld) 0.0 % Critically low 0.9-7. 0 [facility] Comment on above: Performed By: #### C RP, BNP, CMP #### [facility] [address] [place] [address] Dr. Michelle Garcia Erythrocyte distribution width (RBC) [Ratio] 13.0 % Normal 11.0-15.0 [facility] Comment on above: Performed By: #### C RP, BNP, CMP #### [facility] [address] [place] [address] Dr. Michelle Garcia Hematocrit (Bld) [Volume fraction] 42.3 % Normal 42.0-54.0 [facility] Comment on above: Performed By: #### C RP, BNP, CMP #### [facility] [address] [place] [address] Dr. Michelle Garcia Hemoglobin (Bld) [Mass/Vol] 13.5 g/dL Critically low 14.0-18.0 [facility] Comment on above: Performed By: #### C RP, BNP, CMP #### [facility] [address] [place] [address] Dr. Michelle Garcia IG # 0.02 10e3/ul Normal 0.00-0.03 [facility] Comment on above: Performed By: #### C RP, BNP, CMP #### [facility] [address] [place] [address] Dr. Michelle Garcia IG % 0.4 % Normal 0.0-0.5 [facility] Comment on above: Performed By: #### C RP, BNP, CMP #### [facility] [address] [place] [address] Dr. Michelle Garcia LYMPH # 1.3 103/ul Normal 1.2-3.8 [facility] Comment on above: Performed By: #### C RP, BNP, CMP #### [facility] [address] [place] [address] Dr. Michelle Garcia Lymphocytes/100 WBC (Bld) 24.5 % Normal 20.5-60.0 [facility] Comment on above: Performed By: #### C RP, BNP, CMP #### [facility] [address] [place] [address] Dr. Michelle Garcia MANUAL DIFF REQ NO Normal [facility] Comment on above: Performed By: #### C RP, BNP, CMP #### [facility] [address] [place] [address] Dr. Michelle Garcia MCH (RBC) [Entitic mass] 31.6 pg Normal 25.9-34.0 [facility] Comment on above: Performed By: #### C RP, BNP, CMP #### [facility] [address] [place] [address] Dr. Michelle Garcia MCHC (RBC) [Mass/Vol] 31.9 g/dL Normal 29.9-35.2 [facility] Comment on above: Performed By: #### C RP, BNP, CMP #### [facility] [address] [place] [address] Dr. Michelle Garcia MCV (RBC) [Entitic vol] 99.1 fL Critically high 80.0-94 .0 [facility] Comment on above: Performed By: #### C RP, BNP, CMP #### [facility] [address] [place] [address] Dr. Michelle Garcia MONO # 0.3 103/ul Normal 0.3-0.8 [facility] Comment on above: Performed By: #### C RP, BNP, CMP #### [facility] [address] [place] [address] Dr. Michelle Garcia Monocytes/100 WBC (Bld) 5.0 % Normal 1.7-12.0 [facility] Comment on above: Performed By: #### C RP, BNP, CMP #### [facility] [address] [place] [address] Dr. Michelle Garcia NEUT # 3.8 103/ul Normal 1.4-6.5 [facility] Comment on above: Performed By: #### C RP, BNP, CMP #### [facility] [address] [place] [address] Dr. Michelle Garcia Neutrophils/100 WBC (Bld) 69.9 % Normal 43.0-75.0 [facility] Comment on above: Performed By: #### C RP, BNP, CMP #### [facility] [address] [place] [address] Dr. Michelle Garcia Platelet mean volume (Bld) [Entitic vol] 10.4 fL Normal 9.5-13.5 [facility] Comment on above: Performed By: #### C RP, BNP, CMP #### [facility] [address] [place] [address] Dr. Michelle Garcia PLT 274 103/ul Normal 150-450 [facility] Comment on above: Performed By: #### C RP, BNP, CMP #### [facility] [address] [address] [address] Michelle Garcia RBC 4.27 106/ul Critically low 4.70-6.10 [facility] Comment on above: Performed By: #### C RP, BNP, CMP #### [facility] [address] [address] [address] Michelle Garcia WBC 5.4 103/ul Normal 4.0-11.0 [facility] Comment on above: Performed By: #### C RP, BNP, CMP #### [facility] [address] [place] [address] Dr. Michelle Garcia CRPon 07-05-2021 CRP 1.2 mg/dL Critically high <=1.0 [facility] Comment on above: Performed By: #### C RP, BNP, CMP #### [facility] [address] [place] [address] Dr. Michelle Garcia CULTURE SPUTUMon 07-05-2021 CULTURE SPUTUM Culture Observations : NORMAL RESPIRATORY FARRAH. Normal [facility] Comment on above: Performed By: #### H STROPN #### [facility] [address] [place] [address] Dr. Michelle Garcia PROF 14(COMP METB)on 021 Albumin [Mass/Vol] 3.1 g/dL Critically low 3.5-5.0 [facility] Comment on above: Performed By: #### C RP, BNP, CMP #### [facility] [address] [place] [address] Dr. Michelle Garcia Albumin/Globulin [Mass ratio] 0.8 {ratio} Normal [facility] Comment on above: Performed By: #### C RP, BNP, CMP #### [facility] [address] [place] [address] Dr. Michelle Garcia ALP [Catalytic activity/Vol] 64 U/L Normal 38-126 [facility] Comment on above: Performed By: #### C RP, BNP, CMP #### [facility] [address] [place] [address] Dr. Michelle Garcia ALT [Catalytic activity/Vol] 125 U/L Critically high 21-72 [facility] Comment on above: Performed By: #### C RP, BNP, CMP #### [facility] [address] [place] [address] Dr. Michelle Garcia Anion gap [Moles/Vol] 9.4 mmol/L Normal [facility] Comment on above: Performed By: #### C RP, BNP, CMP #### [facility] [address] [place] [address] Dr. Michelle Garcia AST [Catalytic activity/Vol] 73 U/L Critically high 17-59 [facility] Comment on above: Performed By: #### C RP, BNP, CMP #### [facility] [address] [place] [address] Dr. Michelle Garcia Bilirubin [Mass/Vol] 0.3 mg/dL Normal 0.2-1.3 [facility] Comment on above: Performed By: #### C RP, BNP, CMP #### [facility] [address] [place] [address] Dr. Michelle Garcia Calcium [Mass/Vol] 8.2 mg/dL Critically low 8.4-10.2 [facility] Comment on above: Performed By: #### C RP, BNP, CMP #### [facility] [address] [place] [address] Dr. Michelle Garcia Chloride [Moles/Vol] 101 mmol/L Normal 98-107 [facility] Comment on above: Performed By: #### C RP, BNP, CMP #### [facility] [address] [place] [address] Dr. Michelle Garcia CO2 [Moles/Vol] 29.6 mmol/L Normal 22.0-30.0 [facility] Comment on above: Performed By: #### C RP, BNP, CMP #### [facility] [address] [place] [address] Dr. Michelle Garcia Creatinine [Mass/Vol] 0.97 mg/dL Normal 0.66-1.25 [facility] Comment on above: Performed By: #### C RP, BNP, CMP #### [facility] [address] [place], [place] [id number] Dr. Michelle Garcia EGFR-AF IVORIAN >60 Normal >=60 [facility] Comment on above: Performed By: #### C RP, BNP, CMP #### [facility] [address] [place] [address] Dr. Michelle Garcia EGFR-NON AF IVORIAN >60 Normal >=60 [facility] Comment on above: Performed By: #### C RP, BNP, CMP #### [facility] [address] [place] [address] Dr. Michelle Garcia Globulin (S) [Mass/Vol] 3.9 g/dL Normal [facility] Comment on above: Performed By: #### C RP, BNP, CMP #### [facility] [address] [place] [address] Dr. Michelle Garcia Glucose [Mass/Vol] 154 mg/dL Critically high 74-106 [facility] Comment on above: Performed By: #### C RP, BNP, CMP #### [facility] [address] [place] [address] Dr. Michelle Garcia Potassium [Moles/Vol] 4.0 mmol/L Normal 3.4-5.0 [facility] Comment on above: Performed By: #### C RP, BNP, CMP #### [facility] [address] [place] [address] Dr. Michelle Garcia Protein [Mass/Vol] 7.0 g/dL Normal 6.1-8.2 [facility] Comment on above: Performed By: #### C RP, BNP, CMP #### [facility] [address] [place] [address] Dr. Michelle Garcia Sodium [Moles/Vol] 136 mmol/L Critically low 137-145 [facility] Comment on above: Performed By: #### C RP, BNP, CMP #### [facility] [address] [place] [address] Dr. Michelle Garcia Urea nitrogen [Mass/Vol] 21.0 mg/dL Critically high 9.0-20 .0 [facility] Comment on above: Performed By: #### C RP, BNP, CMP #### [facility] [address] [address] [address] Michelle Garcia Urea nitrogen/Creatinine [Mass ratio] 21.6 mg/mg Normal [facility] Comment on above: Performed By: #### C RP, BNP, CMP #### [facility] [address] [address] [address] Michelle Garcia SPUTUM GRAM STAINon 07-05-20 COMMENTS Normal [facility] Comment on above: Performed By: #### C RP, BNP, CMP #### [facility] [address] [address] [address] Michelle Garcia DIPHTHEROIDS Normal [facility] Comment on above: Performed By: #### C RP, BNP, CMP #### [facility] [address] [address] [address] Michelle Garcia EPITHELIALS <25 Normal [facility] Comment on above: Performed By: #### C RP, BNP, CMP #### [facility] [address] [address] [address] Michelle Garcia FUNGAL ELEMENTS Normal [facility] Comment on above: Performed By: #### C RP, BNP, CMP #### [facility] [address] [address] [address] Michelle CHOI NEG BACILLI Normal [facility] Comment on above: Performed By: #### C RP, BNP, CMP #### [facility] [address] [address] [address] Michelle CHOI NEG DIPPLOCOCCI Normal [facility] Comment on above: Performed By: #### C RP, BNP, CMP #### [facility] [address] [address] [address] Michelle Garcia GRAM POS BACILLI Normal [facility] Comment on above: Performed By: #### C RP, BNP, CMP #### [facility] [address] [address] [address] Michelle Garcia GRAM POSITIVE COCCI RARE Normal [facility] Comment on above: Performed By: #### C RP, BNP, CMP #### [facility] [address] [place] [address] Dr. Michelle Garcia WBC (Bld) [#/Vol] 10*3/uL Normal [facility] Comment on above: Performed By: #### C RP, BNP, CMP #### [facility] [address] [place] [address] Dr. Michelle Garcia BNPon 07-04-2021 Natriuretic peptide B (Bld) [Mass/Vol] 42.0 pg/mL Normal <=900.0 [facility] Comment on above: Performed By: #### B OIL FILTERS INSPECTOR, BMP, HSTROPN #### [facility] [address] [place] [address] Dr. Michelle Garcia CBC AUTO DIFFon 07-04-2021 BASO # 0.0 103/ul Normal 0.0-0.1 [facility] Comment on above: Performed By: #### C RP, BNP, CMP #### [facility] [address] [place] [address] Dr. Michelle Garcia Basophils/100 WBC (Bld) 0.2 % Normal 0.2-2.0 [facility] Comment on above: Performed By: #### C RP, BNP, CMP #### [facility] [address] [place] [address] Dr. Michelle Garcia EO # 0.0 103/ul Normal 0.0-0.7 [facility] Comment on above: Performed By: #### C RP, BNP, CMP #### [facility] [address] [place] [address] Dr. Michelle Garcia Eosinophils/100 WBC (Bld) 0.0 % Critically low 0.9-7. 0 [facility] Comment on above: Performed By: #### C RP, BNP, CMP #### [facility] [address] [place] [address] Dr. Michelle Garcia Erythrocyte distribution width (RBC) [Ratio] 12.9 % Normal 11.0-15.0 [facility] Comment on above: Performed By: #### C RP, BNP, CMP #### [facility] [address] [place] [address] Dr. Michelle Garcia Hematocrit (Bld) [Volume fraction] 42.4 % Normal 42.0-54.0 [facility] Comment on above: Performed By: #### C RP, BNP, CMP #### [facility] [address] [place] [address] Dr. Michelle Garcia Hemoglobin (Bld) [Mass/Vol] 14.0 g/dL Normal 14.0-18.0 [facility] Comment on above: Performed By: #### C RP, BNP, CMP #### [facility] [address] [place] [address] Dr. Michelle Garcia IG # 0.03 10e3/ul Normal 0.00-0.03 [facility] Comment on above: Performed By: #### C RP, BNP, CMP #### [facility] [address] [place] [address] Dr. Michelle Garcia IG % 0.5 % Normal 0.0-0.5 [facility] Comment on above: Performed By: #### C RP, BNP, CMP #### [facility] [address] [place] [address] Dr. Michelle Garcia LYMPH # 1.6 103/ul Normal 1.2-3.8 [facility] Comment on above: Performed By: #### C RP, BNP, CMP #### [facility] [address] [place] [address] Dr. Michelle Garcia Lymphocytes/100 WBC (Bld) 24.3 % Normal 20.5-60.0 [facility] Comment on above: Performed By: #### C RP, BNP, CMP #### [facility] [address] [place] [address] Dr. Michelle Garcia MANUAL DIFF REQ NO Normal [facility] Comment on above: Performed By: #### C RP, BNP, CMP #### [facility] [address] [place] [address] Dr. Michelle Garcia MCH (RBC) [Entitic mass] 32.0 pg Normal 25.9-34.0 [facility] Comment on above: Performed By: #### C RP, BNP, CMP #### [facility] [address] [place] [address] Dr. Michelle Garcia MCHC (RBC) [Mass/Vol] 33.0 g/dL Normal 29.9-35.2 [facility] Comment on above: Performed By: #### C RP, BNP, CMP #### [facility] [address] [place] [address] Dr. Michelle Garcia MCV (RBC) [Entitic vol] 97.0 fL Critically high 80.0-94 .0 [facility] Comment on above: Performed By: #### C RP, BNP, CMP #### [facility] [address] [place] [address] Dr. Michelle Garcia MONO # 0.4 103/ul Normal 0.3-0.8 [facility] Comment on above: Performed By: #### C RP, BNP, CMP #### [facility] [address] [place] [address] Dr. Michelle Garcia Monocytes/100 WBC (Bld) 6.8 % Normal 1.7-12.0 [facility] Comment on above: Performed By: #### C RP, BNP, CMP #### [facility] [address] [place] [address] Dr. Michelle Garcia NEUT # 4.4 103/ul Normal 1.4-6.5 [facility] Comment on above: Performed By: #### C RP, BNP, CMP #### [facility] [address] [place] [address] Dr. Michelle Garcia Neutrophils/100 WBC (Bld) 68.2 % Normal 43.0-75.0 [facility] Comment on above: Performed By: #### C RP, BNP, CMP #### [facility] [address] [place] [address] Dr. Michelle Garcia Platelet mean volume (Bld) [Entitic vol] 10.0 fL Normal 9.5-13.5 [facility] Comment on above: Performed By: #### C RP, BNP, CMP #### [facility] [address] [place] [address] Dr. Michelle Garcia PLT 253 103/ul Normal 150-450 [facility] Comment on above: Performed By: #### C RP, BNP, CMP #### [facility] [address] [place], [place] [address] Dr. Michelle Garcia RBC 4.37 106/ul Critically low 4.70-6.10 [facility] Comment on above: Performed By: #### C RP, BNP, CMP #### [facility] [address] [place], [place] [address] Dr. Michelle Garcia WBC 6.5 103/ul Normal 4.0-11.0 [facility] Comment on above: Performed By: #### C RP, BNP, CMP #### [facility] [address] [place] [address] [address] Michelle Garcia CRPon 07-04-2021 CRP 1.0 mg/dL Normal <=1.0 [facility] Comment on above: Performed By: #### C RP, BNP, CMP #### [facility] [address] [address] [address] Michelle Garcia CTA CHEST WO W [...] Date: 2021-07-04 16:47 Normal [facility] CULTURE BLOODon 07-04-2021 Microscopic examination of blood, culture Culture Observations: NO GROWTH AT 5 DAYS. Normal [facility] Comment on above: Performed By: #### H STROPN #### [facility] [address] [place] [address] Dr. Michelle Garcia Performed By: #### C RP, BNP, CMP #### [facility] [address] [place] [address] Dr. Michelle Garcia Covid-19 PCR (CVDTBH)on 06-19 SARS-CoV-2 (COVID-19) RNA BRITTA+probe Ql (Unsp spec) Detected Critically abnormal NOT DETECTED [facility] Comment on above: Result Comment: This test is not yet approved or cleared by the [place] Food and Drug Administration (FDA). This test was developed by [employer], [place], [place]. The performance characteristics of this test were validated by [facility]. The results are not intended to be used as the sole means for clinical diagnosis or patient management decisions. [facility] is authorized under Clinical Laboratory Improvement Amendments (CLIA) to perform high- complexity testing. Performed By: #### C RP, BNP, CMP #### [facility] [address] [place] [address] Dr. Michelle Garcia D-DIMERon 07-04-2021 D-DIMER 0.59 mg/L FEU Critically high 0.19-0.50 [facility] Comment on above: Result Comment: test repeated critical value verified Performed By: #### C RP, BNP, CMP #### [facility] [address] [place] [address] Dr. Michelle Garcia D-DIMER COMMENTS SEE BELOW Normal [facility] Comment on above: Result Comment: Incr [...] C RP, BNP, CMP #### [facility] [address] [place] [address] Dr. Michelle Garcia LACTATE/LACTIC ACIDon 2020 Lactate [Moles/Vol] 1.2 mmol/L Normal 0.7-2.0 [facility] Comment on above: Performed By: #### L ACT #### [facility] [address] [place] [address] Dr. Michelle Garcia PROF CHEM 8 (BAS METB)on Anion gap [Moles/Vol] 11.0 mmol/L Normal [facility] Comment on above: Performed By: #### B OIL FILTERS INSPECTOR, BMP, HSTROPN #### [facility] [address] [place] [address] Dr. Michelle Garcia Calcium [Mass/Vol] 8.1 mg/dL Critically low 8.4-10.2 [facility] Comment on above: Performed By: #### B OIL FILTERS INSPECTOR, BMP, HSTROPN #### [facility] [address] [place] [address] Dr. Michelle Garcia Chloride [Moles/Vol] 98 mmol/L Normal 98-107 [facility] Comment on above: Performed By: #### B OIL FILTERS INSPECTOR, BMP, HSTROPN #### [facility] [address] [place] [address] Dr. Michelle Garcia CO2 [Moles/Vol] 28.8 mmol/L Normal 22.0-30.0 [facility] Comment on above: Performed By: #### B OIL FILTERS INSPECTOR, BMP, HSTROPN #### [facility] [address] [place] [address] Dr. Michelle Garcia Creatinine [Mass/Vol] 1.01 mg/dL Normal 0.66-1.25 [facility] Comment on above: Performed By: #### B OIL FILTERS INSPECTOR, BMP, HSTROPN #### [facility] [address] [place] [address] Dr. Michelle Garcia EGFR-AF IVORIAN >60 Normal >=60 [facility] Comment on above: Performed By: #### B OIL FILTERS INSPECTOR, BMP, HSTROPN #### [facility] [address] [address] [address] Michelle Garcia EGFR-NON AF IVORIAN >60 Normal >=60 [facility] Comment on above: Performed By: #### B OIL FILTERS INSPECTOR, BMP, HSTROPN #### [facility] [address] [place] [address] Dr. Michelle Garcia Glucose [Mass/Vol] 94 mg/dL Normal 74-106 [facility] Comment on above: Performed By: #### B OIL FILTERS INSPECTOR, BMP, HSTROPN #### [facility] [address] [place] [address] Dr. Michelle Garcia Potassium [Moles/Vol] 3.8 mmol/L Normal 3.4-5.0 [facility] Comment on above: Performed By: #### B OIL FILTERS INSPECTOR, BMP, HSTROPN #### [facility] [address] [place] [address] Dr. Michelle Garcia Sodium [Moles/Vol] 134 mmol/L Critically low 137-145 [facility] Comment on above: Performed By: #### B OIL FILTERS INSPECTOR, BMP, HSTROPN #### [facility] [address] [place] [address] Dr. Michelle Garcia Urea nitrogen [Mass/Vol] 20.0 mg/dL Normal 9.0-20.0 [facility] Comment on above: Performed By: #### B OIL FILTERS INSPECTOR, BMP, HSTROPN #### [facility] [address] [place] [address] Dr. Michelle Garcia Urea nitrogen/Creatinine [Mass ratio] 19.8 mg/mg Normal [facility] Comment on above: Performed By: #### B OIL FILTERS INSPECTOR, BMP, HSTROPN #### [facility] [address] [place], [place] [address] Dr. Michelle Garcia TROPONIN, HIGH SENSITIVITYon 07-04-2021 HSTROP 8.1 pg/mL Normal 4.0-42.2 [facility] Comment on above: Result Comment: CUT- OFF POINTS HAVE BEEN ESTABLISHED BASED ON THE FOURTH UNIVERSAL DEFINITIONS OF MYOCARDIAL INFARCTION. THE UPPER REFERENCE LIMIT (URL) OF TROPONIN, DEFINED THE 99TH PERCENTILE OF cTnI DISTRIBUTION IN A REFERENCE POPULATION, HAS BEEN CONFIRMED THE DECISION THRESHOLD FOR [place] DIAGNOSIS. Performed By: #### H STROPN #### [facility] [address] [place], [place] [address] Dr. Michelle Garcia HSTROP 7.6 pg/mL Normal 4.0-42.2 [facility] Comment on above: Result Comment: CUT- OFF POINTS HAVE BEEN ESTABLISHED BASED ON THE FOURTH UNIVERSAL DEFINITIONS OF MYOCARDIAL INFARCTION. THE UPPER REFERENCE LIMIT (URL) OF TROPONIN, DEFINED THE 99TH PERCENTILE OF cTnI DISTRIBUTION IN A REFERENCE POPULATION, HAS BEEN CONFIRMED THE DECISION THRESHOLD FOR [place] DIAGNOSIS. Performed By: #### B OIL FILTERS INSPECTOR, BMP, HSTROPN #### [facility] [address] [place], [place] [address] Dr. Michelle Garcia XR CHEST 1 Von [...] by: JONES RICHMOND Date: 2021-07-04 14:57 Normal [facility] CBC Auto Differentialon 02-2 Basophils (Bld) [#/Vol] 0.06 10*3/uL [employer] Phone: Basophils/100 WBC (Bld) 1 % 0 - 2 % M [id number] Phone: Differential Type NOT REPORTED [employer] Phone: Eosinophils (Bld) [#/Vol] 0.12 10*3/uL [employer] Phone: Eosinophils/100 WBC (Bld) 1 % 1 - 4 % [employer] Phone: Erythrocyte distribution width (RBC) [Ratio] 13.0 % 11.8 - 14.4 % [employer] Phone: Hematocrit (Bld) [Volume fraction] 46.7 % 40.7 - 50.3 % [employer] Phone: Hemoglobin (Bld) [Mass/Vol] 15.1 g/dL 13 - 17 g/dL [employer] Phone: Immature granulocytes (Bld) [#/Vol] 0 % 0 [employer] Phone: Immature granulocytes (Bld) [#/Vol] 10*3/uL [employer] Phone: Lymphocytes (Bld) [#/Vol] 3.30 10*3/uL [employer] Phone: Lymphocytes/100 WBC (Bld) 32 % 24 - 43 % [employer] Phone: MCH (RBC) [Entitic mass] 31.8 pg 25. 2 - 33.5 pg [employer] Phone: MCHC (RBC) [Mass/Vol] 32.3 g/dL 28.4 - 34.8 g/dL [employer] Phone: MCV (RBC) [Entitic vol] 98.3 fL 82.6 - 102.9 fL [employer] Phone: Monocytes (Bld) [#/Vol] 1.01 10*3/uL [employer] Phone: Monocytes/100 WBC (Bld) 10 % 3 - 12 % [id number] Phone: Platelet mean volume (Bld) [Entitic vol] 10.1 fL 8.1 - 13.5 fL [employer] Phone: Platelets (Bld) [#/Vol] NOT REPORTED [employer] Phone: Platelets (Bld) [#/Vol] 372 10*3/uL [employer] Phone: RBC (Bld) [#/Vol] 4.75 10*6/uL 4.21 - 5.77 m/uL [employer] Phone: RBC morphology finding Nom (Bld) NOT REPORTED [employer] Phone: Segmented neutrophils/100 WBC (Bld) 56 % 36 - 65 % [employer] Phone: Segs Absolute 5.69 [employer] Phone: WBC (Bld) [#/Vol] 10.2 10*3/uL [employer] Phone: WBC (Bld) [#/Vol] 0.0 10*3/uL 0.0 per 100 WBC [employer] Phone: WBC Morphology NOT REPORTED [employer] Phone: CBC with Diffon 11-09-2020 Abs. Basophil 0.06 k/uL Normal 0.00-0.20 [facility] Comment on above: Performed By: #### C DP, LIP, CP #### [facility] [address] [place] [address] [employer] Roofing Estimator: Jazmín Lopes MD Abs.Imm.Granulocyte <0.03 Normal 0.00-0.30 [facility] Comment on above: Performed By: #### C DP, LIP, CP #### [facility] [address] [place] [address] [employer] Roofing Estimator: Jazmín Lopes MD Abs.Neutrophil (Seg) 5.69 k/uL Normal 1.50-8.10 [facility] Comment on above: Performed By: #### C DP LIP, CP #### [address] [place], [facility]83 [employer] Estimator: Jazmín Lopes MD Basophils/100 WBC (Bld) 1 % Normal 0-2 [facility] Comment on above: Performed By: #### C DP LIP, CP #### [address] [place], [place] [address] [employer] Estimator: Jazmín Lopes MD Eosinophils (Bld) [#/Vol] 0.12 10*3/uL Normal 0.00-0.4 4 [facility] Comment on above: Performed By: #### C RAHUL VALERO, CP #### [address] [place], [place] [address] [employer] Estimator: Jazmín Lopes MD Eosinophils/100 WBC (Bld) 1 % Normal 1-4 [facility] Comment on above: Performed By: #### C RAHUL VALERO, CP #### [address] [place], [facility]83 [employer] Estimator: Jazmín Lopes MD Erythrocyte distribution width (RBC) [Ratio] 13.0 % Normal 11.8-14.4 [facility] Comment on above: Performed By: #### C DP LIP, CP #### [address] [place], [facility]83 [employer] Ro[employer] Estimator: Jazmín Lopes MD Hematocrit (Bld) [Volume fraction] 46.7 % Normal 40.7-50.3 [facility] Comment on above: Performed By: #### C DP LIP, CP #### [address] [place], [facility]83 [employer] Ro[employer] Estimator: Jazmín Lopes MD Hemoglobin (Bld) [Mass/Vol] 15.1 g/dL Normal 13.0-17.0 [facility] Comment on above: Performed By: #### C RAHUL VALERO, CP #### [address] [place] [address] Commercial Roofing Estimator: Jazmín Lopes MD Immature granulocytes (Bld) [#/Vol] 0 % Normal 0 [facility] Comment on above: Performed By: #### C ANJUM LIP, CP #### [address] [place], [facility]83 [employer] Estimator: Jazmín Lopes MD Lymphocytes (Bld) [#/Vol] 3.30 10*3/uL Normal 1.10-3.7 0 [facility] Comment on above: Performed By: #### C RAHUL VALERO, CP #### [address] [place], [place] [address] Commercial Roofing Estimator: Jazmín Lopes MD Lymphocytes/100 WBC (Bld) 32 % Normal 24-43 [facility] Comment on above: Performed By: #### C RAHUL VALERO, CP #### [address] [place], [facility]83 [employer] Estimator: Jazmín Lopes MD MCH (RBC) [Entitic mass] 31.8 pg Normal 25.2-33.5 [facility] Comment on above: Performed By: #### C RAHUL VALERO, CP #### [address] [place], [facility]83 [employer] Estimator: Jazmín Lopes MD MCHC (RBC) [Mass/Vol] 32.3 g/dL Normal 28.4-34.8 [facility] Comment on above: Performed By: #### C ANJUM LIP, CP #### [address] [place], [place] [id number] Commercial Roofing Estimator: Jazmín Lopes MD MCV (RBC) [Entitic vol] 98.3 fL Normal 82.6-102.9 [facility] Comment on above: Performed By: #### C DP LIP, CP #### [facility] [address] [place], [place] [address] [employer] Ro[employer] Estimator: Jazmín Lopes MD Monocytes (Bld) [#/Vol] 1.01 10*3/uL Normal 0.10-1.20 [facility] Comment on above: Performed By: #### C DP, LIP, CP #### [facility] [address] [place], [facility]83 Commercial Ro[employer] Estimator: Jazmín Lopes MD Monocytes/100 WBC (Bld) 10 % Normal 3-12 [facility] Comment on above: Performed By: #### C DP LIP, CP #### [address] [place], [facility]83 [employer] Estimator: Jazmín Lopes MD Neutrophil (Seg) 56 % Normal 36-65 [facility] Comment on above: Performed By: #### C DP LIP, CP #### [address] [place], [place] [address] Commercial Roofing Estimator: Jazmín Lopes MD NRBC Automated 0.0 per 100 WBC Normal 0.0 [facility] Comment on above: Performed By: #### C DP LIP, CP #### [address] [place], [facility]83 [employer] Estimator: Jazmín Lopes MD Platelet mean volume (Bld) [Entitic vol] 10.1 fL Normal 8.1-13.5 [facility] Comment on above: Performed By: #### C DP LIP, CP #### [address] [place], [facility]83 Commercial Ro[employer] Estimator: Jazmín Lopes MD Platelets (Bld) [#/Vol] 372 10*3/uL Normal 138-453 [facility] Comment on above: Performed By: #### C ANJUM LIP, CP #### [facility] [address] [place] [address] Commercial Roof[employer] Estimator: Jazmín Lopes MD RBC (Bld) [#/Vol] 4.75 10*6/uL Normal 4.21-5.77 [facility] Comment on above: Performed By: #### C DP, LIP, CP #### [facility] [address] [place] [address] Commercial Roofing Estimator: Jazmín Lopes MD WBC (Bld) [#/Vol] 10.2 10*3/uL Normal 3.5-11.3 [facility] Comment on above: Performed By: #### C DP, LIP, CP #### [address] [place], [facility]83 [employer] Estimator: Jazmín Lopes MD Auto Diff Performed NOT REPORTED Normal [facility] Comment on above: Performed By: #### C DP, LIP, CP #### [address] [place], [facility]83 [employer] Estimator: Jazmín Lopes MD Platelets (Bld) [#/Vol] NOT REPORTED Normal [facility] Comment on above: Performed By: #### C DP, LIP, CP #### [address] [place] [address] Commercial Roofing Estimator: Jazmín Lopes MD RBC morphology finding Nom (Bld) NOT REPORTED Normal [facility] Comment on above: Performed By: #### C DP, LIP, CP #### [address] [place], [place] [address] Commercial Roofing Estimator: Jazmín Lopes MD WBC Morphology NOT REPORTED Normal [facility] Comment on above: Performed By: #### C DP, LIP, CP #### [facility] [address] [place], [place] [id number] Commercial Roofing Estimator: Jazmín Lopes MD CT ABDOMEN PELVIS WO [...] Randy Hansen DO 11/09/20 Final result Normal [facility] CT ABDOMEN PELVIS WO CONTRAS T [...] fat. No acute osseous abnormality is present. [employer] Phone: 1. No acute findings within the abdomen or pelvis 2. No intrarenal calculi or evidence of hydronephrosis 3. Scattered colonic diverticula, without evidence of diverticulitis 4. Enlarged prostate gland [employer] Phone: Emeka, Mhpn Incoming R adiant Results From [facility]/[employer] - 11/09/2020 7:47 PM EST EXAMINATION: CT [...] evidence of diverticulitis 4. Enlarged prostate gland [facility] Work Phone: Comp Metabolic Profon 2020 (cont.) Normal [facility] Comment on above: Result Comment: Aver age GFR for 70 or more years old: 75 mL/min/1.73sq m Chronic Kidney Disease: <60 mL/min/1.73sq m Kidney failure: <15 mL/min/1.73sq m eGFR calculated using average adult body mass. Additional eGFR calculator available at: http://www.[employer].EventMama/multiple_crcl_2012.htm Performed By: #### C RAHUL VALERO CP #### [address] [place] [address] Commercial Roofing Estimator: Jazmín Lopes MD Albumin [Mass/Vol] 4.4 g/dL Normal 3.5-5.2 [facility] Comment on above: Performed By: #### C RAHUL VALERO CP #### [facility] [address] [place] [address] [place] [address] Commercial Roofing Estimator: Jazmín Lopes MD Albumin/Globulin [Mass ratio] 1.6 {ratio} Normal 1.0-2.5 [facility] Comment on above: Performed By: #### C RAHUL VALERO CP #### [address] [place] [address] Commercial Roofing Estimator: Jazmín Lopes MD Alkaline Phos 62 U/L Normal 40-129 [facility] Comment on above: Performed By: #### C DP, LIP, CP #### [facility] [address] [place], [place] [id number] Commercial Roofing Estimator: Jazmín Lopes MD ALT [Catalytic activity/Vol] 42 U/L High 5-41 [facility] Comment on above: Performed By: #### C DP, LIP, CP #### [facility] [address] [place] [address] Dr. [place], [place] [address] [employer] Ro[employer] Estimator: Jazmín Lopes MD Anion gap [Moles/Vol] 11 mmol/L Normal 9-17 [facility] Comment on above: Performed By: #### C DP, LIP, CP #### [address] [place], [place] [address] Commercial Roof[employer] Estimator: Jazmín Lopes MD AST [Catalytic activity/Vol] 37 U/L Normal <40 [facility] Comment on above: Performed By: #### C DP, LIP, CP #### [address] [place], [place] [id number] Commercial Roofing Estimator: Jazmín Lopes MD Bilirubin Ql (U) 0.20 mg/dL Low 0.3-1.2 [facility] Comment on above: Performed By: #### C DP, LIP, CP #### [address] [place], [place] [id number] Commercial Ro[employer]ing Estimator: Jazmín Lopes MD BUN/CRE Ratio 17 Normal 9-20 [facility] Comment on above: Performed By: #### C DP, LIP, CP #### [address] [place], [place] [address] Commercial Roofing Estimator: Jazmín Lopes MD Calcium [Mass/Vol] 9.3 mg/dL Normal 8.6-10.4 [facility] Comment on above: Performed By: #### C DP, LIP, CP #### [address] [place], [place] [address] Commercial Ro[employer] Estimator: Jazmín Lopes MD Chloride [Moles/Vol] 102 mmol/L Normal 98-107 [facility] Comment on above: Performed By: #### C DP LIP, CP #### [facility] [address] [place], [place] [address]83 Commercial Ro[employer]ing Estimator: Jazmín Lopes MD CO2 [Moles/Vol] 25 mmol/L Normal 20-31 [facility] Comment on above: Performed By: #### C DP LIP, CP #### [address] [place], [place] [address] Commercial Ro[employer] Estimator: Jazmín Lopes MD Creatinine [Mass/Vol] 1.18 mg/dL Normal 0.70-1.20 [facility] Comment on above: Performed By: #### C ANJUM LIP, CP #### [facility] [address] [place] [address] Dr. [place], [place] [id number] Commercial Ro[employer] Estimator: Jazmín Lopes MD GFR, Amer >60 Normal >60 [facility] Comment on above: Performed By: #### C ANJUM LIP, CP #### [facility] [address] [place] [address] Dr. [place], [place] [address]83 Commercial Ro[employer] Estimator: Jazmín Lopes MD GFR,non Amer >60 Normal >60 [facility] Comment on above: Performed By: #### C ANJUM LIP, CP #### [facility] [address] [place] [address] Dr. [place], [place] [id number] Commercial Ro[employer] Estimator: Jazmín Lopes MD Glucose [Mass/Vol] 100 mg/dL High 70-99 [facility] Comment on above: Performed By: #### C DP LIP, CP #### [facility] [address] [place], [place] [address] Commercial Ro[employer] Estimator: Jazmín Lopes MD Potassium [Moles/Vol] 4.1 mmol/L Normal 3.7-5.3 [facility] Comment on above: Performed By: #### C RAHUL VALERO, CP #### [facility] [address] [place] [address] Dr. [place], [place] [id number] Commercial Ro[employer]ing Estimator: Jazmín Lopes MD Protein [Mass/Vol] 7.2 g/dL Normal 6.4-8.3 [facility] Comment on above: Performed By: #### C RAHUL VALERO, CP #### [facility] [address] [place], [place] [address] Commercial Ro[employer]ing Estimator: Jazmín Lopes MD Sodium [Moles/Vol] 138 mmol/L Normal 135-144 [facility] Comment on above: Performed By: #### C RAHUL VALERO, CP #### [address] [place] [address] Commercial Roofing Estimator: Jazmín Lopes MD Staging: Normal [facility] Comment on above: Result Comment: Stag e 1: Some kidney damage normal GFR Stage 2: Mild kidney damage GFR 60-89 Stage 3: Moderate kidney damage GFR 30-59 Stage 4: Severe kidney damage GFR 15-29 Stage 5: Severe kidney damage GFR <15 ESRD - chronic treatment by dialysis or transplant Performed By: #### C RAHUL VALERO, CP #### [address] [place] [address] Commercial Roofing Estimator: Jazmín Lopes MD Urea nitrogen [Mass/Vol] 20 mg/dL Normal 8-23 [facility] Comment on above: Performed By: #### C ANJUM LIP, CP #### [address] [place] [address] Commercial Roofing Estimator: Jazmín Lopes MD Comprehensive Metabolic Pane fredo 11-09-2020 Albumin [Mass/Vol] 4.4 g/dL 3.5 - 5.2 g/dL [facility] Work Phone: Albumin/Globulin [Mass ratio] 1.6 {ratio} [facility] Work Phone: ALP [Catalytic activity/Vol] 62 U/L 40 - 129 U/L [employer] Phone: ALT [Catalytic activity/Vol] 42 U/L High 5 - 41 U/L [employer] Phone: Anion gap [Moles/Vol] 11 mmol/L 9 - 17 mmol/L [employer] Phone: AST [Catalytic activity/Vol] 37 U/L <40 [employer] Phone: Bilirubin Ql (U) 0.20 mg/dL Low 0.3 - 1.2 mg/dL [employer] Phone: Bun/Cre Ratio 17 [employer] Phone: Calcium [Mass/Vol] 9.3 mg/dL 8.6 - 10. 4 mg/dL [employer] Phone: Chloride [Moles/Vol] 102 mmol/L 98 - 10 7 mmol/L [employer] Phone: CO2 [Moles/Vol] 25 mmol/L 20 - 31 mmol/L [employer] Phone: Creatinine [Mass/Vol] 1.18 mg/dL 0.7 - 1.2 mg/dL [employer] Phone: GFR >60 >60 mL/min [employer] Phone: GFR Non- >60 >60 mL/min [employer] Phone: Glucose [Mass/Vol] 100 mg/dL High 70 - 99 mg/dL [employer] Phone: Interpretation and review of laboratory results Abnormal [employer] Phone: Potassium [Moles/Vol] 4.1 mmol/L 3.7 - 5.3 mmol/L [employer] Phone: Protein [Mass/Vol] 7.2 g/dL 6.4 - 8.3 g/dL [employer] Phone: Sodium [Moles/Vol] 138 mmol/L 135 - 144 mmol/L [employer] Phone: Urea nitrogen [Mass/Vol] 20 mg/dL 8 - 23 mg/dL [employer] Phone: Lipaseon 11-09-2020 Lipase [Catalytic activity/Vol] 26 U/L Normal 13-60 [facility] Comment on above: Performed By: #### C DP, LIP, CP #### [facility] [address] [place] [address] [employer] Estimator: Jazmín Lopes MD Lipase [Catalytic activity/Vol] 26 U/L 13 - 60 U/L [employer] Phone: Metabolic Panelon 11-09-2020 GFR/1.73 sq M predicted among non-blacks MDRD (S/P/Bld) [Vol rate/Area] [employer] Phone: Comment on above: Stage 1: Some [...] body mass. Additional eGFR calculator available at: [email or web address] Urinalysis w/ Microon 2020 ----- Normal [facility] Comment on above: Performed By: #### U AMIC #### [facility] [address] [place] [address] [employer] Estimator: Jazmín Lopes MD Acetoacetic Acid,Ur Negative Normal NEG [facility] Comment on above: Performed By: #### U AMIC #### [facility] [address] [place], [place] [id number] [employer] Estimator: Jazmín Lopes MD Bacteria LM.HPF (Urine sed) [#/Area] TRACE Abnormal NONE [facility] Comment on above: Performed By: #### U AMIC #### [address] [place], [place] [id number] [employer] Estimator: Jazmín Lopes MD Bilirubin, SemiQt,Ur Negative Normal [facility] Comment on above: Performed By: #### U AMIC #### [address] [place], [place] [id number] [employer] Estimator: Jazmín Lopes MD Color (U) YELLOW Normal YEL [facility] Comment on above: Performed By: #### U AMIC #### [address] [place], [facility]83 [employer]ator: Jazmín Lopes MD Epithelial cells LM.HPF (Urine sed) [#/Area] 0 TO 2 Normal 0-5 [facility] Comment on above: Performed By: #### U AMIC #### [address] [place] [id number] [employer] Estimator: Jazmín Lopes MD Glucose Ql (U) Negative Normal [facility] Comment on above: Performed By: #### U AMIC #### [facility] [address] [place] [address] Dr. [place], [facility]83 [employer]imator: Jazmín Lopes MD Hemoglobin, Ur Negative Normal [facility] Comment on above: Performed By: #### U AMIC #### [address] [place] [address] [employer] Estimator: Jazmín Lopes MD Leukocyte esterase Test strip Ql (U) Negative Normal [facility] Comment on above: Performed By: #### U AMIC #### [address] [place], [place] [id number] [employer] Estimator: Jazmín Lopes MD Mucus Strands TRACE Abnormal NONE [facility] Comment on above: Performed By: #### U AMIC #### [facility] [address] [place], [place] [id number] [employer] Estimator: Jazmín Lopes MD Nitrite,Ur Negative Normal NEG [facility] Comment on above: Performed By: #### U AMIC #### [facility] [address] [place], [place] [id number] [employer] Estimator: Jazmín Lopes MD pH (U) 5.5 [pH] Normal 5.0-9.0 [facility] Comment on above: Performed By: #### U AMIC #### [facility] [address] [place] [address] Dr. [place], [place] [id number] [employer] Estimator: Jazmín Lopes MD Protein Ql (U) Negative Normal NEG [facility] Comment on above: Performed By: #### U AMIC #### [facility] [address] [place] [address] Dr. [place], [place] [id number] [employer]imator: Jazmín Lopes MD RBC (U) [#/Vol] 0 TO 2 Normal 0-2 [facility] Comment on above: Performed By: #### U AMIC #### [facility] [address] [place] [address] Dr. [place], [place] [id number] [employer]ator: Jazmín Lopes MD Specific gravity (U) [Rel density] >1.030 High 1.010-1.02 0 [facility] Comment on above: Performed By: #### U AMIC #### [facility] [address] [place] [address] [place] [address] [employer] Estimator: Jazmín Lopes MD Turbidity CLEAR Normal CLEAR [facility] Comment on above: Performed By: #### U AMIC #### [facility] [address] [place], [place] 7058483 [employer] Estimator: Jazmín Lopes MD Urobilinogen,Ur Normal Normal NORM [facility] Comment on above: Performed By: #### U AMIC #### [facility] [address] [place], [place] [id number] [employer] Estimator: Jazmín Lopes MD WBC (U) [#/Vol] 0 TO 2 Normal 0-5 [facility] Comment on above: Performed By: #### U AMIC #### [facility] [address] [place], [place] [id number] [employer] Estimator: Jazmín Lopes MD Amorphous sediment LM Ql (Urine sed) NOT REPORTED Normal [facility] Comment on above: Performed By: #### U AMIC #### [facility] [address] [place] [address] Dr. [place], [place] [id number] [employer] Estimator: Jazmín Lopes MD Casts LM.LPF (Urine sed) [#/Area] NOT REPORTED Normal [facility] Comment on above: Performed By: #### U AMIC #### [facility] [address] [place] [address] Dr. [place], [place] [phone] [employer] Estimator: Jazmín Lopes MD Comment NOT REPORTED Normal [facility] Comment on above: Performed By: #### U AMIC #### [facility] [address] [place] [address] Dr. [place], [place] [phone] [employer]imator: Jazmín Lopes MD Crystals LM Nom (Urine sed) NOT REPORTED Normal [facility] Comment on above: Performed By: #### U AMIC #### [facility] [address] [place], [place] [id number] [employer] Estimator: Jazmín Lopes MD Epithelial, Renal NOT REPORTED Normal 0 [facility] Comment on above: Performed By: #### U AMIC #### [facility] [address] [place], [place] [id number] [employer] Estimator: Jazmín Lopes MD Other Observations NOT REPORTED Normal NREQ [facility] Comment on above: Performed By: #### U AMIC #### [facility] [address] [place] [address] [employer] Estimator: Jazmín Lopes MD Trichomonas NOT REPORTED Normal [facility] Comment on above: Performed By: #### U AMIC #### [facility] [address] [place] [address] [employer] Estimator: Jazmín Lopes MD Yeast LM Ql (Urine sed) NOT REPORTED Normal [facility] Comment on above: Performed By: #### U AMIC #### [facility] [address] [place] [address] [employer] Estimator: Jazmín Lopes MD Urinalysis with Microscopico n 11-09-2020 Amorphous, UA NOT REPORTED None [employer] Phone: Bacteria, UA TRACE Abnormal None [employer] Phone: Bilirubin Urine Negative NEGATIVE [employer] Phone: Casts UA NOT REPORTED /LPF [employer] Phone: Color, UA YELLOW YELLOW [employer] Phone: Crystals, UA NOT REPORTED None /HPF [employer] Phone: Epithelial Cells UA 0 TO 2 [employer] Phone: Glucose, Ur Negative NEGATIVE [employer] Phone: Interpretation and review of laboratory results Abnormal [employer] Phone: Ketones Ql (U) Negative NEGATIVE [employer] Phone: Leukocyte esterase Test strip Ql (U) Negative NEGATIVE [employer] Phone: Mucus, UA TRACE Abnormal None [employer] Phone: Nitrite, Urine Negative NEGATIVE [employer] Phone: Other Observations UA NOT REPORTED NOT REQ. [employer] Work Phone: pH, UA 5.5 [facility] [employer] Work Phone: Protein (U) [Mass/Vol] Negative NEGATIVE [facility] [employer] Work Phone: RBC (U) [#/Vol] 0 TO 2 [facility] [employer] Work Phone: Renal Epithelial, UA NOT REPORTED 0 /HPF [facility] [employer] Work Phone: Specific [place], UA >1.030 [employer] Work Phone: Trichomonas, UA NOT REPORTED None [facility] [employer] Work Phone: Turbidity UA CLEAR CLEAR [facility] [employer] Work Phone: Urinalysis Comments NOT REPORTED [facility] [employer] Work Phone: Urine Hgb Negative NEGATIVE [facility] [employer] Work Phone: Urobilinogen, Urine Normal Normal [facility] [employer] Work Phone: WBC, UA 0 TO 2 [facility] [employer] Work Phone: Yeast, UA NOT REPORTED None [facility] [employer] Work Phone: - [facility] [employer] Work Phone: Vital Signs Date Time Vital Sign Value Performing Clinician Leoni handy 05-27-2023 09:40-0400 Diastolic blood pressure 87 mm[Hg] Oral LUCASeVenues [facility] 05-27-2023 09:40-0400 Heart rate 89 /min Oral LUCASL [facility] 05-27-2023 09:40-0400 Respiratory rate 18 /min Oral LUCASL [employer] [facility] 05-27-2023 09:40-0400 SaO2% (BldA) [Mass fraction] 95 % Oral LUCASL [facility] 05-27-2023 09:40-0400 Systolic blood pressure 128 mm[Hg] Oral NILL [facility] 05-27-2023 09:30-0400 Diastolic blood pressure 89 mm[Hg] Oral NILL [facility] 05-27-2023 09:30-0400 Heart rate 98 /min Oral NILL [facility] 05-27-2023 09:30-0400 Respiratory rate 20 /min Oral NILL [facility] 05-27-2023 09:30-0400 SaO2% (BldA) [Mass fraction] 96 % Oral NILL [facility] 05-27-2023 09:30-0400 Systolic blood pressure 126 mm[Hg] Oral NILL [facility] 05-27-2023 09:25-0400 Diastolic blood pressure 80 mm[Hg] Oral NILL [facility] 05-27-2023 09:25-0400 Heart rate 95 /min Oral NILL [facility] 05-27-2023 09:25-0400 Respiratory rate 18 /min Oral NILL [facility] 05-27-2023 09:25-0400 SaO2% (BldA) [Mass fraction] 94 % Oral NILL [facility] 05-27-2023 09:25-0400 Systolic blood pressure 116 mm[Hg] Oral NILL [facility] 05-27-2023 09:14-0400 Body temperature 97.7 [degF] Oral NILL [facility] 05-27-2023 09:05-0400 Respiratory rate 13 /min Oral NILL [facility] 05-27-2023 09:00-0400 Respiratory rate 12 /min Oral NILL [facility] 05-27-2023 08:55-0400 Respiratory rate 17 /min Oral NILL [facility] 05-27-2023 08:37-0400 Blood Pressure Location Oral NILL [facility] 05-27-2023 08:34-0400 Blood Pressure Location Oral NILL [facility] 05-27-2023 08:34-0400 Body temperature 97.7 [degF] Oral NILL [facility] 05-04-2023 15:42-0400 Blood Pressure Location Oral NILL [facility] 05-04-2023 15:42-0400 Diastolic blood pressure 80 mm[Hg] Oral NILL [facility] [place] 05-04-2023 15:42-0400 Heart rate 76 /min Oral NILL [facility] [place] 05-04-2023 15:42-0400 Respiratory rate 16 /min Oral NILL [facility] [place] 05-04-2023 15:42-0400 Systolic blood pressure 128 mm[Hg] Oral NILL [facility] [place] 11-09-2020 20:00-0500 BP Diastolic 81 mm[Hg] [facility] [employer] Work Phone: 11-09-2020 20:00-0500 BP Systolic 130 mm[Hg] [facility] [employer] Work Phone: 11-09-2020 20:00-0500 Pulse Oximetry 94 % [employer] Work Phone: 11-09-2020 18:17-0500 Body Temperature 98.2 [degF] [facility] [employer] Work Phone: 11-09-2020 18:17-0500 Pulse (Heart Rate) 92 /min [facility] [employer] Work Phone: 11-09-2020 18:17-0500 Respiratory Rate 17 /min [facility] [employer] Work Phone: Encounters Encounter Date Encounter Type Care Provider Facility Start: 06-08-2023 End: 06-09-2023 ambulatory Oral R SHAYYL Facility: [facility] Start: 06-08-2023 End: 06-08-2023 Patient encounter procedure Oral R NILL [facility] Start: 05-27-2023 End: 05-27-2023 ambulatory Oral R NILL Facility:[facility] Start: 05-27-2023 End: 05-27-2023 Patient encounter procedure Oral R NILL [facility] Start: 05-04-2023 End: 05-05-2023 ambulatory Ti Borrego Facility:[facility] [place] Start: 05-04-2023 End: 05-04-2023 Patient encounter procedure Oral R NILL [facility] Nill/S[facility] [place] Start: 04-27-2023 ambulatory Ti Borrego Facility:[facility] Start: 04-05-2023 ambulatory Ti Borrego Facility:[facility] Start: 06-10-2022 End: 06-10-[address] TI BORREGO Facility:[facility] Start: 03-03-2022 End: 03-04-[address] TI BORREGO Facility:[facility] Start: 12-01-2021 End: 12-02-[address] TI BORREGO Facility:[facility] Start: 11-24-2021 ambulatory TI M HOY [facility] Start: 10-26-2021 End: 10-27-[address] [...] 11-09-2020 Emergency department patient visit TI BORREGO [facility] Start: 11-09-2020 End: 11-09-2020 Emergency department patient visit Braxton Bassett Work Phone: [facility] Comment on above: Flank pain (Primary Dx); Muscle pain, myofascial Procedures Date Procedure Procedure Detail Performing Clinician Start: 05-27-2023 Colonoscopy Oral CONTRERAS Start: 05-27-2023 Esophagogastroduodenoscopy Oral CONTRERAS Start: 11-24-2021 PSA screening TI BORREGO Comment on above: Result Comment: [facility] UTILIZES ORTHO VITRO S PSA METHODOLOGY. DIFFERENT TEST METHODS CANNOT BE USED INTERCHANGEABLY. PSA RESULTS IN A GIVEN PATIENT SAMPLE DETERMINED WITH DIFFERENT TESTS AND FROM DIFFERENT MANUFACTURERS CAN VARY DUE TO DIFFERENCES IN TEST METHODS AND REAGENTS. Performed By: #### C MP, PSA, LIPD #### [place] [address] Ph. [phone] Start: 11-09-2020 Urnls dip stick/tablet reagent auto [...] - Td) DTaP/Tdap/Td vaccine (2 - Td) [employer] Phone: Start: 11-09-2021 Creatinine measurement Creatinine mo nitoring [employer] Phone: Start: 11-09-2021 Potassium monitoring Potassium monit oring [employer] Phone: Start: 05-20-2020 Influenza vaccination Flu vaccine (# 1) [employer] Phone: Start: 2013 Pneumococcal 65+ yea rs Vaccine (1 of 1 - PPSV23) Pneumococcal 65+ years Vaccine (1 of 1 - PPSV23) [employer] Phone: Start: 1998 Screening for malign ant neoplasm of colon Colon cancer screen colonoscopy [employer] Phone: Start: 1998 Shingles Vaccine (1 of 2) Shingles V accine (1 of 2) [employer] Phone: Start: 1988 Lipid panel Lipid screen [facility] Work Phone: Start: 1964 COVID-19 Vaccine (1 of 2) COVID-19 V accine (1 of 2) [facility] [employer] Phone: Start: 1950 Hepatitis C screening Hepatitis C sc reen [facility] [employer] Phone: Immunizations Immunization Date Immunization Notes Care Provider Soni chauhan 05-17-2016 tetanus toxoid, redu bj diphtheria toxoid, and acellular pertussis vaccine, adsorbed Braxton Crismaru [facility] [employer] Phone: Payers Date Payer Category Payer Medicare [id number] 1.2.84 [id number] 1961 Medicare [id number] 1950 Unknown [id number] 2.16.8 [id number] 1950 Unknown [id number] 2.16.8 [id number] 1950 Unknown [id number] 2.16.84 [id number] 1948 Unknown [id number] 2.16.84 [id number] 1948 Unknown [id number] 2.16.84 [id number] 1948 Unknown [id number] 2.16.84 [id number] 1948 Unknown [id number] 2.16.84 [id number] 1948 Unknown [id number] 2.16.84 [id number] 1948 Unknown [id number] 2.16.84 [id number] 1948 Unknown [id number] 2.16.84 [id number] 1948 Unknown [id number] 2.16.84 [id number] 1948 Unknown [id number] 2.16.8 [id number] 1948 Unknown [id number] 2.16.8 [id number] 1950 Unknown [id number] 2.16.8 [id number] Social History Date Type Detail Facility Start: 11-09-2020 Tobacco smoking stat [facility] Never smoker [employer] Phone: Start: 11-09-2020 Tobacco use and exposure Never used [employer] Phone: Start: 11-09-2020 Alcohol intake Ex-drinker (finding) [employer] Phone: Sex Assigned At Not on file [employer] Phone: Exposure to SARS-CoV -2 (event) Not sure [employer] Phone: Start: 05-04-2023 Tobacco smoking status Ex-smoker (fi nding) [facility] Tobacco smoking status Never [facility] [place] Sex Assigned At Male [facility] Functional Status Date Assessment Result Facility 05-27-2023 Functional Status N/A [facility] 05-04-2023 Functional Status N/A [facility] History and physical note 05-30-2023 Note Date & Type Note Facility 05-30-2023 Note [id number] #[id number] [facility] History and physical note 05-27-2023 Note Date & Type Note Facility 05-27-2023 Note Patient: JOSE GUADALUPE GARCIA [facility]: [id number] Age: 72 years Sex: Male : 1950 Associated Diagnoses: None Author: Oral CONTRERAS MD Subjective no changes to H & P [facility] Comment on above: Result Comment: Elec tronically [...] worse throughout the day. 05/27/2023 09:17:48 Hemorrhoids, Lmvk-vz-Zpdz Hemorrhoids Hemorrhoids are swollen veins that may [...] 3 times a day. General instructions Take mazm-ant-cdtvvzx and prescription medicines only as told by [...] provider. Document Revised: 03/17/2022 Document Reviewed: 03/17/2022 [employer] Patient Education 2022 [employer]. 05/27/2023 09:17:36 Endoscopy, Care After Procedure [facility] Endoscopy Care After Procedure [...] blood. Document Released: 04/19/2005 Document Re-Released: 02/27/2007 [employer] Patient Information 2010 [email or web address]. 05/27/2023 09:17:24 Hiatal Hernia Hiatal Hernia A [...] reduce GERD symptoms. Medicines. These may include: ?Mpkt-tdr-yvjprvq antacids. ?Medicines that make your stomach empty [...] may include: ?Fatty foods, like fried foods. ?[place] fruits, like oranges or lemon. ?Other foods [...] Do not drink alcohol. General instructions Take evec-dmn-ozqhfmh and prescription medicines only as told by [...] provider. Document Revised: 07/20/2022 Document Reviewed: 08/06/2021 [employer] Patient Education 2022 [employer]. 05/27/2023 09:17:16 Delarosa's Esophagus Delarosa's Esophagus Delarosa's [...] drinks. ?Tomatoes and foods made with tomatoes. ?[place] or spicy foods. ?Chocolate and peppermint. Do not drink alcohol. General instructions Take ajom-bwa-yjoiagz and prescription medicines only as told by [...] provider. Document Revised: 11/22/2020 Document Reviewed: 11/22/2020 [employer] Patient Education 2022 [employer]. Follow Up Care 05/04/2023 16:15:34 With:Oral CONTRERAS Address: [address], [address] [place] [id number]- Business (1) When:1 to 2 weeks [facility] Clinical Note 05-04-2023 Note Date & [...] 30 days a (more content not included)... [facility] Comment on above: Result Comment: Elec tronically [...] authenticated by: JAZMÍN GA Date: 2021-10-26 11:17 [facility] Clinical Note 08-25-2021 Note Date & Type [...] authenticated by: JONES RICHMOND Date: 2021-08-25 16:03 [facility] Evaluation + Plan note Note Date & Type Note Facility Evaluation + Plan note Future Appointments Appointment Date:05/27/2023 09:30:00 AM Scheduled Provider: Location:[facility] Appointment Type:Surgery [facility] [place] Hospital course Narrative Note Date & Type Note Facility Hospital course Narrative No data available for this section [facility] Discharge instructions Note Date & Type Note Facility Hospital Discharge instructions No data available for this section [facility] [place] Progress note Note Date & Type Note Facility Progress note No data available for this section [facility] [place] Discharge Instructions * Attachments The following attachments cannot be sent through Care Everywhere. * Flank Pain (Slovak) * Musculoskeletal Pain (Slovak) documented in this encounter Assessments Diagnosis Flank pain- Primary Abdominal pain, unspecified site Muscle pain, myofascial Mylagia and myositis, unspecified Advance Directives No Advanced Directives Records FoundDocuments on File Type Date Recorded Patient Intake Counselor Expl anation ACP-Advance Directive ACP-Power of Endocrinologist Summary Purpose Family History No Family History [...] DATE CREATED AUTHOR AUTHOR'S ORGANIZ ATION 11/27/[address] [facility] DATE CREATED AUTHOR AUTHOR'S ORGANIZ ATION 06/19/2022 [facility] DATE CREATED AUTHOR AUTHOR'S ORGANIZ ATION 06/22/2023 [facility] Patient Care team informatio n (unrecognized section and content) Personnel Name: Ti Borrego MD Address: Address: [address] [place] [address] Personnel Name: Ti Borrego MD Address: Address: [address] [place] [address] Personnel Name: Ti Borrego MD Address: Address: [address] [place] [address] FOR RECORDS PERTAINING TO PATIENTS WHO ARE [...] BE BASED ON THE PRIMARY CLINICAL RECORDS. [facility] [employer] [facility]. provides no warranty or guarantee of the accuracy or completeness of information in this document.
[2025-02-02 08:09] LABS: Testosterone 174 ng/dL (264-916)
== END 2025-02-01 09:41 | disposition home or self-care (01) ==
LOC: LAB 09:40
PROVIDERS: PCP Family Medicine; Visit Provider Family Medicine
DX: E29.1 Testicular hypofunction (principal)
CPT/HCPCS: 36415; 84403

== ENCOUNTER 2025-02-08 10:51 | Outpatient (OUT) | payer MEDICARE, SELFPAY ==
[2025-02-08 11:35] LABS: Free T3 3.04 pg/mL (2.18-3.98); Thyroid Stimulating Hormone 1.408 uIU/mL (0.358-3.740)
== END 2025-02-08 10:52 | disposition home or self-care (01) ==
LOC: LAB 10:52
PROVIDERS: PCP Family Medicine; Visit Provider Family Medicine
DX: R79.89 Other specified abnormal findings of blood chemistry (principal)
CPT/HCPCS: 36415; 84436; 84443; 84481

== ENCOUNTER 2025-05-16 08:28 | Outpatient (OUT) | payer MEDICARE, SELFPAY ==
--- OUTSIDE RECORDS SUMMARY | 2025-05-09 04:30 | XMS_ITS ---
Author Organization [facility] in [place] Address [address] [place] [address] Care Team Providers Care Sorter Packer Name Role Phone lEmo Oscar Primary Care Provider Allergies Allergen (clinical drug ingredient) Drug/Non Drug Allergy documented on EMR Reaction Allergy Type Onset Date Status simvastatin Zocor myalgias Drug Allergy Activ e Substance with 5-vmdsqzf-9-methylgluta ryl-coenzyme A reductase inhibitor mechanism of action (substance) Statins myalgias Drug Allergy Active Reason For Referral Diagnosis 1 Nevus (D22.9) Referral Organization [facility] Medicine Referring Provider First Name Oscar Referring Provider Last Name Elmo Referring Provider Speciality Family Med audra Referred Provider Oral Contreras Referred Provider Specialty General Surg ramon Referral Priority Routine REASON FOR VISIT discuss Testosterone- doesnt think its helping- when took Prednisone awhile ago, that helped, lump behind left ear Medications Medication SIG (Take, Route, Frequency, Duration) Notes Start Date End Date Status Testosterone Cypionate 200 MG/ML 0.5 ml Intramuscular Q O Week 05/09/2025 Active Magnesium Active Omeprazole 20 MG 1 capsule 30 minutes before morning meal Orally Once a day for 90 days 12/31/2022 Active PreserVision AREDS - as directed Orally Active Calcium Active Diclofenac Sodium 75 MG 1 tablet as needed Orally Twice a day for 90 days 01/14/2023 Active Doxazosin Mesylate 4 MG TAKE 1 TABLET BY MOUTH TWICE A DAY for 90 Active Enalapril Maleate 20 MG 1 tablet Orally Once a day for 90 days Active Lyrica 50 MG 1 capsule Orally Onc e a day 11/08/2024 Active predniSONE 5 MG 1 tablet Orally Once a day for 30 days 05/09/2025 Active Turmeric Active Vitamin A 3 MG (06381 UT) 1 capsule with food or milk Orally Once a day Dose Unknown Active Vitamin D (Ergocalciferol) 50 MCG (2000 UT) 1 capsule Orally Once a day Active Zinc 100 MG 1 tablet Orally Once a day Active Social History Tobacco Use: Social History Observation Description Date Details (start date - stop date) Former Smoker 09/19/1967 - 09/19/1983 Tobacco Use/Smoking Question Answer Notes Patient is a former smoker When did you start smoking? 09/19/1967 When did you stop smoking? 09/19/1983 Problems Problem Type SNOMED Code ICD Code Onset Dates Problem Status W/U Status Risk Notes Problem Nevus ([id number]) Nevus (D22.9) Active confirmed Vital Signs Blood pressure systolic 138 mm Hg 05/09/20 25 Blood pressure diastolic 78 mm Hg 025 Height 66 in 05/09/2025 Weight 218.8 lbs 05/09/2025 BMI 35.31 kg/m2 05/09/2025 Encounters Encounter Location Date Provider Diagnosis [facility] [address] [place] [address] 05/09/2025 Oscar Borrego Nevus D22.9 ; Lumbar disc disease M51.9 and Testosterone deficiency in male E29.1 Assessments Encounter Date Diagnosis (ICD Code) Assessment Notes Treatment Notes Treatment Clinical Notes Section Notes 05/09/2025 Nevus (ICD-10 - D22.9) 05/09/2025 Lumbar disc disease (ICD-10 - M51.9) 05/09/2025 Testosterone deficiency in male (ICD-10 - E29.1) checking level Plan Of Treatment Medication Medication Name Sig Start Date Stop Date Notes Testosterone Cypionate 200 MG/ML 0.5 ml Intramuscular Q O Week 05/09/2025 predniSONE 5 MG 1 tablet Orally Once a day for 30 days 05/09/2025 Treatment Notes Assessment Notes Testosterone deficiency in male checking level Pending Test Test Name Order Date TESTOSTERONE, TOTAL 05/09/2025 Referrals Referral Date Details 05/09/2025 05/09/2025, Oral Contreras Next Appt Details Provider Name:Oscar Borrego, 09:00:00 AM, [address] [place], [address], Progress Notes * Gavino HAAS JDOB:1950 (74 yo M)Acc No.[id number]:05/09/2025 Progress Note Patient: Gavino FISH Provider: Taqueria Borrego ([facility])MD :1950 A ge:74 Y S ex:Male Date:05/09/2025 Address:[address] [place], [place] [id number] Check In:08:13 AM ESTCheck O ut:08:50 AM EST Subjective: * Chief Complaints: * d iscuss Testosterone- doesnt think its helping- when took Prednisone awhile ago, that helpedLump behind left ear * ROS: E ENT: hearing changes d enies. v isual changes d enies.?non-healing mouth sores d enies. s wollen glands or neck lumps d enies. h oarseness d enies. s ore throat d enies. d ifficulty swallowing d enies. n ose bleeds d enies. n ching congestion d enies. e ar ache d enies. e ar discharge?denies. r inging in ears d enies. l ight sensitivity d enies. e ye pain d enies. b lurring d enies. e ye irritation d enies. d ouble vision d enies.?vision loss d enies. G eneral/Constitutional: Sweats: D enies. F atigue d enies. S leep problems d enies. A norexia d enies. M alaise d enies. W eight loss d enies.?Fatigue or Weakness d enies. F ever or Chills d enies. C ardiovascular: Shortness of Breath w/lying flat d enies. L ightheadedness/dizziness d enies. C hest tightness/ heavy pressure d enies. S welling of legs, ankles, or feet d enies. W aking up with shortness of breath d enies. C hest pain denies. P alpitations d enies. W eight gain d enies. R espiratory: Chronic or frequent cough d enies. C oughing up blood?denies. D ifficulty breathing d enies. P roductive cough d enies. S noring?denies. S hortness of breath that awakens from sleep (PND) d enies. C hest pain d enies. S putum production d enies. W heezing d enies. M usculoskeletal: Joint pain d enies. J oint Fluid d enies. B ack pain d enies. K nee pain d enies. N dianne pain d enies. J oint Stiffness d enies. M uscle cramps d enies. W eakness of muscles d enies. A rthritis d enies. M uscle aches d enies. P ain in shoulder(s) d enies. S wollen joints d enies. * Active Problem List M51.9 Lumbar disc disease Modified On:04/04/2023 Status:confirmed M50.90 Cervical disc diseas e Modified On:04/04/2023 Status:confirmed L30.1 Dyshidrotic eczema Modified On:04/04/2023 Status:confirmed G54.0 Thoracic outlet synd marbella Modified On:04/04/2023 Status:confirmed K57.90 Diverticular disease Modified On:04/04/2023 Status:confirmed K26.9 Duodenal ulcer Modified On:04/04/2023 Status:confirmed I10 Essential Hypertensi on Modified On:04/04/2023 Status:confirmed E11.9 Diabetes mellitus Modified On:04/04/2023U Status:confirmed R00.2 Palpitations Modified On:04/04/2023 Status:confirmed E78.5 Hyperlipidemia Modified On:04/04/2023 Status:confirmed M19.90 Arthritis Modified On:04/04/2023U Status:confirmed M85.80 Osteopenia Modified On:04/04/2023U Status:confirmed K21.9 GERD (gastroesophage al reflux disease) Modified On:04/04/2023U Status:confirmed K21.9 GERD without esophag itis Modified On:04/04/2023/U Status:confirmed K64.9 Unspecified hemorrho ids Modified On:06/03/2023U Status:confirmed R06.00 Dyspnea Modified On:11/08/2024/U Status:confirmed R53.83 Fatigue Modified On:01/09/2025/U Status:confirmed E29.1 Testosterone deficie ncy in male Modified On:01/11/2025/U Status:confirmed D22.9 Nevus Modified On:05/09/2025U Status:confirmed * Medical History: * Surgical History: A PPENDECTOMY Carpal Tunnel Release Hemorrhoidectomy * Hospitalization/Major Diagno stic Procedure: S ee above * Family History: F ather: , Unknown cancer. M other: alive, diagnosed with Diabetes mellitus without mention of complication, type II or unspecified type, not stated as uncontrolled. B rother(s): alive. S ister(s): alive. S on(s): alive. D kimmie(s): alive. 1 brother(s) , 2 sister(s) - healthy. 2 son(s) , 4 daughter(s) - healthy. . * Social History: T obacco Use: T obacco Use/Smoking P atient is a f ormer smoker W hen did you start smoking? 0 09/19/1967 W hen did you stop smoking? 0 09/19/1983 * Medications: T akingCalcium Diclofenac Sodium 75 MG Tablet Delayed Release 1 tablet as needed Orally Twice a day Doxazosin Mesylate 4 MG Tablet TAKE 1 TABLET BY MOUTH TWICE A DAY Enalapril Maleate 20 MG Tablet 1 tablet Orally Once a day Lyrica(Pregabalin) 50 MG Capsule 1 capsule Orally Once a day Magnesium Omeprazole 20 MG Capsule Delayed Release 1 capsule 30 minutes before morning meal Orally Once a day PreserVision AREDS(Multiple Vitamins-Minerals) - Tablet as directed Orally Testosterone Cypionate 200 MG/ML Solution 0.5 ml Intramuscular Q O Week Turmeric Vitamin A 3 MG (16897 UT) Capsule 1 capsule with food or milk Orally Once a day , Notes to Pharmacist: Dose UnknownVitamin D (Ergocalciferol) 50 MCG (2000 UT) Capsule 1 capsule Orally Once a day Zinc 100 MG Tablet 1 tablet Orally Once a day Taking Calcium Taking Diclofenac Sodium 75 MG Tablet Delayed Release 1 tablet as needed Orally Twice a day Taking Doxazosin Mesylate 4 MG Tablet TAKE 1 TABLET BY MOUTH TWICE A DAY Taking Enalapril Maleate 20 MG Tablet 1 tablet Orally Once a day Taking Lyrica(Pregabalin) 50 MG Capsule 1 capsule Orally Once a day Taking Magnesium Taking Omeprazole 20 MG Capsule Delayed Release 1 capsule 30 minutes before morning meal Orally Once a day Taking PreserVision AREDS(Multiple Vitamins-Minerals) - Tablet as directed Orally Taking Testosterone Cypionate 200 MG/ML Solution 0.5 ml Intramuscular Q O Week Taking Turmeric Taking Vitamin A 3 MG (34929 UT) Capsule 1 capsule with food or milk Orally Once a day , Notes to Pharmacist: Dose UnknownTaking Vitamin D (Ergocalciferol) 50 MCG (2000 UT) Capsule 1 capsule Orally Once a day Taking Zinc 100 MG Tablet 1 tablet Orally Once a day DiscontinuedpredniSONE 20 MG Tablet 3 tablet with food or milk Orally Once a day Medication List reviewed and reconciled with the patientDiscontinued predniSONE 20 MG Tablet 3 tablet with food or milk Orally Once a day Medication List reviewed and reconciled with the patient * Allergies: Z ocor: myalgias - AllergyStatins: myalgias - Allergyno[Allergies Verified] Objective: * Vitals: W t:218.8lbs, Ht: 66 in, BP:138/78mm Hg, BMI:35.31Index, Wt-k.25 kg. * Examination: P hysical Exam: GENERAL: w ell developed, well nourished, in no acute distress. HEAD: n ormocephalic/atraumatic. EYES: p upils equal, round and reactive to light, conjunctivae and sclerae normal. EARS: n o deformity or lesion of external ear, canals and TM appear normal bilaterally, TM's intact, not inflamed with normal light reflex, hearing grossly normal to conversational speech. NOSE: n o deformity, discharge, inflammation, or lesions.? MOUTH: m ucous membranes moist, normal oropharynx and posterior pharynx without lesions or exudates, tongue normal, dentition normal. NECK: n dianne supple, no masses or palpable cervical nodes, trachea midline, thyroid without nodules, masses, tenderness, or enlargement. CHEST: n o chest wall deformity, no chest wall tenderness.? LUNGS: n ormal respiratory effort and clear to auscultation, no wheezes, rales, or rhonchi, good air exchange. CARDIO: r egular rate and rhythm, normal S1 and S2, nor murmur, rub, or gallop. PULSES: n ormal capillary refill. ABDOMEN: s oft, non-distended, non-tender, no masses. MUSCULOSKELETAL: n o deformity or scoliosis noted, normal range of motion, joints normal, no erythema, edema, effusion, or ecchymosis. EXTREMITY: n o clubbing, cyanosis, edema, or deformity with normal ROM in both upper and lower bilateral extremities. NEUROLOGIC: g rossly normal. SKIN: n o rashes, ulcerations, or suspicious lesions. LYMPH NODES: n o cervical adenopathy, nodes normal. MENTAL STATUS: a lert and oriented x3, normal mood and affect. Assessment: * Assessment: 1. N evus - D22.9 (Primary) 2 . L umbar disc disease - M51.9 ?3. T estosterone deficiency in male - E29.1 Plan: * Treatment: 2. L umbar disc disease Start predniSONE Tablet, 5 MG, 1 tablet, Orally, Once a day, 30 days, 30 Tablet, Refills 11. ? 3. T estosterone deficiency in male L AB: TESTOSTERONE, TOTAL Notes: checking level * Procedure Codes: * Preventive Medicine: Screenings/Counseling: B MS ACTION PLAN Above Normal BMI Follow-up D ietary management education, guidance, and counseling * * Sign off status: Completed Visit Status: C HK (Check Out) true * Provider: Taqueria Borrego ([facility])MD Date: 0 05/09/2025 Generated for Printi ng/Faxing/eTransmitting on: 0 05/16/2025 08:31 AM EDT History and Physical Notes * Examination Category Sub-Category Detail Notes Category Not es Physical Exam GENERAL: well developed, well nourished, in no acute distress HEAD: normocephalic/atraum atic EYES: pupils equal, round and reactive to light, conjunctivae and sclerae normal EARS: no deformity or lesi on of external ear, canals and TM appear normal bilaterally, TM's intact, not inflamed with normal light reflex, hearing grossly normal to conversational speech NOSE: no deformity, discha rge, inflammation, or lesions MOUTH: mucous membranes cindy st, normal oropharynx and posterior pharynx without lesions or exudates, tongue normal, dentition normal NECK: neck supple, no mass es or palpable cervical nodes, trachea midline, thyroid without nodules, masses, tenderness, or enlargement CHEST: no chest wall deform ity, no chest wall tenderness LUNGS: normal respiratory e ffort and clear to auscultation, no wheezes, rales, or rhonchi, good air exchange CARDIO: regular rate and rhy thm, normal S1 and S2, nor murmur, rub, or gallop PULSES: normal capillary ref ill ABDOMEN: soft, non-distended, non-tender, no masses RECTAL: MUSCULOSKELETAL: no deformity or scol iosis noted, normal range of motion, joints normal, no erythema, edema, effusion, or ecchymosis EXTREMITY: no clubbing, cyanosi s, edema, or deformity with normal ROM in both upper and lower bilateral extremities NEUROLOGIC: grossly normal SKIN: no rashes, ulceratio ns, or suspicious lesions LYMPH NODES: no cervical adenopat hy, nodes normal MENTAL STATUS: alert and oriented x 3, normal mood and affect Consultation Request Notes Referral Date Referring Provider Referred Provider Not es 05/09/2025 Oscar Borrego Michael
--- OUTSIDE RECORDS SUMMARY | 2025-05-16 08:31 | XMS_ITS | Clinical Summary ---
Author Organization [facility] Address [address] [place] [address] Care Team Providers Care Scarf And Anneal Operator Name Role Phone Unavailable Primary Care Provider Unavailabl e Social History Tobacco Use Types Packs/Day Years Used Date Smoking Tobacco: Never Assessed Sex and Gender Information Value Date Recorded Sex Assigned at Not on file Legal Sex Male 7:03 PM EDT Gender Identity Not on file Sexual Orientation Not on file Plan of Treatment Not on file
--- OUTSIDE RECORDS SUMMARY | 2025-05-16 08:31 | XMS_ITS | Clinical Summary ---
Author Organization [facility] Address [address], [address] [place] [address] Care Team Providers Care Data Lead Name Role Phone Azar Borrego MD Primary Care Provider [phone] Allergies No known active allergies Medications ibuprofen (ADVIL;MOTRIN) 600 MG tablet Take 1 tablet by mouth 3 times daily (with meals) for 7 days 20 tablet 05/17/2016 Active omeprazole (PRILOSEC) 20 MG delayed release capsule Take 20 mg by mouth daily Active diclofenac (VOLTAREN) 75 MG EC tablet Take 75 mg by mouth 2 times daily Active ciprofloxacin (CIPRO) 500 MG tablet Take 500 mg by mouth 2 times daily Active metroNIDAZOLE (FLAGYL) 500 MG tablet Take 500 mg by mouth 3 times daily Active enalapril (VASOTEC) 20 MG tablet Take 20 mg by mouth daily Active Cholecalciferol (VITAMIN D3) 125 MCG (5000 UT) TABS Take by mouth Active ibuprofen (ADVIL;MOTRIN) 600 MG tablet Take 1 tablet by mouth 4 times daily as needed for Pain 30 tablet 1 11/09/2020 Active tiZANidine (ZANAFLEX) 2 MG tablet Take 1 tablet by mouth every 8 hours as needed (muscular pain) 10 tablet 11/09/2020 Active Immunizations Immunization Administration Dates Next Due TDaP, ADACEL (age 10y-64y), BOOSTRIX (age 10y+), IM, 0.5mL 05/17/2016 Social History Tobacco Use Types Packs/Day Years Used Date Smoking Tobacco: Never Smokeless Tobacco: Never Alcohol Use Standard Drinks/Week Comments Not Currently 0 (1 standard drink = 0.6 oz pur e alcohol) Sex and Gender Information Value Date Recorded Sex Assigned at Not on file Legal Sex Male 5:54 PM EDT Gender Identity Not on file Sexual Orientation Not on file Last Filed Vital Signs Vital Sign Reading Time Taken Comments Blood Pressure 130/81 11/09/2020 8:00 PM EST Pulse 92 11/09/2020 6:17 PM EST Temperature 36.8 C (98.2 F) 11/09/2020 6:17 PM EST Respiratory Rate 17 11/09/2020 6:17 PM EST Oxygen Saturation 94% 11/09/2020 8:00 PM EST Inhaled Oxygen Concentration - - Weight - - Height - - Body Mass Index - - Plan of Treatment Not on file Insurance [employer] MED[employer]ARE Care Teams Data Lead Relationship Specialty Start Date End Date Azar Borrego MD [address] [place] [address] PCP - General 05/17/16
--- OUTSIDE RECORDS SUMMARY | 2025-05-16 08:32 | XMS_ITS | Clinical Summary ---
Author Organization [facility] Address [address] [place] [address] Care Team Providers Care Airplane Gastank Liner Assembler Name Role Phone Unavailable Primary Care Provider Unavailabl e Social History Tobacco Use Types Packs/Day Years Used Date Smoking Tobacco: Never Assessed [place] Safety & Environment Answer Date Rec orded Fear of Current or Ex-Partner Not on file Emotionally Abused Not on file 11/10/2023 Physically Abused Not on file 11/10/2023 Sexually Abused Not on file 11/10/2023 Physically or Sexually Abused Not on file Sex and Gender Information Value Date Recorded Sex Assigned at Not on file Legal Sex Male 11:48 PM EDT Gender Identity Not on file Sexual Orientation Not on file Plan of Treatment Health Maintenance Due Date Last Done Comments Medicare Annual Wellness (AWV) 1950 Depression Screening 1960 Adult Tetanus 1970 Pneumococcal Vaccine: 50+ Ye ars (1 of 1 - PCV) 1998 Zoster Vaccines (1 of 2) 1998 Fall Risk Screening 2013 COVID-19 Vaccine (1 - 2023-2 5 season) 2024 Influenza Vaccine (#1) 2025 HIB Vaccines Aged Out No longer eligi ble based on patient's age to complete this topic HPV Vaccines Aged Out No longer eligi ble based on patient's age to complete this topic IPV Vaccines Aged Out No longer eligi ble based on patient's age to complete this topic Meningococcal B Vaccine Aged Out No l onger eligible based on patient's age to complete this topic Meningococcal Vaccine Aged Out No fredo josh eligible based on patient's age to complete this topic Rotavirus Vaccines Aged Out No longer eligible based on patient's age to complete this topic Insurance [employer] MEDICARE ADVANTAGE
--- OUTSIDE RECORDS SUMMARY | 2025-05-16 08:34 | XMS_ITS | CCD ---
Author Organization [facility] Care Team Providers Care Spinning Supervisor Name Role Phone Ti Borrego Primary Care Provider [phone] TI BORREGO Primary Care Unavailable BRAXTON BASSETT Attending Unavailable TI BORREGO Referring Unavailable TI BORREGO Primary Care Unavailable ANJALI, DR LUKE Attending Unavailable HOY, DR LUKE Admitting Unavailable HOY, DR LUKE Primary Care Unavailable HOY, DR LUKE Consulting Unavailable YI, DR JONES Reed Consulting Unavailable GARCIAPONCHO Zamora Consulting Unavailable ANJALI, DR LUKE Attending Unavailable HOY, DR LUKE Primary Care Unavailable HOY, DR LUKE Consulting Unavailable HOY, DR LUKE Admitting Unavailable ZIEBER, DR JONES Reed Consulting Unavailable ANJALI, DR LUKE Primary Care Unavailable ANJALI, DR LUKE Attending [...] Consulting Unavailable MARIANNE, DR HOPKINS Consulting Unavailable JESSICAJAZMÍN JAMISON Consulting Unavailable ANJALI, DR LUKE Attending Unavailable HOY, DR LUKE Admitting Unavailable ANJALI, DR LUKE Primary Care Unavailable HOJohanna, DR LUKE Consulting Unavailable MICHEL BOYKIN Consulting Unavailable ANJALI, DR LUKE Attending Unavailable HOY, DR LUKE Admitting Unavailable HOY, DR WOODLAS Primary Care Unavailable DR TI BORREGO Consulting Unavailable WEST, DR JAZMÍN Aleman Consulting Unavailable DR TI BORREGO Attending Unavailable DR TI BORREGO Admitting Unavailable DR TI BORREGO Primary Care Unavailable DR TI BORREGO Consulting Unavailable Ti Borrego Primary Care Physician Oral GARCIA Attending Unavailable Ti Borrego Referring Unavailable Allergies Allergy Classification Reported Allergen(s) Allergy Type Date of Onset Reaction(s) Facility (1 source) black walnut pollen extract Drug Allergy 2 [facility] Repository (1 source) rosuvastatin Drug Allergy 1 [facility] (4 sources) Bee/Wasp/Ant venom; Translations: [Bee Stings] Drug allergy Edema (finding) [facility] (4 sources) HMG-CoA reductase inhibitor; Translations: [statins] Propensity to adverse reactions to drug Muscle pain (finding) [facility] [place] Medications Current Medications Medication Drug Class(es) Dates [...] 07-13-2021 Episodic Other aftercare (1 source) Other fdc (current) drug therapy; Translations: [OTH DETENTION CURRENT DRUG THERAPY] Onset: 07-13-2021 Episodic Other [...] Test Name Value Interpretation Reference Range Facility MRI SHOULDER RT WO CONon MRI SHOULDER [...] JONES RICHMOND Date: 2022-06-10 12:[address] [facility] XR ARTHRO SHLD RTon 06-10-20 22 [...] by: JONES RICHMOND Date: 2022-06-10 09:[address] [facility] XR FOREIGN BODY EYEon 2021 XR FOREIGN BODY EYE EXAMINATION: XR FOREIGN BODY EYE HISTORY: Foreign body in eye COMPARISON: No relevant comparison available. FINDINGS: ORBITS: Negative for a metallic foreign body. OTHER: Negative. IMPRESSION: 1. No radiopaque foreign body within the orbits. Electronically authenticated by: JONES RICHMOND Date: 2022-06-10 08:27 Normal [facility] XR CSPINE MIN 4 VIEWSon 02-17 XR CSPINE MIN 4 VIEWS EXAMINATION: XR CSPINE MIN 4 VIEWS HISTORY: Degeneration of cervical [...] by: JONES RICHMOND Date: 2022-03-04 08:[address] [facility] XR SHOULDER RT 2V or >on [...] arthritic changes are noted. Electronically authenticated by: PONCOH GARCIA Date: 2022-03-03 17:48 Normal [facility] ECHOCARDIO M/2D COMPLETEon 0 12-01-2021 ECHOCARDIO M/2D COMPLETE Patient: ARNALDO GARCIA Exam Date: 12/01/2021 : 1950 Gender:M Ordering : DR TI BORREGO . Admission #: [id number] Family : Order #: [id number] CLICK HERE TO VIEW EXAM ECHOCARDIOGRAM REPORT [...] Area(A4C): 21.80 cm2 Left Atrium Systolic Volume(A2C): 62635 mm3 Left Atrium Systolic Volume(A4C): 31768 mm3 Mitral Valve MV E to A [...] Josh Pimentel M.D. on 12/01/2021 at 13:51 [facility] Complete Blood Count with Au to Diffon 11-24-2021 Basophils (Bld) [#/Vol] 0.1 10*3/uL Normal 0.0-0.1 [facility] Comment on above: Performed By: #### C BCAD, A1C #### [place] [address] Ph. [phone] Basophils/100 WBC (Bld) 1 % Normal 0-1 [facility] Comment on above: Performed By: #### C BCAD, A1C #### [place] [address] Ph. [phone] Eosinophils (Bld) [#/Vol] 0.1 10*3/uL Normal 0.0-0.5 [facility] Comment on above: Performed By: #### C BCAD, A1C #### [place] [address] Ph. [phone] Eosinophils/100 WBC (Bld) 1 % Normal 0-5 [facility] Comment on above: Performed By: #### C BCAD, A1C #### [place] [address] Ph. [phone] Erythrocyte distribution width (RBC) [Ratio] 12.2 % Normal 11.5-14.5 [facility] Comment on above: Performed By: #### C BCAD, A1C #### [place] [address] Ph. [phone] Hematocrit (Bld) [Volume fraction] 49.2 % Normal 42.0-52.0 [facility] Comment on above: Performed By: #### C BCAD, A1C #### [place] [address] Ph. [phone] Hemoglobin (Bld) [Mass/Vol] 15.7 g/dL Normal 13.5-17.5 [facility] Comment on above: Performed By: #### C BCAD, A1C #### [address] [address] Ph. [phone] Lymphocytes (Bld) [#/Vol] 3.3 10*3/uL Normal 1.0-4.0 [facility] Comment on above: Performed By: #### C BCAD, A1C #### [place] [address] Ph. [phone] Lymphocytes/100 WBC (Bld) 36 % Normal 20-40 [facility] Comment on above: Performed By: #### C BCAD, A1C #### [place] [address] Ph. [phone] MCH (RBC) [Entitic mass] 31.6 pg Normal 27.0-35.0 [facility] Comment on above: Performed By: #### C BCAD, A1C #### [place] [address] Ph. [phone] MCHC (RBC) [Mass/Vol] 31.9 g/dL Low 32.0-36.0 [facility] Comment on above: Performed By: #### C BCAD, A1C #### [address] [address] Ph. [phone] MCV (RBC) [Entitic vol] 99 fL Normal 80-100 [facility] Comment on above: Performed By: #### C BCAD, A1C #### [place] [id number] Ph. [phone] Monocytes (Bld) [#/Vol] 0.8 10*3/uL Normal 0.3-1.0 [facility] Comment on above: Performed By: #### C BCAD, A1C #### [address] [address] Ph. [phone] Monocytes/100 WBC (Bld) 9 % Normal 1-15 [facility] Comment on above: Performed By: #### C BCAD, A1C #### [address] [address] Ph. [phone] Neutrophils (Bld) [#/Vol] 4.8 10*3/uL Normal 1.8-7.7 [facility] Comment on above: Performed By: #### C BCAD, A1C #### [address] [address] Ph. [phone] Neutrophils/100 WBC (Bld) 53 % Normal 50-70 [facility] Comment on above: Performed By: #### C BCAD, A1C #### [address] [address] Ph. [phone] Platelet mean volume (Bld) [Entitic vol] 10.6 fL Normal 9.4-12.3 [facility] Comment on above: Performed By: #### C BCAD, A1C #### [address] [address] Ph. [phone] Platelets (Bld) [#/Vol] 351 10*3/uL Normal 150-450 [facility] Comment on above: Performed By: #### C BCAD, A1C #### [address] [address] Ph. [phone] RBC (Bld) [#/Vol] 4.97 10*6/uL Normal 4.70-6.10 [facility] Comment on above: Performed By: #### C BCAD, A1C #### [address] [address] Ph. [phone] WBC (Bld) [#/Vol] 9.1 10*3/uL Normal 3.7-11.0 [facility] Comment on above: Performed By: #### C BCAD, A1C #### [address] [address] Ph. [phone] Comprehensive Metabolic Pane fredo 11-24-2021 Albumin [Mass/Vol] 4.5 g/dL Normal 3.5-5.0 [facility] Comment on above: Performed By: #### C MP, PSA, LIPD #### [place] [address] Ph. [phone] ALP [Catalytic activity/Vol] 62 U/L Normal 38-126 [facility] Comment on above: Performed By: #### C MP, PSA, LIPD #### [place] [id number] Ph. [phone] ALT [Catalytic activity/Vol] 23 U/L Normal 0-50 [facility] Comment on above: Performed By: #### C MP, PSA, LIPD #### [place] [address] Ph. [phone] AST [Catalytic activity/Vol] 21 U/L Normal 17-59 [facility] Comment on above: Performed By: #### C MP, PSA, LIPD #### [place] [address] Ph. [phone] Bilirubin [Mass/Vol] 0.5 mg/dL Normal 0.2-1.3 [facility] Comment on above: Performed By: #### C MP, PSA, LIPD #### [place] [id number] Ph. [phone] Calcium [Mass/Vol] 9.5 mg/dL Normal 8.4-10.2 [facility] Comment on above: Performed By: #### C MP, PSA, LIPD #### [place] [address] Ph. [phone] Chloride [Moles/Vol] 104 mmol/L Normal 98-107 [facility] Comment on above: Performed By: #### C MP, PSA, LIPD #### [address] [place] [address] Ph. [phone] CO2 [Moles/Vol] 31 mmol/L Normal 22-32 [facility] Comment on above: Performed By: #### C MP, PSA, LIPD #### [place] [address] Ph. [phone] Creatinine [Mass/Vol] 0.92 mg/dL Normal 0.66-1.25 [facility] Comment on above: Performed By: #### C MP, PSA, LIPD #### [place] [address] Ph. [phone] GFR/1.73 sq M.predicted among non-blacks MDRD (S/P/Bld) [Vol rate/Area] 82 mL/min/{1.73_m2} Normal >60 [facility] Comment on above: Result Comment: Stag e 1 Kidney damage (e.g., protein in the urine) with normal GFR >=90\X0D0A\Stage 2 Kidney damage with mild decrease in GFR 60-89\X0D0A\Stage 3a Moderate decrease in GFR 45-59\X0D0A\Stage 3b Moderate decrease in GFR 30-44\X0D0A\Stage 4 Severe reduction in GFR 15-29\X0D0A\Stage 5 Kidney failure <15 Performed By: #### C MP, PSA, LIPD #### [place] [address] Ph. [phone] Glucose [Mass/Vol] 116 mg/dL High 65-100 [facility] Comment on above: Performed By: #### C MP, PSA, LIPD #### [place] [address] Ph. [phone] Potassium [Moles/Vol] 5.2 mmol/L High 3.6-5.0 [facility] Comment on above: Performed By: #### C MP, PSA, LIPD #### [place] [address] Ph. [phone] Protein [Mass/Vol] 7.3 g/dL Normal 6.3-8.2 [facility] Comment on above: Performed By: #### C MP, PSA, LIPD #### [address] [address] Ph. [phone] Sodium [Moles/Vol] 141 mmol/L Normal 135-145 [facility] Comment on above: Performed By: #### C MP, PSA, LIPD #### [place] [address] Ph. [phone] Urea nitrogen [Mass/Vol] 21 mg/dL High 9-20 [facility] Comment on above: Performed By: #### C MP, PSA, LIPD #### [place] [address] Ph. [phone] Hemoglobin A1Con 11-24-2021 EAG 135 mg/dL Normal [facility] Comment on above: Result Comment: Sandi mated Average Glucose is a caluculated value from Hemoglobin A1C and is representative personal service of the average blood glucose level in the last 2-3 month period. Performed By: #### C BCAD, A1C #### [place] [address] Ph. [phone] HbA1c (Bld) [Mass fraction] 6.3 % High 4.0-6.0 [facility] Comment on above: Result Comment: [place] Diabetes Association guidelines indicate that patients with HgbA1C in the range of 5.7-6.4% are at increased risk for development of diabetes, and intervention by lifestyle modification may be beneficial. HgbA1C greater than or equal to 6.5% is considered diagnostic of diabetes. Performed By: #### C BCAD, A1C #### [place] [id number] Ph. [phone] INSULIN, SERUMon 11-24-2021 Insulin 14.8 uIU/mL Normal <=19.6 [facility] Comment on above: Order Comment: [facility] performed at: [facility], [facility], [address] [place] [address], , Plant Culture Manager: Josh Flood MD PhD\X0D0A\[facility] Collection Date/Time: [id number]\X0D0A\[facility] Results Received Date/Time: [id number]\X0D0A\[facility] Reported Date/Time: Result Comment: \X0D 0A\Risk Category:\X0D0A\Optimal < or = 19.6\X0D0A\Moderate NA\X0D0A\High >19.6\X0D0A\ \X0D0A\Adult cardiovascular event risk category cut\X0D0A\points (optimal, moderate, high) are based on\X0D0A\[facility] population data from 08/2011.\X0D0A\ \X0D0A\This insulin assay shows strong cross-reactivity for\X0D0A\some insulin analogs (lispro, aspart, and glargine)\X0D0A\and much lower cross-reactivity with others (determir,\X0D0A\glulisine).\X0D0A\ Performed By: #### O RD523 #### [place] [address] Ph. [phone] Lipid Panelon 11-24-2021 Cholesterol [Mass/Vol] 257 mg/dL High 100-200 [facility] Comment on above: Result Comment: <200 mg/dL is recommended cholesterol level. Performed By: #### C MP, PSA, LIPD #### [place] [address] Ph. [phone] Cholesterol in HDL [Mass/Vol] 45 mg/dL Normal >40 [facility] Comment on above: Performed By: #### C MP, PSA, LIPD #### [place] [address] Ph. [phone] Cholesterol in LDL [Mass/Vol] 178 mg/dL High 20-100 [facility] Comment on above: Performed By: #### C JADE PSA, LIPD #### [address] [address] Ph. [phone] Cholesterol.total/C holesterol in HDL [Mass ratio] 6 {ratio} High 1-5 [facility] Comment on above: Performed By: #### C MP, PSA, LIPD #### [address] [address] Ph. [phone] Triglyceride [Mass/Vol] 169 mg/dL High 10-150 [facility] Comment on above: Performed By: #### C JADE, PSA, LIPD #### [address] [address] Ph. [phone] CREATININEon 10-02-2021 Creatinine [Mass/Vol] 0.99 mg/dL Normal 0.66-1.25 [facility] Comment on above: Performed By: #### C RENEE #### [facility] [address] [place] [address] [address] Michelle Garcia EGFR-AF PAKISTANI >60 Normal >=60 [facility] Comment on above: Performed By: #### C RENEE #### [facility] [address] [place] [address] Dr. Michelle Garcia EGFR-NON AF PAKISTANI >60 Normal >=60 [facility] Comment on above: Performed By: #### C RENEE #### [facility] [address] [place] [address] Dr. Michelle Garcia MRI HIP RT W CONon MRI HIP RT W CON EXAM: MRI HIP RT W C ON 20 mL Dotarem. HISTORY: The patient is a 71-year-old male. Follow-up right femoral head lesion. COMPARISON: Comparison is made to radiographs of the right hip obtained on 08/25/2021 and to a non-contrast enhanced MRI of the right hip obtained on 09/21/2021. TECHNIQUE: Small pdisg-td-xwyh images were obtained of the right hip: [...] by: MICHEL BOYKIN Date: 2021-10-02 20:[address] [facility] MRI HIP RT WO CONon 09-21-19 MRI HIP RT WO CON EXAMINATION: MRI [...] JAZMÍN GA Date: 2021-09-21 14:29 Normal [facility] XR FOREIGN BODY EYEon 2021 XR FOREIGN BODY EYE EXAMINATION: XR FOREIGN BODY EYE HISTORY: Foreign body in eye COMPARISON: No relevant comparison available. FINDINGS: ORBITS: Negative for a metallic foreign body. OTHER: Negative. IMPRESSION: 1. No metallic foreign body within the orbits. Electronically authenticated by: JONES RICHMOND Date: 2021-09-21 12:52 Normal [facility] XR SACRUM_COCCYXon XR SACRUM_COCCYX EXAMINATION: XR LSPI [...] JONES RICHMOND Date: 2021-08-25 16:07 Normal [facility] BNPon 07-08-2021 Natriuretic peptide B (Bld) [Mass/Vol] 73.0 pg/mL Normal <=900.0 [facility] Comment on above: Performed By: #### C RP, BNP, CMP #### [facility] [address] [place] [address] Dr. Michelle Garcia CBC AUTO DIFFon 07-08-2021 BASO # 0.0 103/ul Normal 0.0-0.1 [facility] Comment on above: Performed By: #### C RP, BNP, CMP #### [facility] [address] [place] [address] Dr. Michelle Garcia Basophils/100 WBC (Bld) 0.1 % Critically low 0.2-2.0 [facility] Comment on above: Performed By: #### C RP, BNP, CMP #### [facility] [address] [place] [address] Dr. Michelle Garcia EO # 0.0 103/ul Normal 0.0-0.7 [facility] Comment on above: Performed By: #### C RP, BNP, CMP #### [facility] [address] [place] [address] Dr. Michelle aGrcia Eosinophils/100 WBC (Bld) 0.0 % Critically low 0.9-7.0 [facility] Comment on above: Performed By: #### C RP, BNP, CMP #### [facility] [address] [place] [address] Dr. Michelle Garcia Erythrocyte distribution width (RBC) [Ratio] 12.4 % Normal 11.0-15.0 [facility] Comment on above: Performed By: #### C RP, BNP, CMP #### [facility] [address] [place] [address] Dr. Michelle Garcia Hematocrit (Bld) [Volume fraction] 43.2 % Normal 42.0-54.0 [facility] Comment on above: Performed By: #### C RP, BNP, CMP #### [facility] [address] [place] [address] Dr. Michelle Garcia Hemoglobin (Bld) [Mass/Vol] 14.4 g/dL Normal 14.0-18.0 [facility] Comment on above: Performed By: #### C RP, BNP, CMP #### [facility] [address] [place] [address] Dr. Michelle Garcia IG # 0.06 10e3/ul Critically high 0.00-0.03 [facility] Comment on above: Performed By: #### C RP, BNP, CMP #### [facility] [address] [place] [address] Dr. Michelle Garcia IG % 0.7 % Critically high 0.0-0.5 [facility] Comment on above: Performed By: #### C RP, BNP, CMP #### [facility] [address] [place] [address] Dr. Michelle Garcia LYMPH # 1.2 103/ul Normal 1.2-3.8 [facility] Comment on above: Performed By: #### C RP, BNP, CMP #### [facility] [address] [place] [address] Dr. Michelle Garcia Lymphocytes/100 WBC (Bld) 14.0 % Critically low 20.5-60.0 [facility] Comment on above: Performed By: #### C RP, BNP, CMP #### [facility] [address] [place] [address] Dr. Michelle Garcia MANUAL DIFF REQ NO Normal [facility] Comment on above: Performed By: #### C RP, BNP, CMP #### [facility] [address] [place] [address] [address] Michelle Garcia MCH (RBC) [Entitic mass] 31.6 pg Normal 25.9-34.0 [facility] Comment on above: Performed By: #### C RP, BNP, CMP #### [facility] [address] [place] [address] [address] Michelle Garcia MCHC (RBC) [Mass/Vol] 33.3 g/dL Normal 29.9-35.2 [facility] Comment on above: Performed By: #### C RP, BNP, CMP #### [facility] [address] [place] [address] Dr. Michelle Garcia MCV (RBC) [Entitic vol] 94.9 fL Critically high 80.0-94.0 [facility] Comment on above: Performed By: #### C RP, BNP, CMP #### [facility] [address] [place] [address] Dr. Michelle Garcia MONO # 0.7 103/ul Normal 0.3-0.8 [facility] Comment on above: Performed By: #### C RP, BNP, CMP #### [facility] [address] [place] [address] Dr. Michelle Garcia Monocytes/100 WBC (Bld) 8.5 % Normal 1.7-12.0 [facility] Comment on above: Performed By: #### C RP, BNP, CMP #### [facility] [address] [place] [address] Dr. Michelle Garcia NEUT # 6.6 103/ul Critically high 1.4-6.5 [facility] Comment on above: Performed By: #### C RP, BNP, CMP #### [facility] [address] [place] [address] Dr. Michelle Garcia Neutrophils/100 WBC (Bld) 76.7 % Critically high 43.0-75.0 [facility] Comment on above: Performed By: #### C RP, BNP, CMP #### [facility] [address] [place] [address] Dr. Michelle Garcia Platelet mean volume (Bld) [Entitic vol] 10.3 fL Normal 9.5-13.5 [facility] Comment on above: Performed By: #### C RP, BNP, CMP #### [facility] [address] [place] [address] Dr. Michelle Garcia PLT 347 103/ul Normal 150-450 [facility] Comment on above: Performed By: #### C RP, BNP, CMP #### [facility] [address] [place] [address] Dr. Michelle Garcia RBC 4.55 106/ul Critically low 4.70-6.10 [facility] Comment on above: Performed By: #### C RP, BNP, CMP #### [facility] [address] [place] [address] Dr. Michelle Garcia WBC 8.6 103/ul Normal 4.0-11.0 [facility] Comment on above: Performed By: #### C RP, BNP, CMP #### [facility] [address] [place] [address] Dr. Michelle Garcia CRPon 07-08-2021 CRP [Mass/Vol] mg/L Normal <=1.0 [facility] Comment on above: Performed By: #### C RP, BNP, CMP #### [facility] [address] [place] [address] Dr. Michelle Garcia PROF 14(COMP METB)on 021 Albumin [Mass/Vol] 3.1 g/dL Critically low 3.5-5.0 [facility] Comment on above: Performed By: #### C RP, BNP, CMP #### [facility] [address] [place] [address] Dr. Michelle Garcia Albumin/Globulin [Mass ratio] 0.8 {ratio} Normal [facility] Comment on above: Performed By: #### C RP, BNP, CMP #### [facility] [address] [place] [address] Dr. Michelle Garcia ALP [Catalytic activity/Vol] 52 U/L Normal 38-126 [facility] Comment on above: Performed By: #### C RP, BNP, CMP #### [facility] [address] [address] [address] Michelle Garcia ALT [Catalytic activity/Vol] 110 U/L Critically high 21-72 [facility] Comment on above: Performed By: #### C RP, BNP, CMP #### [facility] [address] [address] [address] Michelle Garcia Anion gap [Moles/Vol] 12.8 mmol/L Normal [facility] Comment on above: Performed By: #### C RP, BNP, CMP #### [facility] [address] [place] [address] Dr. Michelle Garcia AST [Catalytic activity/Vol] 47 U/L Normal 17-59 [facility] Comment on above: Performed By: #### C RP, BNP, CMP #### [facility] [address] [place] [address] Dr. Michelle Garcia Bilirubin [Mass/Vol] 0.5 mg/dL Normal 0.2-1.3 [facility] Comment on above: Performed By: #### C RP, BNP, CMP #### [facility] [address] [place] [address] Dr. Michelle Garcia Calcium [Mass/Vol] 8.0 mg/dL Critically low 8.4-10.2 [facility] Comment on above: Performed By: #### C RP, BNP, CMP #### [facility] [address] [place] [address] Dr. Michelle Garcia Chloride [Moles/Vol] 101 mmol/L Normal 98-107 [facility] Comment on above: Performed By: #### C RP, BNP, CMP #### [facility] [address] [place] [address] Dr. Michelle Garcia CO2 [Moles/Vol] 25.9 mmol/L Normal 22.0-30.[address] [facility] Comment on above: Performed By: #### C RP, BNP, CMP #### [facility] [address] [place] [address] Dr. Michelle Garcia Creatinine [Mass/Vol] 0.87 mg/dL Normal 0.66-1.25 [facility] Comment on above: Performed By: #### C RP, BNP, CMP #### [facility] [address] [address] [address] Michelle Garcia EGFR-AF PAKISTANI >60 Normal >=60 [facility] Comment on above: Performed By: #### C RP, BNP, CMP #### [facility] [address] [address] [address] Michelle Garcia EGFR-NON AF PAKISTANI >60 Normal >=60 [facility] Comment on above: Performed By: #### C RP, BNP, CMP #### [facility] [address] [address] [address] Michelle Garcia Globulin (S) [Mass/Vol] 3.8 g/dL Normal [facility] Comment on above: Performed By: #### C RP, BNP, CMP #### [facility] [address] [place] [address] Dr. Michelle Garcia Glucose [Mass/Vol] 150 mg/dL Critically high 74-106 [facility] Comment on above: Performed By: #### C RP, BNP, CMP #### [facility] [address] [address] [address] Michelle Garcia Potassium [Moles/Vol] 3.7 mmol/L Normal 3.4-5.0 [facility] Comment on above: Performed By: #### C RP, BNP, CMP #### [facility] [address] [address] [address] Michelle Garcia Protein [Mass/Vol] 6.9 g/dL Normal 6.1-8.2 [facility] Comment on above: Performed By: #### C RP, BNP, CMP #### [facility] [address] [address] [address] Michelle Garcia Sodium [Moles/Vol] 136 mmol/L Critically low 137-[address] [facility] Comment on above: Performed By: #### C RP, BNP, CMP #### [facility] [address] [address] [address] Michelle Garcia Urea nitrogen [Mass/Vol] 18.0 mg/dL Normal 9.0-20.0 [facility] Comment on above: Performed By: #### C RP, BNP, CMP #### [facility] [address] [place] [address] Dr. Michelle Garcia Urea nitrogen/Creatinine [Mass ratio] 20.7 mg/mg Normal [facility] Comment on above: Performed By: #### C RP, BNP, CMP #### [facility] [address] [place] [address] Dr. Michelle Garcia BNPon 07-07-2021 Natriuretic peptide B (Bld) [Mass/Vol] 47.0 pg/mL Normal <=900.0 [facility] Comment on above: Performed By: #### H STROPN #### [facility] [address] [place] [address] Dr. Michelle Garcia CBC AUTO DIFFon 07-07-2021 BASO # 0.0 103/ul Normal 0.0-0.1 [facility] Comment on above: Performed By: #### C BC #### [facility] [address] [place] [address] Dr. Michelle Garcia Basophils/100 WBC (Bld) 0.1 % Critically low 0.2-2.0 [facility] Comment on above: Performed By: #### C BC #### [facility] [address] [place] [address] Dr. Michelle Garcia EO # 0.0 103/ul Normal 0.0-0.7 [facility] Comment on above: Performed By: #### C BC #### [facility] [address] [place] [address] Dr. Michelle Garcia Eosinophils/100 WBC (Bld) 0.0 % Critically low 0.9-7.0 [facility] Comment on above: Performed By: #### C BC #### [facility] [address] [place] [address] Dr. Michelle Garcia Erythrocyte distribution width (RBC) [Ratio] 12.4 % Normal 11.0-15.0 [facility] Comment on above: Performed By: #### C BC #### [facility] [address] [place] [address] Dr. Michelle Garcia Hematocrit (Bld) [Volume fraction] 41.6 % Critically low 42.0-54.0 [facility] Comment on above: Performed By: #### C BC #### [facility] [address] [place] [address] Dr. Michelle Garcia Hemoglobin (Bld) [Mass/Vol] 13.9 g/dL Critically low 14.0-18.0 [facility] Comment on above: Performed By: #### C BC #### [facility] [address] [place] [address] Dr. Michelle Garcia IG # 0.06 10e3/ul Critically high 0.00-0.03 [facility] Comment on above: Performed By: #### C BC #### [facility] [address] [place] [address] Dr. Michelle Garcia IG % 0.7 % Critically high 0.0-0.5 [facility] Comment on above: Performed By: #### C BC #### [facility] [address] [place] [address] Dr. Michelle Garcia LYMPH # 1.5 103/ul Normal 1.2-3.8 [facility] Comment on above: Performed By: #### C BC #### [facility] [address] [place] [address] Dr. Michelle Garcia Lymphocytes/100 WBC (Bld) 17.9 % Critically low 20.5-60.0 [facility] Comment on above: Performed By: #### C BC #### [facility] [address] [place] [address] Dr. Michelle Garcia MANUAL DIFF REQ NO Normal [facility] Comment on above: Performed By: #### C BC #### [facility] [address] [place] [address] Dr. Michelle Garcia MCH (RBC) [Entitic mass] 32.0 pg Normal 25.9-34.0 [facility] Comment on above: Performed By: #### C BC #### [facility] [address] [place] [address] Dr. Michelle Garcia MCHC (RBC) [Mass/Vol] 33.4 g/dL Normal 29.9-35.2 [facility] Comment on above: Performed By: #### C BC #### [facility] [address] [address] [address] Michelle Garcia MCV (RBC) [Entitic vol] 95.6 fL Critically high 80.0-94.0 [facility] Comment on above: Performed By: #### C BC #### [facility] [address] [address] [address] Michelle Garcia MONO # 0.5 103/ul Normal 0.3-0.8 [facility] Comment on above: Performed By: #### C BC #### [facility] [address] [place] [address] Dr. Michelle Garcia Monocytes/100 WBC (Bld) 6.0 % Normal 1.7-12.0 [facility] Comment on above: Performed By: #### C BC #### [facility] [address] [place] [address] Dr. Michelle Garcia NEUT # 6.4 103/ul Normal 1.4-6.5 [facility] Comment on above: Performed By: #### C BC #### [facility] [address] [place] [address] Dr. Michelle Garcia Neutrophils/100 WBC (Bld) 75.3 % Critically high 43.0-75.0 [facility] Comment on above: Performed By: #### C BC #### [facility] [address] [address] [address] Michelle Garcia Platelet mean volume (Bld) [Entitic vol] 10.2 fL Normal 9.5-13.5 [facility] Comment on above: Performed By: #### C BC #### [facility] [address] [place] [address] Dr. Michelle Garcia PLT 323 103/ul Normal 150-450 [facility] Comment on above: Performed By: #### C BC #### [facility] [address] [place] [address] Dr. Michelle Garcia RBC 4.35 106/ul Critically low 4.70-6.10 [facility] Comment on above: Performed By: #### C BC #### [facility] [address] [address] [address] Michelle Garcia WBC 8.5 103/ul Normal 4.0-11.0 [facility] Comment on above: Performed By: #### C BC #### [facility] [address] [address] [address] Michelle Garcia CRPon 07-07-2021 CRP [Mass/Vol] mg/L Normal <=1.0 [facility] Comment on above: Performed By: #### H STROPN #### [facility] [address] [place] [address] Dr. Michelle Garcia PROF 14(COMP METB)on 021 Albumin [Mass/Vol] 2.9 g/dL Critically low 3.5-5.[address] [facility] Comment on above: Performed By: #### H STROPN #### [facility] [address] [place] [address] Dr. Michelle Garcia Albumin/Globulin [Mass ratio] 0.8 {ratio} Normal [facility] Comment on above: Performed By: #### H STROPN #### [facility] [address] [place] [address] Dr. Michelle Garcia ALP [Catalytic activity/Vol] 54 U/L Normal 38-126 [facility] Comment on above: Performed By: #### H STROPN #### [facility] [address] [address] [address] Michelle Garcia ALT [Catalytic activity/Vol] 121 U/L Critically high 21-72 [facility] Comment on above: Performed By: #### H STROPN #### [facility] [address] [place] [address] Dr. Michelle Garcia Anion gap [Moles/Vol] 11.5 mmol/L Normal [facility] Comment on above: Performed By: #### H STROPN #### [facility] [address] [place] [address] Dr. Michelle Garcia AST [Catalytic activity/Vol] 57 U/L Normal 17-59 [facility] Comment on above: Performed By: #### H STROPN #### [facility] [address] [place] [address] Dr. Michelle Garcia Bilirubin [Mass/Vol] 0.3 mg/dL Normal 0.2-1.3 [facility] Comment on above: Performed By: #### H STROPN #### [facility] [address] [place] [address] Dr. Michelle Garcia Calcium [Mass/Vol] 8.1 mg/dL Critically low 8.4-10.2 [facility] Comment on above: Performed By: #### H STROPN #### [facility] [address] [place] [address] Dr. Michelle Garcia Chloride [Moles/Vol] 102 mmol/L Normal 98-107 [facility] Comment on above: Performed By: #### H STROPN #### [facility] [address] [place] [address] Dr. Michlele Garcia CO2 [Moles/Vol] 27.2 mmol/L Normal 22.0-30.[address] [facility] Comment on above: Performed By: #### H STROPN #### [facility] [address] [place] [address] Dr. Michelle Garcia Creatinine [Mass/Vol] 0.85 mg/dL Normal 0.66-1.25 [facility] Comment on above: Performed By: #### H STROPN #### [facility] [address] [place] [address] Dr. Michelle Garcia EGFR-AF PAKISTANI >60 Normal >=[address] [facility] Comment on above: Performed By: #### H STROPN #### [facility] [address] [place] [address] Dr. Michelle Garcia EGFR-NON AF PAKISTANI >60 Normal >=60 [facility] Comment on above: Performed By: #### H STROPN #### [facility] [address] [place] [address] Dr. Michelle Garcia Globulin (S) [Mass/Vol] 3.7 g/dL Normal [facility] Comment on above: Performed By: #### H STROPN #### [facility] [address] [address] [address] Michelle Garcia Glucose [Mass/Vol] 152 mg/dL Critically high 74-106 [facility] Comment on above: Performed By: #### H STROPN #### [facility] [address] [address] [address] Michelle Garcia Potassium [Moles/Vol] 3.7 mmol/L Normal 3.4-5.0 [facility] Comment on above: Performed By: #### H STROPN #### [facility] [address] [address] [address] Michelle Garcia Protein [Mass/Vol] 6.6 g/dL Normal 6.1-8.2 [facility] Comment on above: Performed By: #### H STROPN #### [facility] [address] [address] [address] Michelle Garcia Sodium [Moles/Vol] 137 mmol/L Normal 137-145 [facility] Comment on above: Performed By: #### H STROPN #### [facility] [address] [place] [address] Dr. Michelle Garcia Urea nitrogen [Mass/Vol] 18.0 mg/dL Normal 9.0-20.0 [facility] Comment on above: Performed By: #### H STROPN #### [facility] [address] [address] [address] Michelle Garcia Urea nitrogen/Creatinine [Mass ratio] 21.2 mg/mg Normal [facility] Comment on above: Performed By: #### H STROPN #### [facility] [address] [address] [address] Michelle Garcia BNPon 07-06-2021 Natriuretic peptide B (Bld) [Mass/Vol] 50.0 pg/mL Normal <=900.0 [facility] Comment on above: Performed By: #### H STROPN #### [facility] [address] [address] [address] Michelle Garcia CBC AUTO DIFFon 07-06-2021 BASO # 0.0 103/ul Normal 0.0-0.1 [facility] Comment on above: Performed By: #### H STROPN #### [facility] [address] [place] [address] Dr. Michelle Garcia Basophils/100 WBC (Bld) 0.0 % Critically low 0.2-2.0 [facility] Comment on above: Performed By: #### H STROPN #### [facility] [address] [place] [address] Dr. Michelle Garcia EO # 0.0 103/ul Normal 0.0-0.7 [facility] Comment on above: Performed By: #### H STROPN #### [facility] [address] [place] [address] Dr. Michelle Garcia Eosinophils/100 WBC (Bld) 0.0 % Critically low 0.9-7.0 [facility] Comment on above: Performed By: #### H STROPN #### [facility] [address] [place] [address] Dr. Michelle Garcia Erythrocyte distribution width (RBC) [Ratio] 12.6 % Normal 11.0-15.0 [facility] Comment on above: Performed By: #### H STROPN #### [facility] [address] [place] [address] Dr. Michelle Garcia Hematocrit (Bld) [Volume fraction] 40.6 % Critically low 42.0-54.0 [facility] Comment on above: Performed By: #### H STROPN #### [facility] [address] [place] [address] Dr. Michelle Garcia Hemoglobin (Bld) [Mass/Vol] 13.5 g/dL Critically low 14.0-18.0 [facility] Comment on above: Performed By: #### H STROPN #### [facility] [address] [place] [address] Dr. Michelle Garcia IG # 0.03 10e3/ul Normal 0.00-0.03 [facility] Comment on above: Performed By: #### H STROPN #### [facility] [address] [address] [address] Michelle Garcia IG % 0.4 % Normal 0.0-0.5 [facility] Comment on above: Performed By: #### H STROPN #### [facility] [address] [place] [address] Dr. Michelle Garcia LYMPH # 1.4 103/ul Normal 1.2-3.8 [facility] Comment on above: Performed By: #### H STROPN #### [facility] [address] [place] [address] Dr. Michelle Garcia Lymphocytes/100 WBC (Bld) 19.1 % Critically low 20.5-60.0 [facility] Comment on above: Performed By: #### H STROPN #### [facility] [address] [place] [address] Dr. Michelle Garcia MANUAL DIFF REQ NO Normal [facility] Comment on above: Performed By: #### H STROPN #### [facility] [address] [place] [address] Dr. Michelle Garcia MCH (RBC) [Entitic mass] 31.8 pg Normal 25.9-34.0 [facility] Comment on above: Performed By: #### H STROPN #### [facility] [address] [place] [address] Dr. Michelle Garcia MCHC (RBC) [Mass/Vol] 33.3 g/dL Normal 29.9-35.2 [facility] Comment on above: Performed By: #### H STROPN #### [facility] [address] [place] [address] Dr. Michelle Garcia MCV (RBC) [Entitic vol] 95.5 fL Critically high 80.0-94.0 [facility] Comment on above: Performed By: #### H STROPN #### [facility] [address] [place] [address] Dr. Michelle Garcia MONO # 0.5 103/ul Normal 0.3-0.8 [facility] Comment on above: Performed By: #### H STROPN #### [facility] [address] [place] [address] Dr. Michelle Garcia Monocytes/100 WBC (Bld) 6.9 % Normal 1.7-12.0 [facility] Comment on above: Performed By: #### H STROPN #### [facility] [address] [address] [address] Michelle Garcia NEUT # 5.2 103/ul Normal 1.4-6.5 [facility] Comment on above: Performed By: #### H STROPN #### [facility] [address] [place] [address] Dr. Michelle Garcia Neutrophils/100 WBC (Bld) 73.6 % Normal 43.0-75.0 [facility] Comment on above: Performed By: #### H STROPN #### [facility] [address] [place] [address] Dr. Michelle Garcia Platelet mean volume (Bld) [Entitic vol] 10.1 fL Normal 9.5-13.5 [facility] Comment on above: Performed By: #### H STROPN #### [facility] [address] [place] [address] Dr. Michelle Garcia PLT 291 103/ul Normal 150-450 [facility] Comment on above: Performed By: #### H STROPN #### [facility] [address] [place] [address] Dr. Michelle Garcia RBC 4.25 106/ul Critically low 4.70-6.10 [facility] Comment on above: Performed By: #### H STROPN #### [facility] [address] [place] [address] Dr. Michelle Garcia WBC 7.1 103/ul Normal 4.0-11.0 [facility] Comment on above: Performed By: #### H STROPN #### [facility] [address] [place] [address] Dr. Michelle Garcia CRPon 07-06-2021 CRP [Mass/Vol] mg/L Normal <=1.0 [facility] Comment on above: Performed By: #### H STROPN #### [facility] [address] [place] [address] Dr. Michelle Garcia PROF 14(COMP METB)on 07-06-2 021 Albumin [Mass/Vol] 2.9 g/dL Critically low 3.5-5.0 [facility] Comment on above: Performed By: #### H STROPN #### [facility] [address] [address] [address] Michelle Garcia Albumin/Globulin [Mass ratio] 0.8 {ratio} Normal [facility] Comment on above: Performed By: #### H STROPN #### [facility] [address] [place] [address] Dr. Michelle Garcia ALP [Catalytic activity/Vol] 55 U/L Normal 38-126 [facility] Comment on above: Performed By: #### H STROPN #### [facility] [address] [place] [address] Dr. Michelle Garcia ALT [Catalytic activity/Vol] 91 U/L Critically high 21-72 [facility] Comment on above: Performed By: #### H STROPN #### [facility] [address] [place] [address] Dr. Michelle Garcia Anion gap [Moles/Vol] 12.7 mmol/L Normal [facility] Comment on above: Performed By: #### H STROPN #### [facility] [address] [place] [address] Dr. Michelle Garcia AST [Catalytic activity/Vol] 45 U/L Normal 17-59 [facility] Comment on above: Performed By: #### H STROPN #### [facility] [address] [address] [address] Michelle Garcia Bilirubin [Mass/Vol] 0.3 mg/dL Normal 0.2-1.3 [facility] Comment on above: Performed By: #### H STROPN #### [facility] [address] [place] [address] Dr. Michelle Garcia Calcium [Mass/Vol] 8.2 mg/dL Critically low 8.4-10.2 [facility] Comment on above: Performed By: #### H STROPN #### [facility] [address] [place] [address] Dr. Michelle Garcia Chloride [Moles/Vol] 102 mmol/L Normal 98-107 [facility] Comment on above: Performed By: #### H STROPN #### [facility] [address] [address] [address] Michelle Garcia CO2 [Moles/Vol] 27.1 mmol/L Normal 22.0-30.0 [facility] Comment on above: Performed By: #### H STROPN #### [facility] [address] [address] [address] Michelle Garcia Creatinine [Mass/Vol] 0.88 mg/dL Normal 0.66-1.25 [facility] Comment on above: Performed By: #### H STROPN #### [facility] [address] [place] [address] Dr. Michelle Garcia EGFR-AF PAKISTANI >60 Normal >=60 [facility] Comment on above: Performed By: #### H STROPN #### [facility] [address] [place] [address] Dr. Michelle Garcia EGFR-NON AF PAKISTANI >60 Normal >=60 [facility] Comment on above: Performed By: #### H STROPN #### [facility] [address] [place] [address] Dr. Michelle Garcia Globulin (S) [Mass/Vol] 3.8 g/dL Normal [facility] Comment on above: Performed By: #### H STROPN #### [facility] [address] [place] [address] Dr. Michelle Garcia Glucose [Mass/Vol] 174 mg/dL Critically high 74-106 [facility] Comment on above: Performed By: #### H STROPN #### [facility] [address] [address] [address] Michelle Garcia Potassium [Moles/Vol] 3.8 mmol/L Normal 3.4-5.0 [facility] Comment on above: Performed By: #### H STROPN #### [facility] [address] [place] [address] Dr. Michelle Garcia Protein [Mass/Vol] 6.7 g/dL Normal 6.1-8.2 [facility] Comment on above: Performed By: #### H STROPN #### [facility] [address] [place] [address] Dr. Michelle Garcia Sodium [Moles/Vol] 138 mmol/L Normal 137-145 [facility] Comment on above: Performed By: #### H STROPN #### [facility] [address] [place] [address] Dr. Michelle Garcia Urea nitrogen [Mass/Vol] 17.0 mg/dL Normal 9.0-20.0 [facility] Comment on above: Performed By: #### H STROPN #### [facility] [address] [place] [address] Dr. Michelle Garcia Urea nitrogen/Creatinine [Mass ratio] 19.3 mg/mg Normal [facility] Comment on above: Performed By: #### H STROPN #### [facility] [address] [place] [address] Dr. Michelle Garcia BNPon 07-05-2021 Natriuretic peptide B (Bld) [Mass/Vol] 32.0 pg/mL Normal <=900.0 [facility] Comment on above: Performed By: #### C RP, BNP, CMP #### [facility] [address] [place] [address] Dr. Michelle Garcia CBC AUTO DIFFon 07-05-2021 BASO # 0.0 103/ul Normal 0.0-0.1 [facility] Comment on above: Performed By: #### C RP, BNP, CMP #### [facility] [address] [place] [address] Dr. Michelle aGrcia Basophils/100 WBC (Bld) 0.2 % Normal 0.2-2.0 [facility] Comment on above: Performed By: #### C RP, BNP, CMP #### [facility] [address] [place] [address] Dr. Michelle Garcia EO # 0.0 103/ul Normal 0.0-0.7 [facility] Comment on above: Performed By: #### C RP, BNP, CMP #### [facility] [address] [place] [address] Dr. Michelle Garcia Eosinophils/100 WBC (Bld) 0.0 % Critically low 0.9-7.0 [facility] Comment on above: Performed By: #### C RP, BNP, CMP #### [facility] [address] [place] [address] Dr. Michelle Garcia Erythrocyte distribution width (RBC) [Ratio] 13.0 % Normal 11.0-15.0 [facility] Comment on above: Performed By: #### C RP, BNP, CMP #### [facility] [address] [place] [address] Dr. Michelle Garcia Hematocrit (Bld) [Volume fraction] 42.3 % Normal 42.0-54.0 [facility] Comment on above: Performed By: #### C RP, BNP, CMP #### [facility] [address] [place] [address] Dr. Michelle Garcia Hemoglobin (Bld) [Mass/Vol] 13.5 g/dL Critically low 14.0-18.0 [facility] Comment on above: Performed By: #### C RP, BNP, CMP #### [facility] [address] [place] [address] Dr. Michelle Garcia IG # 0.02 10e3/ul Normal 0.00-0.03 [facility] Comment on above: Performed By: #### C RP, BNP, CMP #### [facility] [address] [place] [address] Dr. Michelle Garcia IG % 0.4 % Normal 0.0-0.5 [facility] Comment on above: Performed By: #### C RP, BNP, CMP #### [facility] [address] [place] [address] Dr. Michelle Garcia LYMPH # 1.3 103/ul Normal 1.2-3.8 [facility] Comment on above: Performed By: #### C RP, BNP, CMP #### [facility] [address] [place] [address] Dr. Michelle Garcia Lymphocytes/100 WBC (Bld) 24.5 % Normal 20.5-60.0 [facility] Comment on above: Performed By: #### C RP, BNP, CMP #### [facility] [address] [place] [address] Dr. Michelle Garcia MANUAL DIFF REQ NO Normal [facility] Comment on above: Performed By: #### C RP, BNP, CMP #### [facility] [address] [place] [address] Dr. Michelle Garcia MCH (RBC) [Entitic mass] 31.6 pg Normal 25.9-34.0 [facility] Comment on above: Performed By: #### C RP, BNP, CMP #### [facility] [facility] [address] [place] [address] Dr. Michelle Garcia MCHC (RBC) [Mass/Vol] 31.9 g/dL Normal 29.9-35.2 [facility] Comment on above: Performed By: #### C RP, BNP, CMP #### [facility] [address] [place] [address] Dr. Michelle Garcia MCV (RBC) [Entitic vol] 99.1 fL Critically high 80.0-94.0 [facility] Comment on above: Performed By: #### C RP, BNP, CMP #### [facility] [address] [place] [address] Dr. Michelle Garcia MONO # 0.3 103/ul Normal 0.3-0.8 [facility] Comment on above: Performed By: #### C RP, BNP, CMP #### [facility] [address] [place] [address] Dr. Michelle Garcia Monocytes/100 WBC (Bld) 5.0 % Normal 1.7-12.0 [facility] Comment on above: Performed By: #### C RP, BNP, CMP #### [facility] [address] [place] [address] Dr. Michelle Garcia NEUT # 3.8 103/ul Normal 1.4-6.5 [facility] Comment on above: Performed By: #### C RP, BNP, CMP #### [facility] [address] [place] [address] Dr. Michelle Garcia Neutrophils/100 WBC (Bld) 69.9 % Normal 43.0-75.0 [facility] Comment on above: Performed By: #### C RP, BNP, CMP #### [facility] [address] [address] [address] Michelle Garcia Platelet mean volume (Bld) [Entitic vol] 10.4 fL Normal 9.5-13.5 [facility] Comment on above: Performed By: #### C RP, BNP, CMP #### [facility] [address] [address] [address] Michelle Garcia PLT 274 103/ul Normal 150-450 [facility] Comment on above: Performed By: #### C RP, BNP, CMP #### [facility] [address] [place] [address] Dr. Michelle Garcia RBC 4.27 106/ul Critically low 4.70-6.10 [facility] Comment on above: Performed By: #### C RP, BNP, CMP #### [facility] [address] [address] [address] Michelle Garica WBC 5.4 103/ul Normal 4.0-11.0 [facility] Comment on above: Performed By: #### C RP, BNP, CMP #### [facility] [address] [place] [address] Dr. Michelle Garcia CRPon 07-05-2021 CRP 1.2 mg/dL Critically high <=1.0 [facility] Comment on above: Performed By: #### C RP, BNP, CMP #### [facility] [address] [place] [address] Dr. Michelle Garcia CULTURE SPUTUMon 07-05-2021 CULTURE SPUTUM Culture Observations : NORMAL RESPIRATORY FARRAH. Normal [facility] Comment on above: Performed By: #### H STROPN #### [facility] [address] [place] [address] Dr. Michelle Garcia PROF 14(COMP METB)on 021 Albumin [Mass/Vol] 3.1 g/dL Critically low 3.5-5.[address] [facility] Comment on above: Performed By: #### C RP, BNP, CMP #### [facility] [address] [address] [address] Michelle Garcia Albumin/Globulin [Mass ratio] 0.8 {ratio} Normal [facility] Comment on above: Performed By: #### C RP, BNP, CMP #### [facility] [address] [address] [address] Michelle Garcia ALP [Catalytic activity/Vol] 64 U/L Normal 38-126 [facility] Comment on above: Performed By: #### C RP, BNP, CMP #### [facility] [address] [address] [address] Michelle Garcia ALT [Catalytic activity/Vol] 125 U/L Critically high 21-72 [facility] Comment on above: Performed By: #### C RP, BNP, CMP #### [facility] [address] [address] [address] Michelle Garcia Anion gap [Moles/Vol] 9.4 mmol/L Normal [facility] Comment on above: Performed By: #### C RP, BNP, CMP #### [facility] [address] [address] [address] Michelle Garcia AST [Catalytic activity/Vol] 73 U/L Critically high 17-59 [facility] Comment on above: Performed By: #### C RP, BNP, CMP #### [facility] [address] [address] [address] Michelle Garcia Bilirubin [Mass/Vol] 0.3 mg/dL Normal 0.2-1.3 [facility] Comment on above: Performed By: #### C RP, BNP, CMP #### [facility] [address] [address] [address] Michelle Garcia Calcium [Mass/Vol] 8.2 mg/dL Critically low 8.4-10.2 [facility] Comment on above: Performed By: #### C RP, BNP, CMP #### [facility] [address] [address] [address] Michelle Garcia Chloride [Moles/Vol] 101 mmol/L Normal 98-107 [facility] Comment on above: Performed By: #### C RP, BNP, CMP #### [facility] [address] [place] [address] Dr. Michelle Garcia CO2 [Moles/Vol] 29.6 mmol/L Normal 22.0-30.0 [facility] Comment on above: Performed By: #### C RP, BNP, CMP #### [facility] [address] [place] [address] Dr. Michelle Garcia Creatinine [Mass/Vol] 0.97 mg/dL Normal 0.66-1.25 [facility] Comment on above: Performed By: #### C RP, BNP, CMP #### [facility] [address] [place] [address] Dr. Michelle Garcia EGFR-AF PAKISTANI >60 Normal >=60 [facility] Comment on above: Performed By: #### C RP, BNP, CMP #### [facility] [address] [place] [address] Dr. Michelle Garcia EGFR-NON AF PAKISTANI >60 Normal >=60 [facility] Comment on above: Performed By: #### C RP, BNP, CMP #### [facility] [address] [place] [address] Dr. Michelle Garcia Globulin (S) [Mass/Vol] 3.9 g/dL Normal [facility] Comment on above: Performed By: #### C RP, BNP, CMP #### [facility] [address] [place] [address] Dr. Michelle Garcia Glucose [Mass/Vol] 154 mg/dL Critically high 74-106 [facility] Comment on above: Performed By: #### C RP, BNP, CMP #### [facility] [address] [place] [address] Dr. Michelle Garcia Potassium [Moles/Vol] 4.0 mmol/L Normal 3.4-5.0 [facility] Comment on above: Performed By: #### C RP, BNP, CMP #### [facility] [address] [place] [address] Dr. Michelle Garcia Protein [Mass/Vol] 7.0 g/dL Normal 6.1-8.2 [facility] Comment on above: Performed By: #### C RP, BNP, CMP #### [facility] [address] [address] [address] Michelle Garcia Sodium [Moles/Vol] 136 mmol/L Critically low 137-145 [facility] Comment on above: Performed By: #### C RP, BNP, CMP #### [facility] [address] [address] [address] Michelle Garcia Urea nitrogen [Mass/Vol] 21.0 mg/dL Critically high 9.0-20.0 [facility] Comment on above: Performed By: #### C RP, BNP, CMP #### [facility] [address] [place] [address] Dr. Michelle Garcia Urea nitrogen/Creatinine [Mass ratio] 21.6 mg/mg Normal [facility] Comment on above: Performed By: #### C RP, BNP, CMP #### [facility] [address] [place] [address] Dr. Michelle Garcia SPUTUM GRAM STAINon 07-05-[address] [facility] Comment on above: Performed By: #### C RP, BNP, CMP #### [facility] [address] [place] [address] Dr. Michelle Garcia DIPHTHEROIDS Normal [facility] Comment on above: Performed By: #### C RP, BNP, CMP #### [facility] [address] [place] [address] Dr. Michelle Garcia EPITHELIALS <[address] [facility] Comment on above: Performed By: #### C RP, BNP, CMP #### [facility] [address] [address] [address] Michelle Garcia FUNGAL ELEMENTS Normal [facility] Comment on above: Performed By: #### C RP, BNP, CMP #### [facility] [address] [place] [address] Dr. Michelle Garcia GRAM NEG BACILLI Normal [facility] Comment on above: Performed By: #### C RP, BNP, CMP #### [facility] [address] [place] [address] Dr. Michelle Garcia GRAM NEG DIPPLOCOCCI Normal [facility] Comment on above: Performed By: #### C RP, BNP, CMP #### [facility] [address] [place] [address] Dr. Michelle Garcia GRAM POS BACILLI Normal [facility] Comment on above: Performed By: #### C RP, BNP, CMP #### [facility] [address] [place] [address] Dr. Michelle Garcia GRAM POSITIVE COCCI RARE Normal [facility] Comment on above: Performed By: #### C RP, BNP, CMP #### [facility] [address] [place] [address] Dr. Michelle Garcia WBC (Bld) [#/Vol] 10*3/uL Normal [facility] Comment on above: Performed By: #### C RP, BNP, CMP #### [facility] [address] [place] [address] Dr. Michelle Garcia BNPon 07-04-2021 Natriuretic peptide B (Bld) [Mass/Vol] 42.0 pg/mL Normal <=900.0 [facility] Comment on above: Performed By: #### B SECURITY NURSE, BMP, HSTROPN #### [facility] [address] [place] [address] Dr. Michelle Garcia CBC AUTO DIFFon 07-04-2021 BASO # 0.0 103/ul Normal 0.0-0.1 [facility] Comment on above: Performed By: #### C RP, BNP, CMP #### [facility] [address] [place] [address] Dr. Michelle Garcia Basophils/100 WBC (Bld) 0.2 % Normal 0.2-2.0 [facility] Comment on above: Performed By: #### C RP, BNP, CMP #### [facility] [address] [place] [address] Dr. Michelle Garcia EO # 0.0 103/ul Normal 0.0-0.7 [facility] Comment on above: Performed By: #### C RP, BNP, CMP #### [facility] [address] [place] [address] Dr. Michelle Garcia Eosinophils/100 WBC (Bld) 0.0 % Critically low 0.9-7.0 [facility] Comment on above: Performed By: #### C RP, BNP, CMP #### [facility] [address] [place] [address] Dr. Michelle Garcia Erythrocyte distribution width (RBC) [Ratio] 12.9 % Normal 11.0-15.0 [facility] Comment on above: Performed By: #### C RP, BNP, CMP #### [facility] [address] [place] [address] Dr. Michelle Garcia Hematocrit (Bld) [Volume fraction] 42.4 % Normal 42.0-54.0 [facility] Comment on above: Performed By: #### C RP, BNP, CMP #### [facility] [address] [place] [address] Dr. Michelle Garcia Hemoglobin (Bld) [Mass/Vol] 14.0 g/dL Normal 14.0-18.0 [facility] Comment on above: Performed By: #### C RP, BNP, CMP #### [facility] [address] [place] [address] Dr. Michelle Garcia IG # 0.03 10e3/ul Normal 0.00-0.03 [facility] Comment on above: Performed By: #### C RP, BNP, CMP #### [facility] [address] [place] [address] Dr. Michelle Garcia IG % 0.5 % Normal 0.0-0.5 [facility] Comment on above: Performed By: #### C RP, BNP, CMP #### [facility] [address] [place] [address] Dr. Michelle Garcia LYMPH # 1.6 103/ul Normal 1.2-3.8 [facility] Comment on above: Performed By: #### C RP, BNP, CMP #### [facility] [address] [place] [address] Dr. Michelle Garcia Lymphocytes/100 WBC (Bld) 24.3 % Normal 20.5-60.0 [facility] Comment on above: Performed By: #### C RP, BNP, CMP #### [facility] [address] [place] [address] Dr. Michelle Garcia MANUAL DIFF REQ NO Normal [facility] Comment on above: Performed By: #### C RP, BNP, CMP #### [facility] [address] [place] [address] Dr. Michelle Garcia MCH (RBC) [Entitic mass] 32.0 pg Normal 25.9-34.0 [facility] Comment on above: Performed By: #### C RP, BNP, CMP #### [facility] [address] [place] [address] Dr. Michelle Garcia MCHC (RBC) [Mass/Vol] 33.0 g/dL Normal 29.9-35.2 [facility] Comment on above: Performed By: #### C RP, BNP, CMP #### [facility] [address] [place] [address] Dr. Michelle Garcia MCV (RBC) [Entitic vol] 97.0 fL Critically high 80.0-94.0 [facility] Comment on above: Performed By: #### C RP, BNP, CMP #### [facility] [address] [place] [address] Dr. Michelle Garcia MONO # 0.4 103/ul Normal 0.3-0.8 [facility] Comment on above: Performed By: #### C RP, BNP, CMP #### [facility] [address] [place] [address] Dr. Michelle Garcia Monocytes/100 WBC (Bld) 6.8 % Normal 1.7-12.0 [facility] Comment on above: Performed By: #### C RP, BNP, CMP #### [facility] [address] [place] [address] Dr. Michelle Garcia NEUT # 4.4 103/ul Normal 1.4-6.5 [facility] Comment on above: Performed By: #### C RP, BNP, CMP #### [facility] [address] [address] [address] Michelle Garcia Neutrophils/100 WBC (Bld) 68.2 % Normal 43.0-75.0 [facility] Comment on above: Performed By: #### C RP, BNP, CMP #### [facility] [address] [address] [address] Michelle Garcia Platelet mean volume (Bld) [Entitic vol] 10.0 fL Normal 9.5-13.5 [facility] Comment on above: Performed By: #### C RP, BNP, CMP #### [facility] [address] [address] [address] Michelle Garcia PLT 253 103/ul Normal 150-450 [facility] Comment on above: Performed By: #### C RP, BNP, CMP #### [facility] [address] [address] [address] Michelle Garcia RBC 4.37 106/ul Critically low 4.70-6.10 [facility] Comment on above: Performed By: #### C RP, BNP, CMP #### [facility] [address] [address] [address] Michelle Garcia WBC 6.5 103/ul Normal 4.0-11.0 [facility] Comment on above: Performed By: #### C RP, BNP, CMP #### [facility] [address] [address] [address] Michelle Garcia CRPon 07-04-2021 CRP 1.0 mg/dL Normal <=1.0 [facility] Comment on above: Performed By: #### C RP, BNP, CMP #### [facility] [address] [address] [address] Michelle Garcia CTA CHEST WO W [...] JAZMÍN LOPEZ Date: 2021-07-04 16:47 Normal [facility] CULTURE BLOODon 07-04-2021 Microscopic examination of blood, culture Culture Observations: NO GROWTH AT 5 DAYS. Normal [facility] Comment on above: Performed By: #### H STROPN #### [facility] [address] [place] [address] Dr. Michelle Garcia Performed By: #### C RP, BNP, CMP #### [facility] [address] [place] [address] [id number] [address] Michelle Garcia Covid-19 PCR (CVDTBH)on 06-19 SARS-CoV-2 (COVID-19) RNA BRITTA+probe Ql (Unsp spec) Detected Critically abnormal NOT DETECTED [facility] Comment on above: Result Comment: This test is not yet approved or cleared by the [place] Food and Drug Administration (FDA). This test was developed by [employer], [place], [place]. The performance characteristics of this test were validated by [facility]. The results are not intended to be used as the sole means for clinical diagnosis or patient management decisions. [facility] is authorized under Clinical Laboratory Improvement Amendments (CLIA) to perform high- complexity testing. Performed By: #### C RP, BNP, CMP #### [facility] [address] [address] [address] Michelle Garcia D-DIMERon 07-04-2021 D-DIMER 0.59 mg/L FEU Critically high 0.19-0.50 [facility] Comment on above: Result Comment: test repeated critical value verified Performed By: #### C RP, BNP, CMP #### [facility] [address] [address] [address] Michelle Garcia D-DIMER COMMENTS SEE BELOW Normal [facility] Comment on above: Result Comment: Incr [...] By: #### C RP, BNP, CMP #### [facility] [address] [place] [address] Dr. Michelle Garcia LACTATE/LACTIC ACIDon 2020 Lactate [Moles/Vol] 1.2 mmol/L Normal 0.7-2.0 [facility] Comment on above: Performed By: #### L ACT #### [facility] [address] [place] [address] Dr. Michelle Garcia PROF CHEM 8 (BAS METB)on Anion gap [Moles/Vol] 11.0 mmol/L Normal [facility] Comment on above: Performed By: #### B SECURITY NURSE, BMP, HSTROPN #### [facility] [address] [place] [address] Dr. Michelle Garcia Calcium [Mass/Vol] 8.1 mg/dL Critically low 8.4-10.[address] [facility] Comment on above: Performed By: #### B SECURITY NURSE, BMP, HSTROPN #### [facility] [address] [address] [address] Michelle Garcia Chloride [Moles/Vol] 98 mmol/L Normal 98-107 [facility] Comment on above: Performed By: #### B SECURITY NURSE, BMP, HSTROPN #### [facility] [address] [address] [address] Michelle Garcia CO2 [Moles/Vol] 28.8 mmol/L Normal 22.0-30.0 [facility] Comment on above: Performed By: #### B SECURITY NURSE, BMP, HSTROPN #### [facility] [address] [place] [address] Dr. Michelle Garcia Creatinine [Mass/Vol] 1.01 mg/dL Normal 0.66-1.25 [facility] Comment on above: Performed By: #### B SECURITY NURSE, BMP, HSTROPN #### [facility] [address] [address] [address] Michelle Garcia EGFR-AF PAKISTANI >60 Normal >=60 [facility] Comment on above: Performed By: #### B SECURITY NURSE, BMP, HSTROPN #### [facility] [address] [place] [address] Dr. Michelle Garcia EGFR-NON AF PAKISTANI >60 Normal >=60 [facility] Comment on above: Performed By: #### B SECURITY NURSE, BMP, HSTROPN #### [facility] [address] [address] [address] Michelle Garcia Glucose [Mass/Vol] 94 mg/dL Normal 74-106 [facility] Comment on above: Performed By: #### B SECURITY NURSE, BMP, HSTROPN #### [facility] [address] [place] [address] Dr. Michelle Garcia Potassium [Moles/Vol] 3.8 mmol/L Normal 3.4-5.0 [facility] Comment on above: Performed By: #### B SECURITY NURSE, BMP, HSTROPN #### [facility] [address] [place] [address] Dr. Michelle Garcia Sodium [Moles/Vol] 134 mmol/L Critically low 137-145 [facility] Comment on above: Performed By: #### B SECURITY NURSE, BMP, HSTROPN #### [facility] [address] [place] [address] Dr. Michelle Garcia Urea nitrogen [Mass/Vol] 20.0 mg/dL Normal 9.0-20.0 [facility] Comment on above: Performed By: #### B SECURITY NURSE, BMP, HSTROPN #### [facility] [address] [place] [address] Dr. Michelle Garcia Urea nitrogen/Creatinine [Mass ratio] 19.8 mg/mg Normal [facility] Comment on above: Performed By: #### B SECURITY NURSE, BMP, HSTROPN #### [facility] [address] [place] [address] Dr. Michelle Garcia TROPONIN, HIGH SENSITIVITYon 07-04-2021 HSTROP 8.1 pg/mL Normal 4.0-42.2 [facility] Comment on above: Result Comment: CUT- OFF POINTS HAVE BEEN ESTABLISHED BASED ON THE FOURTH UNIVERSAL DEFINITIONS OF MYOCARDIAL INFARCTION. THE UPPER REFERENCE LIMIT (URL) OF TROPONIN, DEFINED THE 99TH PERCENTILE OF cTnI DISTRIBUTION IN A REFERENCE POPULATION, HAS BEEN CONFIRMED THE DECISION THRESHOLD FOR IA DIAGNOSIS. Performed By: #### H STROPN #### [facility] [address] [place] [address] Dr. Michelle Garcia HSTROP 7.6 pg/mL Normal 4.0-42.2 [facility] Comment on above: Result Comment: CUT- OFF POINTS HAVE BEEN ESTABLISHED BASED ON THE FOURTH UNIVERSAL DEFINITIONS OF MYOCARDIAL INFARCTION. THE UPPER REFERENCE LIMIT (URL) OF TROPONIN, DEFINED THE 99TH PERCENTILE OF cTnI DISTRIBUTION IN A REFERENCE POPULATION, HAS BEEN CONFIRMED THE DECISION THRESHOLD FOR IA DIAGNOSIS. Performed By: #### B SECURITY NURSE, BMP, HSTROPN #### [facility] [address] [place] [address] Dr. Michelle Garcia XR CHEST 1 Von [...] JONES RICHMOND Date: 2021-07-04 14:[address] [facility] CBC Auto Differentialon 02-2 Basophils (Bld) [#/Vol] 0.06 10*3/uL [employer] Phone: Basophils/100 WBC (Bld) 1 % 0 - 2 % [employer] Phone: Differential Type NOT REPORTED [employer] Phone: Eosinophils (Bld) [#/Vol] 0.12 10*3/uL [employer] Phone: Eosinophils/100 WBC (Bld) 1 % 1 - 4 % [employer] Phone: Erythrocyte distribution width (RBC) [Ratio] 13.0 % 11.8 - 14.4 % [employer] Phone: Hematocrit (Bld) [Volume fraction] 46.7 % 40.7 - 50.3 % [employer] Phone: Hemoglobin (Bld) [Mass/Vol] 15.1 g/dL 13 - 17 g/dL [employer] Phone: Immature granulocytes (Bld) [#/Vol] 0 % 0 [employer] Phone: Immature granulocytes (Bld) [#/Vol] 10*3/uL [employer] Phone: Lymphocytes (Bld) [#/Vol] 3.30 10*3/uL [employer] Phone: Lymphocytes/100 WBC (Bld) 32 % 24 - 43 % [employer] Phone: MCH (RBC) [Entitic mass] 31.8 pg 25.2 - 33.5 pg [employer] Phone: MCHC (RBC) [Mass/Vol] 32.3 g/dL 28.4 - 34.8 g/dL [employer] Phone: MCV (RBC) [Entitic vol] 98.3 fL 82.6 - 102.9 fL [employer] Phone: Monocytes (Bld) [#/Vol] 1.01 10*3/uL [employer] Phone: Monocytes/100 WBC (Bld) 10 % 3 - 12 % [employer] Phone: Platelet mean volume (Bld) [Entitic vol] 10.1 fL 8.1 - 13.5 fL [employer] Phone: Platelets (Bld) [#/Vol] NOT REPORTED [employer] Phone: Platelets (Bld) [#/Vol] 372 10*3/uL [employer] Phone: RBC (Bld) [#/Vol] 4.75 10*6/uL 4.21 - 5.7 7 m/uL [employer] Phone: RBC morphology finding Nom (Bld) NOT REPORTED [employer] Phone: Segmented neutrophils/100 WBC (Bld) 56 % 36 - 65 % [employer] Phone: Segs Absolute 5[employer]69 [employer] Work Phone: WBC (Bld) [#/Vol] 10.2 10*3/uL [employer] Phone: WBC (Bld) [#/Vol] 0.0 10*3/uL 0.0 per 10 0 WBC [employer] Phone: WBC Morphology NOT REPORTED [facility]iersten [facility] Work Phone: CBC with Diffon 11-09-2020 Abs. Basophil 0.06 k/uL Normal 0.00-0.20 [facility] Comment on above: Performed By: #### C DP, LIP, CP #### [address] [place], [place] [id number] Ostomy Nurse: Jazmín Lopes MD Abs.Imm.Granulocyte <0.03 Normal 0.00-0.30 [facility] Comment on above: Performed By: #### C DP, LIP, CP #### [address] [place] [id number] Ostomy Nurse: Jazmín Lopes MD Abs.Neutrophil (Seg) 5.69 k/uL Normal 1.50-8.10 [facility] Comment on above: Performed By: #### C DP, LIP, CP #### [address] [place] [address] Ostomy Nurse: Jazmín Lopes MD Basophils/100 WBC (Bld) 1 % Normal 0-2 [facility] Comment on above: Performed By: #### C DP, LIP, CP #### [address] [place] [address] Ostomy Nurse: Jazmín Lopes MD Eosinophils (Bld) [#/Vol] 0.12 10*3/uL Normal 0.00-0.44 [facility] Comment on above: Performed By: #### C DP, LIP, CP #### [address] [place] [address] Ostomy Nurse: Jazmín Lopes MD Eosinophils/100 WBC (Bld) 1 % Normal 1-4 [facility] Comment on above: Performed By: #### C DP, LIP, CP #### [address] [place] [address] Ostomy Nurse: Jazmín Lopes MD Erythrocyte distribution width (RBC) [Ratio] 13.0 % Normal 11.8-14.4 [facility] Comment on above: Performed By: #### C RAHUL VALERO, CP #### [facility] [address] [place] [address] Ostomy Nurse: Jazmín Lopes MD Hematocrit (Bld) [Volume fraction] 46.7 % Normal 40.7-50.3 [facility] Comment on above: Performed By: #### C RAHUL VALERO, CP #### [facility] [address] [place] [address] Ostomy Nurse: Jazmín Lopes MD Hemoglobin (Bld) [Mass/Vol] 15.1 g/dL Normal 13.0-17.0 [facility] Comment on above: Performed By: #### C RAHUL VALERO, CP #### [facility] [address] [place] [address] Ostomy Nurse: Jazmín Lopes MD Immature granulocytes (Bld) [#/Vol] 0 % Normal 0 [facility] Comment on above: Performed By: #### C RAHUL VALERO, CP #### [facility] [address] [place] [address] Ostomy Nurse: Jazmín Lopes MD Lymphocytes (Bld) [#/Vol] 3.30 10*3/uL Normal 1.10-3.70 [facility] Comment on above: Performed By: #### C RAHUL VALERO, CP #### [facility] [address] [place] [id number] Ostomy Nurse: Jazmín Lopes MD Lymphocytes/100 WBC (Bld) 32 % Normal 24-43 [facility] Comment on above: Performed By: #### C ANJUM LIP, CP #### [facility] [address] [place] [address] Ostomy Nurse: Jazmín Lopes MD MCH (RBC) [Entitic mass] 31.8 pg Normal 25.2-33.5 [facility] Comment on above: Performed By: #### C RAHUL VALERO, CP #### [facility] [address] [place] [address] Dr. [place], [place] [phone] Ostomy Nurse: Jazmín Lopes MD MCHC (RBC) [Mass/Vol] 32.3 g/dL Normal 28.4-34.8 [facility] Comment on above: Performed By: #### C ANJUM LIP, CP #### [address] [place] [address] Ostomy Nurse: Jazmín Lopes MD MCV (RBC) [Entitic vol] 98.3 fL Normal 82.6-102.9 [facility] Comment on above: Performed By: #### C RAHUL VALERO, CP #### [address] [place], [place] [phone] Ostomy Nurse: Jazmín Lopes MD Monocytes (Bld) [#/Vol] 1.01 10*3/uL Normal 0.10-1.20 [facility] Comment on above: Performed By: #### C RAHUL VALERO, CP #### [address] [place], [place] [phone] Ostomy Nurse: Jazmín Lopes MD Monocytes/100 WBC (Bld) 10 % Normal 3-12 [facility] Comment on above: Performed By: #### C ANJUM LIP, CP #### [facility] [address] [place] [address] [place] [address] Ostomy Nurse: Jazmín Lopes MD Neutrophil (Seg) 56 % Normal 36-65 [facility] Comment on above: Performed By: #### C ANJUM LIP, CP #### [facility] [address] [place], [place] [phone] Ostomy Nurse: Jazmín Lopes MD NRBC Automated 0.0 per 100 WBC Normal 0.0 [facility] Comment on above: Performed By: #### C DP, LIP, CP #### [address] [place] [address] Ostomy Nurse: Jazmín Lopes MD Platelet mean volume (Bld) [Entitic vol] 10.1 fL Normal 8.1-13.5 [facility] Comment on above: Performed By: #### C DP, LIP, CP #### [address] [place] [address] Ostomy Nurse: Jazmín Lopes MD Platelets (Bld) [#/Vol] 372 10*3/uL Normal 138-453 [facility] Comment on above: Performed By: #### C DP, LIP, CP #### [address] [place], [place] [id number] Ostomy Nurse: Jazmín Lopes MD RBC (Bld) [#/Vol] 4.75 10*6/uL Normal 4.21-5.77 [facility] Comment on above: Performed By: #### C DP LIP, CP #### [address] [place], [place] [phone] Ostomy Nurse: Jazmín Lopes MD WBC (Bld) [#/Vol] 10.2 10*3/uL Normal 3.5-11.3 [facility] Comment on above: Performed By: #### C DP, LIP, CP #### [address] [place], [place] [phone] Ostomy Nurse: Jazmín Lopes MD Auto Diff Performed NOT REPORTED Normal [facility] Comment on above: Performed By: #### C DP, LIP, CP #### [address] [place], [place] [phone] Ostomy Nurse: Jazmín Lopes MD Platelets (Bld) [#/Vol] NOT REPORTED Normal [facility] Comment on above: Performed By: #### C DP, LIP, CP #### [facility] [address] [place], [place] [phone] Ostomy Nurse: Jazmín Lopes MD RBC morphology finding Nom (Bld) NOT REPORTED Normal [facility] Comment on above: Performed By: #### C DP, LIP, CP #### [facility] [address] [place] [address] Ostomy Nurse: Jazmín Lopes MD WBC Morphology NOT REPORTED Normal [facility] Comment on above: Performed By: #### C DP, LIP, CP #### [facility] [address] [place] [address] Ostomy Nurse: Jazmín Lopes MD CT ABDOMEN PELVIS WO [...] appears normal. Prostate gland is abnormally enlarged. Peritoneum/Retroperito neum: No free fluid or free air is [...] Randy Hansen DO 11/09/20 Final result Normal [facility] CT ABDOMEN PELVIS WO CONTRAS T [...] appears normal. Prostate gland is abnormally enlarged. Peritoneum/Retroperito neum: No free fluid or free air is present within the abdomen or pelvis. No aneurysm formation is present. No pathological adenopathy is present. Bones/Soft Tissues: Inguinal hernias are present bilaterally, containing fat. Small umbilical hernia is present containing fat. No acute osseous abnormality is present. [employer] Phone: 1. No acute findings within the abdomen or pelvis 2. No intrarenal calculi or evidence of hydronephrosis 3. Scattered colonic diverticula, without evidence of diverticulitis 4. Enlarged prostate gland [facility] Phone: Emeka, Mhpn Incoming Radiant Results From [employer]/T-Quad 22 - 11/09/2020 7:47 PM EST EXAMINATION: CT [...] appears normal. Prostate gland is abnormally enlarged. Peritoneum/Retroperito neum: No free fluid or free air is [...] evidence of diverticulitis 4. Enlarged prostate gland [facility] Work Phone: Comp Metabolic Profon 2020 (cont.) Normal [facility] Comment on above: Result Comment: Aver age GFR for 70 or more years old: 75 mL/min/1.73sq m Chronic Kidney Disease: <60 mL/min/1.73sq m Kidney failure: <15 mL/min/1.73sq m eGFR calculated using average adult body mass. Additional eGFR calculator available at: http://www.PubGame.Sun LifeLight/multiple_crcl_2011.htm Performed By: #### C ANJUM, RAHUL, TIFFANIE #### [facility] [address] [place] [address] Dr. [place], [place] [phone] Ostomy Nurse: Jazmín Lopes MD Albumin [Mass/Vol] 4.4 g/dL Normal 3.5-5.2 [facility] Comment on above: Performed By: #### C DP LIP, CP #### [facility] [address] [place], [place] [phone] Ostomy Nurse: Jazmín Lopes MD Albumin/Globulin [Mass ratio] 1.6 {ratio} Normal 1.0-2.5 [facility] Comment on above: Performed By: #### C DP LIP, CP #### [facility] [address] [place], [place] [phone] Ostomy Nurse: Jazmín Lopes MD Alkaline Phos 62 U/L Normal 40-129 [facility] Comment on above: Performed By: #### C ANJUM LIP, CP #### [facility] [address] [place], [place] [phone] Ostomy Nurse: Jazmín Lopes MD ALT [Catalytic activity/Vol] 42 U/L High 5-41 [facility] Comment on above: Performed By: #### C ANJUM LIP, CP #### [facility] [address] [place], [place] 7358983 Ostomy Nurse: Jazmín Lopes MD Anion gap [Moles/Vol] 11 mmol/L Normal 9-17 [facility] Comment on above: Performed By: #### C ANJUM LIP, CP #### [facility] [address] [place], [place] [phone] Ostomy Nurse: Jazmín Lopes MD AST [Catalytic activity/Vol] 37 U/L Normal <40 [facility] Comment on above: Performed By: #### C DP LIP, CP #### [facility] [address] [place], [place] 7034183 Ostomy Nurse: Jazmín Lopes MD Bilirubin Ql (U) 0.20 mg/dL Low 0.3-1.2 [facility] Comment on above: Performed By: #### C DP, LIP, CP #### [facility] [address] [place], [place] 9636083 Ostomy Nurse: Jazmín Lopes MD BUN/CRE Ratio 17 Normal 9-20 [facility] Comment on above: Performed By: #### C DP, LIP, CP #### [facility] [address] [place], [place] 8275783 Ostomy Nurse: Jazmín Lopes MD Calcium [Mass/Vol] 9.3 mg/dL Normal 8.6-10.4 [facility] Comment on above: Performed By: #### C DP, LIP, CP #### [address] [place], [place] [phone] Ostomy Nurse: Jazmín Lopes MD Chloride [Moles/Vol] 102 mmol/L Normal 98-107 [facility] Comment on above: Performed By: #### C DP, LIP, CP #### [address] [place], [place] [phone] Ostomy Nurse: Jazmín Lopes MD CO2 [Moles/Vol] 25 mmol/L Normal 20-31 [facility] Comment on above: Performed By: #### C DP, LIP, CP #### [facility] [address] [place] [address] [place] [address] Ostomy Nurse: Jazmín Lopes MD Creatinine [Mass/Vol] 1.18 mg/dL Normal 0.70-1.20 [facility] Comment on above: Performed By: #### C DP, LIP, CP #### [facility] [address] [place], [place] [phone] Ostomy Nurse: Jazmín Lopes MD GFR, Amer >60 Normal >60 [facility] Comment on above: Performed By: #### C DP, LIP, CP #### [facility] [address] [place], [place] 8893683 Ostomy Nurse: Jazmín Lopes MD GFR,non Amer >60 Normal >60 [facility] Comment on above: Performed By: #### C RAHUL VALERO, CP #### [facility] [address] [place], [place] 7063083 Ostomy Nurse: Jazmín Lopes MD Glucose [Mass/Vol] 100 mg/dL High 70-99 [facility] Comment on above: Performed By: #### C ANJUM LIP, CP #### [facility] [address] [place], [place] [phone] Ostomy Nurse: Jazmín Lopes MD Potassium [Moles/Vol] 4.1 mmol/L Normal 3.7-5.3 [facility] Comment on above: Performed By: #### C RAHUL VALERO, CP #### [facility] [address] [place] [address] Dr. [place], [place] 8245083 Ostomy Nurse: Jazmín Lopes MD Protein [Mass/Vol] 7.2 g/dL Normal 6.4-8.3 [facility] Comment on above: Performed By: #### C RAHUL VALERO, CP #### [address] [place], [place] 0534083 Ostomy Nurse: Jazmín Lopes MD Sodium [Moles/Vol] 138 mmol/L Normal 135-144 [facility] Comment on above: Performed By: #### C ANJUM LIP, CP #### [facility] [address] [place], [place] 7103683 Ostomy Nurse: Jazmín Lpoes MD Staging: Normal [facility] Comment on above: Result Comment: Stag e 1: Some kidney damage normal GFR Stage 2: Mild kidney damage GFR 60-89 Stage 3: Moderate kidney damage GFR 30-59 Stage 4: Severe kidney damage GFR 15-29 Stage 5: Severe kidney damage GFR <15 ESRD - chronic treatment by dialysis or transplant Performed By: #### C ANJUM LIP, CP #### [facility] [address] [place] [address] Ostomy Nurse: Jazmín Lopes MD Urea nitrogen [Mass/Vol] 20 mg/dL Normal 8-23 [facility] Comment on above: Performed By: #### C DP, LIP, CP #### [facility] [address] [place] [address] Ostomy Nurse: Jazmín Lopes MD Comprehensive Metabolic Pane fredo 11-09-2020 Albumin [Mass/Vol] 4.4 g/dL 3.5 - 5.2 g/dL [facility] [employer] Phone: Albumin/Globulin [Mass ratio] 1.6 {ratio} [facility] [employer] Phone: ALP [Catalytic activity/Vol] 62 U/L 40 - 129 U/L [facility] [employer] Phone: ALT [Catalytic activity/Vol] 42 U/L High 5 - 41 U/L [facility] [employer] Phone: Anion gap [Moles/Vol] 11 mmol/L 9 - 17 mmol/L [facility] [employer] Phone: AST [Catalytic activity/Vol] 37 U/L <40 [facility] [employer] Phone: Bilirubin Ql (U) 0.20 mg/dL Low 0.3 - 1.2 mg/dL [facility] [employer] Phone: Bun/Cre Ratio 17 [facility] Work Phone: Calcium [Mass/Vol] 9.3 mg/dL 8.6 - 10. 4 mg/dL [facility] [employer] Phone: Chloride [Moles/Vol] 102 mmol/L 98 - 107 mmol/L [facility] [employer] Phone: CO2 [Moles/Vol] 25 mmol/L 20 - 31 mmol/L [facility] [employer] Work Phone: Creatinine [Mass/Vol] 1.18 mg/dL 0.7 - 1.2 mg/dL [facility] Phone: GFR >60 >60 mL/min [facility] [employer] Phone: GFR Non- >60 >60 mL/min [facility] Phone: Glucose [Mass/Vol] 100 mg/dL High 70 - 99 mg/dL [facility] [employer] Phone: Interpretation and review of laboratory results Abnormal [facility] Phone: Potassium [Moles/Vol] 4.1 mmol/L 3.7 - 5.3 mmol/L [facility] [employer] Phone: Protein [Mass/Vol] 7.2 g/dL 6.4 - 8.3 g/dL [facility] Phone: Sodium [Moles/Vol] 138 mmol/L 135 - 144 mmol/L [facility] Phone: Urea nitrogen [Mass/Vol] 20 mg/dL 8 - 23 mg/dL [facility] [employer] Phone: Lipaseon 11-09-2020 Lipase [Catalytic activity/Vol] 26 U/L Normal 13-60 [facility] Comment on above: Performed By: #### C DP, LIP, CP #### [facility] [address] [place] [address] Ostomy Nurse: Jazmín Lopes MD Lipase [Catalytic activity/Vol] 26 U/L 13 - 60 U/L [facility] [employer] Phone: Metabolic Panelon 11-09-2020 GFR/1.73 sq M predicted among non-blacks MDRD (S/P/Bld) [Vol rate/Area] [facility] [employer] Phone: Comment on above: Stage 1: Some [...] body mass. Additional eGFR calculator available at: http://www.Diplopia/multiple_crcl_2011.htm Urinalysis w/ Microon 2020 ----- Normal [facility] Comment on above: Performed By: #### U AMIC #### [facility] [address] [place] [address] Ostomy Nurse: Jazmín Lopes MD Acetoacetic Acid,Ur Negative Normal NEG [facility] Comment on above: Performed By: #### U AMIC #### [address] [place] [address] Ostomy Nurse: Jazmín Lopes MD Bacteria LM.HPF (Urine sed) [#/Area] TRACE Abnormal NONE [facility] Comment on above: Performed By: #### U AMIC #### [address] [place] [address] Ostomy Nurse: Jazmín Lopes MD Bilirubin, SemiQt,Ur Negative Normal NEG [facility] Comment on above: Performed By: #### U AMIC #### [facility] [address] [place] [address] [place] [address] Ostomy Nurse: Jazmín Lopes MD Color (U) YELLOW Normal YEL [facility] Comment on above: Performed By: #### U AMIC #### [facility] [address] [place] [address] [place] [address] Ostomy Nurse: Jazmín Lopes MD Epithelial cells LM.HPF (Urine sed) [#/Area] 0 TO 2 Normal 0-5 [facility] Comment on above: Performed By: #### U AMIC #### [address] [place] 8353083 Ostomy Nurse: Jazmín Lopes MD Glucose Ql (U) Negative Normal NEG [facility] Comment on above: Performed By: #### U AMIC #### [facility] [address] [place] [address] [place] [address] Ostomy Nurse: Jazmín Lopes MD Hemoglobin, Ur Negative Normal NEG [facility] Comment on above: Performed By: #### U AMIC #### [facility] [address] [place] [address] [place]. [place], [place] [phone] Ostomy Nurse: Jazmín Lopes MD Leukocyte esterase Test strip Ql (U) Negative Normal NEG [facility] Comment on above: Performed By: #### U AMIC #### [facility] [address] [place] [address] Dr. [place], [place] [phone] Ostomy Nurse: Jazmín Lopes MD Mucus Strands TRACE Abnormal NONE [facility] Comment on above: Performed By: #### U AMIC #### [facility] [address] [place] [address] [place]. [place], [place] [phone] Ostomy Nurse: Jazmín Lopes MD Nitrite,Ur Negative Normal NEG [facility] Comment on above: Performed By: #### U AMIC #### [facility] [address] [place] [address] Dr. [place], [place] 7288883 Ostomy Nurse: Jazmín Lopes MD pH (U) 5.5 [pH] Normal 5.0-9.0 [facility] Comment on above: Performed By: #### U AMIC #### [facility] [address] [place] [address] [place]. [place], [place] [phone] Ostomy Nurse: Jazmín Lopes MD Protein Ql (U) Negative Normal NEG [facility] Comment on above: Performed By: #### U AMIC #### [facility] [address] [place] [address] Dr. [place], [place] [phone] Ostomy Nurse: Jazmín Lopes MD RBC (U) [#/Vol] 0 TO 2 Normal 0-2 [facility] Comment on above: Performed By: #### U AMIC #### [facility] [address] [place] [address] Dr. [place], [place] [phone] Ostomy Nurse: Jazmín Lopes MD Specific gravity (U) [Rel density] >1.030 High 1.010-1.020 [facility] Comment on above: Performed By: #### U AMIC #### [facility] [address] [place] [address] [place], [place] 0222383 Ostomy Nurse: Jazmín Lopes MD Turbidity CLEAR Normal CLEAR [facility] Comment on above: Performed By: #### U AMIC #### [address] [place], [place] 5272383 Ostomy Nurse: Jazmín Lopes MD Urobilinogen,Ur Normal Normal NORM [facility] Comment on above: Performed By: #### U AMIC #### [address] [place], [place] [phone] Ostomy Nurse: Jazmín Lopes MD WBC (U) [#/Vol] 0 TO 2 Normal 0-5 [facility] Comment on above: Performed By: #### U AMIC #### [address] [place], [place] [phone] Ostomy Nurse: Jazmín Lpoes MD Amorphous sediment LM Ql (Urine sed) NOT REPORTED Normal NONE [facility] Comment on above: Performed By: #### U AMIC #### [facility] [address] [place] [address] Dr. [place], [place] 9494583 Ostomy Nurse: Jazmín Lopes MD Casts LM.LPF (Urine sed) [#/Area] NOT REPORTED Normal [facility] Comment on above: Performed By: #### U AMIC #### [facility] [address] [place] [address] [place] [address] Ostomy Nurse: Jazmín Lopes MD Comment NOT REPORTED Normal [facility] Comment on above: Performed By: #### U AMIC #### [facility] [address] [place], [place] [phone] Ostomy Nurse: Jazmín Lopes MD Crystals LM Nom (Urine sed) NOT REPORTED Normal NONE [facility] Comment on above: Performed By: #### U AMIC #### [facility] [address] [place] [address] Ostomy Nurse: Jazmín Lopes MD Epithelial, Renal NOT REPORTED Normal 0 [facility] Comment on above: Performed By: #### U AMIC #### [facility] [address] [place] [phone] Ostomy Nurse: Jazmín Lopes MD Other Observations NOT REPORTED Normal NREQ [facility] Comment on above: Performed By: #### U AMIC #### [facility] [address] [place], [facility] Ostomy Nurse: Jazmín Lopes MD Trichomonas NOT REPORTED Normal [facility] Comment on above: Performed By: #### U AMIC #### [facility] [address] [place], [place] 658[address]83 Ostomy Nurse: Jazmín Lopes MD Yeast LM Ql (Urine sed) NOT REPORTED Normal [facility] Comment on above: Performed By: #### U AMIC #### [facility] [address] [place], [facility] Ostomy Nurse: Jazmín Lopes MD Urinalysis with Microscopico n 11-09-2020 Amorphous, UA NOT REPORTED None [facility] Work Phone: Bacteria, UA TRACE Abnormal None [facility] Work Phone: Bilirubin Urine Negative NEGATIVE [facility] Work Phone: Casts UA NOT REPORTED /LPF [facility] Work Phone: Color, UA YELLOW YELLOW [facility] Work Phone: Crystals, UA NOT REPORTED None /HPF [facility] Work Phone: Epithelial Cells UA 0 TO 2 [facility] Work Phone: Glucose, Ur Negative NEGATIVE [facility] Work Phone: Interpretation and review of laboratory results Abnormal [facility] Work Phone: Ketones Ql (U) Negative NEGATIVE [facility] Work Phone: Leukocyte esterase Test strip Ql (U) Negative NEGATIVE [facility] Work Phone: Mucus, UA TRACE Abnormal None [facility] Work Phone: Nitrite, Urine Negative NEGATIVE [facility] Work Phone: Other Observations UA NOT REPORTED NOT REQ. [facility] Work Phone: pH, UA 5.5 [facility] [employer] Work Phone: Protein (U) [Mass/Vol] Negative NEGATIVE [facility] Work Phone: RBC (U) [#/Vol] 0 TO 2 [facility] Work Phone: Renal Epithelial, UA NOT REPORTED 0 /HPF [facility] Work Phone: Specific [place], UA >1.030 High [facility] Work Phone: Trichomonas, UA NOT REPORTED None [facility] [employer] Work Phone: Turbidity UA CLEAR CLEAR [facility] Work Phone: Urinalysis Comments NOT REPORTED [facility] [employer] Work Phone: Urine Hgb Negative NEGATIVE [facility] Work Phone: Urobilinogen, Urine Normal Normal [facility] Work Phone: WBC, UA 0 TO 2 [facility] Work Phone: Yeast, UA NOT REPORTED None [employer] Work Phone: - [employer] Work Phone: Vital Signs Date Time Vital Sign Value Performing Clinician Rebecca murrell 05-27-2023 09:40-0400 Diastolic blood pressure 87 mm[Hg] Oral NILL [facility] 05-27-2023 09:40-0400 Heart rate 89 /min Oral NILL [facility] 05-27-2023 09:40-0400 Respiratory rate 18 /min Oral NILL [facility] 05-27-2023 09:40-0400 SaO2% (BldA) [Mass fraction] 95 % Oral NILL [facility] 05-27-2023 09:40-0400 Systolic blood pressure 128 mm[Hg] Oral NILL [facility] 05-27-2023 09:30-0400 Diastolic blood pressure 89 mm[Hg] Oral NILL [facility] 05-27-2023 09:30-0400 Heart rate 98 /min Oral NILL [facility] 05-27-2023 09:30-0400 Respiratory rate 20 /min Oral NILL [facility] 05-27-2023 09:30-0400 SaO2% (BldA) [Mass fraction] 96 % Oral NILL [facility] 05-27-2023 09:30-0400 Systolic blood pressure 126 mm[Hg] Oral NILL [facility] 05-27-2023 09:25-0400 Diastolic blood pressure 80 mm[Hg] Oral NILL [facility] 05-27-2023 09:25-0400 Heart rate 95 /min Oral NILL [facility] 05-27-2023 09:25-0400 Respiratory rate 18 /min Oral NILL [facility] 05-27-2023 09:25-0400 SaO2% (BldA) [Mass fraction] 94 % [facility] NILL [facility] [facility] 05-27-2023 09:25-0400 Systolic blood pressure 116 mm[Hg] Oral NILL [facility] 05-27-2023 09:14-0400 Body temperature 97.7 [degF] Oral NILL [facility] 05-27-2023 09:05-0400 Respiratory rate 13 /min Oral NILL [facility] 05-27-2023 09:00-0400 Respiratory rate 12 /min Oral NILL [facility] 05-27-2023 08:55-0400 Respiratory rate 17 /min Oral NILL [facility] 05-27-2023 08:37-0400 Blood Pressure Location Oral NILL [facility] 05-27-2023 08:34-0400 Blood Pressure Location Oral NILL [facility] 05-27-2023 08:34-0400 Body temperature 97.7 [degF] Oral NILL [facility] 05-04-2023 15:42-0400 Blood Pressure Location Oral N[facility] 05-04-2023 15:42-0400 Diastolic blood pressure 80 mm[Hg] Oral NILL [facility] 05-04-2023 15:42-0400 Heart rate 76 /min Oral NILL [facility] 05-04-2023 15:42-0400 Respiratory rate 16 /min Oral RADHA [facility] 05-04-2023 15:42-0400 Systolic blood pressure 128 mm[Hg] Oral GARCIA [facility] 11-09-2020 20:00-0500 BP Diastolic 81 mm[Hg] [facility] [email or web address] Work Phone: 11-09-2020 20:00-0500 BP Systolic 130 mm[Hg] [facility] [email or web address] Work Phone: 11-09-2020 20:00-0500 Pulse Oximetry 94 % [employer] Work Phone: 11-09-2020 18:17-0500 Body Temperature 98.2 [degF] [facility] [email or web address] Work Phone: 11-09-2020 18:17-0500 Pulse (Heart Rate) 92 /min [facility] [email or web address] Work Phone: 11-09-2020 18:17-0500 Respiratory Rate 17 /min [employer] Work Phone: Encounters Encounter Date Encounter Type Care Provider Facility Start: 05-28-2025 ambulatory Oral GARCIA Facility :[facility] Start: 06-08-2023 End: 06-08-2023 Patient encounter procedure Oral GARCIA [facility] Start: 05-27-2023 End: 05-27-2023 Patient encounter procedure Oral GARCIA [facility] Start: 05-04-2023 End: 05-04-2023 Patient encounter procedure Oral GARCIA [facility] Start: 06-10-2022 End: 06-10-[address] TI BORREGO Facility:[facility] Start: 03-03-2022 End: 03-04-[address] TI BORREGO Facility:[facility] Start: 12-01-2021 End: 12-02-[address] TI BORREGO Facility:[facility] Start: 11-24-2021 ambulatory TI BORREGO [facility] Start: 10-26-2021 End: 10-27-2021 ambulatory [...] 11-09-2020 Emergency department patient visit TI BORREGO [facility] Start: 11-09-2020 End: 11-09-2020 Emergency department patient visit Braxton Pardoanupama Work Phone: [facility] ED Comment on above: Flank pain (Primary Dx); Muscle pain, myofascial Procedures Date Procedure Procedure Detail Performing Clinician Start: 05-27-2023 Colonoscopy Oral GARCIA Start: 05-27-2023 Esophagogastroduodenoscopy Oral GARCIA Start: 11-24-2021 PSA screening TI BORREGO Comment on above: Result Comment: [facility] UTILIZES ORTHO VITRO S PSA METHODOLOGY. DIFFERENT TEST METHODS CANNOT BE USED INTERCHANGEABLY. PSA RESULTS IN A GIVEN PATIENT SAMPLE DETERMINED WITH DIFFERENT TESTS AND FROM DIFFERENT MANUFACTURERS CAN VARY DUE TO DIFFERENCES IN TEST METHODS AND REAGENTS. Performed By: #### C MP, PSA, LIPD #### [place] [address] Ph. [phone] Start: 11-09-2020 Urnls dip stick/tablet reagent auto microscopy Braxton [facility] Work Phone: Start: 11-09-2020 Ct abdomen & pelvis w/o contrast material Braxton Bassett Work Phone: Start: 11-09-2020 Assay of lipase Braxton Bassett Work Phone: Start: 11-09-2020 Blood count complete auto&auto difrntl wbc Braxton Bassett Work Phone: Start: 11-09-2020 Comprehensive metabolic panel Braxton Cr vero Work Phone: Start: 08-07-2019 Esophagogastroduodenoscopy Oral LUCASL Start: 04-29-2016 Esophagogastroduodenoscopy Oral LUCASL Start: 02-15-2014 Esophagogastroduodenoscopy Oral LUCASL Start: 08-03-2013 Esophagogastroduodenoscopy Oral NILL Start: 06-01-2013 Esophagogastroduodenoscopy Oral LUCASL Appendectomy Oral LUCASL Decompression of median nerve Oral SHAYYL Hemorrhoidectomy Oral NIL L Plan of Treatment Date Care Activity Detail Author Start: 05-17-2026 DTaP/Tdap/Td vaccine (2 - Td) DTaP/Tdap/Td vaccine (2 - Td) [employer] Work Phone: Start: 11-09-2021 Creatinine measurement Creatinine mo [facility] [employer] Work Phone: Start: 11-09-2021 Potassium monitoring Potassium monit [facility] [employer] Work Phone: Start: 05-20-2020 Influenza vaccination Flu vaccine (# 1) [employer] Phone: Start: 2013 Pneumococcal 65+ yea rs Vaccine (1 of 1 - PPSV23) Pneumococcal 65+ years Vaccine (1 of 1 - PPSV23) [employer] Phone: Start: 1998 Screening for malign ant neoplasm of colon Colon cancer screen colonoscopy [employer] Phone: Start: 1998 Shingles Vaccine (1 of 2) Shingles V accine (1 of 2) [employer] Phone: Start: 1988 Lipid panel Lipid screen [employer] Phone: Start: 1964 COVID-19 Vaccine (1 of 2) COVID-19 V accine (1 of 2) [employer] Phone: Start: 1948 Hepatitis C screening Hepatitis C sc reen [employer] Phone: Immunizations Immunization Date Immunization Notes Care Provider Fa tien 05-17-2016 tetanus toxoid, redu bj diphtheria toxoid, and acellular pertussis vaccine, adsorbed Braxton Crismaru [employer] Phone: Payers Date Payer Category Payer Medicare [id number] [id number] [id number] 1961 Medicare [id number] 1948 Unknown [id number] 2.16.8 [id number] 1948 Unknown [id number] 2.16.8 [id number] 1948 Unknown [id number] 2.16.84 [id number] 1948 Unknown [id number] 2.16.84 [id number] 1948 Unknown [id number] 2.16.84 [id number] 1948 Unknown [id number] 2.16.84 [id number] 1948 Unknown [id number] 2.16.84 [id number] 1948 Unknown [id number] 2.16.84 [id number] 1948 Unknown [id number] 2.16.84 [id number] 1948 Unknown [id number] 2.16.84 [id number] 1948 Unknown [id number] 2.16.84 [id number] 1948 Unknown [id number] 2.16.8 [id number] Social History Date Type Detail Facility Start: 11-09-2020 Tobacco smoking stat [facility] Never smoker [employer] Phone: Start: 11-09-2020 Tobacco use and exposure Never used [employer] Phone: Start: 11-09-2020 Alcohol intake Ex-drinker (finding) [employer] Phone: Sex Assigned At Not on file [employer] Phone: Exposure to SARS-CoV -2 (event) Not sure [employer] Phone: Start: 05-04-2023 Tobacco smoking status Ex-smoker (fi nding) [facility] Tobacco smoking status Never [facility] Sex Assigned At Male [facility] Functional Status Date Assessment Result Facility 05-27-2023 Functional Status N/A [facility] 05-04-2023 Functional Status N/A [facility] Discharge instructions 05-27-2023 Note Date & Type [...] worse throughout the day. 05/27/2023 09:17:48 Hemorrhoids, Sxzs-hf-[id number] Hemorrhoids Hemorrhoids are swollen veins that may [...] 3 times a day. General instructions Take uzac-vam-xvcmxpj and prescription medicines only as told by [...] provider. Document Revised: 03/17/2022 Document Reviewed: 03/17/2022 [employer] Patient Education 2022 [employer] 05/27/2023 09:17:36 Endoscopy, Care After Procedure [facility] Endoscopy Care After Procedure Please [...] blood. Document Released: 04/19/2005 Document Re-Released: 02/27/2007 [facility] Deal[facility]. 05/27/2023 09:17:24 Hiatal Hernia Hiatal Hernia A [...] reduce GERD symptoms. Medicines. These may include: ?Fofd-esw-kganslq antacids. ?Medicines that make your stomach empty [...] may include: ?Fatty foods, like fried foods. ?Upton fruits, like oranges or lemon. ?Other foods [...] Do not drink alcohol. General instructions Take htuy-evd-crxnazo and prescription medicines only as told by [...] provider. Document Revised: 07/20/2022 Document Reviewed: 08/06/2021 [employer] Patient Education 2022 [employer] 05/27/2023 09:17:16 Delarosa's Esophagus Delarosa's Esophagus Delarosa's [...] drinks. ?Tomatoes and foods made with tomatoes. ?Enhaut or spicy foods. ?Chocolate and peppermint. Do not drink alcohol. General instructions Take ewof-yah-xntckyb and prescription medicines only as told by [...] provider. Document Revised: 11/22/2020 Document Reviewed: 11/22/2020 [employer] Patient Education 2022 [employer] Follow Up Care 05/04/2023 16:15:34 With:Oral GARCIA Address: [address] [place] [address], [address] [place] [phone] Business (1) When:1 to 2 weeks [facility] Clinical Note 10-26-2021 Note Date & Type Note Facility 10-26-2021 Note PROCEDURE: XR SHOULD ER LT 2V or > COMPARISON: None. HISTORY: Pain of left shoulder joint FINDINGS: BONES:No acute fracture or dislocation. Multiple remote left posterior rib fractures SOFT TISSUES:Negative. No visible soft tissue swelling. EFFUSION:None visible. OTHER: Negative. IMPRESSION: No acute fracture Electronically authenticated by: JAZMÍN GA Date: 2021-10-26 11:17 [facility] Clinical Note 08-25-2021 Note Date & [...] by: JONES RICHMOND Date: 2021-08-25 16:03 [facility] Evaluation + Plan note Note Date & Type Note Facility Evaluation + Plan note Future Appointments Appointment Date:05/27/2023 09:30:00 AM Scheduled Provider: Location[facility] Appointment Type:[facility] Hospital course Narrative Note Date & Type Note Facility Hospital course Narrative No data available for this section [facility] Discharge instructions Note Date & Type Note Facility Hospital Discharge instructions No data available for this section [facility] Progress note Note Date & Type Note Facility Progress note No data available for this section [facility] Discharge Instructions * Attachments The following attachments cannot be sent through Care Everywhere. 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 ACP-Advance Directive ACP-Power of Manager Technology Summary Purpose Family History No Family History [...] section and content) DATE CREATED AUTHOR 11/13/2020 [facility] DATE CREATED AUTHOR AUTHOR'S ORGANIZ ATION 11/27/2021 [facility] DATE CREATED AUTHOR AUTHOR'S ORGANIZ ATION 06/19/2022 [facility] DATE CREATED AUTHOR AUTHOR'S ORGANIZ ATION 05/14/2025 [facility] Patient Care team informatio n (unrecognized section and content) Personnel Name: Ti Borrego MD Address: Address: [address] [place] [address] Personnel Name: Ti Borrego MD Address: Address: [address] [place] [address] Personnel Name: Ti Borrego MD Address: Address: [address] [place] [address] FOR RECORDS PERTAINING TO PATIENTS WHO ARE [...] BE BASED ON THE PRIMARY CLINICAL RECORDS. [facility] [employer] [facility]. provides no warranty or guarantee of the accuracy or completeness of information in this document.
== END 2025-05-16 08:29 | disposition home or self-care (01) ==
PROVIDERS: PCP Family Medicine; Visit Provider Family Medicine
DX: E29.1 Testicular hypofunction (principal)
CPT/HCPCS: 36415; 84403

== ENCOUNTER 2025-06-14 08:34 | Outpatient (OUT) | payer MEDICARE, SELFPAY ==
--- OUTSIDE RECORDS SUMMARY | 2025-06-14 08:42 | XMS_ITS | CCD ---
Author Organization [facility] Care Team Providers Care Paramedic Name Role Phone Ti Borrego Primary Care Provider TI BORREGO Primary Care Unavailable BRAXTON BASSETT Attending Unavailable TI BORREGO Referring Unavailable TI BORREGO Primary Care Unavailable ELMO, DR LUKE Attending Unavailable HOY, DR LUKE Admitting Unavailable HOY, DR LUKE Primary Care Unavailable HOJohanna, DR LUKE Consulting Unavailable YI, DR JONES Reed Consulting Unavailable PONCHO GARCIA Consulting Unavailable ELMO, DR LUKE Attending Unavailable HOY, DR LUKE Primary Care Unavailable HOY, DR LUKE Consulting Unavailable HOY, DR LUKE Admitting Unavailable ZIEBER, DR JONES Reed Consulting Unavailable ELMO, DR LUKE Primary Care Unavailable ELMO, DR LUKE Attending Unavailable HOY, DR LUKE Admitting Unavailable HOY, DR LUKE Consulting Unavailable WEST, DR JAZMÍN Aleman Consulting Unavailable ZIEBER, DR JONES Reed Consulting Unavailable ELMO, DR LUKE Attending Unavailable ELMO, DR LUKE Primary Care Unavailable ELMO, DR LUKE Admitting Unavailable HOY, DR LUKE Attending Unavailable HOY, DR LUKE Admitting Unavailable HOY, DR LUKE Primary Care Unavailable HOY, DR LUKE Consulting Unavailable ZIEBER, DR JONES Reed Consulting Unavailable HOY, DR LUKE Consulting Unavailable ELMO, DR LUKE Attending Unavailable HOY, DR LUKE Primary Care Unavailable RADHAY, DR LUKE Admitting Unavailable ZIEBER, DR JONES Reed Consulting Unavailable MARIANNE, DR HOPKINS Consulting Unavailable JAZMÍN LOPEZ Consulting Unavailable ELMO, DR LUKE Attending Unavailable RADHAY, DR LUKE Admitting Unavailable ELMO, DR LUKE Primary Care Unavailable ELMO, DR LUKE Consulting Unavailable MICHEL BOYKIN Consulting Unavailable ELMO, DR LUKE Attending Unavailable HOY, DR LUKE Admitting Unavailable HOY, DR LUKE Primary Care Unavailable DR TI BORREGO Consulting Unavailable WESTDR JAZMÍN V Consulting Unavailable DR TI BORREGO Attending Unavailable DR TI BORREGO Admitting Unavailable DR TI BORREGO Primary Care Unavailable DR TI BORREGO Consulting Unavailable Ti Borrego Primary Care Physician [phone] Oral GARCIA Attending Unavailable Ti Borrego Referring Unavailable Allergies Allergy Classification Reported Allergen(s) Allergy Type Date of Onset Reaction(s) Facility (1 source) black walnut pollen extract Drug Allergy 2 [facility] Repository (1 source) rosuvastatin Drug Allergy 1 [facility] Repository (5 sources) Bee/Wasp/Ant venom; Translations: [Bee Stings] Drug allergy Edema (finding) [facility] (5 sources) HMG-CoA reductase inhibitor; Translations: [statins] Propensity to adverse reactions to drug Muscle pain (finding) [facility] [place] Medications Current Medications Medication Drug Class(es) Dates [...] sodium 75 mg delayed release oral tablet (5 sources) Nonsteroidal Anti-inflammatory Drug Start: 04-15-2023 take 1 tablet by mouth twice daily diclofenac sodium 75 mg Oral EC Tab 75 mg = 1 tab(s), Oral, BID, Refills(s) 0, Pain Start Date: 04/15/23 Status: Ordered Repeat number: 1 take 1 tablet by mouth twice janet ly diclofenac (VOLTAREN) 75 MG EC tablet Take 75 mg by mouth 2 times daily 0 Active doxazosin 4 mg oral tablet (4 sources) alpha-Adrenergic Lizette Start: 04-15-2023 take 1 tablet by mouth twice daily doxazosin 4 mg Tab 4 mg = 1 tab(s), Oral, BID, Refills(s) 0, High blood pressure Start Date: 04/15/23 Status: Ordered Repeat number: 1 enalapril maleate 20 mg oral tablet (5 sources) Angiotensin Converting Enzyme Inhibitor Start: 04-29-2016 take 20 mg by mouth once daily enalapril 20 mg, Oral, Daily, Refills(s) 0, High blood pressure Start Date: 04/29/16 Status: Ordered Repeat number: 1 Start: 04-29-2016 take 20 mg by mouth twice azael y enalapril 20 mg, Oral, BID, Refills(s) 0, High blood pressure Start Date: 04/29/16 Status: Ordered ibuprofen 600 mg oral tablet (2 sources) [...] by mouth 3 times daily 0 Active Omeprazole (5 sources) Proton Pump Inhibitor Start: 04-29-2016 omeprazole 20 mg, Oral, Daily, Refills(s) 0, Control of stomach acid Start Date: 04/29/16 Status: Ordered Repeat number: 1 Start: 04-29-2016 take 20 mg by mouth once daily omeprazole 20 mg, Oral, Daily, Refills(s) 0, Control of stomach acid Start Date: 04/29/16 Status: Ordered take 1 capsule by [facility] once daily omeprazole (PRILOSEC) 20 MG delayed release capsule Take 20 mg by mouth daily 0 Active predniSONE 5 mg oral tablet (1 source) Start: 05-28-2025 take 1 tablet by mouth every other day predniSONE 5 mg Tab 5 mg = 1 tab(s), Oral, Every other day, Refills(s) 0 Start Date: 05/28/25 Status: Ordered Repeat number: 1 PreserVision AREDS (1 source) Start: 05-15-2025 take 1 tablet by mouth once daily PreserVision AREDS 1 tab(s), Oral, Daily, Refill(s) 0 Start Date: 05/15/25 Status: Ordered Repeat number: 1 Testosterone Cypionate 200 mg/mL intramuscular solution (1 source) Start: 05-15-2025 inject 100 mg by intramuscular injection every week Testosterone Cypionate 200 mg/mL intramuscular solution 100 mg = 0.5 mL, IntraMuscular, qWeek, Refills(s) 0 Start Date: 05/15/25 Status: Ordered Repeat number: 1 tiZANidine 2 mg oral tablet (1 source) Central alpha-2 Adrenergic Agonist Start: 11-09-2020 take 1 tablet by mouth every eight hours as needed for pain tiZANidine (ZANAFLEX) 2 MG tablet Take 1 tablet by mouth every 8 hours as needed (muscular pain) 10 tablet 0 11/09/2020 Active Vitamin D2 2000 intl units oral capsule (1 source) Start: 05-15-2025 take 1 capsule by mouth once daily Vitamin D2 2000 intl units oral capsule 50 mcg = 1 cap(s), Oral, Daily, cap(s), Refills(s) 0 Start Date: 05/15/25 Status: Ordered Repeat number: 1 Completed/Discontinued Medications Medication Drug Class(es) Dates Sig [...] pain; Translations: [Flank pain] Episodic Allergic reactions (4 sources) Eczema 04-15-2023 Episodic Cardiac dysrhythmias (3 sources) Palpitations 04-15-2023 Episodic Diabetes mellitus without complication (4 sources) Diabetes mellitus 04-15-2023 Chronic Disorders of lipid metabolism (5 sources) Pure hypercholesterolemia, unspecified; Translations: [Hyperlipidemia] Onset: 07-13-2021 04-15-2023 Chronic Diverticulosis and diverticulitis (4 sources) Diverticular disease 04-15-2023 Chronic Esophageal disorders (19 sources) Gastro-esophageal reflux disease without esophagitis; Translations: [Delarosa's esophagus] Onset: 07-13-2021 Chronic Essential hypertension (5 sources) Essential (primary) hypertension; Translations: [Essential hypertension] Onset: 12-02-2021 04-15-2023 Chronic Gastroduodenal ulcer (except hemorrhage) (4 sources) Ulcer of duodenum 04-15-2023 Chronic Heart [...] Onset: 06-14-2022 Episodic Other nervous system disorders (4 sources) Thoracic outlet syndrome 04-15-2023 Chronic Other nutritional; endocrine; and metabolic disorders (1 source) Obesity, unspecified; Translations: [OBESITY UNSPECIFIED] Onset: 07-13-2021 Chronic Other nutritional; endocrine; and metabolic disorders (1 source) Body mass index (BMI) 37.0-37.9, adult; Translations: [BODY MASS INDEX BMI 37.0-37.9 ADULT] Onset: 07-13-2021 Chronic Other nutritional; endocrine; and metabolic disorders (4 sources) Body mass index 30+ - obesity 05-04-2023 Chronic Other nutritional; endocrine; and metabolic disorders (3 sources) Obesity 05-04-2023 Chronic Other nutritional; endocrine; and metabolic disorders (1 source) Obese class III 05-15-2025 Chronic Other screening for suspected conditions (not mental disorders or infectious disease) (4 sources) Other specified abnormal findings of blood chemistry; Translations: [Screening for malignant neoplasm of colon done] Onset: 07-13-2021 Episodic Other skin disorders (1 source) Senile hyperkeratosis; Translations: [Other seborrheic keratosis] Onset: 05-28-2025 Episodic Pneumonia (except that caused by tuberculosis or sexually transmitted disease) (1 source) Pneumonia (except that caused by tuberculosis or sexually transmitted disease); Translations: [PNEUMONIA D/T CORONAVIRUS DIS 2018] Onset: 07-13-2021 Spondylosis; intervertebral disc disorders; other back problems (13 sources) Other cervical disc degeneration, unspecified cervical region; Translations: [Other intervertebral disc degeneration, lumbosacral region] Onset: 10-01-2021 Chronic Unclassified (3 sources) LOW BACK PAIN, UNSPECIFIED; Translations: [LOW BACK PAIN, UNSPECIFIED] Onset: 10-01-2021 Unclassified (4 sources) Osteopenia 04-15-2023 Unclassified (7 sources) Patient encounter status 07-31-2019 Unclassified (1 source) Seborrheic keratosis 05-28-2025 Viral infection (3 sources) COVID-19; Translations: [COVID-19] [...] Other fdc (current) drug therapy; Translations: [OTH SR RISK MANAGEMENT CONSULTANT CURRENT DRUG THERAPY] Onset: 07-13-2021 Episodic Other [...] UNSPECIFIED; Translations: [LOW BACK PAIN, UNSPECIFIED] Onset: 12-07-2021 Results Test Name Value Interpretation Reference Range Facility Ambulatory Visit Summaryon 0 05-28-2025 Ambulatory Visit Summary Ambulatory Visit Summary ARNALDO GARCIA :1950 Visit Date:05/28/2025 Ambulatory Visit Instructions Your Care Team Attending Physician - RADHA RICHARDSON, Oral Reed Primary Care Physician - Elmo RICHARDSON, Ti Referring Physician - Ti Borrego MD This Is Your Medications List Contact prescribing physician if questions or concerns diclofenac (diclofenac sodium 75 mg Oral EC Tab) doxazosin (doxazosin 4 mg Tab) enalapril ergocalciferol (Vitamin D2 2000 intl units oral capsule) multivitamin with minerals (PreserVision AREDS) omeprazole predniSONE (predniSONE 5 mg Tab) testosterone (Testosterone Cypionate 200 mg/mL intramuscular solution) Procedures Performed Colonoscopy (05/27/2023), Esophagogastroduodenoscopy (05/27/2023), EGD - Esophagogastroduodenoscopy (08/07/2019), EGD - Esophagogastroduodenoscopy (04/29/2016), EGD - Esophagogastroduodenoscopy (02/15/2014), EGD - Esophagogastroduodenoscopy (08/03/2013), EGD - Esophagogastroduodenoscopy (06/01/2013), Appendectomy, Carpal tunnel release, Hemorrhoidectomy. Discharge Vitals Heart Rate (Peripheral) 76 Respiratory Rate 16 Blood Pressure 138/82 Height 167.6 cm Height 66 in Weight 100.5 kg Weight 221.564 lb BMI 35.78 Medications What How Much When Instructions Unchanged diclofenac (diclofenac sodium 75 mg Oral EC Tab) 1 Tablets By Mouth 2 times a day Contact prescribing physician if questions or concerns Unchanged doxazosin (doxazosin 4 mg Tab) 1 Tablets By Mouth 2 times a day Contact prescribing physician if questions or concerns Unchanged enalapril 20 Milligram By Mouth Every day Contact prescribing physician if questions or concerns Unchanged ergocalciferol (Vitamin D2 2000 intl units oral capsule) 1 Capsules By Mouth Every day Contact prescribing physician if questions or concerns Unchanged multivitamin with minerals (PreserVision AREDS) 1 Tablets By Mouth Every day Contact prescribing physician if questions or concerns Unchanged omeprazole 20 Milligram By Mouth Every day Contact prescribing physician if questions or concerns Unchanged predniSONE (predniSONE 5 mg Tab) 1 Tablets By Mouth Every other day Contact prescribing physician if questions or concerns Unchanged testosterone (Testosterone Cypionate 200 mg/ mL intramuscular solution) 0.5 Milliliter Intramuscular Every week Contact prescribing physician if questions or concerns Allergies Bee Stings (Edema) statins (Myalgia) Problems Ongoing - Any problem that you are currently receiving treatment for. 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,adult Cervical disc disorder Chronic GERD Class 3 obesity Colon cancer screening Diabetes mellitus Disorder of lumbar disc Diverticular disease Eczema Essential hypertension Gastroesophageal reflux disease Hyperlipidemia Osteopenia Testosterone deficiency Thoracic outlet syndrome Ulcer of duodenum Patient Survey You may receive a survey via text or e-mail asking about your office visit. Please share your experience with us by completing your survey. We appreciate your feedback and thank you for choosing us for your care. Patient Portal You may access all of your results and other medical record information on our secure patient portal. If you are not signed up for this yet, please contact [employer] at [phone] to get signed up today. Language Information Language assistance services are available as needed. [facility] MRI SHOULDER RT WO CONon MRI [...] by: JONES RICHMOND Date: 2022-06-10 12:28 Normal [facility] XR ARTHRO SHLD RTon 06-10-20 XR ARTHRO SHLD RT EXAMINATION: XR ARTH [...] by: JONES RICHMOND Date: 2022-06-10 09:42 Normal [facility] XR FOREIGN BODY EYEon 2021 XR FOREIGN BODY EYE EXAMINATION: XR FOREIGN BODY EYE HISTORY: Foreign body in eye COMPARISON: No relevant comparison available. FINDINGS: ORBITS: Negative for a metallic foreign body. OTHER: Negative. IMPRESSION: 1. No radiopaque foreign body within the orbits. Electronically authenticated by: JONES RICHMOND Date: 2022-06-10 08:27 Normal [facility] XR CSPINE MIN 4 VIEWSon 02-17 [...] Date: 2022-03-04 08:57 Normal [facility] XR SHOULDER RT 2V or >on [...] Date: 2022-03-03 17:48 Normal [facility] ECHOCARDIO M/2D COMPLETEon 0 12-01-2021 ECHOCARDIO M/2D COMPLETE Patient: ARNALDO GARCIA Exam Date: 12/01/2021 : 1950 Gender:M Ordering : DR TI BORREGO . Admission #: [id number] Family : Order #: [id number] CLICK HERE TO VIEW EXAM ECHOCARDIOGRAM REPORT [...] Area(A4C): 21.80 cm2 Left Atrium Systolic Volume(A2C): 44926 mm3 Left Atrium Systolic Volume(A4C): 31247 mm3 Mitral Valve MV E to A [...] Pimentel M.D. on 12/01/2021 at 13:51 Normal [facility] Complete Blood Count with Au to Diffon 11-24-2021 Basophils (Bld) [#/Vol] 0.1 10*3/uL Normal 0.0-0.1 [facility] Comment on above: Performed By: #### C SERA, A1C #### [place] [address] Ph. [phone] Basophils/100 WBC (Bld) 1 % Normal 0-1 [facility] Comment on above: Performed By: #### C ELIZABETHD, A1C #### [place] [address] Ph. [phone] Eosinophils (Bld) [#/Vol] 0.1 10*3/uL Normal 0.0-0.5 [facility] Comment on above: Performed By: #### C BCAD, A1C #### [place] [address] Ph. [phone] Eosinophils/100 WBC (Bld) 1 % Normal 0-5 [facility] Comment on above: Performed By: #### C BCAD, A1C #### [place] [address] Ph. [phone] Erythrocyte distribution width (RBC) [Ratio] 12.2 % Normal 11.5-14.5 [facility] Comment on above: Performed By: #### C BCAD, A1C #### [place] [address] Ph. [phone] Hematocrit (Bld) [Volume fraction] 49.2 % Normal 42.0-52.0 [facility] Comment on above: Performed By: #### C BCAD, A1C #### [address] [address] Ph. [phone] Hemoglobin (Bld) [Mass/Vol] 15.7 g/dL Normal 13.5-17.5 [facility] Comment on above: Performed By: #### C BCAD, A1C #### [place] [address] Ph. [phone] Lymphocytes (Bld) [#/Vol] 3.3 10*3/uL Normal 1.0-4.0 [facility] Comment on above: Performed By: #### C BCAD, A1C #### [place] [address] Ph. [phone] Lymphocytes/100 WBC (Bld) 36 % Normal 20-40 [facility] Comment on above: Performed By: #### C BCAD, A1C #### [address] [address] Ph. [phone] MCH (RBC) [Entitic mass] 31.6 pg Normal 27.0-35.0 [facility] Comment on above: Performed By: #### C BCAD, A1C #### [address] [address] Ph. [phone] MCHC (RBC) [Mass/Vol] 31.9 g/dL Low 32.0-36.0 [facility] Comment on above: Performed By: #### C BCAD, A1C #### [address] [address] Ph. [phone] MCV (RBC) [Entitic vol] 99 fL Normal 80-100 [facility] Comment on above: Performed By: #### C BCAD, A1C #### [address] [address] Ph. [phone] Monocytes (Bld) [#/Vol] 0.8 10*3/uL Normal 0.3-1.0 [facility] Comment on above: Performed By: #### C BCAD, A1C #### [address] [address] Ph. [phone] Monocytes/100 WBC (Bld) 9 % Normal 1-15 [facility] Comment on above: Performed By: #### C BCAD, A1C #### [address] [address] Ph. [phone] Neutrophils (Bld) [#/Vol] 4.8 10*3/uL Normal 1.8-7.7 [facility] Comment on above: Performed By: #### C BCAD, A1C #### [address] [address] Ph. [phone] Neutrophils/100 WBC (Bld) 53 % Normal 50-70 [facility] Comment on above: Performed By: #### C BCAD, A1C #### [address] [address] Ph. [phone] Platelet mean volume (Bld) [Entitic vol] 10.6 fL Normal 9.4-12.3 [facility] Comment on above: Performed By: #### C BCAD, A1C #### [address] [address] Ph. [phone] Platelets (Bld) [#/Vol] 351 10*3/uL Normal 150-450 [facility] Comment on above: Performed By: #### C BCAD, A1C #### [address] [address] Ph. [phone] RBC (Bld) [#/Vol] 4.97 10*6/uL Normal 4.70-6.10 [facility] Comment on above: Performed By: #### C BCAD, A1C #### [place] [address] Ph. [phone] WBC (Bld) [#/Vol] 9.1 10*3/uL Normal 3.7-11.0 [facility] Comment on above: Performed By: #### C BCAD, A1C #### [place] [address] Ph. [phone] Comprehensive Metabolic Pane fredo 11-24-2021 Albumin [Mass/Vol] 4.5 g/dL Normal 3.5-5.0 [facility] Comment on above: Performed By: #### C MP, PSA, LIPD #### [place] [address] Ph. [phone] ALP [Catalytic activity/Vol] 62 U/L Normal 38-126 [facility] Comment on above: Performed By: #### C MP, PSA, LIPD #### [place] [address] Ph. [phone] ALT [Catalytic activity/Vol] 23 U/L Normal 0-50 [facility] Comment on above: Performed By: #### C MP, PSA, LIPD #### [place] [address] Ph. [phone] AST [Catalytic activity/Vol] 21 U/L Normal 17-59 [facility] Comment on above: Performed By: #### C MP, PSA, LIPD #### [place] [address] Ph. [phone] Bilirubin [Mass/Vol] 0.5 mg/dL Normal 0.2-1.3 [facility] Comment on above: Performed By: #### C MP, PSA, LIPD #### [address] [address] Ph. [phone] Calcium [Mass/Vol] 9.5 mg/dL Normal 8.4-10.2 [facility] Comment on above: Performed By: #### C MP, PSA, LIPD #### [place] [address] Ph. [phone] Chloride [Moles/Vol] 104 mmol/L Normal 98-107 [facility] Comment on above: Performed By: #### C MP, PSA, LIPD #### [place] [address] Ph. [phone] CO2 [Moles/Vol] 31 mmol/L Normal 22-32 [facility] Comment on above: Performed By: #### C MP, PSA, LIPD #### [place] [address] Ph. [phone] Creatinine [Mass/Vol] 0.92 mg/dL Normal 0.66-1.25 [facility] Comment on above: Performed By: #### C MP, PSA, LIPD #### [place] [address] Ph. [phone] GFR/1.73 sq M.predicted among non-blacks MDRD (S/P/Bld) [Vol rate/Area] 82 mL/min/{1.73_m2} Normal >60 [facility] Comment on above: Result Comment: Stag e 1 Kidney damage (e.g., protein in the urine) with normal GFR >=90\X0D0A\Stage 2 Kidney damage with mild decrease in GFR 60-89\X0D0A\Stage 3a Moderate decrease in GFR 45-59\X0D0A\Stage 3b Moderate decrease in GFR 30-44\X0D0A\Stage 4 Severe reduction in GFR 15-29\X0D0A\Stage 5 Kidney failure <15 Performed By: #### C MP, PSA, LIPD #### [place] [address] Ph. [phone] Glucose [Mass/Vol] 116 mg/dL High 65-100 [facility] Comment on above: Performed By: #### C MP, PSA, LIPD #### [place] [address] Ph. [phone] Potassium [Moles/Vol] 5.2 mmol/L High 3.6-5.0 [facility] Comment on above: Performed By: #### C MP, PSA, LIPD #### [place] [address] Ph. [phone] Protein [Mass/Vol] 7.3 g/dL Normal 6.3-8.2 [facility] Comment on above: Performed By: #### C MP, PSA, LIPD #### [place] [address] Ph. [phone] Sodium [Moles/Vol] 141 mmol/L Normal 135-145 [facility] Comment on above: Performed By: #### C MP, PSA, LIPD #### [place] [address] Ph. [phone] Urea nitrogen [Mass/Vol] 21 mg/dL High 9-20 [facility] Comment on above: Performed By: #### C MP, PSA, LIPD #### [place] [address] Ph. [phone] Hemoglobin A1Con 11-24-2021 EAG 135 mg/dL Normal [facility] Comment on above: Result Comment: Sandi mated Average Glucose is a caluculated value from Hemoglobin A1C and is entry level marketing representative of the average blood glucose level in the last 2-3 month period. Performed By: #### C BCAD, A1C #### [place] [address] Ph. [phone] HbA1c (Bld) [Mass fraction] 6.3 % High [...] Performed By: #### C BCAD, A1C #### [place] [address] [place] [id number] Ph. [phone] INSULIN, SERUMon 11-24-2021 Insulin 14.8 uIU/mL Normal <=19.6 [facility] Comment on above: Order Comment: [facility] performed at: [employer] [employer] [facility], [address] [place] [address], , [employer] Supervisor: Josh Flood MD PhD\X0D0A\[facility] Collection Date/Time: \X0D0A\[facility] Results Received Date/Time: [id number]\X0D0A\[facility] Reported Date/Time: Result Comment: \X0D 0A\Risk Category:\X0D0A\Optimal < or = 19.6\X0D0A\Moderate NA\X0D0A\High >19.6\X0D0A\ \X0D0A\Adult cardiovascular event risk category cut\X0D0A\points (optimal, moderate, high) are based on\X0D0A\[employer] population data from 08/2011.\X0D0A\ \X0D0A\This insulin assay shows strong cross-reactivity for\X0D0A\some insulin analogs (lispro, aspart, and glargine)\X0D0A\and much lower cross-reactivity with others (determir,\X0D0A\glulisine).\X0D0A\ Performed By: #### O RD523 #### [address] [address] Ph. [phone] Lipid Panelon 11-24-2021 Cholesterol [Mass/Vol] 257 mg/dL High 100-200 [facility] Comment on above: Result Comment: <200 mg/dL is recommended cholesterol level. Performed By: #### C MP, PSA, LIPD #### [address] [address] Ph. [phone] Cholesterol in HDL [Mass/Vol] 45 mg/dL Normal >40 [facility] Comment on above: Performed By: #### C MP, PSA, LIPD #### [address] [address] Ph. [phone] Cholesterol in LDL [Mass/Vol] 178 mg/dL High 20-100 [facility] Comment on above: Performed By: #### C MP, PSA, LIPD #### [address] [address] Ph. [phone] Cholesterol.total /Cholesterol in HDL [Mass ratio] 6 {ratio} High 1-5 [facility] Comment on above: Performed By: #### C MP, PSA, LIPD #### [address] [address] Ph. [phone] Triglyceride [Mass/Vol] 169 mg/dL High 10-150 [facility] Comment on above: Performed By: #### C MP, PSA, LIPD #### [address] [address] Ph. [phone] CREATININEon 10-02-2021 Creatinine [Mass/Vol] 0.99 mg/dL Normal 0.66-1.25 [facility] Comment on above: Performed By: #### C RENEE #### [facility] [address] [place] [address] Dr. Michelle Garcia EGFR-AF UGANDAN >60 Normal >=60 [facility] Comment on above: Performed By: #### C RENEE #### [facility] [address] [place] [address] [address] Michelle Garcia EGFR-NON AF UGANDAN >60 Normal >=60 [facility] Comment on above: Performed By: #### C RENEE #### [facility] [address] [place] [address] [address] Michelle Garcia MRI HIP RT W CONon 2 MRI HIP RT W CON EXAM: MRI HIP RT W C ON 20 mL Dotare[employer]. HISTORY: The patient is a 71-year-old male. Follow-up right femoral head lesion. COMPARISON: Comparison is made to radiographs of the right hip obtained on 08/25/2021 and to a non-contrast enhanced MRI of the right hip obtained on 09/21/2021. TECHNIQUE: Small [id number] images were obtained of the right hip: [...] Date: 2021-10-02 20:20 Normal [facility] MRI HIP RT WO CONon 09-21-19 [...] Date: 2021-09-21 14:29 Normal [facility] XR FOREIGN BODY EYEon 2021 XR FOREIGN BODY EYE EXAMINATION: XR FOREIGN BODY EYE HISTORY: Foreign body in eye COMPARISON: No relevant comparison available. FINDINGS: ORBITS: Negative for a metallic foreign body. OTHER: Negative. IMPRESSION: 1. No metallic foreign body within the orbits. Electronically authenticated by: JONES RICHMOND Date: 2021-09-21 12:52 Normal [facility] XR SACRUM_COCCYXon 1 XR SACRUM_COCCYX EXAMINATION: XR LSPI NE MIN [...] Date: 2021-08-25 16:07 Normal [facility] BNPon 07-08-2021 Natriuretic peptide B (Bld) [Mass/Vol] 73.0 pg/mL Normal <=900.0 [facility] Comment on above: Performed By: #### C RP, BNP, CMP #### [facility] [address] [address] [address] Michelle Garcia CBC AUTO DIFFon 07-08-2021 BASO # 0.0 103/ul Normal 0.0-0.1 [facility] Comment on above: Performed By: #### C RP, BNP, CMP #### [facility] [address] [address] [address] Michelle Garcia Basophils/100 WBC (Bld) 0.1 % Critically low 0.2-2.0 [facility] Comment on above: Performed By: #### C RP, BNP, CMP #### [facility] [address] [place] [address] Dr. Michelle Garcia EO # 0.0 103/ul Normal 0.0-0.7 [facility] Comment on above: Performed By: #### C RP, BNP, CMP #### [facility] [address] [place] [address] Dr. Michelle Garcia Eosinophils/100 WBC (Bld) 0.0 % Critically low 0.9-7.0 [facility] Comment on above: Performed By: #### C RP, BNP, CMP #### [facility] [address] [place] [address] Dr. Michelle Garcia Erythrocyte distribution width (RBC) [Ratio] 12.4 % Normal 11.0-15.0 [facility] Comment on above: Performed By: #### C RP, BNP, CMP #### [facility] [address] [place] [address] Dr. Michelle Garcia Hematocrit (Bld) [Volume fraction] 43.2 % Normal 42.0-54.0 [facility] Comment on above: Performed By: #### C RP, BNP, CMP #### [facility] [address] [place] [address] Dr. Michelle Garcia Hemoglobin (Bld) [Mass/Vol] 14.4 g/dL Normal 14.0-18.0 [facility] Comment on above: Performed By: #### C RP, BNP, CMP #### [facility] [address] [place] [address] Dr. Michelle Garcia IG # 0.06 10e3/ul Critically high 0.00-0.03 [facility] Comment on above: Performed By: #### C RP, BNP, CMP #### [facility] [address] [place] [address] Dr. Michelle Garcia IG % 0.7 % Critically high 0.0-0.5 [facility] Comment on above: Performed By: #### C RP, BNP, CMP #### [facility] [address] [place] [address] Dr. Michelle Garcia LYMPH # 1.2 103/ul Normal 1.2-3.8 [facility] Comment on above: Performed By: #### C RP, BNP, CMP #### [facility] [address] [place] [address] Dr. Michelle Garcia Lymphocytes/100 WBC (Bld) 14.0 % Critically low 20.5-60.0 [facility] Comment on above: Performed By: #### C RP, BNP, CMP #### [facility] [address] [place] [address] Dr. Michelle Garcia MANUAL DIFF REQ NO Normal [facility] Comment on above: Performed By: #### C RP, BNP, CMP #### [facility] [address] [place] [address] Dr. Michelle Garcia MCH (RBC) [Entitic mass] 31.6 pg Normal 25.9-34.0 [facility] Comment on above: Performed By: #### C RP, BNP, CMP #### [facility] [address] [place] [address] Dr. Michelle Garcia MCHC (RBC) [Mass/Vol] 33.3 g/dL Normal 29.9-35.2 [facility] Comment on above: Performed By: #### C RP, BNP, CMP #### [facility] [address] [place] [address] Dr. Michelle Garcia MCV (RBC) [Entitic vol] 94.9 fL Critically high 80.0-94.0 [facility] Comment on above: Performed By: #### C RP, BNP, CMP #### [facility] [address] [place] [address] Dr. Michelle Garcia MONO # 0.7 103/ul Normal 0.3-0.8 [facility] Comment on above: Performed By: #### C RP, BNP, CMP #### [facility] [address] [place] [address] Dr. Michelle Garcia Monocytes/100 WBC (Bld) 8.5 % Normal 1.7-12.0 [facility] Comment on above: Performed By: #### C RP, BNP, CMP #### [facility] [address] [place] [address] Dr. Michelle Garcia NEUT # 6.6 103/ul Critically high 1.4-6.5 [facility] Comment on above: Performed By: #### C RP, BNP, CMP #### [facility] [address] [place] [address] Dr. Michelle Garcia Neutrophils/100 WBC (Bld) 76.7 % Critically high 43.0-75.0 [facility] Comment on above: Performed By: #### C RP, BNP, CMP #### [facility] [address] [place] [address] Dr. Michelle Garcia Platelet mean volume (Bld) [Entitic vol] 10.3 fL Normal 9.5-13.5 [facility] Comment on above: Performed By: #### C RP, BNP, CMP #### [facility] [address] [place] [address] Dr. Michelle Garcia PLT 347 103/ul Normal 150-450 [facility] Comment on above: Performed By: #### C RP, BNP, CMP #### [facility] [address] [place] [address] Dr. Michelle Garcia RBC 4.55 106/ul Critically low 4.70-6.10 [facility] Comment on above: Performed By: #### C RP, BNP, CMP #### [facility] [address] [place] [address] Dr. Michelle Garcia WBC 8.6 103/ul Normal 4.0-11.0 [facility] Comment on above: Performed By: #### C RP, BNP, CMP #### [facility] [address] [place] [address] Dr. Michelle Garcia CRPon 07-08-2021 CRP [Mass/Vol] mg/L Normal <=1.0 [facility] Comment on above: Performed By: #### C RP, BNP, CMP #### [facility] [address] [place] [address] Dr. Michelle Garcia PROF 14(COMP METB)on 021 Albumin [Mass/Vol] 3.1 g/dL Critically low 3.5-5.0 [facility] Comment on above: Performed By: #### C RP, BNP, CMP #### [facility] [address] [address] [address] Michelle Garcia Albumin/Globulin [Mass ratio] 0.8 {ratio} Normal [facility] Comment on above: Performed By: #### C RP, BNP, CMP #### [facility] [address] [address] [address] Michelle Garcia ALP [Catalytic activity/Vol] 52 U/L Normal 38-126 [facility] Comment on above: Performed By: #### C RP, BNP, CMP #### [facility] [address] [address] [address] Michelle Garcia ALT [Catalytic activity/Vol] 110 U/L Critically high 21-72 [facility] Comment on above: Performed By: #### C RP, BNP, CMP #### [facility] [address] [place] [address] Dr. Michelle Garcia Anion gap [Moles/Vol] 12.8 mmol/L Normal [facility] Comment on above: Performed By: #### C RP, BNP, CMP #### [facility] [address] [address] [address] Michelle Garcia AST [Catalytic activity/Vol] 47 U/L Normal 17-59 [facility] Comment on above: Performed By: #### C RP, BNP, CMP #### [facility] [address] [address] [address] Michelle Gracia Bilirubin [Mass/Vol] 0.5 mg/dL Normal 0.2-1.3 [facility] Comment on above: Performed By: #### C RP, BNP, CMP #### [facility] [address] [address] [address] Michelle Garcia Calcium [Mass/Vol] 8.0 mg/dL Critically low 8.4-10.2 [facility] Comment on above: Performed By: #### C RP, BNP, CMP #### [facility] [address] [address] [address] Michelle Garcia Chloride [Moles/Vol] 101 mmol/L Normal 98-107 [facility] Comment on above: Performed By: #### C RP, BNP, CMP #### [facility] [address] [address] [address] Michelle Garcia CO2 [Moles/Vol] 25.9 mmol/L Normal 22.0-30.0 [facility] Comment on above: Performed By: #### C RP, BNP, CMP #### [facility] [address] [address] [address] Michelle Garcia Creatinine [Mass/Vol] 0.87 mg/dL Normal 0.66-1.25 [facility] Comment on above: Performed By: #### C RP, BNP, CMP #### [facility] [address] [address] [address] Michelle Garcia EGFR-AF UGANDAN >60 Normal >=60 [facility] Comment on above: Performed By: #### C RP, BNP, CMP #### [facility] [address] [address] [address] Michelle Garcia EGFR-NON AF UGANDAN >60 Normal >=60 [facility] Comment on above: Performed By: #### C RP, BNP, CMP #### [facility] [address] [address] [address] Michelle Garcia Globulin (S) [Mass/Vol] 3.8 g/dL Normal [facility] Comment on above: Performed By: #### C RP, BNP, CMP #### [facility] [address] [address] [address] Michelle Garcia Glucose [Mass/Vol] 150 mg/dL Critically high 74-106 [facility] Comment on above: Performed By: #### C RP, BNP, CMP #### [facility] [address] [address] [address] Michelle Garcia Potassium [Moles/Vol] 3.7 mmol/L Normal 3.4-5.0 [facility] Comment on above: Performed By: #### C RP, BNP, CMP #### [facility] [address] [address] [address] Michelle Garcia Protein [Mass/Vol] 6.9 g/dL Normal 6.1-8.2 [facility] Comment on above: Performed By: #### C RP, BNP, CMP #### [facility] [address] [place] [address] Dr. Michelle Garcia Sodium [Moles/Vol] 136 mmol/L Critically low 137-145 [facility] Comment on above: Performed By: #### C RP, BNP, CMP #### [facility] [address] [place] [address] Dr. Michelle Garcia Urea nitrogen [Mass/Vol] 18.0 mg/dL Normal 9.0-20.0 [facility] Comment on above: Performed By: #### C RP, BNP, CMP #### [facility] [address] [place] [address] Dr. Michelle Garcia Urea nitrogen/Creatini ne [Mass ratio] 20.7 mg/mg Normal [facility] Comment on above: Performed By: #### C RP, BNP, CMP #### [facility] [address] [place] [address] Dr. Michelle Garcia BNPon 07-07-2021 Natriuretic peptide B (Bld) [Mass/Vol] 47.0 pg/mL Normal <=900.0 [facility] Comment on above: Performed By: #### H STROPN #### [facility] [address] [place] [address] Dr. Michelle Garcia CBC AUTO DIFFon 07-07-2021 BASO # 0.0 103/ul Normal 0.0-0.1 [facility] Comment on above: Performed By: #### C BC #### [facility] [address] [place] [address] Dr. Michelle Garcia Basophils/100 WBC (Bld) 0.1 % Critically low 0.2-2.0 [facility] Comment on above: Performed By: #### C BC #### [facility] [address] [place] [address] Dr. Michelle Garcia EO # 0.0 103/ul Normal 0.0-0.7 [facility] Comment on above: Performed By: #### C BC #### [facility] [address] [place] [address] Dr. Michelle Garcia Eosinophils/100 WBC (Bld) 0.0 % Critically low 0.9-7.0 [facility] Comment on above: Performed By: #### C BC #### [facility] [address] [place] [address] Dr. Michelle Garcia Erythrocyte distribution width (RBC) [Ratio] 12.4 % Normal 11.0-15.0 [facility] Comment on above: Performed By: #### C BC #### [facility] [address] [place] [address] Dr. Michelle Gracia Hematocrit (Bld) [Volume fraction] 41.6 % Critically low 42.0-54.0 [facility] Comment on above: Performed By: #### C BC #### [facility] [address] [place] [address] Dr. Michelle Garcia Hemoglobin (Bld) [Mass/Vol] 13.9 g/dL Critically low 14.0-18.0 [facility] Comment on above: Performed By: #### C BC #### [facility] [address] [place] [address] Dr. Michelle Garcia IG # 0.06 10e3/ul Critically high 0.00-0.03 [facility] Comment on above: Performed By: #### C BC #### [facility] [address] [place] [address] Dr. Michelle Garcai IG % 0.7 % Critically high 0.0-0.5 [facility] Comment on above: Performed By: #### C BC #### [facility] [address] [place] [address] Dr. Michelle Garcia LYMPH # 1.5 103/ul Normal 1.2-3.8 [facility] Comment on above: Performed By: #### C BC #### [facility] [address] [place] [address] Dr. Michelle Garcia Lymphocytes/100 WBC (Bld) 17.9 % Critically low 20.5-60.0 [facility] Comment on above: Performed By: #### C BC #### [facility] [address] [place] [address] Dr. Michelle Garcia MANUAL DIFF REQ NO Normal [facility] Comment on above: Performed By: #### C BC #### [facility] [address] [place] [address] Dr. Michelle Garcia MCH (RBC) [Entitic mass] 32.0 pg Normal 25.9-34.0 [facility] Comment on above: Performed By: #### C BC #### [facility] [address] [place] [address] Dr. Michelle Garcia MCHC (RBC) [Mass/Vol] 33.4 g/dL Normal 29.9-35.2 [facility] Comment on above: Performed By: #### C BC #### [facility] [address] [place] [address] Dr. Michelle Garcia MCV (RBC) [Entitic vol] 95.6 fL Critically high 80.0-94.0 [facility] Comment on above: Performed By: #### C BC #### [facility] [address] [place] [address] Dr. Michelle Garcia MONO # 0.5 103/ul Normal 0.3-0.8 [facility] Comment on above: Performed By: #### C BC #### [facility] [address] [place] [address] Dr. Michelle Garcia Monocytes/100 WBC (Bld) 6.0 % Normal 1.7-12.0 [facility] Comment on above: Performed By: #### C BC #### [facility] [address] [place] [address] Dr. Michelle Garcia NEUT # 6.4 103/ul Normal 1.4-6.5 [facility] Comment on above: Performed By: #### C BC #### [facility] [address] [place] [address] Dr. Michelle Garcia Neutrophils/100 WBC (Bld) 75.3 % Critically high 43.0-75.0 [facility] Comment on above: Performed By: #### C BC #### [facility] [address] [place] [address] Dr. Michelle Garcia Platelet mean volume (Bld) [Entitic vol] 10.2 fL Normal 9.5-13.5 [facility] Comment on above: Performed By: #### C BC #### [facility] [address] [place] [address] Dr. Michelle Garcia PLT 323 103/ul Normal 150-450 [facility] Comment on above: Performed By: #### C BC #### [facility] [address] [place] [address] Dr. Michelle Garcia RBC 4.35 106/ul Critically low 4.70-6.10 [facility] Comment on above: Performed By: #### C BC #### [facility] [address] [place] [address] Dr. Michelle Garcia WBC 8.5 103/ul Normal 4.0-11.0 [facility] Comment on above: Performed By: #### C BC #### [facility] [address] [place] [address] Dr. Michelle Garcia CRPon 07-07-2021 CRP [Mass/Vol] mg/L Normal <=1.0 [facility] Comment on above: Performed By: #### H STROPN #### [facility] [address] [place] [address] Dr. Michelle Garcia PROF 14(COMP METB)on 021 Albumin [Mass/Vol] 2.9 g/dL Critically low 3.5-5.0 [facility] Comment on above: Performed By: #### H STROPN #### [facility] [address] [place] [address] Dr. Michelle Garcia Albumin/Globulin [Mass ratio] 0.8 {ratio} Normal [facility] Comment on above: Performed By: #### H STROPN #### [facility] [address] [place] [address] Dr. Michelle Garcia ALP [Catalytic activity/Vol] 54 U/L Normal 38-126 [facility] Comment on above: Performed By: #### H STROPN #### [facility] [address] [place] [address] Dr. Michelle Garcia ALT [Catalytic activity/Vol] 121 U/L Critically high 21-72 [facility] Comment on above: Performed By: #### H STROPN #### [facility] [address] [place] [address] Dr. Michelle Garcia Anion gap [Moles/Vol] 11.5 mmol/L Normal [facility] Comment on above: Performed By: #### H STROPN #### [facility] [address] [address] [address] Michelle Garcia AST [Catalytic activity/Vol] 57 U/L Normal 17-59 [facility] Comment on above: Performed By: #### H STROPN #### [facility] [address] [place] [address] Dr. Michelle Garcia Bilirubin [Mass/Vol] 0.3 mg/dL Normal 0.2-1.3 [facility] Comment on above: Performed By: #### H STROPN #### [facility] [address] [place] [address] Dr. Michelle Garcia Calcium [Mass/Vol] 8.1 mg/dL Critically low 8.4-10.2 [facility] Comment on above: Performed By: #### H STROPN #### [facility] [address] [place] [address] Dr. Michelle Garcia Chloride [Moles/Vol] 102 mmol/L Normal 98-107 [facility] Comment on above: Performed By: #### H STROPN #### [facility] [address] [place] [address] Dr. Michelle Garcia CO2 [Moles/Vol] 27.2 mmol/L Normal 22.0-30.0 [facility] Comment on above: Performed By: #### H STROPN #### [facility] [address] [place] [address] Dr. Michelle Garcia Creatinine [Mass/Vol] 0.85 mg/dL Normal 0.66-1.25 [facility] Comment on above: Performed By: #### H STROPN #### [facility] [address] [place] [address] Dr. Michelle Garcia EGFR-AF UGANDAN >60 Normal >=60 [facility] Comment on above: Performed By: #### H STROPN #### [facility] [address] [address] [address] Michelle Garcia EGFR-NON AF UGANDAN >60 Normal >=60 [facility] Comment on above: Performed By: #### H STROPN #### [facility] [address] [address] [address] Michelle Garcia Globulin (S) [Mass/Vol] 3.7 g/dL Normal [facility] Comment on above: Performed By: #### H STROPN #### [facility] [address] [address] [address] Michelle Garcia Glucose [Mass/Vol] 152 mg/dL Critically high 74-106 [facility] Comment on above: Performed By: #### H STROPN #### [facility] [address] [address] [address] Michelle Garcia Potassium [Moles/Vol] 3.7 mmol/L Normal 3.4-5.0 [facility] Comment on above: Performed By: #### H STROPN #### [facility] [address] [address] [address] Michelle Garcia Protein [Mass/Vol] 6.6 g/dL Normal 6.1-8.2 [facility] Comment on above: Performed By: #### H STROPN #### [facility] [address] [address] [address] Michelle Garcia Sodium [Moles/Vol] 137 mmol/L Normal 137-145 [facility] Comment on above: Performed By: #### H STROPN #### [facility] [address] [address] [address] Michelle Garcia Urea nitrogen [Mass/Vol] 18.0 mg/dL Normal 9.0-20.0 [facility] Comment on above: Performed By: #### H STROPN #### [facility] [address] [address] [address] Michelle Garcia Urea nitrogen/Creatini ne [Mass ratio] 21.2 mg/mg Normal [facility] Comment on above: Performed By: #### H STROPN #### [facility] [address] [place] [address] Dr. Michelle Garcia BNPon 07-06-2021 Natriuretic peptide B (Bld) [Mass/Vol] 50.0 pg/mL Normal <=900.0 [facility] Comment on above: Performed By: #### H STROPN #### [facility] [address] [place] [address] Dr. Michelle Garcia CBC AUTO DIFFon 07-06-2021 BASO # 0.0 103/ul Normal 0.0-0.1 [facility] Comment on above: Performed By: #### H STROPN #### [facility] [address] [place] [address] Dr. Michelle Garcia Basophils/100 WBC (Bld) 0.0 % Critically low 0.2-2.0 [facility] Comment on above: Performed By: #### H STROPN #### [facility] [address] [place] [address] Dr. Michelle Garcia EO # 0.0 103/ul Normal 0.0-0.7 [facility] Comment on above: Performed By: #### H STROPN #### [facility] [address] [place] [address] Dr. Michelle Garcia Eosinophils/100 WBC (Bld) 0.0 % Critically low 0.9-7.0 [facility] Comment on above: Performed By: #### H STROPN #### [facility] [address] [place] [address] Dr. Michelle Garcia Erythrocyte distribution width (RBC) [Ratio] 12.6 % Normal 11.0-15.0 [facility] Comment on above: Performed By: #### H STROPN #### [facility] [address] [place] [address] Dr. Michelle Garcia Hematocrit (Bld) [Volume fraction] 40.6 % Critically low 42.0-54.0 [facility] Comment on above: Performed By: #### H STROPN #### [facility] [address] [place] [address] Dr. Michelle Garcia Hemoglobin (Bld) [Mass/Vol] 13.5 g/dL Critically low 14.0-18.0 [facility] Comment on above: Performed By: #### H STROPN #### [facility] [address] [place] [address] Dr. Michelle Garcia IG # 0.03 10e3/ul Normal 0.00-0.03 [facility] Comment on above: Performed By: #### H STROPN #### [facility] [address] [place] [address] Dr. Michelle Garcia IG % 0.4 % Normal 0.0-0.5 [facility] Comment on above: Performed By: #### H STROPN #### [facility] [address] [place] [address] Dr. Michelle Garcia LYMPH # 1.4 103/ul Normal 1.2-3.8 [facility] Comment on above: Performed By: #### H STROPN #### [facility] [address] [place] [address] Dr. Michelle Garcia Lymphocytes/100 WBC (Bld) 19.1 % Critically low 20.5-60.0 [facility] Comment on above: Performed By: #### H STROPN #### [facility] [address] [place] [address] Dr. Michelle Garcia MANUAL DIFF REQ NO Normal [facility] Comment on above: Performed By: #### H STROPN #### [facility] [address] [place] [address] Dr. Michelle Garcia MCH (RBC) [Entitic mass] 31.8 pg Normal 25.9-34.0 [facility] Comment on above: Performed By: #### H STROPN #### [facility] [address] [place] [address] Dr. Michelle Garcia MCHC (RBC) [Mass/Vol] 33.3 g/dL Normal 29.9-35.2 [facility] Comment on above: Performed By: #### H STROPN #### [facility] [address] [place] [address] Dr. Michelle Garcia MCV (RBC) [Entitic vol] 95.5 fL Critically high 80.0-94.0 [facility] Comment on above: Performed By: #### H STROPN #### [facility] [address] [place] [address] Dr. Michelle Garcia MONO # 0.5 103/ul Normal 0.3-0.8 [facility] Comment on above: Performed By: #### H STROPN #### [facility] [address] [place] [address] Dr. Michelle Garcia Monocytes/100 WBC (Bld) 6.9 % Normal 1.7-12.0 [facility] Comment on above: Performed By: #### H STROPN #### [facility] [address] [place] [address] Dr. Michelle Garcia NEUT # 5.2 103/ul Normal 1.4-6.5 [facility] Comment on above: Performed By: #### H STROPN #### [facility] [address] [place] [address] Dr. Michelle Garcia Neutrophils/100 WBC (Bld) 73.6 % Normal 43.0-75.0 [facility] Comment on above: Performed By: #### H STROPN #### [facility] [address] [place] [address] Dr. Michelle Garcia Platelet mean volume (Bld) [Entitic vol] 10.1 fL Normal 9.5-13.5 [facility] Comment on above: Performed By: #### H STROPN #### [facility] [address] [place] [address] Dr. Michelle Garcia PLT 291 103/ul Normal 150-450 [facility] Comment on above: Performed By: #### H STROPN #### [facility] [address] [place] [address] Dr. Michelle Garcia RBC 4.25 106/ul Critically low 4.70-6.10 [facility] Comment on above: Performed By: #### H STROPN #### [facility] [address] [place] [address] Dr. Michelle Garcia WBC 7.1 103/ul Normal 4.0-11.0 [facility] Comment on above: Performed By: #### H STROPN #### [facility] [address] [place] [address] Dr. Michelle Garcia CRPon 07-06-2021 CRP [Mass/Vol] mg/L Normal <=1.0 [facility] Comment on above: Performed By: #### H STROPN #### [facility] [address] [place] [address] Dr. Michelle Garcia PROF 14(COMP METB)on Albumin [Mass/Vol] 2.9 g/dL Critically low 3.5-5.0 [facility] Comment on above: Performed By: #### H STROPN #### [facility] [address] [place] [address] Dr. Michelle Garcia Albumin/Globulin [Mass ratio] 0.8 {ratio} Normal [facility] Comment on above: Performed By: #### H STROPN #### [facility] [address] [place] [address] Dr. Michelle Garcia ALP [Catalytic activity/Vol] 55 U/L Normal 38-126 [facility] Comment on above: Performed By: #### H STROPN #### [facility] [address] [place] [address] Dr. Michelle Garcia ALT [Catalytic activity/Vol] 91 U/L Critically high 21-72 [facility] Comment on above: Performed By: #### H STROPN #### [facility] [address] [place] [address] Dr. Michelle Garcia Anion gap [Moles/Vol] 12.7 mmol/L Normal [facility] Comment on above: Performed By: #### H STROPN #### [facility] [address] [place] [address] Dr. Michelle Garcia AST [Catalytic activity/Vol] 45 U/L Normal 17-59 [facility] Comment on above: Performed By: #### H STROPN #### [facility] [address] [place] [address] Dr. Michelle Garcia Bilirubin [Mass/Vol] 0.3 mg/dL Normal 0.2-1.3 [facility] Comment on above: Performed By: #### H STROPN #### [facility] [address] [address] [address] Michelle Garcia Calcium [Mass/Vol] 8.2 mg/dL Critically low 8.4-10.2 [facility] Comment on above: Performed By: #### H STROPN #### [facility] [address] [address] [address] Michelle Garcia Chloride [Moles/Vol] 102 mmol/L Normal 98-107 [facility] Comment on above: Performed By: #### H STROPN #### [facility] [address] [place] [address] Dr. Michelle Garcia CO2 [Moles/Vol] 27.1 mmol/L Normal 22.0-30.0 [facility] Comment on above: Performed By: #### H STROPN #### [facility] [address] [address] [address] Michelle Garcia Creatinine [Mass/Vol] 0.88 mg/dL Normal 0.66-1.25 [facility] Comment on above: Performed By: #### H STROPN #### [facility] [address] [place] [address] Dr. Michelle Garcia EGFR-AF UGANDAN >60 Normal >=60 [facility] Comment on above: Performed By: #### H STROPN #### [facility] [address] [place] [address] Dr. Michelle Garcia EGFR-NON AF UGANDAN >60 Normal >=60 [facility] Comment on above: Performed By: #### H STROPN #### [facility] [address] [address] [address] Michelle Garcia Globulin (S) [Mass/Vol] 3.8 g/dL Normal [facility] Comment on above: Performed By: #### H STROPN #### [facility] [address] [place] [address] Dr. Michelle Garcia Glucose [Mass/Vol] 174 mg/dL Critically high 74-106 [facility] Comment on above: Performed By: #### H STROPN #### [facility] [address] [address] [address] Michelle Garcia Potassium [Moles/Vol] 3.8 mmol/L Normal 3.4-5.0 [facility] Comment on above: Performed By: #### H STROPN #### [facility] [address] [place] [address] Dr. Michelle Garcia Protein [Mass/Vol] 6.7 g/dL Normal 6.1-8.2 [facility] Comment on above: Performed By: #### H STROPN #### [facility] [address] [place] [address] Dr. Michelle Garcia Sodium [Moles/Vol] 138 mmol/L Normal 137-145 [facility] Comment on above: Performed By: #### H STROPN #### [facility] [address] [place] [address] Dr. Michelle Garcia Urea nitrogen [Mass/Vol] 17.0 mg/dL Normal 9.0-20.0 [facility] Comment on above: Performed By: #### H STROPN #### [facility] [address] [place] [address] Dr. Michelle Garcia Urea nitrogen/Creatini ne [Mass ratio] 19.3 mg/mg Normal [facility] Comment on above: Performed By: #### H STROPN #### [facility] [address] [place] [address] Dr. Michelle Garcia BNPon 07-05-2021 Natriuretic peptide B (Bld) [Mass/Vol] 32.0 pg/mL Normal <=900.0 [facility] Comment on above: Performed By: #### C RP, BNP, CMP #### [facility] [address] [place] [address] Dr. Michelle Garcia CBC AUTO DIFFon 07-05-2021 BASO # 0.0 103/ul Normal 0.0-0.1 [facility] Comment on above: Performed By: #### C RP, BNP, CMP #### [facility] [address] [place] [address] Dr. Michelle Garcia Basophils/100 WBC (Bld) 0.2 % Normal 0.2-2.0 [facility] Comment on above: Performed By: #### C RP, BNP, CMP #### [facility] [address] [place] [address] Dr. Michelle Garcia EO # 0.0 103/ul Normal 0.0-0.7 [facility] Comment on above: Performed By: #### C RP, BNP, CMP #### [facility] [address] [place] [address] Dr. Michelle Garcia Eosinophils/100 WBC (Bld) 0.0 % Critically low 0.9-7.0 [facility] Comment on above: Performed By: #### C RP, BNP, CMP #### [facility] [address] [place] [address] Dr. Michelle Garcia Erythrocyte distribution width (RBC) [Ratio] 13.0 % Normal 11.0-15.0 [facility] Comment on above: Performed By: #### C RP, BNP, CMP #### [facility] [address] [place] [address] Dr. Michelle Garcia Hematocrit (Bld) [Volume fraction] 42.3 % Normal 42.0-54.0 [facility] Comment on above: Performed By: #### C RP, BNP, CMP #### [facility] [address] [place] [address] Dr. Michelle Garcia Hemoglobin (Bld) [Mass/Vol] 13.5 g/dL Critically low 14.0-18.0 [facility] Comment on above: Performed By: #### C RP, BNP, CMP #### [facility] [address] [place] [address] Dr. Michelle Garcia IG # 0.02 10e3/ul Normal 0.00-0.03 [facility] Comment on above: Performed By: #### C RP, BNP, CMP #### [facility] [address] [place] [address] Dr. Michelle Garcia IG % 0.4 % Normal 0.0-0.5 [facility] Comment on above: Performed By: #### C RP, BNP, CMP #### [facility] [address] [place] [address] Dr. Michelle Garcia LYMPH # 1.3 103/ul Normal 1.2-3.8 [facility] Comment on above: Performed By: #### C RP, BNP, CMP #### [facility] [address] [place] [address] Dr. Michelle Garcia Lymphocytes/100 WBC (Bld) 24.5 % Normal 20.5-60.0 [facility] Comment on above: Performed By: #### C RP, BNP, CMP #### [facility] [address] [place] [address] Dr. Michelle Garcia MANUAL DIFF REQ NO Normal [facility] Comment on above: Performed By: #### C RP, BNP, CMP #### [facility] [address] [place] [address] Dr. Michelle Garcia MCH (RBC) [Entitic mass] 31.6 pg Normal 25.9-34.0 [facility] Comment on above: Performed By: #### C RP, BNP, CMP #### [facility] [address] [place] [address] Dr. Michelle Garcia MCHC (RBC) [Mass/Vol] 31.9 g/dL Normal 29.9-35.2 [facility] Comment on above: Performed By: #### C RP, BNP, CMP #### [facility] [address] [place] [address] Dr. Michelle Garcia MCV (RBC) [Entitic vol] 99.1 fL Critically high 80.0-94.0 [facility] Comment on above: Performed By: #### C RP, BNP, CMP #### [facility] [address] [place] [address] Dr. Michelle Garcia MONO # 0.3 103/ul Normal 0.3-0.8 [facility] Comment on above: Performed By: #### C RP, BNP, CMP #### [facility] [address] [place] [address] Dr. Michelle Garcia Monocytes/100 WBC (Bld) 5.0 % Normal 1.7-12.0 [facility] Comment on above: Performed By: #### C RP, BNP, CMP #### [facility] [address] [place] [address] Dr. Michelle Garcia NEUT # 3.8 103/ul Normal 1.4-6.5 [facility] Comment on above: Performed By: #### C RP, BNP, CMP #### [facility] [address] [place] [address] Dr. Michelle Garcia Neutrophils/100 WBC (Bld) 69.9 % Normal 43.0-75.0 [facility] Comment on above: Performed By: #### C RP, BNP, CMP #### [facility] [address] [place] [address] Dr. Michelle Garcia Platelet mean volume (Bld) [Entitic vol] 10.4 fL Normal 9.5-13.5 [facility] Comment on above: Performed By: #### C RP, BNP, CMP #### [facility] [address] [place] [address] Dr. Michelle Garcia PLT 274 103/ul Normal 150-450 [facility] Comment on above: Performed By: #### C RP, BNP, CMP #### [facility] [address] [place] [address] Dr. Michelle Garcia RBC 4.27 106/ul Critically low 4.70-6.10 [facility] Comment on above: Performed By: #### C RP, BNP, CMP #### [facility] [address] [place] [address] Dr. iMchelle Garcia WBC 5.4 103/ul Normal 4.0-11.0 [facility] Comment on above: Performed By: #### C RP, BNP, CMP #### [facility] [address] [place] [address] Dr. Michelle Garcia CRPon 07-05-2021 CRP 1.2 mg/dL Critically high <=1.0 [facility] Comment on above: Performed By: #### C RP, BNP, CMP #### [facility] [address] [address] [address] Michelle Garcia CULTURE SPUTUMon 07-05-2021 CULTURE SPUTUM Culture Observations : NORMAL RESPIRATORY FARRAH. Normal [facility] Comment on above: Performed By: #### H STROPN #### [facility] [address] [place] [address] Dr. Michelle Garcia PROF 14(COMP METB)on 021 Albumin [Mass/Vol] 3.1 g/dL Critically low 3.5-5.0 [facility] Comment on above: Performed By: #### C RP, BNP, CMP #### [facility] [address] [place] [address] Dr. Michelle Garcia Albumin/Globulin [Mass ratio] 0.8 {ratio} Normal [facility] Comment on above: Performed By: #### C RP, BNP, CMP #### [facility] [address] [place] [address] Dr. Michelle Garcia ALP [Catalytic activity/Vol] 64 U/L Normal 38-126 [facility] Comment on above: Performed By: #### C RP, BNP, CMP #### [facility] [address] [place] [address] Dr. Michelle Garcia ALT [Catalytic activity/Vol] 125 U/L Critically high 21-72 [facility] Comment on above: Performed By: #### C RP, BNP, CMP #### [facility] [address] [place] [address] Dr. Michelle Garcia Anion gap [Moles/Vol] 9.4 mmol/L Normal [facility] Comment on above: Performed By: #### C RP, BNP, CMP #### [facility] [address] [place] [address] Dr. Michelle Garcia AST [Catalytic activity/Vol] 73 U/L Critically high 17-59 [facility] Comment on above: Performed By: #### C RP, BNP, CMP #### [facility] [address] [place] [address] Dr. Michelle Garcia Bilirubin [Mass/Vol] 0.3 mg/dL Normal 0.2-1.3 [facility] Comment on above: Performed By: #### C RP, BNP, CMP #### [facility] [address] [address] [address] Michelle Garcia Calcium [Mass/Vol] 8.2 mg/dL Critically low 8.4-10.2 [facility] Comment on above: Performed By: #### C RP, BNP, CMP #### [facility] [address] [place] [address] Dr. Michelle Garcia Chloride [Moles/Vol] 101 mmol/L Normal 98-107 [facility] Comment on above: Performed By: #### C RP, BNP, CMP #### [facility] [address] [place] [address] Dr. Michelle Garcia CO2 [Moles/Vol] 29.6 mmol/L Normal 22.0-30.0 [facility] Comment on above: Performed By: #### C RP, BNP, CMP #### [facility] [address] [place] [address] Dr. Michelle Garcia Creatinine [Mass/Vol] 0.97 mg/dL Normal 0.66-1.25 [facility] Comment on above: Performed By: #### C RP, BNP, CMP #### [facility] [address] [place] [address] Dr. Michelle Garcia EGFR-AF UGANDAN >60 Normal >=60 [facility] Comment on above: Performed By: #### C RP, BNP, CMP #### [facility] [address] [place] [address] Dr. Michelle Garcia EGFR-NON AF UGANDAN >60 Normal >=60 [facility] Comment on above: Performed By: #### C RP, BNP, CMP #### [facility] [address] [place] [address] Dr. Michelle Garcia Globulin (S) [Mass/Vol] 3.9 g/dL Normal [facility] Comment on above: Performed By: #### C RP, BNP, CMP #### [facility] [address] [place] [address] Dr. Michelle Garcia Glucose [Mass/Vol] 154 mg/dL Critically high 74-106 [facility] Comment on above: Performed By: #### C RP, BNP, CMP #### [facility] [address] [place] [address] Dr. Michelle Garcia Potassium [Moles/Vol] 4.0 mmol/L Normal 3.4-5.0 [facility] Comment on above: Performed By: #### C RP, BNP, CMP #### [facility] [address] [place] [address] Dr. Michelle Garcia Protein [Mass/Vol] 7.0 g/dL Normal 6.1-8.2 [facility] Comment on above: Performed By: #### C RP, BNP, CMP #### [facility] [address] [place] [address] Dr. Michelle Garcia Sodium [Moles/Vol] 136 mmol/L Critically low 137-145 [facility] Comment on above: Performed By: #### C RP, BNP, CMP #### [facility] [address] [place] [address] Dr. Michelle Garcia Urea nitrogen [Mass/Vol] 21.0 mg/dL Critically high 9.0-20.0 [facility] Comment on above: Performed By: #### C RP, BNP, CMP #### [facility] [address] [place] [address] Dr. Michelle Garcia Urea nitrogen/Creatini ne [Mass ratio] 21.6 mg/mg Normal [facility] Comment on above: Performed By: #### C RP, BNP, CMP #### [facility] [address] [place] [address] Dr. Michelle Garcia SPUTUM GRAM STAINon 07-05-20 COMMENTS Normal [facility] Comment on above: Performed By: #### C RP, BNP, CMP #### [facility] [address] [place] [address] Dr. Michelle Garcia DIPHTHEROIDS Normal [facility] Comment on above: Performed By: #### C RP, BNP, CMP #### [facility] [address] [place] [address] Dr. Michelle Garcia EPITHELIALS <25 Normal [facility] Comment on above: Performed By: #### C RP, BNP, CMP #### [facility] [address] [place] [address] Dr. Michelle Garcia FUNGAL ELEMENTS Normal [facility] Comment on above: Performed By: #### C RP, BNP, CMP #### [facility] [address] [place] [address] Dr. Michelle Garcia GRAM NEG BACILLI Normal [facility] Comment on above: Performed By: #### C RP, BNP, CMP #### [facility] [address] [place] [address] Dr. Michelle CHOI NEG DIPPLOCOCCI Normal [facility] Comment on above: Performed By: #### C RP, BNP, CMP #### [facility] [address] [place] [address] Dr. Michelle Garcia GRAM POS BACILLI Normal [facility] Comment on above: Performed By: #### C RP, BNP, CMP #### [facility] [address] [place] [address] Dr. Michelle Garcia GRAM POSITIVE COCCI RARE Normal [facility] Comment on above: Performed By: #### C RP, BNP, CMP #### [facility] [address] [place] [address] Dr. Michelle Garcia WBC (Bld) [#/Vol] 10*3/uL Normal [facility] Comment on above: Performed By: #### C RP, BNP, CMP #### [facility] [address] [place] [address] Dr. Michelle Garcia BNPon 07-04-2021 Natriuretic peptide B (Bld) [Mass/Vol] 42.0 pg/mL Normal <=900.0 [facility] Comment on above: Performed By: #### B RIVERBOAT CAPTAIN, BMP, HSTROPN #### [facility] [address] [place] [address] Dr. Michelle Garcia CBC AUTO DIFFon 07-04-2021 BASO # 0.0 103/ul Normal 0.0-0.1 [facility] Comment on above: Performed By: #### C RP, BNP, CMP #### [facility] [address] [place] [address] Dr. Michelle Garcia Basophils/100 WBC (Bld) 0.2 % Normal 0.2-2.0 [facility] Comment on above: Performed By: #### C RP, BNP, CMP #### [facility] [address] [place] [address] Dr. Michelle Garcia EO # 0.0 103/ul Normal 0.0-0.7 [facility] Comment on above: Performed By: #### C RP, BNP, CMP #### [facility] [address] [place] [address] Dr. Michelle Garcia Eosinophils/100 WBC (Bld) 0.0 % Critically low 0.9-7.0 [facility] Comment on above: Performed By: #### C RP, BNP, CMP #### [facility] [address] [place] [address] Dr. Michelle Garcia Erythrocyte distribution width (RBC) [Ratio] 12.9 % Normal 11.0-15.0 [facility] Comment on above: Performed By: #### C RP, BNP, CMP #### [facility] [address] [place] [address] Dr. Michelle Garcia Hematocrit (Bld) [Volume fraction] 42.4 % Normal 42.0-54.0 [facility] Comment on above: Performed By: #### C RP, BNP, CMP #### [facility] [address] [place] [address] Dr. Michelle Garcia Hemoglobin (Bld) [Mass/Vol] 14.0 g/dL Normal 14.0-18.0 [facility] Comment on above: Performed By: #### C RP, BNP, CMP #### [facility] [address] [place] [address] Dr. Michelle Garcia IG # 0.03 10e3/ul Normal 0.00-0.03 [facility] Comment on above: Performed By: #### C RP, BNP, CMP #### [facility] [address] [place] [address] Dr. Michelle Garcia IG % 0.5 % Normal 0.0-0.5 [facility] Comment on above: Performed By: #### C RP, BNP, CMP #### [facility] [address] [place] [address] Dr. Michelle Garcia LYMPH # 1.6 103/ul Normal 1.2-3.8 [facility] Comment on above: Performed By: #### C RP, BNP, CMP #### [facility] [address] [place] [address] Dr. Michelle Garcia Lymphocytes/100 WBC (Bld) 24.3 % Normal 20.5-60.0 [facility] Comment on above: Performed By: #### C RP, BNP, CMP #### [facility] [address] [place] [address] Dr. Michelle Garcia MANUAL DIFF REQ NO Normal [facility] Comment on above: Performed By: #### C RP, BNP, CMP #### [facility] [address] [place] [address] Dr. Michelle Garcia MCH (RBC) [Entitic mass] 32.0 pg Normal 25.9-34.0 [facility] Comment on above: Performed By: #### C RP, BNP, CMP #### [facility] [address] [place] [address] Dr. Michelle Garcia MCHC (RBC) [Mass/Vol] 33.0 g/dL Normal 29.9-35.2 [facility] Comment on above: Performed By: #### C RP, BNP, CMP #### [facility] [address] [place] [address] Dr. Michelle Garcia MCV (RBC) [Entitic vol] 97.0 fL Critically high 80.0-94.0 [facility] [facility] Comment on above: Performed By: #### C RP, BNP, CMP #### [facility] [address] [place] [address] Dr. Michelle Garcia MONO # 0.4 103/ul Normal 0.3-0.8 [facility] Comment on above: Performed By: #### C RP, BNP, CMP #### [facility] [address] [place] [address] Dr. Michelle Garcia Monocytes/100 WBC (Bld) 6.8 % Normal 1.7-12.0 [facility] Comment on above: Performed By: #### C RP, BNP, CMP #### [facility] [address] [place] [address] Dr. Michelle Garcia NEUT # 4.4 103/ul Normal 1.4-6.5 [facility] Comment on above: Performed By: #### C RP, BNP, CMP #### [facility] [address] [place] [address] Dr. Michelle Garcia Neutrophils/100 WBC (Bld) 68.2 % Normal 43.0-75.0 [facility] Comment on above: Performed By: #### C RP, BNP, CMP #### [facility] [address] [place] [address] Dr. Michelle Garcia Platelet mean volume (Bld) [Entitic vol] 10.0 fL Normal 9.5-13.5 [facility] Comment on above: Performed By: #### C RP, BNP, CMP #### [facility] [address] [place] [address] Dr. Michelle Garcia PLT 253 103/ul Normal 150-450 [facility] Comment on above: Performed By: #### C RP, BNP, CMP #### [facility] [address] [place] [address] Dr. Michelle Garcia RBC 4.37 106/ul Critically low 4.70-6.10 [facility] Comment on above: Performed By: #### C RP, BNP, CMP #### [facility] [address] [place] [address] Dr. Michelle Garcia WBC 6.5 103/ul Normal 4.0-11.0 [facility] Comment on above: Performed By: #### C RP, BNP, CMP #### [facility] [address] [place] [address] Dr. Michelle Garcia CRPon 07-04-2021 CRP 1.0 mg/dL Normal <=1.0 [facility] Comment on above: Performed By: #### C RP, BNP, CMP #### [facility] [address] [place], [place] [id number] Dr. Michelle Garcia CTA CHEST WO W CONon 021 CTA CHEST WO W CON CT CHEST WITH CONTRAST (CT Pulmonary Angiogram) CLINICAL: SHORTNESS OF BREATH. [...] by: JAZMÍN LOPEZ Date: 2021-07-04 16:47 Normal [facility] CULTURE BLOODon 07-04-2021 Microscopic examination of blood, culture Culture Observations: NO GROWTH AT 5 DAYS. Normal [facility] Comment on above: Performed By: #### H STROPN #### [facility] [address] [place] [address] Dr. Michelle Garcia Performed By: #### C RP, BNP, CMP #### [facility] [address] [address] [address] Michelle Garcia Covid-19 PCR (CVDTB)on 06-19 SARS-CoV-2 (COVID-19) RNA BRITTA+probe Ql (Unsp spec) Detected Critically abnormal NOT DETECTED [facility] Comment on above: Result Comment: This test is not yet approved or cleared by the [place] Food and Drug Administration (FDA). This test was developed by [employer], [place], [place]. The performance characteristics of this test were validated by [facility]. The results are not intended to be used as the sole means for clinical diagnosis or patient management decisions. [facility] is authorized under Clinical Laboratory Improvement Amendments (CLIA) to perform high- complexity testing. Performed By: #### C RP, BNP, CMP #### [facility] [address] [place] [address] Dr. Michelle Garcia D-DIMERon 07-04-2021 D-DIMER 0.59 mg/L FEU Critically high 0.19-0.50 [facility] Comment on above: Result Comment: test repeated critical value verified Performed By: #### C RP, BNP, CMP #### [facility] [address] [place] [address] Dr. Michelle Garcia D-DIMER COMMENTS SEE BELOW Normal [facility] Comment on above: Result Comment: Incr [...] C RP, BNP, CMP #### [facility] [address] [place] [address] Dr. Michelle Garcia LACTATE/LACTIC ACIDon 2020 Lactate [Moles/Vol] 1.2 mmol/L Normal 0.7-2.0 [facility] Comment on above: Performed By: #### L ACT #### [facility] [address] [place] [address] Dr. Michelle aGrcia PROF CHEM 8 (BAS METB)on Anion gap [Moles/Vol] 11.0 mmol/L Normal [facility] Comment on above: Performed By: #### B RIVERBOAT CAPTAIN, BMP, HSTROPN #### [facility] [address] [place] [address] Dr. Michelle Garcia Calcium [Mass/Vol] 8.1 mg/dL Critically low 8.4-10.2 [facility] Comment on above: Performed By: #### B RIVERBOAT CAPTAIN, BMP, HSTROPN #### [facility] [address] [place] [address] Dr. Michelle Garcia Chloride [Moles/Vol] 98 mmol/L Normal 98-107 [facility] Comment on above: Performed By: #### B RIVERBOAT CAPTAIN, BMP, HSTROPN #### [facility] [address] [place] [address] Dr. Michelle Garcia CO2 [Moles/Vol] 28.8 mmol/L Normal 22.0-30.0 [facility] Comment on above: Performed By: #### B RIVERBOAT CAPTAIN, BMP, HSTROPN #### [facility] [address] [place] [address] Dr. iMchelle Garcia Creatinine [Mass/Vol] 1.01 mg/dL Normal 0.66-1.25 [facility] Comment on above: Performed By: #### B RIVERBOAT CAPTAIN, BMP, HSTROPN #### [facility] [address] [place] [address] Dr. Michelle Garcia EGFR-AF UGANDAN >60 Normal >=60 [facility] Comment on above: Performed By: #### B RIVERBOAT CAPTAIN, BMP, HSTROPN #### [facility] [address] [place] [address] Dr. Michelle Garcia EGFR-NON AF UGANDAN >60 Normal >=60 [facility] Comment on above: Performed By: #### B RIVERBOAT CAPTAIN, BMP, HSTROPN #### [facility] [address] [place] [address] Dr. Michelle Garcia Glucose [Mass/Vol] 94 mg/dL Normal 74-106 [facility] Comment on above: Performed By: #### B RIVERBOAT CAPTAIN, BMP, HSTROPN #### [facility] [address] [place] [address] Dr. Michelle Garcia Potassium [Moles/Vol] 3.8 mmol/L Normal 3.4-5.0 [facility] Comment on above: Performed By: #### B RIVERBOAT CAPTAIN, BMP, HSTROPN #### [facility] [address] [place] [address] Dr. Michelle Garcia Sodium [Moles/Vol] 134 mmol/L Critically low 137-145 [facility] Comment on above: Performed By: #### B RIVERBOAT CAPTAIN, BMP, HSTROPN #### [facility] [address] [place] [address] Dr. Michelle Garcia Urea nitrogen [Mass/Vol] 20.0 mg/dL Normal 9.0-20.0 [facility] Comment on above: Performed By: #### B RIVERBOAT CAPTAIN, BMP, HSTROPN #### [facility] [address] [place] [address] Dr. Michelle Garcia Urea nitrogen/Creatini ne [Mass ratio] 19.8 mg/mg Normal [facility] Comment on above: Performed By: #### B RIVERBOAT CAPTAIN, BMP, HSTROPN #### [facility] [address] [place] [address] Dr. Michelle Garcia TROPONIN, HIGH SENSITIVITYon 07-04-2021 HSTROP 8.1 pg/mL Normal 4.0-42.2 [facility] Comment on above: Result Comment: CUT- OFF POINTS HAVE BEEN ESTABLISHED BASED ON THE FOURTH UNIVERSAL DEFINITIONS OF MYOCARDIAL INFARCTION. THE UPPER REFERENCE LIMIT (URL) OF TROPONIN, DEFINED THE 99TH PERCENTILE OF cTnI DISTRIBUTION IN A REFERENCE POPULATION, HAS BEEN CONFIRMED THE DECISION THRESHOLD FOR AR DIAGNOSIS. Performed By: #### H STROPN #### [facility] [address] [place] [address] Dr. Michelle Garcia HSTROP 7.6 pg/mL Normal 4.0-42.2 [facility] Comment on above: Result Comment: CUT- OFF POINTS HAVE BEEN ESTABLISHED BASED ON THE FOURTH UNIVERSAL DEFINITIONS OF MYOCARDIAL INFARCTION. THE UPPER REFERENCE LIMIT (URL) OF TROPONIN, DEFINED THE 99TH PERCENTILE OF cTnI DISTRIBUTION IN A REFERENCE POPULATION, HAS BEEN CONFIRMED THE DECISION THRESHOLD FOR AR DIAGNOSIS. Performed By: #### B RIVERBOAT CAPTAIN, BIANKA, HSTROPN #### [facility] [address] [address] [address] Michelle Garcia XR CHEST 1 Von [...] by: JONES RICHMOND Date: 2021-07-04 14:57 Normal [facility] CBC Auto Differentialon 02-2 Basophils (Bld) [#/Vol] 0.06 10*3/uL [employer] Phone: Basophils/100 WBC (Bld) 1 % 0 - 2 % [employer] Phone: Differential Type NOT REPORTED [employer] Phone: Eosinophils (Bld) [#/Vol] 0.12 10*3/uL [employer] Phone: Eosinophils/100 WBC (Bld) 1 % 1 - 4 % [employer] Phone: Erythrocyte distribution width (RBC) [Ratio] 13.0 % 11.8 - 14.4 % [employer] Phone: Hematocrit (Bld) [Volume fraction] 46.7 % 40.7 - 50.3 % [employer] Phone: Hemoglobin (Bld) [Mass/Vol] 15.1 g/dL 13 - 17 g/dL [employer] Phone: Immature granulocytes (Bld) [#/Vol] 0 % 0 [employer] Phone: Immature granulocytes (Bld) [#/Vol] 10*3/uL [employer] Phone: Lymphocytes (Bld) [#/Vol] 3.30 10*3/uL [employer] Phone: Lymphocytes/100 WBC (Bld) 32 % 24 - 43 % [employer] Phone: MCH (RBC) [Entitic mass] 31.8 pg 25.2 - 33.5 pg [employer] Phone: MCHC (RBC) [Mass/Vol] 32.3 g/dL 28.4 - 34.8 g/dL [employer] Phone: MCV (RBC) [Entitic vol] 98.3 fL 82.6 - 102.9 fL [employer] Phone: Monocytes (Bld) [#/Vol] 1.01 10*3/uL [employer] Phone: Monocytes/100 WBC (Bld) 10 % 3 - 12 % [employer] Phone: Platelet mean volume (Bld) [Entitic vol] 10.1 fL 8.1 - 13.5 fL [employer] Phone: Platelets (Bld) [#/Vol] NOT REPORTED [employer] Phone: Platelets (Bld) [#/Vol] 372 10*3/uL [employer] Phone: RBC (Bld) [#/Vol] 4.75 10*6/uL 4.21 - 5.7 7 m/uL [employer] Phone: RBC morphology finding Nom (Bld) NOT REPORTED [employer] Phone: Segmented neutrophils/100 WBC (Bld) 56 % 36 - 65 % [employer] Phone: Segs Absolute 5.69 [facility]: WBC (Bld) [#/Vol] 10.2 10*3/uL [facility] Phone: WBC (Bld) [#/Vol] 0.0 10*3/uL 0.0 per 10 0 WBC [facility] Phone: WBC Morphology NOT REPORTED [facility]: CBC with Diffon 11-09-2020 Abs. Basophil 0.06 k/uL Normal 0.00-0.20 [facility] Comment on above: Performed By: #### C RAHUL VALERO, CP #### [facility] [address] [place], [facility]83 Title Examiner: Jazmín Lopes MD Abs.Imm.Granulocy te <0.03 Normal 0.00-0.30 [facility] Comment on above: Performed By: #### C ANJUM LIP, CP #### [facility] [address] [place], [facility]83 Title Examiner: Jazmín Lopes MD Abs.Neutrophil (Seg) 5.69 k/uL Normal 1.50-8.10 [facility] Comment on above: Performed By: #### C RAHUL VALERO, CP #### [facility] [address] [place], [place] [address] Title Examiner: Jazmín Lopes MD Basophils/100 WBC (Bld) 1 % Normal 0-2 [facility] Comment on above: Performed By: #### C ANJUM LIP, CP #### [facility] [address] [place] [address] Title Examiner: Jazmín Lopes MD Eosinophils (Bld) [#/Vol] 0.12 10*3/uL Normal 0.00-0.44 [facility] Comment on above: Performed By: #### C DP LIP, CP #### [address] [place], [facility]83 Title Examiner: Jazmín Lopes MD Eosinophils/100 WBC (Bld) 1 % Normal 1-4 [facility] Comment on above: Performed By: #### C DP, LIP, CP #### [address] [place], [facility]83 Title Examiner: Jazmín Lopes MD Erythrocyte distribution width (RBC) [Ratio] 13.0 % Normal 11.8-14.4 [facility] Comment on above: Performed By: #### C DP, LIP, CP #### [address] [place], [place] [address] Title Examiner: Jazmín Lopes MD Hematocrit (Bld) [Volume fraction] 46.7 % Normal 40.7-50.3 [facility] Comment on above: Performed By: #### C DP, LIP, CP #### [address] [place], [place] [address] Title Examiner: Jazmín Lopes MD Hemoglobin (Bld) [Mass/Vol] 15.1 g/dL Normal 13.0-17.0 [facility] Comment on above: Performed By: #### C DP, LIP, CP #### [address] [place], [place] [address] Title Examiner: Jazmín Lopes MD Immature granulocytes (Bld) [#/Vol] 0 % Normal 0 [facility] Comment on above: Performed By: #### C DP, LIP, CP #### [address] [place], [facility]83 Title Examiner: Jazmín Lopes MD Lymphocytes (Bld) [#/Vol] 3.30 10*3/uL Normal 1.10-3.70 [facility] Comment on above: Performed By: #### C DP, LIP, CP #### [address] [place], [place] [id number] Title Examiner: Jazmín Lopes MD Lymphocytes/100 WBC (Bld) 32 % Normal 24-43 [facility] Comment on above: Performed By: #### C DP, LIP, CP #### [address] [place], [place] [id number] Title Examiner: Jazmín Lopes MD MCH (RBC) [Entitic mass] 31.8 pg Normal 25.2-33.5 [facility] Comment on above: Performed By: #### C DP, LIP, CP #### [address] [place], [place] [address] Title Examiner: Jazmín Lopes MD MCHC (RBC) [Mass/Vol] 32.3 g/dL Normal 28.4-34.8 [facility] Comment on above: Performed By: #### C DP, LIP, CP #### [address] [place], [facility]83 Title Examiner: Jazmín Lopes MD MCV (RBC) [Entitic vol] 98.3 fL Normal 82.6-102.9 [facility] Comment on above: Performed By: #### C DP, LIP, CP #### [address] [place], [facility]83 Title Examiner: Jazmín Lopes MD Monocytes (Bld) [#/Vol] 1.01 10*3/uL Normal 0.10-1.20 [facility] Comment on above: Performed By: #### C DP, LIP, CP #### [address] [place], [facility]83 Title Examiner: Jazmín Lopes MD Monocytes/100 WBC (Bld) 10 % Normal 3-12 [facility] Comment on above: Performed By: #### C DP, LIP, CP #### [address] [place] [id number] Title Examiner: Jazmín Lopes MD Neutrophil (Seg) 56 % Normal 36-65 [facility] Comment on above: Performed By: #### C ANJUM LIP, CP #### [address] [place], [facility]83 Title Examiner: Jazmín Lopes MD NRBC Automated 0.0 per 100 WBC Normal 0.0 [facility] Comment on above: Performed By: #### C ANJUM LIP, CP #### [address] [place] [address] Title Examiner: Jazmín Lopes MD Platelet mean volume (Bld) [Entitic vol] 10.1 fL Normal 8.1-13.5 [facility] Comment on above: Performed By: #### C RAHUL VALERO, CP #### [address] [place] [address] Title Examiner: Jazmín Lopes MD Platelets (Bld) [#/Vol] 372 10*3/uL Normal 138-453 [facility] Comment on above: Performed By: #### C RAHUL VALERO, CP #### [address] [place], [facility]83 Title Examiner: Jazmín Lopes MD RBC (Bld) [#/Vol] 4.75 10*6/uL Normal 4.21-5.77 [facility] Comment on above: Performed By: #### C ANJUM LIP, CP #### [address] [place], [facility]83 Title Examiner: Jazmín Lopes MD WBC (Bld) [#/Vol] 10.2 10*3/uL Normal 3.5-11.3 [facility] Comment on above: Performed By: #### C RAHUL VALERO, CP #### [address] [place], [facility]83 Title Examiner: Jazmín Lopes MD Auto Diff Performed NOT REPORTED Normal [facility] Comment on above: Performed By: #### C DP, LIP, CP #### [facility] [address] [place], [place] [id number] Title Examiner: Jazmín Lopes MD Platelets (Bld) [#/Vol] NOT REPORTED Normal [facility] Comment on above: Performed By: #### C DP, LIP, CP #### [facility] [address] [place] [address] Title Examiner: Jazmín Lopes MD RBC morphology finding Nom (Bld) NOT REPORTED Normal [facility] Comment on above: Performed By: #### C DP, LIP, CP #### [facility] [address] [place], [place] [id number] Title Examiner: Jazmín Lopes MD WBC Morphology NOT REPORTED Normal [facility] Comment on above: Performed By: #### C DP, LIP, CP #### [address] [place], [place] [id number] Title Examiner: Jazmín Lopes MD CT ABDOMEN PELVIS WO [...] appears normal. Prostate gland is abnormally enlarged. Peritoneum/Retroperitoneum: No free fluid or free air is [...] Randy Hansen DO 11/09/20 Final result Normal [facility] CT ABDOMEN PELVIS WO CONTRAS T [...] appears normal. Prostate gland is abnormally enlarged. Peritoneum/Retroperitoneum: No free fluid or free air is present within the abdomen or pelvis. No aneurysm formation is present. No pathological adenopathy is present. Bones/Soft Tissues: Inguinal hernias are present bilaterally, containing fat. Small umbilical hernia is present containing fat. No acute osseous abnormality is present. [facility] [employer] Work Phone: 1. No acute findings within the abdomen or pelvis 2. No intrarenal calculi or evidence of hydronephrosis 3. Scattered colonic diverticula, without evidence of diverticulitis 4. Enlarged prostate gland [employer] Phone: Emeka, Mh[employer] Incoming R adiant Results From [employer] - 11/09/2020 7:47 PM EST EXAMINATION: CT [...] appears normal. Prostate gland is abnormally enlarged. Peritoneum/Retroperitoneum: No free fluid or free air is [...] evidence of diverticulitis 4. Enlarged prostate gland [employer] Phone: Comp Metabolic Profon 2020 (cont.) Normal [facility] Comment on above: Result Comment: Aver age GFR for 70 or more years old: 75 mL/min/1.73sq m Chronic Kidney Disease: <60 mL/min/1.73sq m Kidney failure: <15 mL/min/1.73sq m eGFR calculated using average adult body mass. Additional eGFR calculator available at: http://www.[employer]/multiple_crcl_2012.htm Performed By: #### C ANJUM LIP, CP #### [facility] [address] [place], [place] [id number] Title Examiner: Jazmín Lopes MD Albumin [Mass/Vol] 4.4 g/dL Normal 3.5-5.2 [facility] Comment on above: Performed By: #### C RAHUL VALERO, CP #### [facility] [address] [place], [place] [phone] Title Examiner: Jazmín Lopes MD Albumin/Globulin [Mass ratio] 1.6 {ratio} Normal 1.0-2.5 [facility] Comment on above: Performed By: #### C RAHUL VALERO, CP #### [facility] [address] [place], [place] [id number] Title Examiner: Jazmín Lopes MD Alkaline Phos 62 U/L Normal 40-129 [facility] Comment on above: Performed By: #### C RAHUL VALERO, CP #### [facility] [address] [place] [address] Title Examiner: Jazmín Lopes MD ALT [Catalytic activity/Vol] 42 U/L High 5-41 [facility] Comment on above: Performed By: #### C RAHUL VALERO, CP #### [facility] [address] [place], [place] [id number] Title Examiner: Jazmín Lopes MD Anion gap [Moles/Vol] 11 mmol/L Normal 9-17 [facility] Comment on above: Performed By: #### C ANJUM LIP, CP #### [facility] [address] [place], [place] [address]30383 Title Examiner: Jazmín Lopes MD AST [Catalytic activity/Vol] 37 U/L Normal <40 [facility] Comment on above: Performed By: #### C ANJUM LIP, CP #### [facility] [address] [place], [place] 1907383 Title Examiner: Jazmín Lopes MD Bilirubin Ql (U) 0.20 mg/dL Low 0.3-1.2 [facility] Comment on above: Performed By: #### C ANJUM LIP, CP #### [facility] [address] [place], [place] [phone] Title Examiner: Jazmín Lopes MD BUN/CRE Ratio 17 Normal 9-20 [facility] Comment on above: Performed By: #### C RAHUL VALERO, CP #### [address] [place], [place] [phone] Title Examiner: Jazmín Lopes MD Calcium [Mass/Vol] 9.3 mg/dL Normal 8.6-10.4 [facility] Comment on above: Performed By: #### C RAHUL VALERO, CP #### [facility] [address] [place] [address] Dr[address] [place], [place] [phone] Title Examiner: Jazmín Lopes MD Chloride [Moles/Vol] 102 mmol/L Normal 98-107 [facility] Comment on above: Performed By: #### C RAHUL VALERO, CP #### [facility] [address] [place], [place] [phone] Title Examiner: Jazmín Lopes MD CO2 [Moles/Vol] 25 mmol/L Normal 20-31 [facility] Comment on above: Performed By: #### C ANJUM LIP, CP #### [facility] [address] [place], [place] [id number] Title Examiner: Jazmín Lopes MD Creatinine [Mass/Vol] 1.18 mg/dL Normal 0.70-1.20 [facility] Comment on above: Performed By: #### C ANJUM LIP, CP #### [facility] [address] [place], [place] [phone] Title Examiner: Jazmín Lopes MD GFR, Amer >60 Normal >60 [facility] Comment on above: Performed By: #### C DP, LIP, CP #### [facility] [address] [place], [place] [address]83 Title Examiner: Jazmín Lopes MD GFR,non Amer >60 Normal >60 [facility] Comment on above: Performed By: #### C DP, LIP, CP #### [facility] [address] [place], [place] [phone] Title Examiner: Jazmín Lopes MD Glucose [Mass/Vol] 100 mg/dL High 70-99 [facility] Comment on above: Performed By: #### C DP, LIP, CP #### [facility] [address] [place], [place] [address]83 Title Examiner: Jazmín Lopes MD Potassium [Moles/Vol] 4.1 mmol/L Normal 3.7-5.3 [facility] Comment on above: Performed By: #### C DP, LIP, CP #### [facility] [address] [place], [place] [id number] Title Examiner: Jazmín Lopes MD Protein [Mass/Vol] 7.2 g/dL Normal 6.4-8.3 [facility] Comment on above: Performed By: #### C DP, LIP, CP #### [facility] [address] [place], [place] [phone] Title Examiner: Jazmín Lopes MD Sodium [Moles/Vol] 138 mmol/L Normal 135-144 [facility] Comment on above: Performed By: #### C DP, LIP, CP #### [facility] [address] [place], [place] [phone] Title Examiner: Jazmín Lopes MD Staging: Normal [facility] Comment on above: Result Comment: Stag e 1: Some kidney damage normal GFR Stage 2: Mild kidney damage GFR 60-89 Stage 3: Moderate kidney damage GFR 30-59 Stage 4: Severe kidney damage GFR 15-29 Stage 5: Severe kidney damage GFR <15 ESRD - chronic treatment by dialysis or transplant Performed By: #### C RAHUL VALERO, CP #### [facility] [address] [place] [address] Title Examiner: Jazmín Lopes MD Urea nitrogen [Mass/Vol] 20 mg/dL Normal 8-23 [facility] Comment on above: Performed By: #### C RAHUL VALERO, CP #### [facility] [address] [place] [address] Title Examiner: Jazmín Lopes MD Comprehensive Metabolic Pane fredo 11-09-2020 Albumin [Mass/Vol] 4.4 g/dL 3.5 - 5.2 g/dL [facility] Phone: Albumin/Globulin [Mass ratio] 1.6 {ratio} [facility] Phone: ALP [Catalytic activity/Vol] 62 U/L 40 - 129 U/L [facility] Phone: ALT [Catalytic activity/Vol] 42 U/L High 5 - 41 U/L [facility] [employer] Phone: Anion gap [Moles/Vol] 11 mmol/L 9 - 17 mmol/L [facility] [employer] Phone: AST [Catalytic activity/Vol] 37 U/L <40 [facility] [employer] Phone: Bilirubin Ql (U) 0.20 mg/dL Low 0.3 - 1.2 mg/dL [employer] Phone: Bun/Cre Ratio 17 [facility]: Calcium [Mass/Vol] 9.3 mg/dL 8.6 - 10.4 mg/dL [facility] Phone: Chloride [Moles/Vol] 102 mmol/L 98 - 107 mmol/L [employer] Phone: CO2 [Moles/Vol] 25 mmol/L 20 - 31 mmol/L [employer] Phone: Creatinine [Mass/Vol] 1.18 mg/dL 0.7 - 1.2 mg/dL [employer] Phone: GFR >60 >60 mL/min [employer] Phone: GFR Non- >60 >60 mL/min [employer] Phone: Glucose [Mass/Vol] 100 mg/dL High 70 - 99 mg/dL [employer] Phone: Interpretation and review of laboratory results Abnormal [employer] Phone: Potassium [Moles/Vol] 4.1 mmol/L 3.7 - 5.3 mmol/L [employer] Phone: Protein [Mass/Vol] 7.2 g/dL 6.4 - 8.3 g/dL [employer] Phone: Sodium [Moles/Vol] 138 mmol/L 135 - 144 mmol/L [employer] Phone: Urea nitrogen [Mass/Vol] 20 mg/dL 8 - 23 mg/dL [employer] Phone: Lipaseon 11-09-2020 Lipase [Catalytic activity/Vol] 26 U/L Normal 13-60 [facility] Comment on above: Performed By: #### C DP LIP, CP #### [facility] [address] [place] [address] Title Examiner: Jazmín Lopes MD Lipase [Catalytic activity/Vol] 26 U/L 13 - 60 U/L [facility] [employer] Phone: Metabolic Panelon 11-09-2020 GFR/1.73 sq M predicted among non-blacks MDRD (S/P/Bld) [Vol rate/Area] [facility] Work Phone: Comment on above: Stage 1: Some [...] body mass. Additional eGFR calculator available at: http://www.Sepior/multiple_crcl_2011.htm Urinalysis w/ Microon 2020 ----- Normal [facility] Comment on above: Performed By: #### U AMIC #### [facility] [address] [place] [address] [place] [address] Title Examiner: Jazmín Lopes MD Acetoacetic Acid,Ur Negative Normal NEG [facility] Comment on above: Performed By: #### U AMIC #### [address] [place] [address] Title Examiner: Jazmín Lopes MD Bacteria LM.HPF (Urine sed) [#/Area] TRACE Abnormal NONE [facility] Comment on above: Performed By: #### U AMIC #### [facility] [address] [place] [address] Dr[place] [id number] Title Examiner: Jazmín Lopes MD Bilirubin, SemiQt,Ur Negative Normal NEG [facility] Comment on above: Performed By: #### U AMIC #### [address] [place] [address] Title Examiner: Jazmín Lopes MD Color (U) YELLOW Normal YEL [facility] Comment on above: Performed By: #### U AMIC #### [address] [place], [place] [id number] Title Examiner: Jazmín Lopes MD Epithelial cells LM.HPF (Urine sed) [#/Area] 0 TO 2 Normal 0-5 [facility] Comment on above: Performed By: #### U AMIC #### [facility] [address] [place], [place] [phone] Title Examiner: Jazmín Lopes MD Glucose Ql (U) Negative Normal NEG [facility] Comment on above: Performed By: #### U AMIC #### [facility] [address] [place] [id number] Title Examiner: Jazmín Lopes MD Hemoglobin, Ur Negative Normal NEG [facility] Comment on above: Performed By: #### U AMIC #### [facility] [address] [place] [address] Dr[place], [place] [phone] Title Examiner: Jazmín Lopes MD Leukocyte esterase Test strip Ql (U) Negative Normal NEG [facility] Comment on above: Performed By: #### U AMIC #### [facility] [address] [place] [address] Dr[place], [place] [phone] Title Examiner: Jazmín Lopes MD Mucus Strands TRACE Abnormal NONE [facility] Comment on above: Performed By: #### U AMIC #### [facility] [address] [place], [place] [phone] Title Examiner: Jazmín Lopes MD Nitrite,Ur Negative Normal NEG [facility] Comment on above: Performed By: #### U AMIC #### [facility] [address] [place] [phone] Title Examiner: Jazmín Lopes MD pH (U) 5.5 [pH] Normal 5.0-9.0 [facility] Comment on above: Performed By: #### U AMIC #### [facility] [address] [place], [place] [phone] Title Examiner: Jazmín Lopes MD Protein Ql (U) Negative Normal NEG [facility] Comment on above: Performed By: #### U AMIC #### [facility] [address] [place], [place] [phone] Title Examiner: Jazmín Lopes MD RBC (U) [#/Vol] 0 TO 2 Normal 0-2 [facility] Comment on above: Performed By: #### U AMIC #### [facility] [address] [place], [place] [phone] Title Examiner: Jazmín Lopes MD Specific gravity (U) [Rel density] >1.030 High 1.010-1.020 [facility] Comment on above: Performed By: #### U AMIC #### [facility] [address] [place] [address] Dr. [place], [place] [phone] Title Examiner: Jazmín Lopes MD Turbidity CLEAR Normal CLEAR [facility] Comment on above: Performed By: #### U AMIC #### [facility] [address] [place] [address] Dr. [place], [place] [phone] Title Examiner: Jazmín Lopes MD Urobilinogen,Ur Normal Normal NORM [facility] Comment on above: Performed By: #### U AMIC #### [facility] [address] [place] [address] Dr[place], [place] [phone] Title Examiner: Jazmín Lopes MD WBC (U) [#/Vol] 0 TO 2 Normal 0-5 [facility] Comment on above: Performed By: #### U AMIC #### [facility] [address] [place], [place] [phone] Title Examiner: Jazmín Lopes MD Amorphous sediment LM Ql (Urine sed) NOT REPORTED Normal NONE [facility] Comment on above: Performed By: #### U AMIC #### [facility] [address] [place], [place] [phone] Title Examiner: Jazmín Lopes MD Casts LM.LPF (Urine sed) [#/Area] NOT REPORTED Normal [facility] Comment on above: Performed By: #### U AMIC #### [address] [place], [place] [phone] Title Examiner: Jazmín Lopes MD Comment NOT REPORTED Normal [facility] Comment on above: Performed By: #### U AMIC #### [facility] [address] [place] [address] Dr. [place], [place] [phone] Title Examiner: Jazmín Lopes MD Crystals LM Nom (Urine sed) NOT REPORTED Normal [facility] Comment on above: Performed By: #### U AMIC #### [address] [place], [place] [phone] Title Examiner: Jazmín Lopes MD Epithelial, Renal NOT REPORTED Normal 0 [facility] Comment on above: Performed By: #### U AMIC #### [address] [place] [address] Title Examiner: Jazmín Lopes MD Other Observations NOT REPORTED Normal NREQ [facility] Comment on above: Performed By: #### U AMIC #### [address] [place] [address] Title Examiner: Jazmín Lopes MD Trichomonas NOT REPORTED Normal [facility] Comment on above: Performed By: #### U AMIC #### [facility] [address] [place] [address] [place] [address] Title Examiner: Jazmín Lopes MD Yeast LM Ql (Urine sed) NOT REPORTED Normal [facility] Comment on above: Performed By: #### U AMIC #### [address] [place], [place] [phone] Title Examiner: Jazmín Lopes MD Urinalysis with Microscopico n 11-09-2020 Amorphous, UA NOT REPORTED None [facility] Work Phone: Bacteria, UA TRACE Abnormal None [employer], Work Phone: Bilirubin Urine Negative NEGATIVE [employer], Work Phone: Casts UA NOT REPORTED /LPF [employer], Work Phone: Color, UA YELLOW YELLOW [employer], Work Phone: Crystals, UA NOT REPORTED None /HPF [employer], Work Phone: Epithelial Cells UA 0 TO 2 [employer], Work Phone: Glucose, Ur Negative NEGATIVE [employer], Work Phone: Interpretation and review of laboratory results Abnormal [employer], Work Phone: Ketones Ql (U) Negative NEGATIVE [employer] Phone: Leukocyte esterase Test strip Ql (U) Negative NEGATIVE [employer], Work Phone: Mucus, UA TRACE Abnormal None [employer], Work Phone: Nitrite, Urine Negative NEGATIVE [employer], Work Phone: Other Observations UA NOT REPORTED NOT REQ. [employer], Work Phone: pH, UA 5.5 [employer], Work Phone: Protein (U) [Mass/Vol] Negative NEGATIVE [employer], Work Phone: RBC (U) [#/Vol] 0 TO 2 [employer], Work Phone: Renal Epithelial, UA NOT REPORTED 0 /HPF [employer], Work Phone: Specific [place], UA >1.030 High [employer], Work Phone: Trichomonas, UA NOT REPORTED None [employer], Work Phone: Turbidity UA CLEAR CLEAR [employer], Work Phone: Urinalysis Comments NOT REPORTED [employer], Work Phone: Urine Hgb Negative NEGATIVE [employer], Work Phone: Urobilinogen, Urine Normal Normal [employer], Work Phone: WBC, UA 0 TO 2 [employer], Work Phone: Yeast, UA NOT REPORTED None [employer], Work Phone: - [employer], Work Phone: Vital Signs Date Time Vital Sign Value Performing Clinician Faci lity 05-27-2023 09:40-0400 Diastolic blood pressure 87 mm[Hg] Oral NILL [facility] 05-27-2023 09:40-0400 Heart rate 89 /min Oral NILL [facility] 05-27-2023 09:40-0400 Respiratory rate 18 /min Oral NILL [facility] 05-27-2023 09:40-0400 SaO2% (BldA) [Mass fraction] 95 % Oral NILL [facility] 05-27-2023 09:40-0400 Systolic blood pressure 128 mm[Hg] Oral NILL [facility] 05-27-2023 09:30-0400 Diastolic blood pressure 89 mm[Hg] Oral NILL [facility] 05-27-2023 09:30-0400 Heart rate 98 /min Oral NILL [facility] 05-27-2023 09:30-0400 Respiratory rate 20 /min Oral NILL [facility] 05-27-2023 09:30-0400 SaO2% (BldA) [Mass fraction] 96 % Oral NILL [facility] 05-27-2023 09:30-0400 Systolic blood pressure 126 mm[Hg] Oral NILL [facility] 05-27-2023 09:25-0400 Diastolic blood pressure 80 mm[Hg] Oral NILL [facility] 05-27-2023 09:25-0400 Heart rate 95 /min Oral NILL [facility] 05-27-2023 09:25-0400 Respiratory rate 18 /min Oral NILL [facility] 05-27-2023 09:25-0400 SaO2% (BldA) [Mass fraction] 94 % Oral NILL [facility] 05-27-2023 09:25-0400 Systolic blood pressure 116 mm[Hg] Oral NILL [facility] 05-27-2023 09:14-0400 Body temperature 97.7 [degF] Oral NILL [facility] 05-27-2023 09:05-0400 Respiratory rate 13 /min Oral NILL [facility] 05-27-2023 09:00-0400 Respiratory rate 12 /min Oral NILL [facility] 05-27-2023 08:55-0400 Respiratory rate 17 /min Oral NILL [facility] 05-27-2023 08:37-0400 Blood Pressure Location Oral NILL [facility] 05-27-2023 08:34-0400 Blood Pressure Location Oral NILL [facility] 05-27-2023 08:34-0400 Body temperature 97.7 [degF] Oral NILL [facility] 05-04-2023 15:42-0400 Blood Pressure Location Oral NILL [facility] 05-04-2023 15:42-0400 Diastolic blood pressure 80 mm[Hg] Oral GARCIA [facility] 05-04-2023 15:42-0400 Heart rate 76 /min Oral RADHA [facility] 05-04-2023 15:42-0400 Respiratory rate 16 /min Oral GARCIA [facility] 05-04-2023 15:42-0400 Systolic blood pressure 128 mm[Hg] Oral GARCIA [facility] 11-09-2020 20:00-0500 BP Diastolic 81 mm[Hg] [facility] [employer] Work Phone: 11-09-2020 20:00-0500 BP Systolic 130 mm[Hg] [facility] [employer] Work Phone: 11-09-2020 20:00-0500 Pulse Oximetry 94 % [facility] [employer] Work Phone: 11-09-2020 18:17-0500 Body Temperature 98.2 [degF] [facility] [employer] Work Phone: 11-09-2020 18:17-0500 Pulse (Heart Rate) 92 /min [facility] [employer] Work Phone: 11-09-2020 18:17-0500 Respiratory Rate 17 /min [facility] [employer] Work Phone: Encounters Encounter Date Encounter Type Care Provider Facility Start: 05-28-2025 End: 05-28-2025 ambulatory Oral GARCIA Facility:[facility] Start: 05-28-2025 End: 05-28-2025 Patient encounter procedure Oral GARCIA [facility] Start: 06-08-2023 End: 06-08-2023 Patient encounter procedure Oral LUCASLise [facility] Start: 05-27-2023 End: 05-27-2023 Patient encounter procedure Oral GARCIA [facility] Start: 05-04-2023 End: 05-04-2023 Patient encounter procedure Oral GARCIA [facility] Start: 06-10-2022 End: 06-10-[address] TI BORREGO Facility:[facility] Start: 03-03-2022 End: 03-04-[address] TI BORREGO Facility:[facility] Start: 12-01-2021 End: 12-02-[address] TI BORREGO Facility:[facility] Start: 11-24-2021 ambulatory TI Noah ELMO [facility] Start: 10-26-2021 End: 10-27-[address] TI [...] 11-09-2020 End: 11-09-2020 Emergency department patient visit TIROMA BORREGO [facility] Start: 11-09-2020 End: 11-09-2020 Emergency department patient visit Braxton oRselyn Work Phone: [facility] ED Comment on above: Flank pain (Primary Dx); Muscle pain, myofascial Procedures Date Procedure Procedure Detail Performing Clinician Start: 05-27-2023 Colonoscopy Oral NILL Start: 05-27-2023 Esophagogastroduodenoscopy Oral NILL Start: 11-24-2021 PSA screening TI BORREGO Comment on above: Result Comment: [facility] UTILIZES ORTHO VITRO S PSA METHODOLOGY. DIFFERENT TEST METHODS CANNOT BE USED INTERCHANGEABLY. PSA RESULTS IN A GIVEN PATIENT SAMPLE DETERMINED WITH DIFFERENT TESTS AND FROM DIFFERENT MANUFACTURERS CAN VARY DUE TO DIFFERENCES IN TEST METHODS AND REAGENTS. Performed By: #### C MP, PSA, LIPD #### [place] [address] Ph. [phone] Start: 11-09-2020 Urnls dip stick/tablet reagent auto microscopy [facility] [employer] Work Phone: Start: 11-09-2020 Ct abdomen & pelvis w/o contrast material [facility] [employer] Work Phone: Start: 11-09-2020 Assay of lipase Braxton Cristomas[facility] Work Phone: Start: 11-09-2020 Blood count complete auto&auto difrntl wbc [facility] [employer] Work Phone: Start: 11-09-2020 Comprehensive metabolic panel Braxton Cem istomasau Work Phone: Start: 08-07-2019 Esophagogastroduodenoscopy Oral NILL Start: 04-29-2016 Esophagogastroduodenoscopy Oral NILL Start: 02-15-2014 Esophagogastroduodenoscopy Oral NILL Start: 08-03-2013 Esophagogastroduodenoscopy Oral NILL Start: 06-01-2013 Esophagogastroduodenoscopy Oral NILL Appendectomy Oral NILL Decompression of median nerve Oral NILL Hemorrhoidectomy Oral NIL L Plan of Treatment Date Care Activity Detail Author Start: 05-17-2026 DTaP/Tdap/Td vaccine (2 - Td) DTaP/Tdap/Td vaccine (2 - Td) [employer] Phone: Start: 11-09-2021 Creatinine measurement Creatinine mo nitoring [employer] Phone: Start: 11-09-2021 Potassium monitoring Potassium monit oring [employer] Phone: Start: 05-20-2020 Influenza vaccination Flu vaccine (# 1) [employer] Phone: Start: 2013 Pneumococcal 65+ yea rs Vaccine (1 of 1 - PPSV23) Pneumococcal 65+ years Vaccine (1 of 1 - PPSV23) [employer] Phone: Start: 1998 Screening for malign ant neoplasm of colon Colon cancer screen colonoscopy [employer] Phone: Start: 1998 Shingles Vaccine (1 of 2) Shingles V accine (1 of 2) [employer] Phone: Start: 1988 Lipid panel Lipid screen [place] [facility] [place] [employer] Phone: Start: 1964 COVID-19 Vaccine (1 of 2) COVID-19 V accine (1 of 2) [employer] Phone: Start: 1948 Hepatitis C screening Hepatitis C sc reen [employer] Phone: Immunizations Immunization Date Immunization Notes Care Provider Fa cility 05-17-2016 tetanus toxoid, redu bj diphtheria toxoid, and acellular pertussis vaccine, adsorbed Braxton Crismaru [employer] Phone: Payers Date Payer Category Payer Medicare [id number] 1961 Medicare [id number] 1.2.84 [id number] 1961 Medicare [id number] 1948 Unknown [id number] 2.16.8 [id number] 1948 Unknown [id number] 2.16.8 [id number] 1948 Unknown [id number] 2.16.84 [id number] 1948 Unknown [id number] 2.16.84 [id number] 1948 Unknown [id number] 2.16.84 [id number] 1948 Unknown [id number] 2.16.84 [id number] 1948 Unknown [id number] 2.16.84 [id number] 1948 Unknown [id number] 2.16.84 [id number] 1948 Unknown [id number] 2.16.84 [id number] 1948 Unknown [id number] 2.16.84 [id number] 1948 Unknown [id number] 2.16.84 [id number] 1948 Unknown [id number] 2.16.8 [id number] Social History Date Type Detail Facility Start: 11-09-2020 Tobacco smoking stat [facility] Never smoker [employer] Phone: Start: 11-09-2020 Tobacco use and exposure Never used [employer] Phone: Start: 11-09-2020 Alcohol intake Ex-drinker (finding) [employer] Phone: Sex Assigned At Not on file [employer], Work Phone: Exposure to SARS-CoV -2 (event) Not sure [employer] Phone: Start: 05-04-2023 End: 05-28-2025 Tobacco smoking status Ex-smoker (finding) [facility] Tobacco smoking status Never [facility] Sex Assigned At Male [facility] Sexual Orientation [facility] [place] Start: 04-26-2016 Sex Male (finding) [facility] Functional Status Date Assessment Result Facility 05-27-2023 Functional Status N/A [facility] 05-04-2023 Functional Status N/A [facility] Clinical Note 05-28-2025 Note Date & Type Note Facility 05-28-2025 Note General Surgery Offi ce/Clinic Note Chief Complaint consultation for skin lesion HPI Staff 74 year old male presents on consultation from Dr. Borrego for skin lesion left upper neck. History of Present Illness 74 yo male with h/o htn, DMII, hyperlipidemia, GERD with Delarosa's esophagus; diverticular disease, eczema, osteopenia, referred for nodule on left neck; unsure of how long it has been there; had picked at it and made it sore, now has decreased in size some, no longer sore; no bleeding; no h/o skin cancer; on diclofenac daily, no asa; no tobacco use. Review of Systems PHQ Score Initial Depression Screen Score: 0 SCORE ROS - Provider Constitutional: no fever, no [...] & Measurements HR: 76(Peripheral) RR: 16 BP: 138/82 HT: 66 in HT: 167.6 cm WT: 221.564 lb WT: 100.5 kg BMI: 35.78 Musculoskeletal: normal gait, digits and nails without infection, nodes, cyanosis, clubbing. Skin: no rashes, left neck with 5 mm raised, smooth, nontender, no pigmentation change or ulceration; multiple other seborrheic keratosis on chest/neck/extremities no ulcers, no subcutaneous nodules, induration. Psychiatric/Neuro: oriented to time, place, person, judgement normal, affect appropriate for age, insight intact, no focal deficits. Tests: , review of old records completed , Assessment/Plan 1. Keratosis, seborrheic (L82.1: Other seborrheic keratosis) asymptomatic; call if changing, painful, or with problems/questions. Follow-up No qualifying data available Problem List/Past Medical History Ongoing 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,adult Cervical disc disorder Chronic GERD Class 3 obesity Colon cancer screening Diabetes mellitus Disorder of lumbar disc Diverticular disease Eczema Essential hypertension Gastroesophageal reflux disease Hyperlipidemia Keratosis, seborrheic Osteopenia Testosterone deficiency Thoracic outlet syndrome Ulcer of duodenum Historical No qualifying data Procedure/Surgical History Colonoscopy (05/27/2023), Esophagogastroduodenoscopy (05/27/2023), EGD - Esophagogastroduodenoscopy (08/07/2019), EGD - Esophagogastroduodenoscopy (04/29/2016), EGD - Esophagogastroduodenoscopy (02/15/2014), EGD - Esophagogastroduodenoscopy (08/03/2013), EGD - Esophagogastroduodenoscopy (06/01/2013), Appendectomy, Carpal tunnel release, Hemorrhoidectomy. Medications diclofenac sodium 75 mg Oral EC Tab, 75 mg= 1 tab(s), Oral, BID doxazosin 4 mg Tab, 4 mg= 1 tab(s), Oral, BID enalapril, 20 mg, Oral, Daily omeprazole, 20 mg, Oral, Daily predniSONE 5 mg Tab, 5 mg= 1 tab(s), Oral, Every other day PreserVision AREDS, 1 tab(s), Oral, Daily Testosterone Cypionate 200 mg/mL intramuscular solution, 100 mg= 0.5 mL, IntraMuscular, qWeek Vitamin D2 2000 intl units oral capsule, 50 mcg= 1 cap(s), Oral, Daily Allergies Bee Stings (Edema) statins (Myalgia) Social History Alcohol - Denies Alcohol Use, 07/31/2019 Past. Beer, Wine, Liquor. 3-5 times per week., 05/25/2025 Substance Abuse - Denies Substance Abuse, 07/31/2019 Never., 05/25/2025 Tobacco - Denies Tobacco Use, 07/31/2019 Former smoker, quit more than 30 days ago Tobacco Use:. Never Smokeless Tobacco Use:. Cigarettes, 2 per day. Started age 18.0 Years. Stopped age 34 Years., 05/28/2025 Family History Diabetes mellitus type 2: Mother. Esophageal cancer: Father. Heart disease: Brother. [facility] Comment on above: Result Comment: Elec tronically Signed By: RADHA RICHARDSON, Oral Beck\Date and Time Signed: 05/28/25 15:40 EDT Hospital Discharge instructions 05-27-2023 Note Date & Type Note Facility 05-27-2023 Hospital Discharg e instructions Patient Education 05/27/2023 09:17:51 Colonoscopy, Care After Surgery Carin (CUSTOM) Colonoscopy Care After Surgery Please read [...] worse throughout the day. 05/27/2023 09:17:48 Hemorrhoids, Tboj-no-Jomm Hemorrhoids Hemorrhoids are swollen veins that may [...] 3 times a day. General instructions Take smnp-wab-vgebpnv and prescription medicines only as told by [...] provider. Document Revised: 03/17/2022 Document Reviewed: 03/17/2022 [employer] Patient Education 2022 [employer] 05/27/2023 09:17:36 Endoscopy, Care After Procedure [facility] Endoscopy Care After Procedure [...] blood. Document Released: 04/19/2005 Document Re-Released: 02/27/2007 [employer] Patient Information Cloud Content. 05/27/2023 09:17:24 Hiatal Hernia Hiatal Hernia A [...] reduce GERD symptoms. Medicines. These may include: ?Gigq-mmb-akiaone antacids. ?Medicines that make your stomach empty [...] may include: ?Fatty foods, like fried foods. ?[place] fruits, like oranges or lemon. ?Other foods [...] Do not drink alcohol. General instructions Take ekxz-efp-hscsdre and prescription medicines only as told by [...] provider. Document Revised: 07/20/2022 Document Reviewed: 08/06/2021 [employer] Patient Education 2022 [employer]. 05/27/2023 09:17:16 Delarosa's Esophagus Delarosa's Esophagus Delarosa's [...] drinks. ?Tomatoes and foods made with tomatoes. ?Prentice or spicy foods. ?Chocolate and peppermint. Do not drink alcohol. General instructions Take brve-jjb-udhcsrw and prescription medicines only as told by [...] provider. Document Revised: 11/22/2020 Document Reviewed: 11/22/2020 [employer] Patient Education 2022 [employer]. Follow Up Care 05/04/2023 16:15:34 With:Oral GARCIA Address: [address] [place] [address], [facility] [address] [id number] Business (1) When:1 to 2 weeks [facility] Clinical Note 10-26-2021 Note Date & Type Note Facility 10-26-2021 Note PROCEDURE: XR SHOULD ER LT 2V or > COMPARISON: None. HISTORY: Pain of left shoulder joint FINDINGS: BONES:No acute fracture or dislocation. Multiple remote left posterior rib fractures SOFT TISSUES:Negative. No visible soft tissue swelling. EFFUSION:None visible. OTHER: Negative. IMPRESSION: No acute fracture Electronically authenticated by: JAZMÍN GA Date: 2021-10-26 11:17 [facility] Clinical Note 08-25-2021 Note Date & [...] authenticated by: JONES RICHMOND Date: 2021-08-25 16:03 [facility] Evaluation + Plan note Note Date & Type Note Facility Evaluation + Plan note Future Appointments Appointment Date:05/27/2023 09:30:00 AM Scheduled Provider: Location:[facility] Appointment Type:Surgery [facility] course Narrative Note Date & Type Note Facility Hospital course Narrative No data available for this section [facility] Discharge instructions Note Date & Type Note Facility Hospital Discharge instructions No data available for this section [facility] Progress note Note Date & Type Note Facility Progress note No data available for this section General Surgery [place] Discharge Instructions * Attachments The following attachments cannot be sent through Care Everywhere. 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 ACP-Advance Directive ACP-Power of Corporate Auditor Summary Purpose Family History No Family History Records FoundNo Family History Records FoundNo Family History Records Found No data available for this section No Family History Records Found Additional Source Comments [...] section and content) DATE CREATED AUTHOR [facility] DATE CREATED AUTHOR AUTHOR'S ORGANIZ ATION 11/27/2021 [facility] DATE CREATED AUTHOR AUTHOR'S ORGANIZ ATION 06/19/2022 [facility] DATE CREATED AUTHOR AUTHOR'S ORGANIZ ATION 05/30/2025 [facility] Patient Care team informatio n (unrecognized section and content) Personnel Name: Ti Borrego MD Address: Address: [address] [place] [address] Personnel Name: Ti Borrego MD Address: Address: [address] [place] [address] Personnel Name: Ti Borrego MD Address: Address: [address] [place] [address] Personnel Name: Ti Borrego MD Address: [address] [place] [address] [employer]: FOR RECORDS PERTAINING TO PATIENTS WHO ARE [...] BE BASED ON THE PRIMARY CLINICAL RECORDS. [employer] [facility] provides no warranty or guarantee of the accuracy or completeness of information in this document.
--- NOTE | 2025-06-14 08:44 | XR_ITS ---
The [address] [address] Patient Name: ARNALDO GARCIA MRN: [id number] date: 1950 Sex: M Assigned Patient Location: [facility] Current Patient Location: [facility] Accession/Order Number: [id number] Exam Date: 06/14/2025 08:53 Report Date: 06/14/2025 09:25 At the request of: NON-STAFF PHYSICIAN MD Procedure: XR hip RT min 2V RIGHT HIP - 2 views: CLINICAL HISTORY: Chronic right hip pain for years. No injury. COMPARISON: MRI 10/02/2021 and plain films 08/25/2021 AP and frog-lateral views were obtained. There is no evidence of fracture or dislocation. A suspected enchondroma is again seen at the inferior aspect of the femoral head. The hip joint space is maintained. There is minimal marginal spurring. Enthesophytes are seen at the iliac crest and greater trochanter. The SI joints intact and shows minor sclerosis. There is mild degenerative change involving the lower imaged lumbar spine. There are no significant soft tissue abnormalities. 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 NO ACUTE BONY FINDINGS. Impression dictated by: Bharati Nash M.D. 06/14/2025 9:25 AM Dictation Location: [place] [address] Electronically authenticated by: [id number] Y Date: 06/14/2025 09:25
== END 2025-06-14 08:35 | disposition home or self-care (01) ==
LOC: RAD 08:39
PROVIDERS: PCP Family Medicine
DX: M16.11 Unilateral primary osteoarthritis, right hip (principal)
CPT/HCPCS: 73502